=== PATIENT | female | born 1970 | race Caucasian/White ===

== ENCOUNTER 2022-10-17 11:15 | Outpatient (OUT) | payer OTHER, SELFPAY ==
[2022-10-17 12:17] LABS: Alanine Aminotransferase 39 U/L (14-59); Albumin Level 3.8 g/dL (3.4-5.0); Alkaline Phosphatase 92 U/L (46-116); Anion Gap 11.6; Aspartate Amino Transferase 23 U/L (15-37); BUN Creatinine Ratio 13.3; Bilirubin Total 0.5 mg/dL (0.2-1.0); Calcium 9.1 mg/dL (8.5-10.1); Carbon Dioxide 29.1 mmol/L (21.0-32.0); Chloride 102 mmol/L (98-107); Creatine Kinase 161 U/L (26-192); Estimated GFR (African America >60 (>=60); Estimated GFR (Non-African Ame >60 (>=60); Glucose 85 mg/dL (74-106); Potassium 3.7 mmol/L (3.5-5.1); Sodium 139 mmol/L (136-145); Total Protein 7.5 g/dL (6.4-8.2)
[2022-10-17 12:18] LABS: Globulin 3.7 g/dL
== END 2022-10-17 11:16 ==
LOC: LAB 11:21
PROVIDERS: PCP Nurse Practitioner; Visit Provider Nurse Practitioner
DX: M62.82 Rhabdomyolysis (principal)
CPT/HCPCS: 36415; 80053; 82550

== ENCOUNTER 2023-01-20 12:05 | Observation (INO) | payer OTHER, SELFPAY ==
[2023-01-20] VITALS (24 sets, daily range): BP systolic 106–155; BP diastolic 77–104; PULSE 85–121; RESP 12–27; TEMP 36.3–36.9; O2SAT 86–100; BMI 32.0; BMI 32.2
--- NOTE | 2023-01-20 12:12 | XR_ITS ---
The [address] [address] Patient Name: CARIDAD REYES MRN: [id number] date: 1970 Sex: F Assigned Patient Location: ED.MAIN Current Patient Location: ER Accession/Order Number: [id number] Exam Date: 01/20/2023 13:20 Report Date: 01/20/2023 13:36 At the request of: GABO MOORE Procedure: XR chest 1V EXAM: XR chest 1V at 1317 hours HISTORY: sob . The patient has had multiple bee stings today. The patient has hives. COMPARISON: 09/17/2021 TECHNIQUE: AP upright portable chest x-ray FINDINGS: The heart is not enlarged and the vasculature is not distended. Slightly increasing interstitial markings are seen at the lung bases, suggesting early infiltrates. No acute infiltrate, effusion or pneumothorax is otherwise identified. The osseous structures are grossly intact. XR/XR chest 1V IMPRESSION: There is slightly increasing interstitial markings at the lung bases. This may indicate very early infiltrates or may be related to technique. The lungs are otherwise clear, without an effusion or pneumothorax. The heart is not enlarged and the vasculature is not distended. A short-term follow-up study after appropriate therapy is recommended. Electronically authenticated by: UMBERTO PALMER Date: 01/20/2023 13:36
--- NOTE | 2023-01-20 12:12 | ECG_ITS ---
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
--- NOTE | 2023-01-20 12:17 | ED.ALLEREA1 ---
HPI - Allergic Reaction General Chief complaint: Allergic Reaction Stated complaint: ALLERGIC REACTION Time Seen by Provider: 01/20/23 12:07 Source: patient and family Mode of arrival: Wheelchair History of Present Illness HPI narrative: patient is a 52-year-old female presents to the Emergency Room with concerns of multiple bee stings and possible ALLERGIC reaction. Patient states she was working in the yard when she stepped on a nest in the ground, tried to stick a branch into the hole,, she reports multiple stings to her feet and ankles, also started on her back. Patient notes she has not been feeling well since. Some shortness of breath that is progressing. She denies any tongue swelling. notes a lump in her throat. Patient appears acutely anxious about the possibility of ALLERGIC reaction. She reports been stung in the past without any anaphylactic reaction. She denies any chest pain. She is without abdominal pain. MD complaint: Reports allergic reaction Symptoms: Reports rash Treatment prior to arrival: Reports none Previous Allergic Reaction History: Reports none Related Data Home Medications Medication Instructions Recorded Confirmed cyclobenzaprine 10 mg tablet 10 mg PO Q12H PRN muscle spasm 01/20/23 01/20/23 gabapentin 300 mg capsule 300 mg PO Q8H 01/20/23 01/20/23 lisinopril 5 mg tablet 5 mg PO DAILY 01/20/23 01/20/23 paroxetine HCl 30 mg tablet 30 mg PO DAILY 01/20/23 01/20/23 trazodone 50 mg tablet 50 mg PO BEDTIME 01/20/23 01/20/23 Allergies Allergy/AdvReac Type Severity Reaction Status Date / Time cephalexin Allergy Intermediate Verified 01/20/23 12:27 Review of Systems ROS Constitutional Denies: fever or chills Eyes Denies: change in vision Ears, nose, mouth, and throat Reports: hoarseness Cardiovascular Denies: chest pain or palpitations Respiratory Reports: shortness of breath and wheezing; Denies: cough Gastrointestinal Denies: abdominal pain, nausea or vomiting Genitourinary Denies: painful urination Musculoskeletal Reports: extremity pain and extremity swelling; Denies: back pain or neck pain Integumentary/Breast Reports: itching Allergic/Immunologic Reports: hives and wheezing Exam Narrative Exam Narrative: Nurses notes and vital signs reviewed and patient is hypoxic on room air. General: The patient appears uncomfortable noting multiple bee stings. Skin: Warm, dry, no pallor noted, erythematous skin noted. multiple bee stings, examined without evidence of retained stingers. Head: Normocephalic, atraumatic, Neck: Supple, trachea mid-line, no tenderness, no lymphadenopathy Eye: Pupils are equal, round and reactive to light, EOMI Ears, Nose, Mouth, and Throat: TM are clear, normal light reflex, oral mucosa is moist, no posterior oropharynx erythema or hypertrophy, uvula is mid-line Cardiovascular: Regular Rate and Rhythm Respiratory: Patient is in no distress, no accessory muscle use, lungs are clear to auscultation, no wheezing, rales or rhonchi. Chest Wall: no tenderness Back: non-tender, no CVA tenderness Musculoskeletal: normal ROM, no tenderness, no swelling of joints or extremities, localized full bee stings noted around the ankle and lower leg GI: Normal bowel sounds, no tenderness to palpation, no masses appreciated. No rebound, guarding, or rigidity noted. Neurological: A&O x4 Psychiatric: Cooperative MDM - Allergic Reaction MDM Narrative Medical decision making narrative: ice pack applied on arrival, patient with multiple bee stings, blood pressure is stable but pulse oximetry is in the low 90s to upper 80s. Patient patient on supplemental oxygen. Patient will be given a breathing treatment, IV Solu-Medrol 125 mg IV, Benadryl 50 mg IV, epinephrine 0.3 mg IM. patient noted great relief from 1st round of epi, she was given a 2nd dose after symptoms startedd to return. She has been observed for over an hour and a half and notes the lump in her throat is getting smaller and overall she is feeling better but is notably itchy. She is given 25 mg of Vistaril. We discussed her anaphylactic symptoms to multiple bee stings recommended. Of observation to make sure her symptoms do not rebound or worsen. Patient on oxygen with stable pulse oximetry. Recommend admission for observation in case was discussed with Dr. Vasquez who is agreeable for further observation. Differential Diagnosis Differential diagnosis: Likely anaphylaxis and allergic reaction Imaging Data Chest x-ray: Radiologist's impression: Procedure: XR chest 1V EXAM: XR chest 1V at 1317 hours HISTORY: sob . The patient has had multiple bee stings today. The patient has hives. COMPARISON: 09/17/2021 TECHNIQUE: AP upright portable chest x-ray FINDINGS: The heart is not enlarged and the vasculature is not distended. Slightly increasing interstitial markings are seen at the lung bases, suggesting early infiltrates. No acute infiltrate, effusion or pneumothorax is otherwise identified. The osseous structures are grossly intact. XR/XR chest 1V IMPRESSION: There is slightly increasing interstitial markings at the lung bases. This may indicate very early infiltrates or may be related to technique. The lungs are otherwise clear, without an effusion or pneumothorax. The heart is not enlarged and the vasculature is not distended. A short-term follow-up study after appropriate therapy is recommended. Electronically authenticated by: UMBERTO PALMER Date: 01/20/2023 13:36 ECG Data Attestation: I personally reviewed and interpreted this ECG as follows: Interpretation: EKG interpretation: Emergency Department physician interpretation, sinus tachycardia, 100 bpm, no ectopy, no ST segment elevation, normal axis. Discharge Plan Discharge Chief Complaint: Allergic Reaction Clinical Impression: Anaphylaxis Patient Disposition: Admitted as Observation Time of Disposition Decision: 13:45 Condition: Good Prescriptions / Home Meds: No Action cyclobenzaprine 10 mg tablet 10 mg PO Q12H PRN (Reason: muscle spasm) gabapentin 300 mg capsule 300 mg PO Q8H lisinopril 5 mg tablet 5 mg PO DAILY paroxetine HCl 30 mg tablet 30 mg PO DAILY trazodone 50 mg tablet 50 mg PO BEDTIME Referrals: Carrie Todd [Primary Care Provider] - 1 week
[2023-01-20] MEDS: FAMOTIDINE/PF 20 MG/2 ML VIAL IV ×2 (12:23→20:05)
[2023-01-20] MEDS: 0.9 % SODIUM CHLORIDE 1,000 ML 250 ML IV (12:23)
[2023-01-20] MEDS: DIPHENHYDRAMINE HCL 50 MG/ML (1ML) VIAL 25 MG IV (12:23)
[2023-01-20] MEDS: METHYLPREDNISOLONE SOD SUCC PF 125 MG/2 ML VIAL IVP (12:23)
[2023-01-20] MEDS: EPINEPHRINE HCL PF 1 MG/ML AMPULE 0.3 MG IM ×2 (12:24→12:47)
[2023-01-20 12:32] LABS: Basophils Percent Auto 0.3 % (0.2-2.0); Eosinophils Percent Auto 0.4 % (0.9-7.0); Hematocrit 45.6 % (36.0-48.0); Hemoglobin 15.6 g/dL (12.0-16.0); Immature Granulocytes Abs Auto 0.05 10^3/uL (0.00-0.03); Immature Granulocytes Pct Auto 0.5 % (0.0-0.5); Lymphocytes Absolute Auto 5.5 10^3/uL (1.2-3.8); Lymphocytes Percent Auto 55.3 % (20.5-60.0); Mean Corpuscular HGB Conc 34.2 g/dL (29.9-35.2); Mean Corpuscular Hemoglobin 31.9 pg (26.7-34.0); Mean Corpuscular Volume 93.3 fL (81.0-99.0); Mean Platelet Volume 11.4 fL (9.5-13.5); Monocytes Absolute Auto 0.4 10^3/uL (0.3-0.8); Monocytes Percent Auto 3.7 % (1.7-12.0); Neutrophils Absolute Auto 3.9 10^3/uL (1.4-6.5); Neutrophils Percent Auto 39.8 % (43.0-75.0); Platelet Count 264 10^3/uL (150-450); Red Blood Count 4.89 10^6/uL (4.20-5.40); Red Cell Distribution Width 12.6 % (11.0-15.0); White Blood Count 9.9 10^3/uL (4.0-11.0)
[2023-01-20 12:43] LABS: Anion Gap 19.6; BUN Creatinine Ratio 10.3; Calcium 9.1 mg/dL (8.5-10.1); Carbon Dioxide 21.8 mmol/L (21.0-32.0); Chloride 101 mmol/L (98-107); Estimated GFR (African America >60 (>=60); Estimated GFR (Non-African Ame >60 (>=60); Glucose 152 mg/dL (74-106); Potassium 3.4 mmol/L (3.5-5.1); Sodium 139 mmol/L (136-145)
[2023-01-20] MEDS: IPRATROPIUM/ALBUTEROL SULFATE 3 ML AMPUL.NEB IH (13:00)
[2023-01-20] MEDS: 0.9 % SODIUM CHLORIDE 1,000 ML 999 ML IV (13:12)
[2023-01-20] MEDS: HYDROXYZINE PAMOATE 25 MG CAPSULE PO (13:51)
[2023-01-20] MEDS: METHYLPREDNISOLONE SOD SUCC PF 125 MG/2 ML VIAL 60 MG IVP (17:58)
[2023-01-20] MEDS: DIPHENHYDRAMINE HCL 25 MG CAPSULE 50 MG PO (17:59)
[2023-01-21] MEDS: DIPHENHYDRAMINE HCL 25 MG CAPSULE 50 MG PO (00:11)
[2023-01-21] MEDS: METHYLPREDNISOLONE SOD SUCC PF 125 MG/2 ML VIAL 60 MG IVP ×3 (00:12→11:01)
[2023-01-21] MEDS: ACETAMINOPHEN 500 MG TABLET 1000 MG PO (00:13)
[2023-01-21 04:24] LABS: Basophils Percent Auto 0.1 % (0.2-2.0); Hemoglobin 13.8 g/dL (12.0-16.0); Immature Granulocytes Abs Auto 0.08 10^3/uL (0.00-0.03); Immature Granulocytes Pct Auto 0.5 % (0.0-0.5); Lymphocytes Percent Auto 6.8 % (20.5-60.0); Mean Corpuscular HGB Conc 32.9 g/dL (29.9-35.2); Mean Corpuscular Hemoglobin 31.9 pg (26.7-34.0); Mean Corpuscular Volume 97.2 fL (81.0-99.0); Mean Platelet Volume 11.4 fL (9.5-13.5); Monocytes Absolute Auto 0.2 10^3/uL (0.3-0.8); Neutrophils Absolute Auto 13.8 10^3/uL (1.4-6.5); Neutrophils Percent Auto 91.6 % (43.0-75.0); Platelet Count 166 10^3/uL (150-450); Red Blood Count 4.32 10^6/uL (4.20-5.40); Red Cell Distribution Width 12.6 % (11.0-15.0); White Blood Count 15.1 10^3/uL (4.0-11.0)
[2023-01-21 04:37] LABS: Alanine Aminotransferase 35 U/L (14-59); Albumin Level 3.1 g/dL (3.4-5.0); Alkaline Phosphatase 87 U/L (46-116); Anion Gap 13.1; Aspartate Amino Transferase 27 U/L (15-37); BUN Creatinine Ratio 19.1; Bilirubin Total 0.3 mg/dL (0.2-1.0); Calcium 8.6 mg/dL (8.5-10.1); Carbon Dioxide 23.5 mmol/L (21.0-32.0); Chloride 106 mmol/L (98-107); Estimated GFR (African America >60 (>=60); Estimated GFR (Non-African Ame >60 (>=60); Globulin 3.2 g/dL; Glucose 206 mg/dL (74-106); Potassium 3.6 mmol/L (3.5-5.1); Sodium 139 mmol/L (136-145); Total Protein 6.3 g/dL (6.4-8.2)
[2023-01-21 04:38] VITALS: O2SAT 92
[2023-01-21 05:28] VITALS: BP 132/67; PULSE 82; RESP 16; TEMP 36.7; O2SAT 94
[2023-01-21] MEDS: FAMOTIDINE/PF 20 MG/2 ML VIAL IV (08:17)
--- NOTE | 2023-01-21 10:17 | PM.HP ---
H&P: HPI History of Present Illness Chief complaint: Allergic reaction Narrative: 52 y/o female to ER after allergic reaction from stings. Patient working in yard and found a hornet's nest in the ground. Noticed a hole in nest and put a stick in hole to block it. Multiple hornets swarmed and patient had multiple stings. Stings over bilateral lower legs, ankles, feet, abdomen, and back. After got away started to feel very lightheaded. Developed swelling to face and eyes. Started to feel swelling around tongue and throat and felt like had a lump in throat. Mild SOB and to ER. Given epi x 2 along with solu-medrol, benadryl, and pepcid. Symptoms improved but still felt like lump in throat and admitted. Started solu-medrol and pepcid. Gave benadryl PRN. Much improved this am and no further symptoms. Eating and drinking well. Review of Systems ROS Constitutional Denies: fever, chills or night sweats Ears, nose, mouth, and throat Reports: throat swelling; Denies: throat pain or difficulty swallowing Cardiovascular Denies: chest pain, edema or lightheadedness Respiratory Reports: shortness of breath; Denies: cough, wheezing or stridor Gastrointestinal Denies: abdominal pain, nausea, vomiting or diarrhea Genitourinary Denies: painful urination [facility] Medical History (Updated 01/21/23 @ 10:22 by Son Vasquez MD) Family History (Updated 01/20/23 @ 14:31 by Amanda Kenyon) Mother Family history of diabetes mellitus Family history of hypertension Meds Home Medications and Allergies Home Medications Medication Instructions Recorded Confirmed Type cyclobenzaprine 10 mg tablet 10 mg PO Q12H PRN muscle spasm 01/20/23 01/20/23 History gabapentin 300 mg capsule 300 mg PO Q8H 01/20/23 01/20/23 History lisinopril 5 mg tablet 5 mg PO DAILY 01/20/23 01/20/23 History paroxetine HCl 30 mg tablet 30 mg PO DAILY 01/20/23 01/20/23 History trazodone 50 mg tablet 50 mg PO BEDTIME 01/20/23 01/20/23 History Allergies Allergy/AdvReac Type Severity Reaction Status Date / Time hornet venom Allergy Severe Anaphylaxis Verified 01/20/23 14:44 cephalexin Allergy Intermediate Verified 01/20/23 14:32 Exam Constitutional Vital Signs, click to edit/add: Last Vital Signs Temp 98.1 F 01/21/23 05:28 Pulse 82 01/21/23 05:28 Resp 16 01/21/23 05:28 BP 132/67 01/21/23 05:28 Pulse Ox 94 L 01/21/23 05:28 O2 Del Method Room Air 01/21/23 05:28 O2 Flow Rate 2 01/20/23 13:56 Documenting provider has reviewed patient's vital signs: yes Common normals: oriented x3 and alert HENMT Common normals: normocephalic Eye Common normals: PERRL and EOMs intact bilaterally Respiratory Common normals: normal respiratory effort and clear to auscultation bilaterally Cardio Common normals: regular rate, regular rhythm, no gallops, no murmurs and no rub GI Common normals: Normal to inspection, nondistended, normoactive bowel sounds present and non-tender Extremity Common normals: no pedal edema Results Labs Labs: Short CBC 01/20/23 01/21/23 Range/Units 12:20 04:02 WBC 9.9 15.1 H (4.0-11.0) 10^3/uL Hgb 15.6 13.8 (12.0-16.0) g/dL Hct 45.6 42.0 (36.0-48.0) % Plt Count 264 166 (150-450) 10^3/uL BMP 01/20/23 01/21/23 12:20 04:02 Sodium 139 139 Potassium 3.4 L 3.6 Chloride 101 106 Carbon Dioxide 21.8 23.5 BUN 8.0 13.0 Creatinine 0.78 0.68 Glucose 152 H 206 H Calcium 9.1 8.6 Liver Function 01/21/23 Range/Units 04:02 Total Bilirubin 0.3 (0.2-1.0) mg/dL AST 27 (15-37) U/L ALT 35 (14-59) U/L Alkaline Phosphatase 87 (46-116) U/L Albumin 3.1 L (3.4-5.0) g/dL Assessment and Plan Assessment and Plan (1) Hornet sting: (2) HTN (hypertension): (3) Alcohol abuse, in remission: (4) Neuropathy: Plan Developed reaction after multiple stings but improved with treatment. Discharge home. Will continue steroids and use benadryl PRN. F/u with PCP in 2-4 weeks.
--- NOTE | 2023-01-21 10:22 | CM.NOTE ---
Rounds made with Dr. Vasquez. Plan for discharge is today. Dr. Vasquez will discharge home on Medrol dose pack and can use Benadryl as needed. Verbalizes understanding.
--- NOTE | 2023-01-22 14:23 | CM.DCFOLLOWU ---
Attempted to do follow up phone call. No answer at this time. Will follow.
--- NOTE | 2023-01-23 15:15 | CM.DCFOLLOWU ---
2nd attempt for call back- no answer 01/23/23
--- NOTE | 2023-01-24 15:12 | CM.DCFOLLOWU ---
3rd attempt no answer 01/24/23
== END 2023-01-21 11:34 | disposition home or self-care (01) ==
LOC: ER 13:45 → MS 14:23
PROVIDERS: Personal Emergency Response Attendant; Admitting Provider Family Medicine; Emergency Provider Emergency Medicine Emergency Medical Services; PCP Nurse Practitioner; Visit Provider Family Medicine
DX: T63.441A Toxic effect of venom of bees, accidental (unintentional), initial encounter (principal); I10 Essential (primary) hypertension; G62.9 Polyneuropathy, unspecified; F10.11 Alcohol abuse, in remission; Z79.899 Other long term (current) drug therapy
CPT/HCPCS: 36415; 71045; 80048; 80053; 85025; 93005; 94640; 94761; 96372; 96374; 96375; 96376; 99285; 99406; G0378; J2930

== ENCOUNTER 2023-07-23 11:25 | Outpatient (OUT) | payer OTHER, SELFPAY ==
--- NOTE | 2023-07-23 11:28 | MM_ITS ---
Patient Name: CARIDAD REYES MR#: [id number] : 1970 Exam Date: 07/23/2023 Ordering Doctor: ROSARIO Todd CNP RADIOLOGY REPORT PROCEDURE: MM TOMOSYNTHESIS SCREENING BI COMPARISON: MG MAMM SCREEN 3D KOBY CAD, 04/24/2022. INDICATIONS: Screening Calculator Name NCI Breast Cancer Risk Assessment Tool 5 Year Breast Cancer Risk 1.20% Lifetime Breast Cancer Risk 8.50% Personal Breast Cancer No Personal Ovarian Cancer No Treatments None Family Cancers Grandmother-paternal with breast cancer at age ~70. LOCATION: [facility] BREAST COMPOSITION: Scattered areas fibroglandular density. FINDINGS: DIAGNOSTIC CATEGORY 2--BENIGN FINDING. NO CHANGE FROM COMPARISON. Scattered benign-appearing calcifications are present. Scattered benign-appearing lymph nodes are present. RIGHT BREAST: No significant suspicious finding. LEFT BREAST: No significant suspicious finding. RECOMMENDATIONS: ROUTINE MAMMOGRAM AND CLINICAL EVALUATION IN 12 MONTHS. PLEASE NOTE: A NORMAL MAMMOGRAM DOES NOT EXCLUDE THE POSSIBILITY OF BREAST CANCER. A CLINICALLY SUSPICIOUS PALPABLE LUMP SHOULD BE BIOPSIED. Dictated by: Adalberto Pennington MD on 07/23/2023 at 13:08 Approved by: Adalberto Pennington MD on 07/23/2023 at 13:12
== END 2023-07-23 11:26 | disposition home or self-care (01) ==
LOC: MAMMO 11:25
PROVIDERS: PCP Nurse Practitioner; Visit Provider Nurse Practitioner
DX: Z12.31 Encounter for screening mammogram for malignant neoplasm of breast (principal); Z80.3 Family history of malignant neoplasm of breast
CPT/HCPCS: 77063; 77067

== ENCOUNTER 2023-08-27 20:43 | Outpatient (REF) | payer OTHER, SELFPAY ==
--- OUTSIDE RECORDS SUMMARY | 2023-08-27 20:50 | XMS_ITS | CCD ---
Author Organization [facility] Care Team Providers Care Certified Medical Assistant Name Role Phone Angelo Tee Primary Care Unavailable CARIDAD JERONIMO Admitting Unavailable CARIDAD JERONIMO Attending Unavailable KHADIJAH RODRIGUEZ Consulting Unavailable SpychalskiAlba Consulting Unavailable BV, Physician - Emergency Consulting Francis Lucero Consulting Unavailable MENDOZA WILEY Referring Unavailable SAURABHMENDOZA Referring Unavailable Lashonda Horton Unavailable AICHHOLZ, CARRIE J Primary Care Physician [phone] Ede BHAKTA Attending Unavailable AICHNICKIE, CARRIE Dennis Referring Unavailable Angelo BERNARD Attending Unavailable Ede BHAKTA Attending Unavailable Ede BHAKTA Attending Unavailable AICHHOLZ, CARRIE Dennis Referring Unavailable NILL ., DR MERA Consulting Unavailable AICHHOLZ, TREASURER CARRIE Primary Care Unavailable NILL ., DR MERA Admitting Unavailable NILL ., DR MERA Attending Unavailable ROCHELLE WOODRUFF Consulting Unavailable EDUARDO IIXAVI Consulting Unavailable AICHHOLZ, TREASURER CARRIE Attending Unavailable AICHHOLZ, TREASURER CARRIE Admitting Unavailable AICHHOLZ, TREASURER CARRIE Consulting Unavailable AICHHOLZ, TREASURER CARRIE Primary Care Unavailable AICHHOLZ, TREASURER CARRIE Attending Unavailable AICHHOLZ, TREASURER CARRIE Consulting Unavailable AICHHOLZ, TREASURER CARRIE Primary Care Unavailable AICHHOLZ, TREASURER CARRIE Admitting Unavailable DR JUANIS RIZO Consulting Unavailable JODIE FIELDS Admitting Unavailable AICHHOLZ, TREASURER CARRIE Primary Care Unavailable JODIE FIELDS Attending Unavailable JODIE FIELDS Consulting Unavailable NILL ., DR MERA Consulting Unavailable NILL ., DR MERA Admitting Unavailable AICHHOLZ, TREASURER CARRIE Primary Care Unavailable NILEva ., DR MERA Attending Unavailable RHONDA, DR JUANIS Pineda Consulting Unavailable [facility], T[facility]ER [facility] Primary Care Unavailable SHAIKH Reshma MONSALVE Admitting Unavailable SHAIKH Reshma MONSALVE Attending Unavailable MANUELA Tijerina, DR GUSTAFSON Consulting Unavailable SHAIKH Reshma MONSALVE Consulting Unavailable SISTER, PEDRO Consulting Unavailable Renee Ballesteros Unavailable CARRIE TODD Attending Unavailable CARRIE TODD Attending Unavailable Allergies Allergy Classification Reported Allergen(s) Allergy Type Date of Onset Reaction(s) Facility (2 sources) Cephalexin; Translations: [Keflex] Drug Allergy 3 [facility] Repository (5 sources) Cephalexin; Translations: [cephalexin] Drug Allergy 3 rash, Eruption of skin (disorder) [facility] [place] Medications Current Medications Medication Drug Class(es) Dates Sig (Normalized) Sig (Original) amoxicillin 875 mg / clavulanate 125 mg oral tablet (1 source) Penicillin-class Antibacterial Start: 01-29-2023 take 1 tablet by mouth every twelve hours Amoxicillin-Pot Clavulanate 875-125 MG 1 tablet Orally every 12 hrs for 10 days Jan, Active cyclobenzaprine hydrochloride 10 mg oral tablet (3 sources) Muscle Relaxant Start: 05-03-2022 take 1 tablet by mouth twice daily as needed for muscle spasms cyclobenzaprine 10 mg Tab 10 mg = 1 tab(s), Oral, BID, PRN for spasm, # 30 tab(s), Refills(s) 0 Start Date: 05/03/22 Status: Ordered fluticasone propionate 0.05 mg/actuat metered dose nasal spray (1 source) Corticosteroid Start: 01-29-2023 take 2 spray(s) nasal route once daily Fluticasone Propionate 50 MCG/ACT 2 sprays Nasally Once a day for 14 day(s) Jan, Active gabapentin 300 mg oral capsule (3 sources) Anti-epileptic Agent Start: 05-03-2022 take 1 capsule by mouth three times daily gabapentin 300 mg Cap 300 mg = 1 cap(s), Oral, TID, Refills(s) 0 Start Date: 05/03/22 Status: Ordered lisinopril 5 mg oral tablet (3 sources) Angiotensin Converting Enzyme Inhibitor Start: 05-03-2022 take 1 tablet by mouth once daily lisinopril 5 mg Tab 5 mg = 1 tab(s), Oral, Daily, Refills(s) 0 Start Date: 05/03/22 Status: Ordered loratadine 10 mg oral tablet (3 sources) Start: 05-03-2022 take 1 tablet by mouth once daily loratadine 10 mg Tab 10 mg = 1 tab(s), Oral, Daily, Refills(s) 0 Start Date: 05/03/22 Status: Ordered naltrexone hydrochloride 50 mg oral tablet (3 sources) Opioid Antagonist Start: 05-03-2022 take 1 tablet by mouth once daily naltrexone 50 mg oral tablet 50 mg = 1 tab(s), Oral, Daily, Refills(s) 0 Start Date: 05/03/22 Status: Ordered PARoxetine hydrochloride 30 mg oral tablet (3 sources) Serotonin Reuptake Inhibitor Start: 05-03-2022 take 1 tablet by mouth once daily Paxil 30 mg Tab 30 mg = 1 tab(s), Oral, Daily, Refills(s) 0 Start Date: 05/03/22 Status: Ordered predniSONE 20 mg oral tablet (2 sources) Start: 01-29-2023 take 1 tablet by mouth every twelve hours predniSONE 20 MG 1 tablet Orally bid for 5 day(s) Jan, Active predniSONE 50 MG Oral for 5 Days Not-Taking traZODone hydrochloride 50 mg oral tablet (3 sources) Serotonin Reuptake Inhibitor Start: 05-03-2022 take 1 tablet by mouth once daily at bedtime traZODONE 50 mg Tab 50 mg = 1 tab(s), Oral, Once a day (at bedtime), Refills(s) 0 Start Date: 05/03/22 Status: Ordered Completed/Discontinued Medications Medication Drug Class(es) Dates Sig (Normalized) Sig (Original) clotrimazole 10 mg oral lozenge (2 sources) Azole Antifungal Start: 04-30-2021 Clotrimazole 10 MG 1 ana luisa Mouth/Throat Five times a day for 14 day(s) Apr, Not-Taking ondansetron 4 mg oral tablet (2 sources) Serotonin-3 Receptor Antagonist Start: 04-30-2021 take 1 tablet by mouth every twenty-four hours Ondansetron HCl 4 MG 1 tablet Orally Once a day for 7 days 13 Apr, 2021 Not-Taking Pseudoephedrine (2 sources) alpha-Adrenergic Agonist Sudafed Not-Taking Sudafed Active Problems Active Problems Problem Classification Problem Date Documented Date Episodic/Chronic Alcohol-related disorders (2 sources) Alcohol abuse 05-03-2022 Chronic Anxiety disorders (2 sources) Anxiety 05-03-2022 Chronic Asthma (1 source) Unspecified asthma, uncomplicated; Translations: [UNSPECIFIED ASTHMA UNCOMPLICATED] Onset: 3 Chronic Blindness and vision defects (2 sources) Visual impairment 05-03-2022 Chronic Disorders of lipid metabolism (1 source) Pure hypercholesterolemia, unspecified; Translations: [PURE HYPERCHOLESTEROLEMIA UNSPEC] Onset: 3 Chronic Essential hypertension (3 sources) Hypertensive disorder; Translations: [Essential (primary) hypertension] Onset: 3 05-03-2022 Chronic Mood disorders (1 source) Major depressive disorder, single episode, unspecified; Translations: [EVELINE DEPRESS D/O SINGLE EPIS UNS] Onset: 2 Chronic Mood disorders (1 source) Mood disorders; Translations: [DEPRESSION UNSPECIFIED] Onset: 3 Other aftercare (1 source) Other usp (current) drug therapy; Translations: [OTH CHARGER OPERATOR CURRENT DRUG THERAPY] Onset: 3 Episodic Other connective tissue disease (4 sources) Rhabdomyolysis; Translations: [RHABDOMYOLYSIS] Onset: 3 Episodic Other connective tissue disease (1 source) Other muscle spasm; Translations: [OTHER MUSCLE SPASM] Onset: 3 Episodic Other nervous system disorders (2 sources) Neuropathy 05-03-2022 Chronic Other nervous system disorders (1 source) Polyneuropathy, unspecified; Translations: [POLYNEUROPATHY UNSPECIFIED] Onset: 3 Chronic Other nervous system disorders (1 source) Other chronic pain; Translations: [OTHER CHRONIC PAIN] Onset: 3 Chronic Other nutritional; endocrine; and metabolic disorders (2 sources) Overweight in adulthood with body mass index of 25 or more but less than 30 05-15-2022 Episodic Other upper respiratory disease (2 sources) Seasonal allergy 05-03-2022 Chronic Other upper respiratory infections (2 sources) Acute sinusitis, unspecified; Translations: [Acute pharyngitis, unspecified] Episodic Residual codes; unclassified (2 sources) Insomnia 05-03-2022 Episodic Residual codes; unclassified (2 sources) Tobacco user 05-03-2022 Episodic Substance-related disorders (1 source) Nicotine dependence, cigarettes, uncomplicated; Translations: [NICOTINE DEPEND CIGARETTES UNCOMP] Onset: 3 Chronic Unclassified (2 sources) Patient encounter status 05-15-2022 Unclassified (1 source) LOW BACK PAIN, UNSPECIFIED; Translations: [LOW BACK PAIN, UNSPECIFIED] Onset: 3 Unclassified (1 source) CONTACT W/AND (SUSP) EXPOS COVID-19; Translations: [CONTACT W/AND (SUSP) EXPOS COVID-19] Onset: 3 Past or Other Problems Problem Classification Problem Date Documented Da te Episodic/Chronic Allergic reactions (1 source) Unspecified contact dermatitis, unspecified cause; Translations: [UNS CONTACT DERMATITIS UNS CAUSE] Onset: 02-12-2022 Episodic Genitourinary symptoms and ill-defined conditions (4 sources) Asymptomatic microscopic hematuria; Translations: [ASYMPTOMATIC MICROSCOPIC HEMATURIA] Onset: 05-06-2022 Episodic Immunizations and screening for infectious disease (1 source) Contact with and (suspected) exposure to other viral communicable diseases Onset: 04-30-2021 Resolved: 04-30-2021 Episodic Mycoses (1 source) Candidal stomatitis Onset: 04-30-2021 Resolved: 04-30-2021 Episodic Other screening for suspected conditions (not mental disorders or infectious disease) (6 sources) Screening for malignant neoplasm of colon done; Translations: [Encounter for screening for malignant neoplasm of colon] Onset: 04-27-2022 Episodic Other skin disorders (3 sources) Rash and other nonspecific skin eruption; Translations: [RASH OTH NONSPECIFIC SKIN ERUPTION] Onset: 02-10-2022 Episodic Residual codes; unclassified (1 source) Family history of malignant neoplasm of breast; Translations: [FAMILY HX MALIG NEOPLASM OF BREAST] Onset: 04-27-2022 Episodic Unclassified (1 source) Contact with and (suspected) exposure to covid-19 Z20.822 Results Test Name Value Interpretation Reference Range Facility COVID Quick Testingon 2022 Result Negative [employer] Other Quick Strepon 01-29-2023 S. pyogenes Org specific cx Ql (Throat) Negative [employer] [facility] [employer] Other Quick Strep [employer] [facility] [employer] Other CPKon 10-10-2022 CK [Catalytic activity/Vol] 860 U/L Critically high 26-192 [facility] Comment on above: Performed By: #### Navid Flowers, CMP ####[facility] [address] [place], [place] [address]Dr. Caterina So PROF 14(COMP METB)on 023 Albumin [Mass/Vol] 2.9 g/dL Critically low 3.4-5.0 Th [facility] Comment on above: Performed By: #### Navid Flowers, CMP ####[facility] [address] [place], [place] [address]Dr. Caterina So Albumin/Globulin [Mass ratio] 0.9 {ratio} Normal [facility] Comment on above: Performed By: #### Navid K, CMP ####[facility] [address] [place], [place] [address]Dr. Caterina So ALP [Catalytic activity/Vol] 82 U/L Normal 46-116 [facility] Comment on above: Performed By: #### Navid K, CMP ####[facility] [address] [place], [place] [address]Dr. Caterina So ALT [Catalytic activity/Vol] 42 U/L Normal 14-59 [facility] Comment on above: Performed By: #### Navid K, CMP ####[facility] [address] [place], [place] [address]Dr. Caterina So Anion gap [Moles/Vol] 10.7 mmol/L Normal [facility] Comment on above: Performed By: #### C K, CMP ####[facility] [address] [place], [place] [address]Dr. Caterina So AST [Catalytic activity/Vol] 47 U/L Critically high 15-37 [facility] Comment on above: Performed By: #### Nvaid K, CMP ####[facility] [address] [place], [place] [address]Dr. Caterina So Bilirubin [Mass/Vol] 0.4 mg/dL Normal 0.2-1.[address] [facility] Comment on above: Performed By: #### C K, CMP ####[facility] [address] [place], [place] [address]Dr. Caterina So Calcium [Mass/Vol] 8.5 mg/dL Normal 8.5-10.1 [facility] Comment on above: Performed By: #### C K, CMP ####[facility] W[address] [place], [place] [address]Dr. Caterina So Chloride [Moles/Vol] 109 mmol/L Critically high 98-[address] [facility] Comment on above: Performed By: #### C K, CMP ####[facility] [address] [place], [place] [address]Dr. Caterina So CO2 [Moles/Vol] 28.6 mmol/L Normal 21.0-32.0 [facility] Comment on above: Performed By: #### C K, CMP ####[facility] [address] [place], [place] [address]Dr. Caterina So Creatinine [Mass/Vol] 0.51 mg/dL Critically low 0.55-1.02 [facility] Comment on above: Performed By: #### C K, CMP ####[facility] [address] [place], [place] [address]Dr. Caterina So EGFR-AF BELGIAN >60 Normal >=60 [facility] Comment on above: Performed By: #### C K, CMP ####[facility] [address] [place], [place] [address]Dr. Caterina So EGFR-NON AF BELGIAN >60 Normal >=[address] [facility] Comment on above: Performed By: #### C K, CMP ####[facility] [address] [place], [place] [address]Dr. Caterina So Globulin (S) [Mass/Vol] 3.1 g/dL Normal [facility] Comment on above: Performed By: #### C K, CMP ####[facility] [address] [place] [id number]. Caterina So Glucose [Mass/Vol] 90 mg/dL Normal 74-106 [facility] Comment on above: Performed By: #### C K, CMP ####[facility] [address] [place] [address]Dr. Caterina So Potassium [Moles/Vol] 4.3 mmol/L Normal 3.5-5.1 [facility] Comment on above: Performed By: #### C K, CMP ####[facility] [address] [place] [address]Dr. Caterina So Protein [Mass/Vol] 6.0 g/dL Critically low 6.4-8.2 Th [facility] Comment on above: Performed By: #### Navid K, CMP ####[facility] [address] [place] [address]Dr. Caterina So Sodium [Moles/Vol] 144 mmol/L Normal 136-145 [facility] Comment on above: Performed By: #### C K, CMP ####[facility] [address] [place] [address]Dr. Caterina So Urea nitrogen [Mass/Vol] 8.0 mg/dL Normal 7.0-18.0 [facility] Comment on above: Performed By: #### C K, CMP ####[facility] [address] [place] [address]Dr. Caterina So Urea nitrogen/Creatinin e [Mass ratio] 15.7 mg/mg Normal [facility] Comment on above: Performed By: #### C K, CMP ####[facility] [address] [place] [id number]. Caterina So CARDIAC ANDRÉS ADMITon 023 CK [Catalytic activity/Vol] 3715 U/L Critically high 26-192 [facility] Comment on above: Performed By: #### C MARIO ALBERTO, CMP #### [facility] [address] [address] [address] Caterina So CK.MB [Mass/Vol] 9.82 ng/mL Critically high <=3.60 [facility] Comment on above: Performed By: #### C MADM, CMP #### [facility] [address] [address] [address] Caterina So HSTROP 12.3 pg/mL Normal 4.0-51.3 [facility] Comment on above: Result Comment: CUT- OFF POINTS HAVE BEEN ESTABLISHED BASED ON THE FOURTH UNIVERSAL DEFINITIONS OF MYOCARDIAL INFARCTION. THE UPPER REFERENCE LIMIT (URL) OF TROPONIN, DEFINED THE 99TH PERCENTILE OF cTnI DISTRIBUTION IN A REFERENCE POPULATION, HAS BEEN CONFIRMED THE DECISION THRESHOLD FOR AR DIAGNOSIS. Performed By: #### C MADM, CMP #### [facility] [address] [address] [address] Caterina So KRISTINA 158 ng/mL Critically high 9-82 [facility] Comment on above: Performed By: #### C MADM, CMP #### [facility] [address] [address] [address] Caterina So CBC AUTO DIFFon 10-09-2022 BASO # 0.1 103/ul Normal 0.0-0.1 [facility] Comment on above: Performed By: #### C BC #### [facility] [address] [address] [address] Caterina So Basophils/100 WBC (Bld) 0.8 % Normal 0.2-2.0 [facility] Comment on above: Performed By: #### C BC #### [facility] [address] [address] [address] Caterina So EO # 0.2 103/ul Normal 0.0-0.[address] [facility] Comment on above: Performed By: #### C BC #### [facility] [address] [address] [address] Caterina So Eosinophils/100 WBC (Bld) 1.8 % Normal 0.9-7.0 [facility] Comment on above: Performed By: #### C BC #### [facility] [address] [place] [address] Dr. Caterina So Erythrocyte distribution width (RBC) [Ratio] 13.0 % Normal 11.0-15.0 [facility] Comment on above: Performed By: #### C BC #### [facility] [address] [address] [address] Caterina So Hematocrit (Bld) [Volume fraction] 41.7 % Normal 36.0-48.0 [facility] Comment on above: Performed By: #### C BC #### [facility] [address] [address] [address] Caterina So Hemoglobin (Bld) [Mass/Vol] 13.5 g/dL Normal 12.0-16.0 [facility] Comment on above: Performed By: #### C BC #### [facility] [address] [place] [address] Dr. Caterina So IG # 0.04 10e3/ul Critically high 0.00-0.03 [facility] Comment on above: Performed By: #### C BC #### [facility] [address] [place] [address] Dr. Caterina So IG % 0.4 % Normal 0.0-0.5 [facility] Comment on above: Performed By: #### C BC #### [facility] [address] [place] [address] Dr. Caterina So LYMPH # 3.3 103/ul Normal 1.2-3.8 [facility] Comment on above: Performed By: #### C BC #### [facility] [address] [place] [address] Dr. Caterina So Lymphocytes/100 WBC (Bld) 36.8 % Normal 20.5-60.0 [facility] Comment on above: Performed By: #### C BC #### [facility] [address] [place] [address] Dr. Caterina oS MANUAL DIFF REQ NO Normal [facility] Comment on above: Performed By: #### C BC #### [facility] [address] [place] [address] Dr. Caterina So MCH (RBC) [Entitic mass] 31.3 pg Normal 26.7-34.0 [facility] Comment on above: Performed By: #### C BC #### [facility] [address] [address] [address] Caterina So MCHC (RBC) [Mass/Vol] 32.4 g/dL Normal 29.9-35.[address] [facility] Comment on above: Performed By: #### C BC #### [facility] [address] [place] [address] Dr. Caterina So MCV (RBC) [Entitic vol] 96.5 fL Normal 81.0-99.0 [facility] Comment on above: Performed By: #### C BC #### [facility] [address] [place] [address] Dr. Caterina So MONO # 0.6 103/ul Normal 0.3-0.8 [facility] Comment on above: Performed By: #### C BC #### [facility] [address] [place] [address] Dr. Caterina So Monocytes/100 WBC (Bld) 6.9 % Normal 1.7-12.0 [facility] Comment on above: Performed By: #### C BC #### [facility] [address] [place] [address] Dr. Caterina So NEUT # 4.8 103/ul Normal 1.4-6.5 [facility] Comment on above: Performed By: #### C BC #### [facility] [address] [place] [address] Dr. Caterina So Neutrophils/100 WBC (Bld) 53.3 % Normal 43.0-75.[address] [facility] Comment on above: Performed By: #### C BC #### [facility] [address] [place] [address] Dr. Caterina So Platelet mean volume (Bld) [Entitic vol] 11.0 fL Normal 9.5-13.[address] [facility] Comment on above: Performed By: #### C BC #### [facility] [address] [place] [address] Dr. Caterina So PLT 204 103/ul Normal 150-[address] [facility] Comment on above: Performed By: #### C BC #### [facility] [address] [address] [address] Caterina So RBC 4.32 106/ul Normal 4.20-5.40 [facility] Comment on above: Performed By: #### C BC #### [facility] [address] [address] [address] Caterina So WBC 8.9 103/ul Normal 4.0-11.0 [facility] Comment on above: Performed By: #### C BC #### [facility] [address] [address] [address] Caterina So CPKon 10-09-2022 CK [Catalytic activity/Vol] 3818 U/L Critically high 26-192 [facility] Comment on above: Performed By: #### C K ####[facility] [address] [place] [address]Dr. Caterina So PROF 14(COMP METB)on 023 Albumin [Mass/Vol] 4.2 g/dL Normal 3.4-5.0 [facility] Comment on above: Performed By: #### C MARIO ALBERTO, CMP #### [facility] [address] [address] [address] Caterina So Albumin/Globulin [Mass ratio] 1.1 {ratio} Normal [facility] Comment on above: Performed By: #### C MARIO ALBERTO, CMP #### [facility] [address] [address] [address] Caterina So ALP [Catalytic activity/Vol] 104 U/L Normal 46-[address] [facility] Comment on above: Performed By: #### C TIFFANIEM, CMP #### [facility] [address] [address] [address] Caterina So ALT [Catalytic activity/Vol] 64 U/L Critically high 14-59 [facility] Comment on above: Performed By: #### C TIFFANIEM, CMP #### [facility] [address] [address] [address] Caterina So Anion gap [Moles/Vol] 10.9 mmol/L Normal [facility] Comment on above: Performed By: #### C TIFFANIEM, CMP #### [facility] [address] [address] [address] Caterina So AST [Catalytic activity/Vol] 103 U/L Critically high 15-37 [facility] Comment on above: Performed By: #### C MADM, CMP #### [facility] [address] [address] [address] Caterina So Bilirubin [Mass/Vol] 0.6 mg/dL Normal 0.2-1.0 [facility] Comment on above: Performed By: #### C MADM, CMP #### [facility] [address] [address] [address] Caterina So Calcium [Mass/Vol] 9.0 mg/dL Normal 8.5-10.1 [facility] Comment on above: Performed By: #### C MADM, CMP #### [facility] [address] [address] [address] Caterina So Chloride [Moles/Vol] 103 mmol/L Normal 98-107 [facility] Comment on above: Performed By: #### C MADM, CMP #### [facility] [address] [address] [address] Caterina So CO2 [Moles/Vol] 30.3 mmol/L Normal 21.0-32.0 [facility] Comment on above: Performed By: #### C MADM, CMP #### [facility] [address] [address] [address] Caterina So Creatinine [Mass/Vol] 0.66 mg/dL Normal 0.55-1.02 [facility] Comment on above: Performed By: #### C MADM, CMP #### [facility] [address] [address] [address] Caterina So EGFR-AF BELGIAN >60 Normal >=60 [facility] Comment on above: Performed By: #### C MADM, CMP #### [facility] [address] [address] [address] Caterina So EGFR-NON AF BELGIAN >60 Normal >=60 [facility] Comment on above: Performed By: #### C MADM, CMP #### [facility] [address] [address] [address] Caterina So Globulin (S) [Mass/Vol] 3.7 g/dL Normal [facility] Comment on above: Performed By: #### C MADM, CMP #### [facility] [address] [address] [address] Caterina So Glucose [Mass/Vol] 98 mg/dL Normal 74-106 [facility] Comment on above: Performed By: #### C MADM, CMP #### [facility] [address] [address] [address] Caterina So Potassium [Moles/Vol] 3.2 mmol/L Critically low 3.5-5.1 [facility] Comment on above: Performed By: #### C TIFFANIEM, CMP #### [facility] [address] [place] [address] Dr. Caterina So Protein [Mass/Vol] 7.9 g/dL Normal 6.4-8.2 [facility] Comment on above: Performed By: #### C TIFFANIEM, CMP #### [facility] [address] [place] [address] Dr. Caterina So Sodium [Moles/Vol] 141 mmol/L Normal 136-145 [facility] Comment on above: Performed By: #### C TIFFANIEM, CMP #### [facility] [address] [address] [address] Caterina So Urea nitrogen [Mass/Vol] 5.0 mg/dL Critically low 7.0-18.0 [facility] Comment on above: Performed By: #### C TIFFANIEM, CMP #### [facility] [address] [address] [address] Caterina So Urea nitrogen/Creatinin e [Mass ratio] 7.6 mg/mg Normal [facility] Comment on above: Performed By: #### C MADM, CMP #### [facility] [address] [place] [address] Dr. Caterina So XR LSPINE 2_3 VIEWSon 2022 XR LSPINE 2_3 VIEWS EXAMINATION: XR LSPINE 2_3 VIEWS HISTORY: pain ; acute bilateral thigh pain COMPARISON: No relevant comparison available. FINDINGS: BONES: No significant spondylosis, scoliosis, fracture, or visible bony lesion. DISC SPACES: Slight narrowing L5-S1. PARASPINOUS: Atherosclerotic disease of aorta. OTHER: Negative. IMPRESSION: 1. No acute bone abnormality. 2. Suspect mild degenerative disc disease L5-S1. Electronically authenticated by: JUANIS RIZO Date: 2022-10-09 08:18 Normal [facility] Usp Documentson 08-15-2022 Usp Documents [id number]#1.00CD:127 Normal [facility] Usp Documentson 08-12-2022 Usp Documents Usp Nurse Visit 14 day Health Appraisal Date of Appraisal: _08/08/2022 Booked Date: or Release [id number]: RELEASE 10/05/2022 Did inmate come from another facility: NO PCP: [facility] SUMMERS Specialist: NONE Pharmacy: [facility] Have you ever had suicide attempts: NO If yes, when was your last attempt and how: _ Are you currently under the care of a practitioner for any reason: NO If yes, please explain: _ Date Receiving Screen Evaluation Form reviewed: 08/06/2022 Date Suicide Prevention Health Form reviewed: 08/06/2022 Has the sick call procedure has been explained: YES Does Inmate verbalize understanding: YES Do you or have you ever had any of the following: Recent Head Injury: NO Persistent Headaches: NO Vertigo/Dizziness/ Fainting: NO Stroke/TIA: NO Seizure Disorder: NO Eye/Vision Problems: WEARS GLASSES Ear/Nose/Throat Problems: NO Dental Problems: UPPER PARTIAL DENTURES Problems Breathing/ Asthma: NO Genitourinary Problems: NO Diabetes: NO Gastrointestinal Issues: NO High/Low Blood Pressure: HIGH Heart Problems: NO Recent Broken Bones or deformities: NO Arthritis/ Joint Mobility Issues or Deformities: NO Back/Neck Problems: ACHES AND PAINS FROM AGING Skin Problems, Rashes, Open Wounds: NO STDs (recent, past, or present): NO Hepatitis Positive: NO HIV Positive: NO Bleeding/Other Blood Disorder: NO Body Infestation (Lice, Crabs, Scabies, Etc): NO LMP: NOT SINCE SHE WAS IN HER 40'S Complications: _NONE Month/Year of Last Gynecological Exam: UNSURE Month/Year of Last Mammogram: 2021 Previous Gynecological Surgeries/Procedures : NO Month/Year: _ Complications: _ Current Control Use: NO If yes, type/length of use: _ Are you currently : NO If Yes, UPT Results: _ If , are you planning on : _ If Yes, for how long: _ Para: 1 : 0 Previous Complications (if applicable): MISCARRIAGE Personal or Family Hx of Gynecological Problems: FAMILY Relationship: GRANDMOTHER Diagnosis: BREAST CA Year: Do you have a history of: Violence towards others: NO Being victimized: NO Being sexually assaulted: NO Sexually assaulting others: NO Is this person obviously a higher risk for victimization or assault: NO How does the patient identify him/herself in terms of gender: FEMALE SKIN: WARM, DRY, INTACT Skin Color: NORMAL FOR ETHNICITY Turgor: WNL Bruises: NO Wound/Lesions: NO Rash: NO Jaundice: NO Edema: NO Clarify and describe: Is Physical Therapy needed: NO CARDIOVASCULAR: _ Arrhythmia: NO Chest Pain: NO Clarify yes response: _ RESPIRATORY: EVEN, UNLABORED Dyspnea: NO Cough: NO Clarify yes response: _ [Mental Status Exam] TB Skin Test Have you ever had tuberculosis: NO Have you ever had a positive TB skin test: NO PPD given on: 08/08/2022 Location given: [place] Date vial opened: Lot number: [id number] Expiration date: 09/2023 PPD Comments: _ Inmate states they have had the following Immunizations: STATES SHE WAS VACCINATED A CHILD AND HAD THE COVID AND FLU VACCINE Hep A: _ Hep B: _ DTAP: _ HIB: _ IPV: _ MMR: _ Varivax: _ HPV: _ Influenza: _ PneumoPCV: _ PPSV23: _ Inmate tested positive for the following drugs: INMATE HAD A NEGATIVE DRUG SCREEN Amphetamine (AMP): _ Cocaine (NADIRA): _ Secobarbital (BAR): _ Buprenorphine (BUP): _ Methamphetamine (MET/mAMP): _ Ecstasy (MDMA): _ Opiates (OPI): _ Marijuana (THC): _ Benzodiazepine (BZO): _ Methadone (MTD): _ Oxycodone (OXY): _ Fentanyl (FTY): _ Alcohol (ETG): _ Tramadol (TRA): _ Synthetic Cannabinoids (K2): _ Have you ever had seizures or other symptoms of withdrawal after stopping the use of alcohol/drugs? _NO Do you wish to attend AA Meetings? YES Usp Assessment 08/08/22 16:06:00 Usp Assessment Entered On: 08/08/2022 16:09 EDT Performed On: 08/08/2022 16:06 EDT by Katelin Cline RN Covid-19, MERS, Ebola Screen *Contact With Person With Highly Contagious Disease Like Ebola/MERS/COVID-19 AND Have One or More of the Symptoms Below : No *Travel to a Country With Wide-Spread Ebola/MERS/COVID-19 in the Past 21 Days AND Have One or More of the Symptoms Below : No Patient Reported Covid-19 Testing : Yes Patient Reported Covid-19 Testing Result : Negative Patient Reported Covid-19 Testing Date Question : Yes Patient Reported Covid-19 Testing Where : [facility] Patient Reported Covid-19 Testing When : 08/06/2022 EDT *Verify Droplet, Contact Precautions for Ebola (Reference for CDC) : N/A *Verify Airborne, Droplet Precautions for MERS/COVID-19 : N/A Katelin Cline RN - 08/08/2022 16:06 EDT Summary Chief Complaint : Health Appraisal Preferred Lab : [facility] Preferred Rad : [facility] Height in Inches : 62 in Height/Length Measured : 157.4 cm(Converted to: (more content not included)... Normal [facility] Usp Documents Usp Nurse Visit 14 day Health Appraisal PPD Results PPD Result (mm of Induration): _0.0mm Read on: _08/10/2022 Problem List/Past Medical History Ongoing Alcohol abuse Anxiety BMI 29.0-29.9,adult HTN (hypertension) Insomnia Neuropathy Screening for malignant neoplasm of colon Seasonal allergies Tobacco user Visual impairment Historical No qualifying data Procedure/Surgical History Colonoscopy, Dilation and curettage, EGD - Esophagogastroduoden oscopy, Esophageal erosions. Medications cyclobenzaprine 10 mg Tab, 10 mg= 1 tab(s), Oral, BID, PRN gabapentin 300 mg Cap, 300 mg= 1 cap(s), Oral, TID lisinopril 5 mg Tab, 5 mg= 1 tab(s), Oral, Daily loratadine 10 mg Tab, 10 mg= 1 tab(s), Oral, Daily naltrexone 50 mg oral tablet, 50 mg= 1 tab(s), Oral, Daily Paxil 30 mg Tab, 30 mg= 1 tab(s), Oral, Daily traZODONE 50 mg Tab, 50 mg= 1 tab(s), Oral, Once a day (at bedtime) Allergies cephalexin (Rash) Social History Alcohol - Denies Alcohol Use, 05/15/2022 Substance Abuse - Denies Substance Abuse, 05/15/2022 Tobacco 10 or more cigarettes (1/2 pack or more)/day in last 30 days Tobacco Use:. Smokeless tobacco user within last 30 days Smokeless Tobacco Use:. Cigarettes, Vaping, 1 per day. Started age 18.0 Years. Yes, 05/15/2022 Family History Hypertension: Mother. Immunizations Vaccine Date Status Comments influenza virus vaccine, inactivated - Not Given Patient Refuses influenza virus vaccine, inactivated 12/13/2021 Recorded SARS-CoV-2 (COVID-19) mRNA BNT-162b2 vax 09/27/2020 Recorded SARS-CoV-2 (COVID-19) mRNA BNT-162b2 vax 09/08/2020 Recorded Normal [facility] Outside Colonoscopyon 2022 Outside Colonoscopy [id number] #1.00CD:127 Normal [facility] Reminderson 06-13-2022 Reminders - From: Elin Hays LPN To: N - Clinical; Sent: 06/13/2022 16:06:10 EST Show up: 05/12/2032 07:00:00 EST Subject: colonoscopy recall Due Date/Time: 06/12/2032 07:00:00 EST Reminder/Recall Patient is due for screening colonoscopy 06/12/2032. Normal [facility] Lab Reportson 06-10-2022 Lab Reports [id number] #1.00CD:127 Normal [facility] Covid-19 PCR (CVDTBH)on 05-20 SARS-CoV-2 (COVID-19) RNA GONZÁLEZ+probe Ql (Unsp spec) Not detected Normal NOT DETECTED [facility] Comment on above: Result Comment: This test is not yet approved or cleared by the [place] FDA. When there are no FDA-approved or cleared tests available, and other criteria are met, FDA can make tests available under an emergency access mechanism called an Emergency Use Authorization (EUA). The EUA for this test is supported by the [place] of Health and Human Service's (HHS's) declaration that circumstances exist to justify the emergency use of in vitro diagnostics for the detection and/or diagnosis of the virus that causes COVID-19. This EUA will remain in effect (meaning this test can be used) for the duration of the COVID-19 declaration justifying emergency of IVDs, unless it is terminated or revoked by FDA (after which the test may no longer be used). When diagnostic testing is negative, the possibility of a false negative should be considered in the context of a patient's recent exposures and the presence of clinical signs and symptoms consistent with SARS-CoV-2. Performed By: #### C [facility] #### [facility] [address] [place] [address] Dr. Caterina So Pre-Certification Formon Pre-Certification Form [id number] #1.00CD:127 Normal [facility] Consent for Procedure/Surger yon 05-17-2022 Consent for Procedure/Surgery [id number] #1.00CD:127 Normal [facility] Formson 05-16-2022 Forms [id number] #1.00CD:127 Normal [facility] Provider Letter FTMCon 05-15 [place] [facility] [place] CARIDAD REYES [address] [facility] [place] [address] CARIDAD REYES 1970 To Whom It May Concern, Please excuse above patient from work 06/12/2022 due to surgical procedure. Sincerely, Dr. Ede Bhakta MD General Surgery Normal [facility] [place] [facility] [place] CARIDAD REYES [address] [place] [address] CARIDAD REYES 1970 To Whom It May Concern, Please excuse above patient from work 06/05/2022 due to scheduled surgical procedure. Sincerely, Dr. Ede Bhakta MD General Surgery Normal [facility] CULTURE URINEon 05-06-2022 CULTURE URINE Culture Observations: MODERATE GROWTH OF MIXED GENITAL COOPER. NO POTENTIAL PATHOGENS SEEN. Normal [facility] Comment on above: Performed By: #### U RCX #### [facility] [address] [address] [address] Caterina So UA RANDOM W/MICROSCOPICon BACTERIA NONE SEEN Normal NONE SEEN [facility] Comment on above: Performed By: #### U AMIC ####[facility] [address] [address]Dr[address] Caterina So Bilirubin Ql (U) Negative Normal NEGATIVE The [facility] Comment on above: Performed By: #### U AMIC ####[facility] [address] [address]Dr. Caterina So CAST NONE SEEN Normal NONE SEEN [facility] Comment on above: Performed By: #### U AMIC ####[facility] [address] [address]Dr. Caterina So Clarity (U) CLEAR Normal CLEAR [facility] Comment on above: Performed By: #### U AMIC ####[facility] [address] [address]Dr. Caterina So Color (U) YELLOW Normal YELLOW [facility] Comment on above: Performed By: #### U AMIC ####[facility] [address] [address]Dr. Caterina So Crystals LM Nom (Urine sed) NONE SEEN Normal NONE SEEN The [facility] Comment on above: Performed By: #### U AMIC ####[facility] [address] [address]Dr. Caterina So Epithelial cells LM Ql (Urine sed) FEW Abnormal NONE SEEN /RARE The [facility] Comment on above: Performed By: #### U AMIC ####[facility] [address] [address]Dr. Caterina So Glucose Ql (U) Negative Normal NEGATIVE The [facility] Comment on above: Performed By: #### U AMIC ####[facility] [address] [address]Dr. Caterina So Hemoglobin Ql (U) SMALL Abnormal NEGATIVE The [facility] Comment on above: Performed By: #### U AMIC ####[facility] [address] [place], [place] [address]Dr. Caterina So Ketones Ql (U) Negative Normal NEGATIVE The [facility] Comment on above: Performed By: #### U AMIC ####[facility] [address] [place], [place] [address]Dr. Caterina So LEUKOCYTES MODERATE Abnormal NEGATIVE The [facility] Comment on above: Performed By: #### U AMIC ####[facility] [address] [place], [place] [address]Dr. Daniellelan Judah MUCOUS NONE SEEN Normal NONE SEEN The [facility] Comment on above: Performed By: #### U AMIC ####[facility] [address] [place], [place] [address]Dr. Caterina So Nitrite Ql (U) Negative Normal NEGATIVE The [facility] Comment on above: Performed By: #### U AMIC ####[facility] [address] [address]Dr. Caterina So pH (U) 6.0 [pH] Normal 5-[address] [facility] Comment on above: Performed By: #### U AMIC ####[facility] [address] [address]Dr. Caterina So RBC 0-2 Normal 0-[address] [facility] Comment on above: Performed By: #### U AMIC ####[facility] [address] [address]Dr. Caterina So SPEC GRAVITY 1.020 Normal 1.005-<=1.025 The [facility] Comment on above: Performed By: #### U AMIC ####[facility] [address] [address]Dr. Caterina So UA PROTEIN Negative Normal NEGATIVE/ TRACE [facility] Comment on above: Performed By: #### U AMIC ####[facility] [address] [address]Dr. Caterina So Urobilinogen Qn (U) 2.0 {Temitope'U}/dL Abnormal 0.2 - 1.[address] [facility] Comment on above: Performed By: #### U AMIC ####[facility] [address] [place], [place] [address]Dr. Caterina So WBC 10-20 Abnormal NONE SEEN The [facility] Comment on above: Performed By: #### U AMIC ####[facility] [address] [place], [place] [address]Dr. Caterina So CBC AUTO DIFFon 04-24-2022 BASO # 0.1 103/ul Normal 0.0-0.[address] [facility] Comment on above: Performed By: #### C BC ####[facility] [address] [place], [place] [address]Dr. Caterina Judah Basophils/100 WBC (Bld) 0.9 % Normal 0.2-2.[address] [facility] Comment on above: Performed By: #### C BC ####[facility] [address] [place], [place] [address]Dr. Caterina So EO # 0.2 103/ul Normal 0.0-0.[address] [facility] Comment on above: Performed By: #### C BC ####[facility] [address] [place], [place] [address]Dr. Caterina So Eosinophils/100 WBC (Bld) 2.8 % Normal 0.9-7.[address] [facility] Comment on above: Performed By: #### C BC ####[facility] [address] [address]Dr. Caterina So Erythrocyte distribution width (RBC) [Ratio] 12.9 % Normal 11.0-15.0 [facility] Comment on above: Performed By: #### C BC ####[facility] [address] [address]Dr. Caterina So Hematocrit (Bld) [Volume fraction] 44.5 % Normal 36.0-48.0 [facility] Comment on above: Performed By: #### C BC ####[facility] [address] [place], [place] [address]Dr. Caterina So Hemoglobin (Bld) [Mass/Vol] 14.6 g/dL Normal 12.0-16.0 [facility] Comment on above: Performed By: #### C BC ####[facility] [address] [place], [place] [address]Dr. Caterina So IG # 0.01 10e3/ul Normal 0.00-0.03 [facility] Comment on above: Performed By: #### C BC ####[facility] [address] [place], [place] [address]Dr. Caterina So IG % 0.1 % Normal 0.0-0.5 [facility] Comment on above: Performed By: #### C BC ####[facility] [address] [place], [place] [address]Dr. Caterina So LYMPH # 3.4 103/ul Normal 1.2-3.[address] [facility] Comment on above: Performed By: #### C BC ####[facility] [address] [place], [place] [address]Dr. Caterina So Lymphocytes/100 WBC (Bld) 44.5 % Normal 20.5-60.[address] [facility] Comment on above: Performed By: #### C BC ####[facility] [address] [place], [place] [address]Dr. Caterina So MANUAL DIFF REQ NO Normal The [facility] Comment on above: Performed By: #### C BC ####[facility] [address] [address]Dr. Caterina So MCH (RBC) [Entitic mass] 31.9 pg Normal 26.7-34.[address] [facility] Comment on above: Performed By: #### C BC ####[facility] [address] [address]Dr. Caterina So MCHC (RBC) [Mass/Vol] 32.8 g/dL Normal 29.9-35.[address] [facility] Comment on above: Performed By: #### C BC ####[facility] [address] [place], [place] [address]Dr. Caterina So MCV (RBC) [Entitic vol] 97.2 fL Normal 81.0-99.[address] [facility] Comment on above: Performed By: #### C BC ####[facility] [address] [place], [place] [address]Dr. Caterina So MONO # 0.6 103/ul Normal 0.3-0.[address] [facility] Comment on above: Performed By: #### C BC ####[facility] [address] [place], [place] [address]Dr. Caterina So Monocytes/100 WBC (Bld) 7.6 % Normal 1.7-12.[address] [facility] Comment on above: Performed By: #### C BC ####[facility] [address] [place], [place] [address]Dr. Caterina So NEUT # 3.3 103/ul Normal 1.4-6.[address] [facility] Comment on above: Performed By: #### C BC ####[facility] [address] [place], [place] [address]Dr. Caterina So Neutrophils/100 WBC (Bld) 44.1 % Normal 43.0-75.[address] [facility] Comment on above: Performed By: #### C BC ####[facility] [address] [place], [place] [address]Dr. Caterina So Platelet mean volume (Bld) [Entitic vol] 11.1 fL Normal 9.5-13.[address] [facility] Comment on above: Performed By: #### C BC ####[facility] [address] [place], [place] [address]Ka. Caterina So PLT 188 103/ul Normal 150-[address] [facility] Comment on above: Performed By: #### C BC ####[facility] [address] [place], [place] [address]Et. Caterina So RBC 4.58 106/ul Normal 4.20-5.[address] [facility] Comment on above: Performed By: #### C BC ####[facility] [address] [place], [place] [address]Wq. Caterina So WBC 7.6 103/ul Normal 4.0-11.[address] [facility] Comment on above: Performed By: #### C BC ####[facility] [address] [address]Dr. Caterina So LIPID PROFILEon 04-24-2022 CHOL-HDL RATIO NORM SEE BELOW Normal [facility] Comment on above: Result Comment: 3.3 - 4.4 LOW RISK 4.4 - 7.1 AVERAGE RISK 7.1 - 11.0 MODERATE RISK >11.0 HIGH RISK Performed By: #### T SH, LIPID, CMP #### [facility] [address] [address] [address] Caterina So Cholesterol [Mass/Vol] 160 mg/dL Normal <=[address] [facility] Comment on above: Performed By: #### T SH, LIPID, CMP #### [facility] [address] [address] [address] Caterina So Cholesterol in HDL [Mass/Vol] 44 mg/dL Normal 40-[address] [facility] Comment on above: Performed By: #### T SH, LIPID, CMP #### [facility] [address] [address] [address] Caterina So Cholesterol in LDL [Mass/Vol] 105.0 mg/dL Normal [facility] Comment on above: Performed By: #### T SH, LIPID, CMP #### [facility] [address] [address] [address] Caterina So Cholesterol.total/ Cholesterol in HDL [Mass ratio] 3.6 {ratio} Normal [facility] Comment on above: Performed By: #### T SH, LIPID, CMP #### [facility] [address] [address] [address] Caterina So HDL NORMAL > or = 60 mg/dl - LOW CARDIOVASCULAR RISK <40 mg/dl - HIGH CARDIOVASCULAR RISK Normal [facility] Comment on above: Performed By: #### T SH, LIPID, CMP #### [facility] [address] [address] [address] Caterina So LDL CALC NORMAL SEE BELOW Normal [facility] Comment on above: Result Comment: <100 mg/dl OPTIMAL 100 - 129 mg/dl NEAR OR ABOVE OPTIMAL 130 - 159 mg/dl BORDERLINE HIGH 160 - 189 mg/dl HIGH >190 mg/dl VERY HIGH Performed By: #### T SH, LIPID, CMP #### [facility] [address] [address] [address] Caterina So Triglyceride [Mass/Vol] 55 mg/dL Normal <=150 [facility] Comment on above: Performed By: #### T SH, LIPID, CMP #### [facility] [address] [address] [address] Caterina So VLDL CALC 11.0 mg/dL Normal [facility] Comment on above: Performed By: #### T SH, LIPID, CMP #### [facility] [address] [address] [address] 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 INDICATIONS: Screening mammography Calculator Name NCI Breast Cancer Risk Assessment Tool 5 Year Breast Cancer Risk 1.10% Lifetime Breast Cancer Risk 8.60% Personal Breast Cancer No Personal Ovarian Cancer No Treatments None Family Cancers Grandmother-paternal with breast cancer at age 70. LOCATION: [facility] BREAST COMPOSITION: Scattered areas fibroglandular density. FINDINGS: DIAGNOSTIC CATEGORY 1--NEGATIVE. RIGHT BREAST: No significant suspicious finding. No significant change has occurred. LEFT BREAST: No significant suspicious finding. No significant change has occurred. RECOMMENDATIONS: ROUTINE MAMMOGRAM AND CLINICAL EVALUATION IN 12 MONTHS. PLEASE NOTE: A NORMAL MAMMOGRAM DOES NOT EXCLUDE THE POSSIBILITY OF BREAST CANCER. A CLINICALLY SUSPICIOUS PALPABLE LUMP SHOULD BE BIOPSIED. Dictated by: Juanis Rizo M.D. on 04/24/2022 at 12:35 Approved by: Juanis Rizo M.D. on 04/24/2022 at 12:37 Normal [facility] PROF 14(COMP METB)on 022 Albumin [Mass/Vol] 4.0 g/dL Normal 3.4-5.0 [facility] Comment on above: Performed By: #### T SH, LIPID, CMP #### [facility] [address] [address] [address] Caterina So Albumin/Globulin [Mass ratio] 1.2 {ratio} Normal [facility] Comment on above: Performed By: #### T SH, LIPID, CMP #### [facility] [address] [address] [address] Caterina So ALP [Catalytic activity/Vol] 85 U/L Normal 46-116 [facility] Comment on above: Performed By: #### T SH, LIPID, CMP #### [facility] [address] [address] [address] Caterina So ALT [Catalytic activity/Vol] 33 U/L Normal 14-59 [facility] Comment on above: Performed By: #### T SH, LIPID, CMP #### [facility] [address] [address] [address] Caterina So Anion gap [Moles/Vol] 12.4 mmol/L Normal [facility] Comment on above: Performed By: #### T SH, LIPID, CMP #### [facility] [address] [address] [address] Caterina So AST [Catalytic activity/Vol] 32 U/L Normal 15-37 [facility] Comment on above: Performed By: #### T SH, LIPID, CMP #### [facility] [address] [address] [address] Caterina So Bilirubin [Mass/Vol] 0.6 mg/dL Normal 0.2-1.0 [facility] Comment on above: Performed By: #### T SH, LIPID, CMP #### [facility] [address] [place] [address] Dr. Caterina So Calcium [Mass/Vol] 8.9 mg/dL Normal 8.5-10.1 [facility] Comment on above: Performed By: #### T SH, LIPID, CMP #### [facility] [address] [place] [address] Dr. Caterina So Chloride [Moles/Vol] 104 mmol/L Normal 98-107 [facility] Comment on above: Performed By: #### T SH, LIPID, CMP #### [facility] [address] [place] [address] Dr. Caterina So CO2 [Moles/Vol] 30.5 mmol/L Normal 21.0-32.0 [facility] Comment on above: Performed By: #### T SH, LIPID, CMP #### [facility] [address] [place] [address] Dr. Caterina So Creatinine [Mass/Vol] 0.58 mg/dL Normal 0.55-1.02 [facility] Comment on above: Performed By: #### T SH, LIPID, CMP #### [facility] [address] [place] [address] Dr. Caterina So EGFR-AF BELGIAN >60 Normal >=60 [facility] Comment on above: Performed By: #### T SH, LIPID, CMP #### [facility] [address] [place] [address] Dr. Caterina So EGFR-NON AF BELGIAN >60 Normal >=60 [facility] Comment on above: Performed By: #### T SH, LIPID, CMP #### [facility] [address] [place] [address] Dr. Caterina So Globulin (S) [Mass/Vol] 3.4 g/dL Normal [facility] Comment on above: Performed By: #### T GUICHO, LIPID, CMP #### [facility] [address] [place] [address] Dr. Caterina So Glucose [Mass/Vol] 93 mg/dL Normal 74-106 [facility] Comment on above: Performed By: #### T GUICHO, LIPID, CMP #### [facility] [address] [place] [address] Dr. Caterina So Potassium [Moles/Vol] 3.9 mmol/L Normal 3.5-5.1 [facility] Comment on above: Performed By: #### T GUICHO, LIPID, CMP #### [facility] [address] [place] [address] Dr. Caterina So Protein [Mass/Vol] 7.4 g/dL Normal 6.4-8.2 [facility] Comment on above: Performed By: #### T GUICHO, LIPID, CMP #### [facility] [address] [place] [address] Dr. Caterina So Sodium [Moles/Vol] 143 mmol/L Normal 136-145 [facility] Comment on above: Performed By: #### T GUICHO, LIPID, CMP #### [facility] [address] [place] [address] Dr. Caterina So Urea nitrogen [Mass/Vol] 10.0 mg/dL Normal 7.0-18.0 [facility] Comment on above: Performed By: #### T GUICHO, LIPID, CMP #### [facility] [address] [place] [address] Dr. Caterina So Urea nitrogen/Creatinin e [Mass ratio] 17.2 mg/mg Normal [facility] Comment on above: Performed By: #### T GUICHO, LIPID, CMP #### [facility] [address] [place] [address] Dr. Caterina So TSHon 04-24-2022 TSH 2.767 uIU/mL Normal 0.358-3.740 [facility] Comment on above: Performed By: #### T GUICHO, LIPID, CMP #### [facility] [address] [address] [address] Caterina So UA RANDOM W/MICROSCOPICon BACTERIA TRACE Abnormal NONE SEEN [facility] Comment on above: Performed By: #### U AMIC #### [facility] [address] [place] [address] Dr. Caterina So Bilirubin Ql (U) Negative Normal NEGATIVE [facility] Comment on above: Performed By: #### U AMIC #### [facility] [address] [address] [address] Caterina So CAST NONE SEEN Normal NONE SEEN [facility] Comment on above: Performed By: #### U AMIC #### [facility] [address] [place] [address] Dr. Caterina So Clarity (U) CLEAR Normal CLEAR [facility] Comment on above: Performed By: #### U AMIC #### [facility] [address] [place] [address] Dr. Caterina So Color (U) LT. YELLOW Normal YELLOW [facility] Comment on above: Performed By: #### U AMIC #### [facility] [address] [place] [address] Dr. Caterina So Crystals LM Nom (Urine sed) NONE SEEN Normal NONE SEEN [facility] Comment on above: Performed By: #### U AMIC #### [facility] [address] [place] [address] Dr. Caterina So Epithelial cells LM Ql (Urine sed) FEW Abnormal NONE SEEN /RARE [facility] Comment on above: Performed By: #### U AMIC #### [facility] [address] [place] [address] Dr. Caterina So Glucose Ql (U) Negative Normal NEGATIVE [facility] Comment on above: Performed By: #### U AMIC #### [facility] [address] [place] [address] Dr. Caterina So Hemoglobin Ql (U) SMALL Abnormal NEGATIVE [facility] Comment on above: Performed By: #### U AMIC #### [facility] [address] [place] [address] Dr. Caterina So Ketones Ql (U) Negative Normal NEGATIVE [facility] Comment on above: Performed By: #### U AMIC #### [facility] [address] [place] [address] Dr. Caterina So LEUKOCYTES LARGE Abnormal NEGATIVE [facility] Comment on above: Performed By: #### U AMIC #### [facility] [address] [place] [address] Dr. Caterina So MUCOUS NONE SEEN Normal NONE SEEN [facility] Comment on above: Performed By: #### U AMIC #### [facility] [address] [address] [address] Caterina So Nitrite Ql (U) Negative Normal NEGATIVE [facility] Comment on above: Performed By: #### U AMIC #### [facility] [address] [place] [address] Dr. Caterina So pH (U) 7.0 [pH] Normal 5-[address] [facility] Comment on above: Performed By: #### U AMIC #### [facility] [address] [place] [address] Dr. Caterina So RBC 2-5 Abnormal 0-2 [facility] Comment on above: Performed By: #### U AMIC #### [facility] [address] [place] [address] Dr. Caterina So SPEC GRAVITY 1.010 Normal 1.005-<=1.025 [facility] Comment on above: Performed By: #### U AMIC #### [facility] [address] [address] [address] Caterina So UA PROTEIN Negative Normal NEGATIVE/ TRACE [facility] Comment on above: Performed By: #### U AMIC #### [facility] [address] [address] [address] Caterina So Urobilinogen Qn (U) 1.0 {Temitope'U}/dL Normal 0.2 - 1.0 [facility] Comment on above: Performed By: #### U AMIC #### [facility] [address] [place] [address] Dr. Caterina So WBC 10-20 Abnormal NONE SEEN [facility] Comment on above: Performed By: #### U AMI #### [facility] [address] [address] [address] Caterina So Physician Referralon 022 Physician Referral [phone] Normal [facility] A1C with Estimated Average G luon 10-09-2021 Glucose [Mass/Vol] 108 mg/dL Normal [facility] Comment on above: Result Comment: PERF ORMED BY: [place] [address] PATHOLOGIST PERFORMANCE ANALYST YUNG KONG M.D. Performed By: #### C BC, CMP, A1C WTH eA #### [address] HbA1c (Bld) [Mass fraction] 5.4 % Normal 4.3-5.6 [facility] Comment on above: Result Comment: Incr eased risk for diabetes: 5.7 - 6.4 diabetes: >6.4 glycemic control for adults with diabetes: <7.0 Performed By: #### C BC, CMP, A1C WTH eA #### [facility] [address] [place] [address] Complete Blood Count Auto Di ffon 10-09-2021 Basophils (Bld) [#/Vol] 0.1 10*3/uL Normal 0.0-0.2 [facility] Comment on above: Result Comment: PERF ORMED BY: [place] [address] PATHOLOGIST PERFORMANCE ANALYST YUNG KONG M.D. Performed By: #### C BC, CMP, A1C WTH eA #### [facility] [address] [place] [address] [place] Basophils/100 WBC (Bld) 0.9 % Normal . [facility] Comment on above: Performed By: #### C BC, CMP, A1C WTH eA #### [facility] [address] [place] [address] [place] Eosinophils (Bld) [#/Vol] 0.1 10*3/uL Normal 0.0-0.45 [facility] Comment on above: Performed By: #### C BC, CMP, A1C WTH eA #### [facility] [address] [place] [address] [place] Eosinophils/100 WBC (Bld) 1.5 % Normal . [facility] Comment on above: Performed By: #### C BC, CMP, A1C WTH eA #### [facility] [address] Erythrocyte distribution width (RBC) [Ratio] 14.7 % Normal 11.9-15.3 [facility] Comment on above: Performed By: #### C BC, CMP, A1C WTH eA #### [address] Hematocrit (Bld) [Volume fraction] 45.5 % Normal 34.0-46.4 [facility] Comment on above: Performed By: #### C BC, CMP, A1C WTH eA #### [address] Hemoglobin (Bld) [Mass/Vol] 14.9 g/dL Normal 11.8-15.4 [facility] Comment on above: Performed By: #### C BC, CMP, A1C WTH eA #### [place] [address] [place] Lymphocytes (Bld) [#/Vol] 1.9 10*3/uL Normal 1.00-4.8 [facility] Comment on above: Performed By: #### C BC, CMP, A1C WTH eA #### [place] [address] [place] Lymphocytes/100 WBC (Bld) 29.9 % Normal . [facility] Comment on above: Performed By: #### C BC, CMP, A1C WTH eA #### [place] [address] [place] MCH (RBC) [Entitic mass] 35.2 pg High 24.7-34.3 [facility] Comment on above: Performed By: #### C BC, CMP, A1C WTH eA #### [facility] [address] [place] [address] [place] MCV (RBC) [Entitic vol] 107.6 fL High 80-100 [facility] Comment on above: Performed By: #### C BC, CMP, A1C WTH eA #### [facility] [address] Mean Corpuscular HGB Conc 32.7 g/dL Normal 32.0-35.0 [facility] Comment on above: Performed By: #### C BC, CMP, A1C WTH eA #### [facility] [address] [place] [address] [place] Monocytes (Bld) [#/Vol] 0.4 10*3/uL Normal 0.0-0.8 [facility] Comment on above: Performed By: #### C BC, CMP, A1C WTH eA #### [facility] [address] [place] [address] [place] Monocytes/100 WBC (Bld) 6.0 % Normal . [facility] Comment on above: Performed By: #### C BC, CMP, A1C WTH eA #### [facility] [address] [place] [address] [place] Neutrophils (Bld) [#/Vol] 3.8 10*3/uL Normal 1.8-7.7 [facility] Comment on above: Performed By: #### C BC, CMP, A1C WTH eA #### [place] [address] [place] Neutrophils/100 WBC (Bld) 61.7 % Normal . [facility] Comment on above: Performed By: #### C BC, CMP, A1C WTH eA #### [facility] [address] [place] [address] [place] Nucleated RBC/100 WBC (Bld) [Ratio] 0.2 % Normal 0-0.5 [facility] Comment on above: Performed By: #### C BC, CMP, A1C WTH eA #### [facility] [address] [place] [address] [place] Platelet mean volume (Bld) [Entitic vol] 10.2 fL Normal 6.3-10.7 [facility] Comment on above: Performed By: #### C BC, CMP, A1C WTH eA #### [facility] [address] Platelets (Bld) [#/Vol] 193 10*3/uL Normal 150-450 [facility] Comment on above: Performed By: #### C BC, CMP, A1C WTH eA #### [facility] [address] RBC (Bld) [#/Vol] 4.23 10*6/uL Normal 3.60-5.00 [facility] Comment on above: Performed By: #### C BC, CMP, A1C WTH eA #### [address] WBC (Bld) [#/Vol] 6.2 10*3/uL Normal 4.5-11.0 [facility] Comment on above: Performed By: #### C BC, CMP, A1C WTH eA #### [address] Comprehensive Metabolic Pane tad 10-09-2021 Albumin [Mass/Vol] 3.9 g/dL Normal 3.2-5.5 [facility] Comment on above: Performed By: #### C BC, CMP, A1C WTH eA #### [address] Albumin/Globulin [Mass ratio] 1.3 {ratio} Normal [facility] Comment on above: Performed By: #### C BC, CMP, A1C WTH eA #### [facility] [address] [place] [address] ALP [Catalytic activity/Vol] 66 U/L Normal 32-92 [facility] Comment on above: Result Comment: PERF ORMED BY: [place] [address] PATHOLOGIST PERFORMANCE ANALYST YUNG KONG M.D. Performed By: #### C BC, CMP, A1C WTH eA #### [facility] [address] [id number] [place] ALT [Catalytic activity/Vol] 26 U/L Normal 10-60 [facility] Comment on above: Performed By: #### C BC, CMP, A1C WTH eA #### [facility] [address] [id number] [place] AST [Catalytic activity/Vol] 29 U/L Normal 10-42 [facility] Comment on above: Performed By: #### C BC, CMP, A1C WTH eA #### [facility] [address] [place] [address] [place] Bilirubin [Mass/Vol] 0.4 mg/dL Normal 0.3-1.2 [facility] Comment on above: Performed By: #### C BC, CMP, A1C WTH eA #### [facility] [address] [place] [address] [place] Calcium [Mass/Vol] 8.9 mg/dL Normal 8.2-10.2 [facility] Comment on above: Performed By: #### C BC, CMP, A1C WTH eA #### [facility] [address] [place] [address] [place] Chloride [Moles/Vol] 104 mmol/L Normal 95-114 [facility] Comment on above: Performed By: #### C BC, CMP, A1C WTH eA #### [facility] [address] [phone] [place] CO2 [Moles/Vol] 23.5 mmol/L Normal 22.0-30.0 [facility] Comment on above: Performed By: #### C BC, CMP, A1C WTH eA #### [facility] [address] [phone] [place] Creatinine [Mass/Vol] 0.63 mg/dL Normal 0.44-1.03 [facility] Comment on above: Performed By: #### C BC, CMP, A1C WTH eA #### [facility] [address] [phone] [place] Estimated GFR ( Melissa > 60 Normal [facility] Comment on above: Result Comment: GFR estimated reference range: According to KDOQI guidelines, <60 ml/min/1.73m2 is sufficient to diagnose a patient with chronic kidney disease. Performed By: #### C BC, CMP, A1C WTH eA #### [address] Estimated GFR (Non- Am > 60 Normal [facility] Comment on above: Performed By: #### C BC, CMP, A1C WTH eA #### [facility] [address] Globulin (S) [Mass/Vol] 2.9 g/dL Normal [facility] Comment on above: Performed By: #### C BC, CMP, A1C WTH eA #### [address] Glucose [Mass/Vol] 74 mg/dL Normal 70-100 [facility] Comment on above: Result Comment: [place] Glucose Reference Range is dependent on time and content of last meal. Glucose of more than 200 mg/dL in a nonstressed, ambulatory subject supports the diagnosis of Diabetes Mellitus. ADA recommended reference range Performed By: #### C BC, CMP, A1C WTH eA #### [address] Potassium [Moles/Vol] 3.6 mmol/L Normal 3.5-5.1 [facility] Comment on above: Performed By: #### C BC, CMP, A1C WTH eA #### [place] [address] [place] Protein [Mass/Vol] 6.8 g/dL Normal 6.1-7.9 [facility] Comment on above: Performed By: #### C BC, CMP, A1C WTH eA #### [place] [address] [place] Sodium [Moles/Vol] 140 mmol/L Normal 136-146 [facility] Comment on above: Performed By: #### C BC, CMP, A1C WTH eA #### [address] Urea nitrogen [Mass/Vol] 10 mg/dL Normal 9-23 [facility] Comment on above: Performed By: #### C BC, CMP, A1C WTH eA #### [facility] [address] COVID Quick Testingon 2020 Result Negative [facility] [employer] Other Quick Fluon 04-30-2021 FLUAV Ab CF (S) [Titer] Negative [employer] [facility] [employer] Other FLUBV Ab CF (S) [Titer] Negative [employer] [facility] [employer] Other ALC ETHANOLon 01-07-2020 ALC ETHANOL 277.0 mg/dL High <10.0 [facility] Comment on above: Result Comment: [employer] NF[employer] Toxicology results. For MEDICAL purposes only. Performed By: #### L 500.84626, L500.79887, L500.66800 #### Test performed at: [address] [id number] CBCon 01-07-2020 Erythrocyte distribution width (RBC) [Ratio] 13.0 % Normal 11.5-14.5 [facility] Comment on above: Performed By: #### L 200.05425 #### Test performed at: [address] [address] Hematocrit (Bld) [Volume fraction] 48.6 % High 36.0-48.0 [facility] Comment on above: Performed By: #### L 200.37544 #### Test performed at: [address] [address] Hemoglobin (Bld) [Mass/Vol] 16.8 g/dL High 12.0-15.0 [facility] Comment on above: Performed By: #### L 200.62413 #### Test performed at: [address] [address] MCH (RBC) [Entitic mass] 35.8 pg High 25.4-34.6 [facility] Comment on above: Performed By: #### L 200.29844 #### Test performed at: [address] [address] MCHC (RBC) [Mass/Vol] 34.6 g/dL Normal 31.5-36.5 [facility] Comment on above: Performed By: #### L 200.67887 #### Test performed at: [address] [address] MCV (RBC) [Entitic vol] 103.6 fL High 79.0-98.0 [facility] Comment on above: Performed By: #### L 200.15206 #### Test performed at: [address] [id number] NRBC # 0.000 K/uL Normal 0-0.012 [facility] Comment on above: Performed By: #### L 200.22475 #### Test performed at: [address] [address] NRBC % 0.0 /100 WBC Normal 0-0.2 [facility] Comment on above: Performed By: #### L 200.38881 #### Test performed at: [address] [address] Platelet mean volume (Bld) [Entitic vol] 9.9 fL Normal 8.7-12.4 [facility] Comment on above: Performed By: #### L 200.16048 #### Test performed at: [address] [address] Platelets (Bld) [#/Vol] 179 10*3/uL Normal 140-440 [facility] Comment on above: Performed By: #### L 200.55234 #### Test performed at: [address] [address] RBC (Bld) [#/Vol] 4.69 10*6/uL Normal 3.5-5.5 [facility] Comment on above: Performed By: #### L 200.52195 #### Test performed at: [address] [address] WBC (Bld) [#/Vol] 4.9 10*3/uL Normal 3.9-11.0 [facility] Comment on above: Performed By: #### L 200.90315 #### Test performed at: [address] [address] COMP META PANELon 01-07-2020 Albumin [Mass/Vol] 3.8 g/dL Normal 3.4-5.0 [facility] Comment on above: Performed By: #### L 500.82816, L500.98672, L500.40000 #### Test performed at: [address] [address] ALK PHOS TOTAL 101 U/L Normal 45-117 [facility] Comment on above: Performed By: #### L 500.30353, L500.71289, L500.28887 #### Test performed at: [address] [address] ALT [Catalytic activity/Vol] 105 U/L High 13-61 [facility] Comment on above: Performed By: #### L 500.86254, L500.75919, L500.14918 #### Test performed at: [address] [address] AST [Catalytic activity/Vol] 166 U/L High 15-37 [facility] Comment on above: Result Comment: Resu lts may be inaccurate due to moderate hemolysis. Performed By: #### L 500.55918, L500.79375, L500.92684 #### Test performed at: [address] [address] BILI TOTAL 1.1 mg/dL High 0.2-1.0 [facility] Comment on above: Performed By: #### L 500.86065, L500.61442, L500.65397 #### Test performed at: [address] [address] Calcium [Mass/Vol] 8.4 mg/dL Low 8.5-10.1 [facility] Comment on above: Performed By: #### L 500.19929, L500.78421, L500.18809 #### Test performed at: [address] [address] Chloride [Moles/Vol] 107 mmol/L Normal 98-107 [facility] Comment on above: Performed By: #### L 500.79667, L500.06380, L500.21058 #### Test performed at: [address] [address] CO2 [Moles/Vol] 24 mmol/L Normal 21-32 [facility] Comment on above: Performed By: #### L 500.75746, L500.01249, L500.05004 #### Test performed at: [address] [address] Creatinine [Mass/Vol] 0.510 mg/dL Low 0.550-1.020 [facility] Comment on above: Performed By: #### L 500.32527, L500.45191, L500.27979 #### Test performed at: [address] [address] Glucose [Mass/Vol] 88 mg/dL Normal 70-99 [facility] Comment on above: Result Comment: Fast ing GLUCOSE reference range has been updated per (ADA) [place] [employer]'s recommendation. 08/11/2018 Performed By: #### L 500.06090, L500.03455, L500.30243 #### Test performed at: [place] [address] Potassium [Moles/Vol] 4.8 mmol/L Normal 3.5-5.1 [facility] Comment on above: Result Comment: Resu lts may be inaccurate due to moderate hemolysis. Performed By: #### L 500.49191, L500.52194, L500.79911 #### Test performed at: [address] [address] Protein [Mass/Vol] 7.5 g/dL Normal 6.4-8.2 [facility] Comment on above: Performed By: #### L 500.07732, L500.11029, L500.19037 #### Test performed at: [address] [address] Sodium [Moles/Vol] 140 mmol/L Normal 136-145 [facility] Comment on above: Performed By: #### L 500.85070, L500.09326, L500.94380 #### Test performed at: [address] [address] Urea nitrogen [Mass/Vol] 3 mg/dL Low 7-18 [facility] Comment on above: Performed By: #### L 500.50033, L500.59024, L500.30329 #### Test performed at: [address] [address] CORONAVIRUSon 01-07-2020 CORONAVIRUS Negative results do not preclude SARS-CoV-2 infection and should not be used as the sole basis for patient management decisions. Negative results must be combined with clinical observations, patient history, and epidemiological information. False-negative results may occur if the viruses are present at a level that is below the analytical sensitivity of the assay or if the virus has genomic mutations, insertions, deletions, or rearrangements or if performed very early in the course of illness. Results may be affected by the quality of the sample collected. Simplexa COVID-19 Direct is only for use under the Food and Drug Administration's Emergency Use Authorization. The Simplexa COVID-19 Direct Letter of Authorization, along with the authorized Fact Sheet for Healthcare Providers, the authorized Fact Sheet for Patients, and authorized labeling are available on the FDA website: https://www.fda.gov/ MedicalDevices/Safet y/ EmergencySituations/ zuj036963.htm COVID-19 Negative for COVID-19 (SARS-CoV-2 RNA) Normal [facility] Comment on above: Order Comment: Dominik s: MAIN COVID Testing: DIAGNOSTIC Performed By: #### M 400.47833 #### Test performed at: [place] [address] ED Provider Reporton 020 ED Provider Report [facility] Pt Name: CARIDAD REYES MR#: [id number] [address] [place] [address] ACCT: [id number] : 66 EMERGENCY PROVIDER REPORT ADM Date: 01/07/20 ER Physician: Klever Rodriguez MD HPI - Alcohol Intox/Abuse Time Seen by 1304 Source of Information PATIENT Triage Complaint WITHDRAWL ETOH Chief Complaint Requests Detox, Intoxicated Symptom Onset Today Brought to ED by Family Alcohol Intake Daily History of Present Illness This is a 49-year-old female who states she has been drinking alcohol since age 14 who states her last drink was at 4:00 this morning she prefers to drink beer she does smoke cigarettes she denies any use of street drugs today she complains of shakes headache diarrhea chills and body aches. She has never been through treatment program before. Review of Systems Review of Systems Allergies Coded Allergies: SULFA (SULFONAMIDE ANTIBIOTICS) (Intermediate, RASH 01/07/20) Nursing Notes Reviewed Yes Medications Reviewed I have reviewed the patient's Home Medication List Constitutional Chills, Weakness, Denies Fever EENT Denies: Sore Throat. CVS/Pulmonary Denies Chest pain, Denies Shortness of breath, Denies Cough GI/ Nausea, Diarrhea. Denies: Abdominal Pain, Vomiting, Black Stools, Bloody Stools. MS/SKIN/LYMPH Denies Neck Pain, Denies Back Pain Neuro/Psych Headache ROS ROS: All other systems reviewed and are negative. Physical Exam Vital Signs Vital Signs Reviewed Yes Vital Signs Vital Signs Verdana 4d Date Time Temp Pulse Resp B/P B/P Pulse O2 O2 Flow FiO2 Mean Ox Delivery Rate 01/06 1242 36.7 111 20 169/92 97 Appearance General Appearance Alert, No Distress. Comment Tremulous and odor of alcohol Neuro Neuro Oriented x 3, Speech Clear, Moves all extremities Neck NECK Nml Inspection HEENT HEENT Head Atraumatic, Eyes Nml Inspection, Hearing grossly normal, No Signs of Dehydration, Mucosa Moist Respiratory Respiratory Lungs sounds clear, Respirations nonlabored, Symmetrical expansion CVS Cardiovascular Rhythm regular, Normal heart sounds Cardiovascular-Expan ded Exam Tachycardia Abdomen/Pelvis Abdomen/GI Abdomen soft, Non-Tender Extremity Extremity Normal Appearance, Full ROM Add Extremity Comment Patient is very tremulous Skin Skin Color Nml, Warm, Dry Medical Decision Making Diagnostics Labs Laboratory Tests [address] 01/06 01/06 1435 1302 Chemistry Sodium (136 - 145 mmol/L) 140 Potassium (3.5 - 5.1 mmol/L) 4.8 Chloride (98 - 107 mmol/L) 107 Carbon Dioxide (21 - 32 mmol/L) 24 BUN (7 - 18 mg/dL) 3 L Creatinine (0.550 - 1.020 mg/dL) 0.510 L Est GFR ( Amer) (> 60) > 60 Est GFR (Non-Af Amer) (> 60) > 60 Glucose (70 - 99 mg/dL) 88 Total Calcium (8.5 - 10.1 mg/dL) 8.4 L Total Bilirubin (0.2 - 1.0 mg/dL) 1.1 H AST (15 - 37 U/L) 166 H ALT (13 - 61 U/L) 105 H Alkaline Phosphatase (45 - 117 U/L) 101 Serum Total Protein (6.4 - 8.2 gm/dL) 7.5 Albumin (3.4 - 5.0 gm/dL) 3.8 ematology WBC (3.9 - 11.0 K/uL) 4.9 RBC (3.5 - 5.5 M/uL) 4.69 Hgb (12.0 - 15.0 g/dL) 16.8 H Hct (36.0 - 48.0 %) 48.6 H MCV (79.0 - 98.0 fL) 103.6 H MCH (25.4 - 34.6 pg) 35.8 H MCHC (31.5 - 36.5 g/dL) 34.6 RDW (11.5 - 14.5 %) 13.0 Plt Count (140 - 440 K/uL) 179 MPV (8.7 - 12.4 fL) 9.9 Nucleated RBC % (0 - 0.2 /100 WBC) 0.0 Nucleated RBCs # (0 - 0.012 K/uL) 0.000 oxicology Urine Opiates Screen (Negative) NEGATIVE Ur Buprenorphine Scrn (Negative) NEGATIVE Ur Oxycodone Screen (Negative) NEGATIVE Urine Methadone Screen (Negative) NEGATIVE Urine Fentanyl Screen (Negative) NEGATIVE Ur Barbiturates Screen (Negative) NEGATIVE Ur Phencyclidine Scrn (Negative) NEGATIVE Ur Amphetamines Screen (Negative) NEGATIVE Ur MDMA Scrn (Ecstasy) (Negative) NEGATIVE U Benzodiazepines Scrn (Negative) NEGATIVE Urine Cocaine Screen (Negative) NEGATIVE U Cannabinoids Screen (Negative) NEGATIVE Urine pH (5.0 - 8.0) 6.0 Serum Alcohol (<10.0 mg/dL) 277.0 H Toxicology Comment *PLEASE NOTE: rines Urine Color (YELLOW) STRAW Urine Appearance (CLEAR) CLEAR Urine pH (5.0 - 8.0) 6.0 Ur Specific [place] (1.005 - 1.030) 1.001 L Urine Protein (NEGATIVE) NEGATIVE Ur Glucose (Stick) (NEGATIVE) NEGATIVE Ur Ketones (Stick) (NEGATIVE) NEGATIVE Urine Blood (NEGATIVE) 0.03 mg/dL H Urine Nitrite (NEGATIVE) NEGATIVE Urine Bilirubin (NEGATIVE) NEGATIVE Urine Urobilinogen (NORMAL) NORMAL Ur Leukocyte Esterase (NEGATIVE) NEGATIVE Urine RBC (0 - 3 /HPF) 0-2 Urine WBC (0 - 5 /HPF) 0-2 Urine Ascorbic Acid (mg/dL) NEGATIVE Microbiology Date/Time Procedure - Status ource Growth 01/06 1302 Coronavirus COVID-19 PCR - RECD ASOPHARG Course Course: Patient's alcohol level still quite high she will be admitted to [facility] for detoxification for the first time in her life Medications Ordered: Current Medications Verdana 4d Sig/Melecio Start time Last edication Dose Route Stop Time Status Admin Nicotine 7 MG ER ONE 01/06 1545 DC TOP 01/06 1546 Sodium Chloride 1,000 ML .Q1H1M 01/06 1315 DC 01/06 IV 01/06 1415 1517 Discussed with Rickie Richard MD Critical Care time for this pt No Disposition Decision: Admit Condition Stable Departure Clinical Impression Clinical Impression Primary Impression: Alcohol addiction Qualifiers: Substance use status: uncomplicated Qualified Code: F10.20 - Alcohol dependence, uncomplicated Secondary Impressions: Alcohol intoxication Qualifiers: Complication of substance-induced condition: uncomplicated Qualified Code: F10.920 - Alcohol use, unspecified with intoxication, uncomplicated Tobacco abuse Electronically Signed eSign Date and Time Adalberto York Mariam MD Normal [facility] GFR ESTIMATEon 01-07-2020 IF AMER > 60 Normal > 60 [facility] Comment on above: Result Comment: eGFR (Estimated GFR) Units of measure:mL/min/1.73 meters sq. *CALCULATION REVISED 03/07/2015;IDMS-traceable MDRD equation eGFR is derived from the reexpressed MDRD Study equation using the following parameters: serum creatinine, age, gender and race. An eGFR<60 mL/min/1.73m2 for >3 months is consistent with chronic kidney disease. Refer to KDOQI guidelines for clinical interpretation. Performed By: #### L 500.94585, L500.17538, L500.29454 #### Test performed at: [place] [address] IF non-AFR AMER > 60 Normal > 60 [facility] Comment on above: Performed By: #### L 500.84761, L500.48266, L500.22572 #### Test performed at: [place] [address] LIMIT UR TOXon 01-07-2020 PH TOX 6.0 Normal 5.0-8.0 [facility] Comment on above: Performed By: #### L 600.87986, L600.53622 #### Test performed at: [place] [address] UR AMPH Negative Normal Negative [facility] Comment on above: Result Comment: CUTO SM=4529 Performed By: #### L 600.18295, L600.88207 #### Test performed at: [address] [address] UR JOY Negative Normal Negative [facility] Comment on above: Result Comment: CUTO QV=307 Performed By: #### L 600.78711, L600.69812 #### Test performed at: [place] [address] UR JENIFFER Negative Normal Negative [facility] Comment on above: Result Comment: CUTO VM=442 Performed By: #### L 600.10892, L600.48652 #### Test performed at: [place] [address] UR BUPREN/NORBU Negative Normal Negative [facility] Comment on above: Result Comment: CUTO FF=10 Performed By: #### L 600.81198, L600.11127 #### Test performed at: [place] [id number] UR SHARITA/THC Negative Normal Negative [facility] Comment on above: Result Comment: CUTO FF=50 Performed By: #### L 600.00379, L600.99480 #### Test performed at: [place] [id number] UR NADIRA Negative Normal Negative [facility] Comment on above: Result Comment: CUTO TO=517 Performed By: #### L 600.85342, L600.97942 #### Test performed at: [place] [id number] UR ECSTASY Negative Normal Negative [facility] Comment on above: Result Comment: CUTO OQ=143 Performed By: #### L 600.12310, L600.58736 #### Test performed at: [address] [address] UR FENTANYL Negative Normal Negative [facility] Comment on above: Result Comment: CUTO WQ=5488 Performed By: #### L 600.02516, L600.23851 #### Test performed at: [place] [address] UR METH Negative Normal Negative [facility] Comment on above: Result Comment: CUTO HM=067 Performed By: #### L 600.34698, L600.95535 #### Test performed at: [place] [address] UR OPIAT Negative Normal Negative [facility] Comment on above: Result Comment: CUTO JU=551 Performed By: #### L 600.42653, L600.37775 #### Test performed at: [place] [address] UR OXYCOCONE Negative Normal Negative [facility] Comment on above: Result Comment: CUTO PD=612 Performed By: #### L 600.91256, L600.66434 #### Test performed at: [place] [address] UR PCP Negative Normal Negative [facility] Comment on above: Result Comment: CUTO FF=25 Performed By: #### L 600.65294, L600.83338 #### Test performed at: [place] [address] TOX COMMENT *PLEASE NOTE: Normal [facility] Comment on above: Result Comment: UNCO NFIRMED Toxicology results. For MEDICAL purposes only. Performed By: #### L 600.88359, L600.48619 #### Test performed at: [place] [address] UA COMPLETEon 01-07-2020 Appearance (U) CLEAR Normal CLEAR [facility] Comment on above: Performed By: #### L 600.46786, L600.14006 #### Test performed at: [place] [address] Bilirubin [Mass/Vol] Negative Normal NEGATIVE [facility] Comment on above: Performed By: #### L 600.57421, L600.66124 #### Test performed at: [address] [address] BLOOD 0.03 mg/dL Critically abnormal NEGATIVE [facility] Comment on above: Performed By: #### L 600.62763, L600.63831 #### Test performed at: [place] [address] Color (U) STRAW Normal YELLOW [facility] Comment on above: Performed By: #### L 600.94827, L600.58196 #### Test performed at: [address] [address] Glucose [Mass/Vol] Negative Normal NEGATIVE [facility] Comment on above: Performed By: #### L 600.79739, L600.87601 #### Test performed at: [address] [address] KETONE Negative Normal NEGATIVE [facility] Comment on above: Performed By: #### L 600.51348, L600.44089 #### Test performed at: [address] [address] LEUK ESTERASE Negative Normal NEGATIVE [facility] Comment on above: Performed By: #### L 600.08586, L600.50212 #### Test performed at: [address] [address] Nitrite Ql (U) Negative Normal NEGATIVE [facility] Comment on above: Performed By: #### L 600.84916, L600.31558 #### Test performed at: [address] [address] Protein [Mass/Vol] Negative Normal NEGATIVE [facility] Comment on above: Performed By: #### L 600.36677, L600.38946 #### Test performed at: [place] [address] RBC (Bld) [#/Vol] 0-2 Normal 0-3 [facility] Comment on above: Performed By: #### L 600.82018, L600.38186 #### Test performed at: [address] [address] SPEC GRAV 1.001 Low 1.005-1.030 [facility] Comment on above: Performed By: #### L 600.61000, L600.91180 #### Test performed at: [address] [address] UA ASC ACID Negative Normal [facility] Comment on above: Performed By: #### L 600.76364, L600.20223 #### Test performed at: [place] [address] UA PH 6.0 Normal 5.0-8.0 [facility] Comment on above: Performed By: #### L 600.75216, L600.01333 #### Test performed at: [place] [id number] UROBIL NORMAL Normal NORMAL [facility] Comment on above: Performed By: #### L 600.66914, L600.03711 #### Test performed at: [place] [address] WBC (Bld) [#/Vol] 0-2 Normal 0-5 [facility] Comment on above: Performed By: #### L 600.94674, L600.99810 #### Test performed at: [place] [address] Chlamydia/GC DNA, Uron 09-23 Protein mass conc Negative Normal NEG [facility] Comment on above: Result Comment: CHLA MYDIA TRACHOMATIS DNA not detected by nucleic acid amplification. This test is intended for medical purposes only and is not valid for the evaluation of suspected sexual abuse or for other forensic purposes. In certain contexts, culture may be required to meet applicable laws and regulations for diagnosis of C. trachomatis and N. gonorrhoeae infections. Per 2014 CDC recommendations, this test does not include confirmation of positive results by an alternative nucleic acid target. Performed By: #### U CGP #### [address] [address] Carbide Operator: Brenton Minor MD Result Comment: NEIS SERIA GONORRHOEAE DNA not detected by nucleic acid amplification. This test is intended for medical purposes only and is not valid for the evaluation of suspected sexual abuse or for other forensic purposes. In certain contexts, culture may be required to meet applicable laws and regulations for diagnosis of C. trachomatis and N. gonorrhoeae infections. Per 2014 CDC recommendations, this test does not include confirmation of positive results by an alternative nucleic acid target. HIV Ag/Abon 09-22-2018 HIV Ag/Ab NONREACTIVE Normal [facility] Comment on above: Result Comment: No l aboratory evidence of HIV infection. If acute HIV infection is suspected, consider testing for HIV-1 RNA. Performed By: #### H IVCMB, PHEP, TREP #### [facility] [address] [place] [address] Carbide Operator: Brenton Minor MD Hepatitis Acute [facility] 09-22 Hep A Ab,IgM NONREACTIVE Normal [facility] Comment on above: Performed By: #### H IVCMB, PHEP, TREP #### [facility] [employer] [address] [place] [address] Carbide Operator: Brenton Minor MD Hep B Core Ab,IgM NONREACTIVE Normal [facility] Comment on above: Performed By: #### H IVCMB, PHEP, TREP #### [facility] [address] [place] [address] Carbide Operator: Brenton Minor MD Hep B Surf Ag NONREACTIVE Normal [facility] Comment on above: Performed By: #### H IVCMB, PHEP, TREP #### [facility] [address] [place] [address] Carbide Operator: Brenton Minor MD Hep C Ab NONREACTIVE Normal NR [facility] Comment on above: Result Comment: The hepatitis C procedure used in our laboratory is a Chemiluminescent test specific for three recombinant HCV antigens. A negative anti-HCV result indicates that the antibodies to hepatitis C virus are not present at this time. Individuals with reactive anti-HCV should be considered infected and infectious until proven otherwise. Confirmation of all equivocal or reactive results is recommended by ordering HCV RNA by PCR. Performed By: #### H IVCMB, PHEP, TREP #### [facility] [place], [place] [id number] Carbide Operator: Brenton Minor MD T.pallidum Ab Screenon 09-22 T.pallidum Ab Screen NONREACTIVE Normal NR [facility] Comment on above: Result Comment: T. pallidum antibodies are not detected. There is no serological evidence of infection with T. pallidum (early primary syphilis cannot be excluded). Retest in 2-4 weeks if syphilis is clinically suspect. Performed By: #### H IVCMB, PHEP, TREP #### [facility] [place], [place] [id number] Carbide Operator: Brenton Minor MD .eGFRon 07-25-2018 eGFR Non-AA >60 Normal >=60 [facility] Comment on above: Result Comment: Resu lt = 0-14.9 mL/min/1.73 m2 Kidney failure or Dialysis Result = 15-29 mL/min/1.73 m2 Severe decrease in GFR Result = 30-59 mL/min/1.73 m2 Moderate decrease in GFR Result >= 60 mL/min/1.73 m2 Normal or increased GFR Chronic kidney disease is defined as either kidney damage or GFR < 60 mL/min/1.73 m2 for >= 3 months. Kidney damage is defined as pathologic abnormalities or markers of damage including abnormalities in blood or urine tests or imaging studies. This GFR is NOT used for medication dosing. Performed By: #### C D:[id number] #### [address] [address] eGFR AA >60 Normal >=60 [facility] Comment on above: Result Comment: Resu lt = 0-14.9 mL/min/1.73 m2 Kidney failure or Dialysis Result = 15-29 mL/min/1.73 m2 Severe decrease in GFR Result = 30-59 mL/min/1.73 m2 Moderate decrease in GFR Result >= 60 mL/min/1.73 m2 Normal or increased GFR Performed By: #### C D:[id number] #### [place] [id number] CBC w/ Diffon 07-25-2018 Erythrocyte distribution width Ratio (RBC) 13.4 % Normal 11.6-14.8 [facility] Comment on above: Performed By: #### C BC ####[place] [id number] Hematocrit Volume Fraction (Bld) 40.6 % Normal 36.0-46.0 [facility] Comment on above: Performed By: #### C BC ####[place] [id number] Hemoglobin mass conc (Bld) 13.9 g/dL Normal 12.0-16.0 [facility] Comment on above: Performed By: #### C BC ####[place] [id number] MCH Entitic mass (RBC) 33.5 pg Normal 27.0-35.0 [facility] Comment on above: Performed By: #### C BC ####[place] [id number] MCHC mass conc (RBC) 34.1 % Normal 31.0-37.0 [facility] Comment on above: Performed By: #### C BC ####[place] [id number] MCV Entitic volume (RBC) 98.1 fL Normal 80.0-100.0 [facility] Comment on above: Performed By: #### C BC ####[place] [id number] Platelet mean volume Entitic volume (Bld) 8.4 fL Normal 6.7-10.6 [facility] Comment on above: Performed By: #### C BC ####[address] [address] Platelets #/vol (Bld) 114 x10*3/mcL Low 150-350 [facility] Comment on above: Performed By: #### C BC ####[address] [address] RBC #/vol (Bld) 4.14 x10*6/mcL Normal 3.80-5.20 [facility] Comment on above: Performed By: #### C BC ####[address] [address] WBC #/vol (Bld) 4.8 x10*3/mcL Normal 4.5-11.0 [facility] Comment on above: Performed By: #### C BC ####[address] [address] CMPon 07-25-2018 Albumin mass conc 3.7 g/dL Normal 3.2-4.9 [facility] Comment on above: Result Comment: [facility] Laboratory updated the methodology used for albumin testing on 12/24/17. Albumin measurement was performed using a bromcresol purple dye-binding assay. Performed By: #### C [id number] #### [address] [address] Albumin/Globulin mass ratio 1.4 {ratio} Normal 1.1-2.2 [facility] Comment on above: Performed By: #### C D:[id number] #### [address] [address] Alk Phos 68 IU/L Normal 32-91 [facility] Comment on above: Performed By: #### C D:[id number] #### [address] [address] ALT enzyme act/vol 69 U/L High 14-54 [facility] Comment on above: Performed By: #### C D:[id number] #### [facility] [address] [facility] [place] [address] Anion gap molar conc 15 mmol/L Normal 7-17 [facility] Comment on above: Performed By: #### C D:[id number] #### [facility] [address] [facility] [place] [address] AST enzyme act/vol 119 U/L High 15-41 [facility] Comment on above: Performed By: #### C D:[id number] #### [address] [address] Bili Total 1.5 mg/dL High 0.3-1.2 [facility] Comment on above: Performed By: #### C D:[id number] #### [address] [place] [address] Calcium mass conc 7.8 mg/dL Low 8.5-10.3 [facility] Comment on above: Performed By: #### C D:[id number] #### [address] [place] [address] Chloride molar conc 104 mmol/L Normal 98-110 [facility] Comment on above: Performed By: #### C D:[id number] #### [address] [place] [address] CO2 molar conc 21 mmol/L Low 22-32 [facility] Comment on above: Performed By: #### C D:[id number] #### [address] [place] [address] Creatinine mass conc 0.51 mg/dL Normal 0.44-1.03 [facility] Comment on above: Performed By: #### C D:[id number] #### [address] [place] [address] Glucose mass conc 88 mg/dL Normal 74-118 [facility] Comment on above: Performed By: #### C D:[id number] #### [address] [place] [address] Potassium molar conc 3.8 mmol/L Normal 3.4-4.8 [facility] Comment on above: Performed By: #### C D:[id number] #### [address] [address] Protein mass conc 6.4 g/dL Low 6.5-8.1 [facility] Comment on above: Performed By: #### C D:[id number] #### [address] [address] Sodium molar conc 136 mmol/L Normal 133-142 [facility] Comment on above: Performed By: #### C D:[id number] #### [address] [address] Urea nitrogen mass conc 7 mg/dL Low 8-26 [facility] Comment on above: Performed By: #### C D:[id number] #### [address] [address] Urea nitrogen/Creatinin e mass ratio 13.7 mg/mg Normal 10.0-20.0 [facility] Comment on above: Performed By: #### C D:[id number] #### [address] [address] Diff Autoon 07-25-2018 Baso Absolute 0.0 x10*3/mcL Normal 0.0-0.2 St[address] [facility] Comment on above: Performed By: #### . Automated Diff ####[address] [address] Basophils/100 WBC (Bld) 0.7 % Normal 0.0-1.5 [facility] Comment on above: Performed By: #### . Automated Diff ####[address] [address] Eos Absolute 0.0 x10*3/mcL Normal 0.0-0.4 [facility] Comment on above: Performed By: #### . Automated Diff ####[address] [address] Eosinophils/100 WBC (Bld) 0.3 % Normal 0.0-5.4 [facility] Comment on above: Performed By: #### . Automated Diff ####[place] [id number] Lymphocytes #/vol (Bld) 1.6 x10*3/mcL Normal 1.0-4.8 [facility] Comment on above: Performed By: #### . Automated Diff ####[place] [id number] Lymphocytes/100 WBC (Bld) 33.7 % Normal 27.2-40.8 [facility] Comment on above: Performed By: #### . Automated Diff ####[place] [id number] Sequoyah Absolute 0.4 x10*3/mcL Normal 0.1-1.1 [facility] Comment on above: Performed By: #### . Automated Diff ####[place] [id number] Monocytes/100 WBC (Bld) 7.5 % Normal 3.7-11.9 [facility] Comment on above: Performed By: #### . Automated Diff ####[address] [address] Neutro Absolute 2.8 x10*3/mcL Normal 1.8-7.7 [facility] Comment on above: Performed By: #### . Automated Diff ####[place] [id number] Neutro Auto 57.8 % Normal 47.2-70.8 [facility] Comment on above: Performed By: #### . Automated Diff ####[place] [id number] ED Note-Physicianon 07-26-19 ED Note-Physician Chief Complaint pt to er for going through alcohol withdraw pt has been vomiting and had her last drink prior to arrival ED Attending Attestation Patient was signed out pending laboratory studies and prescreener evaluation due to suicidal ideation. Patient's alcohol level was elevated to 0.31. Due to severe alcohol intoxication, patient benefit from ICU admission for further treatment and evaluation and psychiatric evaluation. Dx: Acute alcohol intoxication Depression with suicidal ideation Attending Note Vitals & Measurements T: 36.9 ?C (Axillary) T: 36.6 ?C (Oral) HR: 113 (Monitored) RR: 21 BP: 140/85 SpO2: 99% HT: 157 cm WT: 66.2 kg DOSE WT: 63.5 kg BMI: 26.86 Lab Results Automated Hematology LATEST RESULTS WBC 07/24/18 19:10 5.3 RBC 07/24/18 19:10 4.71 Hgb 07/24/18 19:10 15.8 Hct 07/24/18 19:10 46.1 High MCV 07/24/18 19:10 98.0 MCH 07/24/18 19:10 33.5 MCHC 07/24/18 19:10 34.2 RDW 07/24/18 19:10 13.2 Platelet 07/24/18 19:10 133 Low Mean Platelet Volume 07/24/18 19:10 8.2 Neutro Auto 07/24/18 19:10 42.4 Low Lymph Auto 07/24/18 19:10 50.8 High Sequoyah Auto 07/24/18 19:10 5.9 Eos Auto 07/24/18 19:10 0.1 Basophil Auto 07/24/18 19:10 0.8 Neutro Absolute 07/24/18 19:10 2.3 Lymph Absolute 07/24/18 19:10 2.7 Sequoyah Absolute 07/24/18 19:10 0.3 Eos Absolute 07/24/18 19:10 0.0 Baso Absolute 07/24/18 19:10 0.0 Routine Chemistry LATEST RESULTS Sodium Lvl 07/24/18 19:10 136 Potassium Lvl 07/24/18 19:10 3.8 Chloride 07/24/18 19:10 103 CO2 07/24/18 19:10 20 Low Anion Gap 07/24/18 19:10 17 Glucose Lvl 07/24/18 19:10 110 BUN 07/24/18 19:10 7 Low Creatinine Lvl 07/24/18 19:10 0.61 eGFR AA 07/24/18 19:10 >60 eGFR Non-AA 07/24/18 19:10 >60 BUN Crea Ratio 07/24/18 19:10 11.5 Bili Total 07/24/18 19:10 1.0 Alk Phos 07/24/18 19:10 64 AST 07/24/18 19:10 119 High ALT 07/24/18 19:10 75 High Total Protein 07/24/18 19:10 7.4 Albumin Lvl 07/24/18 19:10 4.1 AG Ratio 07/24/18 19:10 1.2 Calcium Lvl 07/24/18 19:10 7.9 Low Phosphorus 07/24/18 19:10 3.3 Magnesium Lvl 07/24/18 19:10 1.9 Random Urine Chemistry LATEST RESULTS Ur Creatinine Tox Scrn 07/24/18 17:14 19.7 Serum Toxicology LATEST RESULTS Acetaminoph Lvl 07/24/18 19:10 <10.0 Low Ethanol Lvl 07/24/18 19:10 0.315 Critical Salicylate Levl 07/24/18 19:10 <4.0 Low Urine Toxicology LATEST RESULTS Ur Amph Scrn 07/24/18 17:14 Negative Ur Joy Scrn 07/24/18 17:14 Negative Ur Benzodia Scrn 07/24/18 17:14 Negative Ur Cannab Scrn 07/24/18 17:14 Negative Ur Cocaine Scrn 07/24/18 17:14 Negative Ur Methadone Scn 07/24/18 17:14 Negative Ur Oxy Screen 07/24/18 17:14 Negative Ur Opiate Scrn 07/24/18 17:14 Negative Ur PCP Scrn 07/24/18 17:14 Negative UA Macroscopic LATEST RESULTS UA Spec Grav 07/24/18 17:14 1.003 UA pH 07/24/18 17:14 6.0 Diagnostic Results XRay No qualifying data available. Computerized Tomagraphy No qualifying data available. Ultrasound No qualifying data available. Magnetic Resonance Imaging No qualifying data available. Electronically signed by Jonah Hewitt MD 07/25/18 03:59 EST Normal [facility] Ethanolon 07-25-2018 Ethanol mass conc 0.017 g/dL High <=0.[address] [facility] [facility] Comment on above: Performed By: #### C [id number] #### [facility] [address] [place] [address] Inpatient Clinical Summaryon 07-25-2018 Inpatient Clinical Summary [facility] [address] [place] [address] [address] Clinical Summary Person Information Name: Caridad Reyes Age: 47 Years : 1970 Sex: Female PCP: Marital Status: Single Phone: PCP: Race: White Ethnicity: Not or Language: Luxembourgish Visit Id: Visit Reason: Alcohol withdrawal Speciality: Acuity: Enc Type: Observation Med Service: Emergency Medicine Arrival: 07/24/2018 16:18:00 Discharge: Dispo Type: Place in Observation Address: [address] [place], [place] [id number] Diagnosis: 1:Alcohol intoxication; 2:Suicidal ideation; 3:Alcoholism /alcohol abuse; 4:H/O: HTN (hypertension); Depression Discharged To: Home Treatments: Devices/Equipment: Professional Skilled Services: Special Services and Community Resources: Mode of Discharge Transportation: Discharge Orders Activity Restrictions No Restrictions Diet Instruction Regular home diet Discharge Special Instructions It is recommended that you abstain from alcohol take medications as directed and follow up with pcp or establish care with pcp in the next 1-2 weeks or ruthann. Discharge Special Instructions Follow up at [facility] after discharge in the next 2 weeks. Follow up 07/25/18 12:53:00 EST, 1 to 2 weeks, primary care provider; if you do not have a pcp call [phone] to establish care. Follow up 07/25/18 12:12:00 EST, 1 to 2 weeks Allergies Keflex (Rash) Functional Status: Sensory Deficits: History of Falls: Mobility Assistance Prior to Admission: ADLs: Minimal assistance Gait: Ambulation Assist: Assistive Device: Special Orthopedic Devices: Current Level of Assistance for Self-Care/Mobility: Cognitive Status: Orientation: Orientation Assessment Oriented x 4 Level of Consciousness: Alert Characteristics of Speech: Clear Aspiration Risk: None Affect/Behavior: Calm Laboratory or Other Results This Visit (last charted value for your 07/24/2018 visit) Hematology 07/25/2018 5:13 AM WBC: 4.8 x10 RBC: 4.14 x10 Neutro Auto: 57.8 % -- Normal range between ( 47.2 and 70.8 ) Lymph Auto: 33.7 % -- Normal range between ( 27.2 and 40.8 ) Sequoyah Auto: 7.5 % -- Normal range between ( 3.7 and 11.9 ) Eos Auto: 0.3 % -- Normal range between ( 0.0 and 5.4 ) Basophil Auto: 0.7 % -- Normal range between ( 0.0 and 1.5 ) Baso Absolute: 0.0 x10 MCV: 98.1 fL -- Normal range between ( 80.0 and 100.0 ) MCHC: 34.1 % -- Normal range between ( 31.0 and 37.0 ) Lymph Absolute: 1.6 x10 Hct: 40.6 % -- Normal range between ( 36.0 and 46.0 ) Sequoyah Absolute: 0.4 x10 MCH: 33.5 pg -- Normal range between ( 27.0 and 35.0 ) Neutro Absolute: 2.8 x10 Hgb: 13.9 g/dL -- Normal range between ( 12.0 and 16.0 ) Mean Platelet Volume: 8.4 fL -- Normal range between ( 6.7 and 10.6 ) Platelet: 114 x10 Eos Absolute: 0.0 x10 RDW: 13.4 % -- Normal range between ( 11.6 and 14.8 ) Coagulation 07/25/2018 5:13 AM PT: 10.6 seconds -- Normal range between ( 9.2 and 11.7 ) INR: 1.0 ratio Urinalysis 07/24/2018 5:14 PM UA Spec Grav: 1.003 -- Normal range between ( 1.003 and 1.035 ) UA pH: 6.0 Chemistry 07/25/2018 5:13 AM Creatinine Lvl: 0.51 mg/dL -- Normal range between ( 0.44 and 1.03 ) BUN: 7 mg/dL -- Normal range between ( 8 and 26 ) Glucose Lvl: 88 mg/dL -- Normal range between ( 74 and 118 ) Potassium Lvl: 3.8 mmol/L -- Normal range between ( 3.4 and 4.8 ) AST: 119 IU/L -- Normal range between ( 15 and 41 ) ALT: 69 IU/L -- Normal range between ( 14 and 54 ) Sodium Lvl: 136 mmol/L -- Normal range between ( 133 and 142 ) Calcium Lvl: 7.8 mg/dL -- Normal range between ( 8.5 and 10.3 ) Albumin Lvl: 3.7 g/dL -- Normal range between ( 3.2 and 4.9 ) Total Protein: 6.4 g/dL -- Normal range between ( 6.5 and 8.1 ) Bili Total: 1.5 mg/dL -- Normal range between ( 0.3 and 1.2 ) Alk Phos: 68 IU/L -- Normal range between ( 32 and 91 ) Chloride: 104 mmol/L -- Normal range between ( 98 and 110 ) CO2: 21 mmol/L -- Normal range between ( 22 and 32 ) Anion Gap: 15 -- Normal range between ( 7 and 17 ) eGFR Non-AA: >60 mL/min/1.73m? eGFR AA: >60 mL/min/1.73m? BUN Crea Ratio: 13.7 -- Normal range between ( 10.0 and 20.0 ) AG Ratio: 1.4 -- Normal range between ( 1.1 and 2.2 ) 07/24/2018 7:10 PM Lipase Lvl: 60 IU/L -- Normal range between ( 22 and 51 ) Phosphorus: 3.3 mg/dL -- Normal range between ( 2.5 and 4.6 ) Magnesium Lvl: 1.9 mg/dL -- Normal range between ( 1.7 and 2.4 ) 07/24/2018 5:14 PM Ur Creatinine Tox Scrn: 19.7 mg/dL Toxicology 07/25/2018 5:13 AM Ethanol Lvl: 0.017 g/dL 07/24/2018 7:10 PM Acetaminoph Lvl: <10.0 mcg/mL -- Normal range between ( 10.0 and 30.0 ) Salicylate Levl: <4.0 mg/dL -- Normal range between ( 0.0 and 30.0 ) 07/24/2018 5:14 PM Ur PCP Scrn: Negative ng/mL Ur Opiate Scrn: Negative ng/mL Ur Methadone Scn: Negative ng/mL Ur Cannab Scrn: Negative ng/mL Ur Amph Scrn: Negative ng/mL Ur Benzodia Scrn: Negative ng/mL Ur Joy Scrn: Negative ng/mL Ur Cocaine Scrn: Negative ng/mL Ur Oxy Screen: Negative ng/mL Molecular 07/24/2018 8:42 PM Methicillin Resistant Staph aurus(MRSA): Negative Measurements: Height: Weight: Blood Pressure: 135 mmHg / BMI: Respiratory: Respirations: Unlabored, Quiet Respiratory Symptoms: Denies shortness of breath with usual activity Cardiovascular: Heart Sounds: Heart Rhythm: Regular Gastrointestinal: GI Symptoms: Bowel Sounds: Hyperactive Vital Signs: Temp Axillary: 36.9 degC Temp Temporal Artery: Temp Oral: 36.9 degC Temp Rectal: Apical Heart Rate: Peripheral Pulse Rate: 114 bpm Heart Rate: 105 bpm Respiratory Rate: 8 br/min Diet Diet: Feeding Tolerance: Appetite: Good Sigifredo Assessment: 22 Procedures No Procedures Documented Immunizations No Immunizations Documented This Visit HERE ARE THE MEDICATION CHANGES THAT OCCURRED DURING YOUR HOSPITAL STAY New Medications [facility] [address] [place], [place] [id number], [phone] folic acid (folic acid 1 mg oral tablet) 1 Milligram Oral (given by mouth) every day. Refills: 0. Last Dose: multivitamin (Multiple Vitamins oral capsule) 1 Capsules Oral (given by mouth) every day. Refills: 0. Last Dose: sertraline (Zoloft 50 mg oral tablet) 50 Milligram Oral (given by mouth) every day. Refills: 0. Last Dose: thiamine (thiamine 100 mg oral tablet) 100 Milligram Oral (given by mouth) every day for 30 Days. Refills: 0. Last Dose: These Medications Were Removed and Should No Longer Be Taken atenolol (Tenormin 25 mg oral tablet) 1 Tabs Oral (given by mouth) every day. Stop Taking Reason: PROVIDED FOR YOU IS A LIST OF YOUR PATIENT?S CURRENT MEDICATIONS [facility] [address] [place], [place] [id number], [phone] folic acid (folic acid 1 mg oral tablet) 1 Milligram Oral (given by mouth) every day. Refills: 0. multivitamin (Multiple Vitamins oral capsule) 1 Capsules Oral (given by mouth) every day. Refills: 0. sertraline (Zoloft 50 mg oral tablet) 50 Milligram Oral (given by mouth) every day. Refills: 0. thiamine (thiamine 100 mg oral tablet) 100 Milligram Oral (given by mouth) every day for 30 Days. Refills: 0. Care Team Members: Attending Physician: Caridad Jeronimo DO Consulting Physician: Khadijah Rodriguez CNP Referring Physician: Follow up: With: Address: When: Call Primary Care Provider for follow up appointment. If unable to call or find a primary care provider, call [phone] Within 1 to 2 weeks Comments: Call on Friday to make appointments! With: Address: When: Moe Delo [facility] [place] [phone] Business (1) Within 1 to 2 weeks Normal [facility] Lipaseon 07-25-2018 Lipase Lvl 60 IU/L High 22-51 [facility] Comment on above: Performed By: #### L IP ####[facility] [place] [address] MRSA, PCRon 07-25-2018 INR Coag RelTime (Bld) Negative Normal [facility] Comment on above: Result Comment: The [employer] Xpert MRSA Assay is a qualitative in vitro diagnostic test designed for rapid detection of Methicillin-Resistant Staphylococcus aureus (MRSA) from nasal swabs in patients at risk for nasal colonization.The test utilizes automated real-time polymerase chain reaction (PCR) to detect MRSA DNA,because the detection of MRSA is dependent on the number of organisms present. A positive test result does not necessarily indicate the presence of viable organism. It is however,presumptive for the presence of MRSA.Test results might be affected by concurrent antibiotic therapy. Therefore, therapeutic success or failure cannot be assessed using this test because DNA might persist following antimicrobial therapy. Mutations or polymorphisms in primer or probe binding regions may affect detection of new or unknown MRSA variants resulting in a false negative result. Results from the Xpert MRSA Assay should be interpreted in conjunction with other laboratory and clinical data available to the clinician. Performed By: #### M RSAPC ####[address] [address] PTon 07-25-2018 INR Coag RelTime (PPP) 1.0 {INR} Normal <=3.5 [facility] Comment on above: Result Comment: INR has no normal range. INR Therapeutic range is: 2.0-3.0 (AF, CVA, TIAs, DVT prophylaxis, acute DVT) 2.5-3.5 ([facility] heart valves, recurrent thrombosis/emboli) Performed By: #### P TINR ####[address] [address] Prothrombin time (PT) Coag time (PPP) 10.6 s Normal 9.2-11.7 [facility] Comment on above: Performed By: #### P TINR ####[place] [id number] .eGFRon 07-24-2018 eGFR AA >60 Normal >=60 [facility] Comment on above: Order Comment: Order added by Discern rule Result Comment: Resu lt = 0-14.9 mL/min/1.73 m2 Kidney failure or Dialysis Result = 15-29 mL/min/1.73 m2 Severe decrease in GFR Result = 30-59 mL/min/1.73 m2 Moderate decrease in GFR Result >= 60 mL/min/1.73 m2 Normal or increased GFR Performed By: #### E GFR #### [place] [address] eGFR Non-AA >60 Normal >=60 [facility] Comment on above: Order Comment: Order added by Discern rule Result Comment: Resu lt = 0-14.9 mL/min/1.73 m2 Kidney failure or Dialysis Result = 15-29 mL/min/1.73 m2 Severe decrease in GFR Result = 30-59 mL/min/1.73 m2 Moderate decrease in GFR Result >= 60 mL/min/1.73 m2 Normal or increased GFR Chronic kidney disease is defined as either kidney damage or GFR < 60 mL/min/1.73 m2 for >= 3 months. Kidney damage is defined as pathologic abnormalities or markers of damage including abnormalities in blood or urine tests or imaging studies. This GFR is NOT used for medication dosing. Performed By: #### E GFR #### [place] [id number] Acetaminophen Lvlon 07-25-19 19 Acetaminoph Lvl <10.0 Low 10.0-30.0 [facility] Comment on above: Order Comment: add o n to initial labs if possible Result Comment: Valu es >150 mcg/mL 4 hours post-ingestion, or >75 mcg/mL 8 hours post-ingestion, or >40 mcg/mL 12 hours post ingestion are considered toxic. Performed By: #### A CET ####[place] [id number] CBC w/ Diffon 07-24-2018 Erythrocyte distribution width Ratio (RBC) 13.2 % Normal 11.6-14.8 [facility] Comment on above: Performed By: #### C BC #### [place] [id number] Hematocrit Volume Fraction (Bld) 46.1 % High 36.0-46.0 [facility] Comment on above: Performed By: #### C BC #### [place] [id number] Hemoglobin mass conc (Bld) 15.8 g/dL Normal 12.0-16.0 [facility] Comment on above: Performed By: #### C BC #### [address] [address] MCH Entitic mass (RBC) 33.5 pg Normal 27.0-35.0 [facility] Comment on above: Performed By: #### C BC #### [place] [id number] MCHC mass conc (RBC) 34.2 % Normal 31.0-37.0 [facility] Comment on above: Performed By: #### C BC #### [place] [id number] MCV Entitic volume (RBC) 98.0 fL Normal 80.0-100.0 [facility] Comment on above: Performed By: #### C BC #### [address] [address] Platelet mean volume Entitic volume (Bld) 8.2 fL Normal 6.7-10.6 [facility] Comment on above: Performed By: #### C BC #### [address] [address] Platelets #/vol (Bld) 133 x10*3/mcL Low 150-350 [facility] Comment on above: Performed By: #### C BC #### [address] [address] RBC #/vol (Bld) 4.71 x10*6/mcL Normal 3.80-5.20 [facility] Comment on above: Performed By: #### C BC #### [address] [address] WBC #/vol (Bld) 5.3 x10*3/mcL Normal 4.5-11.0 [facility] Comment on above: Performed By: #### C BC #### [address] [address] CMPon 07-24-2018 Albumin mass conc 4.1 g/dL Normal 3.2-4.9 [facility] Comment on above: Result Comment: [facility] Laboratory updated the methodology used for albumin testing on 12/24/17. Albumin measurement was performed using a bromcresol purple dye-binding assay. Performed By: #### C OMP #### [address] [address] Albumin/Globulin mass ratio 1.2 {ratio} Normal 1.1-2.2 [facility] Comment on above: Performed By: #### C OMP #### [place] [id number] Creatinine mass conc 0.61 mg/dL Normal 0.44-1.03 [facility] Comment on above: Performed By: #### C OMP #### [address] [address] Urea nitrogen mass conc 7 mg/dL Low 8-26 [facility] Comment on above: Performed By: #### C OMP #### [address] [address] Urea nitrogen/Creatinin e mass ratio 11.5 mg/mg Normal 10.0-20.0 [facility] Comment on above: Performed By: #### C OMP #### [address] [address] Alk Phos 64 IU/L Normal 32-91 [facility] Comment on above: Performed By: #### C OMP #### [address] [address] ALT enzyme act/vol 75 U/L High 14-54 [facility] Comment on above: Performed By: #### C OMP #### [address] [address] Anion gap molar conc 17 mmol/L Normal 7-17 [facility] Comment on above: Performed By: #### C OMP #### [address] [address] AST enzyme act/vol 119 U/L High 15-41 [facility] Comment on above: Performed By: #### C OMP #### [address] [address] Bili Total 1.0 mg/dL Normal 0.3-1.2 [facility] Comment on above: Performed By: #### C OMP #### [address] [address] Calcium mass conc 7.9 mg/dL Low 8.5-10.3 [facility] Comment on above: Performed By: #### C OMP #### [address] [address] Chloride molar conc 103 mmol/L Normal 98-110 [facility] Comment on above: Performed By: #### C OMP #### [address] [address] CO2 molar conc 20 mmol/L Low 22-32 [facility] Comment on above: Performed By: #### C OMP #### [address] [address] Glucose mass conc 110 mg/dL Normal 74-118 [facility] Comment on above: Performed By: #### C OMP #### [address] [address] Potassium molar conc 3.8 mmol/L Normal 3.4-4.8 [facility] Comment on above: Performed By: #### C OMP #### [address] [address] Protein mass conc 7.4 g/dL Normal 6.5-8.1 [facility] Comment on above: Performed By: #### C OMP #### [address] [address] Sodium molar conc 136 mmol/L Normal 133-142 [facility] Comment on above: Performed By: #### C OMP #### [address] [address] Diff Autoon 07-24-2018 Baso Absolute 0.0 x10*3/mcL Normal 0.0-0.2 [facility] Comment on above: Performed By: #### . Automated Diff #### [address] [address] Basophils/100 WBC (Bld) 0.8 % Normal 0.0-1.5 [facility] Comment on above: Performed By: #### . Automated Diff #### [address] [address] Eos Absolute 0.0 x10*3/mcL Normal 0.0-0.4 [facility] Comment on above: Performed By: #### . Automated Diff #### [address] [address] Eosinophils/100 WBC (Bld) 0.1 % Normal 0.0-5.4 [facility] Comment on above: Performed By: #### . Automated Diff #### [address] [address] Lymphocytes #/vol (Bld) 2.7 x10*3/mcL Normal 1.0-4.8 [facility] Comment on above: Performed By: #### . Automated Diff #### [address] [address] Lymphocytes/100 WBC (Bld) 50.8 % High 27.2-40.8 [facility] Comment on above: Performed By: #### . Automated Diff #### [address] [address] Sequoyah Absolute 0.3 x10*3/mcL Normal 0.1-1.1 [facility] Comment on above: Performed By: #### . Automated Diff #### [address] [address] Monocytes/100 WBC (Bld) 5.9 % Normal 3.7-11.9 [facility] Comment on above: Performed By: #### . Automated Diff #### [address] [address] Neutro Absolute 2.3 x10*3/mcL Normal 1.8-7.7 [facility] Comment on above: Performed By: #### . Automated Diff #### [place] [address] Neutro Auto 42.4 % Low 47.2-70.8 [facility] Comment on above: Performed By: #### . Automated Diff #### [address] [address] ED Clinical Summaryon 2018 ED Clinical Summary [address] [id number] ED Clinical Summary Person Information Name: Caridad Reyes/[facility] Age: 47 Years : 1970 Sex: Female PCP: Marital Status: Single Phone: Race: White Ethnicity: Not or Language: Luxembourgish Visit Reason: Suicidal thoughts; Alcohol withdrawal syndrome; Alcohol withdrawal Acuity: 2 Enc Type: Observation Med Service: Emergency Medicine Arrival: 07/24/2018 16:18:00 Discharge: LOS: 000 03:56 Checkin: 07/24/2018 16:18:00 Checkout: 07/24/2018 20:14:01 Dispo Type: Place in Observation Address: [address] [place] [address] Provider Notes: History of Present Illness Patient is a 47 year old female who presents to the ED for evaluation of alcohol withdrawal. Patient states that over the past 3 days she has drank a couple beers each day. Patient states that she does not normally drink. Patient's last drink was just prior to arrival in the ED. Patient states that she was drinking because she felt?depressed because her father around this time 2 years ago. Patient also reports suicidal thoughts. Patient complains of nausea and vomiting. Patient has a history of alcoholism. She states that prior to the past couple days she last drank several years ago. No other complaints at this time. Review of Systems GENERAL: [Negative for weakness, malaise] EYES: [Negative for injury, pain, redness, discharge] ENT: [Negative for injury, pain , sore throat and discharge] NECK: [Negative for injury, pain, swelling, and stiffness] CARDIOVASCULAR: [Negative for chest pain, palpitations] RESPIRATORY: [Negative for shortness of breath, cough, wheezing, and pleuritic chest pain] ABDOMEN/GI: [Positive for nausea and vomiting] BACK: [Negative for injury or bruising] : [Negative for injury, bleeding, discharge, frequency, hematuria, urgency] MUSCULOSKELETAL: [Negative for arthralgias, injury and deformity] SKIN: [Negative for injury, rash, discoloration] NEURO: [Negative for focal weakness, numbness, tingling, and seizure] PSYCH: [Positive for depression, suicidal thoughts without plan] Physical Exam CONSTITUTIONAL: [smells of alcohol, no apparent distress, well appearing] SKIN: [warm, dry, no jaundice, hives or petechiae] EYES: [pupils are equally round, extraocular movements intact without nystagmus, clear conjunctiva, non-icteric sclera] HENT: [normocephalic, atraumatic, moist mucus membranes, oropharynx clear without exudates] NECK: [Nontender and supple with no nuchal rigidity, no lymphadenopathy, full range of motion] PULMONARY: [clear to auscultation without wheezes, rhonchi, or rales, normal excursion, no accessory muscle use and no stridor] CARDIOVASCULAR: [regular rate, rhythm, normal S1 and S2. No appreciated murmurs. Strong radial pulses with intact distal perfusion] GASTROINTESTINAL: [soft, non-tender, non-distended, no palpable masses, no rebound or guarding] LYMPHATICS: [no edema in lower extremities, no lymphadenopathy] MUSCULOSKELETAL: [Extremities are nontender to palpation and have no gross deformity, no edema, redness, or swelling] NEUROLOGIC: [alert, normal mentation and speech. Moves all extremities x 4 without motor or sensory deficit] PSYCHIATRIC: [depressed, crying, suicidal thoughts without plan, regret for what she's done] Diagnosis: 1:Alcohol intoxication; 2:Suicidal ideation Problems No Problems Documented Smoking Status: Smoking Status 10 or more cigarettes (1/2 pack or more)/day in last 30 days Functional Status: Sensory Deficits: History of Falls: Mobility Assistance Prior to Admission: ADLs: Current Level of Assistance for Self-Care/Mobility: Cognitive Status: Allergies Keflex (Rash) Laboratory or Other Results This Visit (last charted value for your 07/24/2018 visit) Hematology 07/24/2018 7:10 PM WBC: 5.3 x10 RBC: 4.71 x10 Neutro Auto: 42.4 % -- Normal range between ( 47.2 and 70.8 ) Lymph Auto: 50.8 % -- Normal range between ( 27.2 and 40.8 ) Sequoyah Auto: 5.9 % -- Normal range between ( 3.7 and 11.9 ) Eos Auto: 0.1 % -- Normal range between ( 0.0 and 5.4 ) Basophil Auto: 0.8 % -- Normal range between ( 0.0 and 1.5 ) Baso Absolute: 0.0 x10 MCV: 98.0 fL -- Normal range between ( 80.0 and 100.0 ) MCHC: 34.2 % -- Normal range between ( 31.0 and 37.0 ) Lymph Absolute: 2.7 x10 Hct: 46.1 % -- Normal range between ( 36.0 and 46.0 ) Sequoyah Absolute: 0.3 x10 MCH: 33.5 pg -- Normal range between ( 27.0 and 35.0 ) Neutro Absolute: 2.3 x10 Hgb: 15.8 g/dL -- Normal range between ( 12.0 and 16.0 ) Mean Platelet Volume: 8.2 fL -- Normal range between ( 6.7 and 10.6 ) Platelet: 133 x10 Eos Absolute: 0.0 x10 RDW: 13.2 % -- Normal range between ( 11.6 and 14.8 ) Urinalysis 07/24/2018 5:14 PM UA Spec Grav: 1.003 -- Normal range between ( 1.003 and 1.035 ) UA pH: 6.0 Chemistry 07/24/2018 7:10 PM Creatinine Lvl: 0.61 mg/dL -- Normal range between ( 0.44 and 1.03 ) BUN: 7 mg/dL -- Normal range between ( 8 and 26 ) Glucose Lvl: 110 mg/dL -- Normal range between ( 74 and 118 ) Potassium Lvl: 3.8 mmol/L -- Normal range between ( 3.4 and 4.8 ) AST: 119 IU/L -- Normal range between ( 15 and 41 ) ALT: 75 IU/L -- Normal range between ( 14 and 54 ) Sodium Lvl: 136 mmol/L -- Normal range between ( 133 and 142 ) Calcium Lvl: 7.9 mg/dL -- Normal range between ( 8.5 and 10.3 ) Albumin Lvl: 4.1 g/dL -- Normal range between ( 3.2 and 4.9 ) Total Protein: 7.4 g/dL -- Normal range between ( 6.5 and 8.1 ) Magnesium Lvl: 1.9 mg/dL -- Normal range between ( 1.7 and 2.4 ) Bili Total: 1.0 mg/dL -- Normal range between ( 0.3 and 1.2 ) Alk Phos: 64 IU/L -- Normal range between ( 32 and 91 ) Chloride: 103 mmol/L -- Normal range between ( 98 and 110 ) CO2: 20 mmol/L -- Normal range between ( 22 and 32 ) Anion Gap: 17 -- Normal range between ( 7 and 17 ) eGFR Non-AA: >60 mL/min/1.73m? eGFR AA: >60 mL/min/1.73m? BUN Crea Ratio: 11.5 -- Normal range between ( 10.0 and 20.0 ) AG Ratio: 1.2 -- Normal range between ( 1.1 and 2.2 ) 07/24/2018 5:14 PM Ur Creatinine Tox Scrn: 19.7 mg/dL Toxicology 07/24/2018 7:10 PM Ethanol Lvl: 0.315 g/dL 07/24/2018 5:14 PM Ur PCP Scrn: Negative ng/mL Ur Opiate Scrn: Negative ng/mL Ur Methadone Scn: Negative ng/mL Ur Cannab Scrn: Negative ng/mL Ur Amph Scrn: Negative ng/mL Ur Benzodia Scrn: Negative ng/mL Ur Joy Scrn: Negative ng/mL Ur Cocaine Scrn: Negative ng/mL Ur Oxy Screen: Negative ng/mL Measurements: Height: Weight: 63.5 kg Blood Pressure: /77 mmHg BMI: Procedures No Procedures Documented Immunizations No Immunizations Documented This Visit Final Med List: No Longer Take the Following Medications atenolol (Tenormin 25 mg oral tablet) 1 Tabs Oral (given by mouth) every day. Stop Taking Reason: No Known Home Medications Care Team Members: Attending Physician: Caridad Jeronimo DO Consulting Physician: Referring Physician: Provider Role Assigned Unassigned Benjamin ECHAVARRIA, Gerald Spencer ED Provider 07/24/2018 16:21:18 Jonah Barba ED Nurse 07/24/2018 16:57:54 Marcelina ECHAVARRIA, Jonah Sol ED Provider 07/24/2018 19:05:27 Follow up: Discharge Orders: Place in Observation 07/24/18 19:43:00 EST, Intensive Care Unit, 07/24/18 19:43:00 AMY, Caridad Jeronimo DO, Caridad Jeronimo DO Request for Admit 07/24/18 19:44:00 EST, 07/24/18 19:44:00 EST, Intensive Care Unit Patient Education Information: [facility] Poison Help line: . [facility] Hotline: [place] Tobacco Quit Line: [place], [place]) [address]: [phone] [facility], [place], [place]) [address]: [phone] [facility] [address] [facility] [place], [place]: [phone] [facility] ED Note-Nursingon 07-24-2018 Thyrotropin Qn Patient reports that she is ready to see her father, the family member at bedside reports that her father has passed-away. Patient states that she does not have a plan to hurt herself at this time. Patient reports drinking three 24 oz beers today. she reports that she does not drink every day and that she is ill and has not eaten in 3 days. Electronically signed by Andrés Dunn 07/24/18 16:39 EST [facility] ED Note-Physicianon 07-25-19 19 ED Note-Physician Chief Complaint pt to er for going through alcohol withdraw pt has been vomiting and had her last drink prior to arrival History of Present Illness Patient is a 47 year old female who presents to the ED for evaluation of alcohol withdrawal. Patient states that over the past 3 days she has drank a couple beers each day. Patient states that she does not normally drink. Patient's last drink was just prior to arrival in the ED. Patient states that she was drinking because she felt depressed because her father around this time 2 years ago. Patient also reports suicidal thoughts. Patient complains of nausea and vomiting. Patient has a history of alcoholism. She states that prior to the past couple days she last drank several years ago. No other complaints at this time. Review of Systems GENERAL: [Negative for weakness, malaise] EYES: [Negative for injury, pain, redness, discharge] ENT: [Negative for injury, pain , sore throat and discharge] NECK: [Negative for injury, pain, swelling, and stiffness] CARDIOVASCULAR: [Negative for chest pain, palpitations] RESPIRATORY: [Negative for shortness of breath, cough, wheezing, and pleuritic chest pain] ABDOMEN/GI: [Positive for nausea and vomiting] BACK: [Negative for injury or bruising] : [Negative for injury, bleeding, discharge, frequency, hematuria, urgency] MUSCULOSKELETAL: [Negative for arthralgias, injury and deformity] SKIN: [Negative for injury, rash, discoloration] NEURO: [Negative for focal weakness, numbness, tingling, and seizure] PSYCH: [Positive for depression, suicidal thoughts without plan] Physical Exam CONSTITUTIONAL: [smells of alcohol, no apparent distress, well appearing] SKIN: [warm, dry, no jaundice, hives or petechiae] EYES: [pupils are equally round, extraocular movements intact without nystagmus, clear conjunctiva, non-icteric sclera] HENT: [normocephalic, atraumatic, moist mucus membranes, oropharynx clear without exudates] NECK: [Nontender and supple with no nuchal rigidity, no lymphadenopathy, full range of motion] PULMONARY: [clear to auscultation without wheezes, rhonchi, or rales, normal excursion, no accessory muscle use and no stridor] CARDIOVASCULAR: [regular rate, rhythm, normal S1 and S2. No appreciated murmurs. Strong radial pulses with intact distal perfusion] GASTROINTESTINAL: [soft, non-tender, non-distended, no palpable masses, no rebound or guarding] LYMPHATICS: [no edema in lower extremities, no lymphadenopathy] MUSCULOSKELETAL: [Extremities are nontender to palpation and have no gross deformity, no edema, redness, or swelling] NEUROLOGIC: [alert, normal mentation and speech. Moves all extremities x 4 without motor or sensory deficit] PSYCHIATRIC: [depressed, crying, suicidal thoughts without plan, regret for what she's done] Vitals & Measurements T: 36.9 ?C (Oral) RR: 16 BP: 153/97 SpO2: 93% DOSE WT: 63.5 kg Additional Vitals Peripheral Pulse Rate: 121 bpm High Procedure No qualifying data available. ASA Documentation Medical Decision Making Carolina Kyle scribing for and in the presence of Dr. Alexnader. Scribe Attestation: The information in this document, created by the medical professionals for me, accurately reflects the services I personally performed and the decisions made by me. Laboratory evaluation is pending at this time. Care transitioned over to Dr. Hewitt? At change of shift. Uncertain as whether she would be more appropriate for medical admission, psychiatric admission., Or medical withdrawal management and admission. At this time she will be evaluated medically, and then prescreener and then disposition determination can be made Assessment/Plan Acute alcohol intoxication with history of alcoholism. Depression Problem List/Past Medical History Ongoing Alcoholism /alcohol abuse Alcoholism and drug addiction in family Elevated ETOH level H/O: HTN (hypertension) Historical No qualifying data Procedure/Surgical History None Medications Home Tenormin 25 mg oral tablet, 25 mg, 1 tabs, Oral, Daily, Not taking Inpatient No active inpatient medications Prescriptions No active Prescriptions Allergies Keflex (Rash) Social History Alcohol Beer Current, Beer Home/Environment Lives with Significant other. Substance Abuse Denies All Tobacco 10 or more cigarettes (1/2 pack or more)/day in last 30 days Use:. Cigarettes, 1 per day. Packs Current every day smoker, Cigarettes, 1 per day. Packs Family History Alcoholism: Father and Sibling. Lab Results Random Urine Chemistry LATEST RESULTS Ur Creatinine Tox Scrn 07/24/18 17:14 19.7 Urine Toxicology LATEST RESULTS Ur Amph Scrn 07/24/18 17:14 Negative Ur Joy Scrn 07/24/18 17:14 Negative Ur Benzodia Scrn 07/24/18 17:14 Negative Ur Cannab Scrn 07/24/18 17:14 Negative Ur Cocaine Scrn 07/24/18 17:14 Negative Ur Methadone Scn 07/24/18 17:14 Negative Ur Oxy Screen 07/24/18 17:14 Negative Ur Opiate Scrn 07/24/18 17:14 Negative Ur PCP Scrn 07/24/18 17:14 Negative UA Macroscopic LATEST RESULTS UA Spec Grav 07/24/18 17:14 1.003 UA pH 07/24/18 17:14 6.0 Diagnostic Results XRay No qualifying data available. Computerized Tomagraphy No qualifying data available. Ultrasound No qualifying data available. Magnetic Resonance Imaging No qualifying data available. Carolina Kyle Electronically signed by Benjamin ECHAVARRIA, Gerald Levyncer 07/24/2018 18:45 EST Normal [facility] Ethanolon 07-24-2018 Ethanol mass conc 0.315 g/dL Critically abnormal <=0.005 [facility] Comment on above: Result Comment: Test completion time: 1934 Called date and time: 07/24/2018 19:35:04 EST Result called to and read back by: Randal Gomez RN, ED (First, Last, Title, Location) Performed By: #### A #### [facility] [address] [place] [address] History and Physicalon 07-24 History and Physical Chief Complaint nausea, vomiting. binge drinking x 3 days. depressed History of Present Illness PCP: none code status: FULL The patient is a 47-year-old female with a history of chronic alcohol abuse though had been sober for more than 10 years, depression, history of hypertension who was brought to the emergency room by her niece due to nausea and vomiting since yesterday. Patient states that for the last 3-4 days she has been binge drinking due to depression regarding the loss of her father who 3 years ago. She had been sober for more than 10 years and has only been drinking for the last 3-4 days. Caridad has been drinking 3-4 at least 24 ounce beers each day. Last drink was this before coming to the emergency room. She denies any significant abdominal pain but admits to nausea and vomiting and is now dry heaving. She admits to loose stool ?1. Denies black or bloody stools. Denies bloody emesis. She does have a history of high blood pressure but is not currently on medication she also has a history of depression and was previously on Paxil and states that this worked well for her but she stopped taking due to no longer following with a primary care provider. She states that she's felt very depressed lately and in the emergency room admitted to suicidal thoughts. She currently denies suicidal ideation to me. She denies any history of prior suicide attempt. She does not currently and has not in the past followed with a psychiatrist, therapist, counselor. Does not currently have a primary care physician. Denies history of PE or DVT. Denies recent travel. Denies shortness of breath. Denies chest pain. Or guarding her alcohol use she denies any known history of cirrhosis, esophageal varices. She denies any history of significant alcohol withdrawal and denies history of seizure. She denies current hallucinations or tremor. Denies cough, fever, sore throat, headache, dysuria almond neck stiffness. Denies history of cardiac disease, diabetes, stroke, chronic kidney disease. She does admit to smoking 1 pack per day of cigarettes but denies any illegal drug use. ER: ECG Sinus tachycardia noted 1L bolus, 1mg IV Ativan, IV zofran given in ER urine drug screen negative ETOH 0.315 no abdominal imaging done Review of Systems 10 point ROS obtained and negative except as stated in HPI Physical Exam Vitals & Measurements T: 36.9 ?C (Oral) RR: 18 BP: 115/87 SpO2: 100% WT: 66.2 kg DOSE WT: 63.5 kg on RA General: Alert and oriented x3, well nourished, no acute distress. smells of alcohol Eye: PERRL, EOMI, normal conjunctiva, no scleral icterus, no conjunctival pallor HENT: Normocephalic, normal hearing, moist oral mucosa, no scleral icterus, no sinus tenderness. Neck: Supple, non-tender, no carotid bruits, no JVD, no lymphadenopathy. Lungs: Clear to auscultation and percussion, non-labored respiration. Heart: Normal rate, regular rhythm, no murmur, gallop or edema. Abdomen: Soft, non-tender, non-distended, normal bowel sounds, no masses. no rebound or guarding. no epigastric TTP. Musculoskeletal: Normal range of motion and strength, no tenderness or swelling. no edema Skin: Skin is warm, dry and pink, no rashes or lesions. no jaundice Neurologic: Awake, alert, and oriented X3, CN II-XII grossly intact. no tremor. normal finger to nose. no asterixis. Psychiatric: Cooperative, appropriate mood and affect. denies current suicidal ideation. Additional Vitals Peripheral Pulse Rate: 113 bpm High Assessment/Plan 1. Alcohol intoxication - banana bag given in ER - IVF 0.9 125mL/hr - CIWA protocol with prn Ativan only for now - continue PO thiamine, folate, MVI in a.m. - repeat ETOH level in a.m. ETOH 0.315 on admit - UDS negative - seizure precautions 2. Suicidal ideation - with hx depression - consult to psychiatric prescreener - suicide precautions and ICU monitoring - may need psychiatrirst consult in a.m. if still actively with suicidal thoughts in when alcohol level back to normal. currently denies suicidal ideation to me. - would benefit from outpatient [facility] for depression. Previously on Paxil and worked well. 3. Alcoholism /alcohol abuse - alcohol cessation advised. had been sober for >10 years but been binge drinking last 3 days due to depression - denies known sequela such as esophageal varices or cirrhosis 4. H/O: HTN (hypertension) - not currently on meds outpatient - will monitor for now - tachycardia present- Check ECG. likely from dehdyration and alcohol intoxication. UDS negative. IVF ordered. 5. nausea/vomiting - possibly from alcohol induced gastritis - check lipase - mylanta, compazine IM prn, Zofran IV Prn, start Prilosed BIDAC, - currently no significant pain to suggest need for abdominal imaging VTE: SCDs until INR back in a.m. Dispo: to be seen by psychiatric prescreener in a.m. IF pt still actively suicidal in a.m. may require consult to pyschiatrist. ICU monitoring with seizure precautions for now. Been binge drinking x 3 days and prior to that had stopped alcohol for a while so is low risk for acute alcohol withdrawal. long term care pharmacist and case management consult to help establish PCP Problem List/Past Medical History Ongoing Alcoholism /alcohol abuse Alcoholism and drug addiction in family Elevated ETOH level H/O: HTN (hypertension) Historical No qualifying data Procedure/Surgical History None Medications Home No active home medications Inpatient acetaminophen, 650 mg, Oral, q6hr, PRN Compazine, 10 mg, 2 mL, IM, q6hr, PRN folic acid, 1 mg, Oral, Daily LORazepam, 1 mg, 0.5 mL, IV Push, q1hr, PRN LORazepam, 0.5 mg, 0.25 mL, IV Push, q1hr, PRN LORazepam, 2 mg, Oral, q1hr, PRN LORazepam, 2 mg, 1 mL, IV Push, q1hr, PRN LORazepam, 0.5 mg, Oral, q1hr, PRN LORazepam, 1 mg, Oral, q1hr, PRN Motrin, 800 mg, Oral, [id number] Times, PRN Multiple Vitamins oral tablet, 1 tabs, Oral, Daily Mylanta Maximum Strength oral suspension, 30 mL, Oral, q6hr, PRN Nicotrol Inhaler 10 mg inhalation device, 10 mg, 1 inh, Inhale, q1hr, PRN Normal Saline Flush 0.9% injectable solution, 10 mL, IV Push, BID Normal Saline Flush 0.9% injectable solution, 10 mL, IV Push, As Indicated, PRN ondansetron, 4 mg, 2 mL, IV Push, q4hr, PRN PriLOSEC, 20 mg, Oral, BIDAC Sodium Chloride 0.9% intravenous solution 1,000 mL, 1000 mL, IV thiamine, 100 mg, Oral, Daily Prescriptions No active Prescriptions Allergies Keflex (Rash) Social History Alcohol Current, Beer, 1-2 times per year Beer Home/Environment Lives with Significant other. Substance Abuse Denies All Tobacco 10 or more cigarettes (1/2 pack or more)/day in last 30 days Use:. Cigarettes, 1 per day. Packs Current every day smoker, Cigarettes, 1 per day. Packs Family History Alcoholism: Father and Sibling. Immunizations received flu vaccine already through work Lab Results Microbiology No qualifying data available. Automated Hematology LATEST RESULTS WBC 07/24/18 19:10 5.3 RBC 07/24/18 19:10 4.71 Hgb 07/24/18 19:10 15.8 Hct 07/24/18 19:10 46.1 High MCV 07/24/18 19:10 98.0 MCH 07/24/18 19:10 33.5 MCHC 07/24/18 19:10 34.2 RDW 07/24/18 19:10 13.2 Platelet 07/24/18 19:10 133 Low Mean Platelet Volume 07/24/18 19:10 8.2 Neutro Auto 07/24/18 19:10 42.4 Low Lymph Auto 07/24/18 19:10 50.8 High Sequoyah Auto 07/24/18 19:10 5.9 Eos Auto 07/24/18 19:10 0.1 Basophil Auto 07/24/18 19:10 0.8 Neutro Absolute 07/24/18 19:10 2.3 Lymph Absolute 07/24/18 19:10 2.7 Sequoyah Absolute 07/24/18 19:10 0.3 Eos Absolute 07/24/18 19:10 0.0 Baso Absolute 07/24/18 19:10 0.0 Routine Chemistry LATEST RESULTS Sodium Lvl 07/24/18 19:10 136 Potassium Lvl 07/24/18 19:10 3.8 Chloride 07/24/18 19:10 103 CO2 07/24/18 19:10 20 Low Anion Gap 07/24/18 19:10 17 Glucose Lvl 07/24/18 19:10 110 BUN 07/24/18 19:10 7 Low Creatinine Lvl 07/24/18 19:10 0.61 eGFR AA 07/24/18 19:10 >60 eGFR Non-AA 07/24/18 19:10 >60 BUN Crea Ratio 07/24/18 19:10 11.5 Bili Total 07/24/18 19:10 1.0 Alk Phos 07/24/18 19:10 64 AST 07/24/18 19:10 119 High ALT 07/24/18 19:10 75 High Total Protein 07/24/18 19:10 7.4 Albumin Lvl 07/24/18 19:10 4.1 AG Ratio 07/24/18 19:10 1.2 Calcium Lvl 07/24/18 19:10 7.9 Low Magnesium Lvl 07/24/18 19:10 1.9 Random Urine Chemistry LATEST RESULTS Ur Creatinine Tox Scrn 07/24/18 17:14 19.7 Serum Toxicology LATEST RESULTS Ethanol Lvl 07/24/18 19:10 0.315 Critical Urine Toxicology LATEST RESULTS Ur Amph Scrn 07/24/18 17:14 Negative Ur Joy Scrn 07/24/18 17:14 Negative Ur Benzodia Scrn 07/24/18 17:14 Negative Ur Cannab Scrn 07/24/18 17:14 Negative Ur Cocaine Scrn 07/24/18 17:14 Negative Ur Methadone Scn 07/24/18 17:14 Negative Ur Oxy Screen 07/24/18 17:14 Negative Ur Opiate Scrn 07/24/18 17:14 Negative Ur PCP Scrn 07/24/18 17:14 Negative UA Macroscopic LATEST RESULTS UA Spec Grav 07/24/18 17:14 1.003 UA pH 07/24/18 17:14 6.0 Diagnostic Results Diagnostic Radiology No qualifying data available. Computed Tomography No qualifying data available. Ultrasound No qualifying data available. Magnetic Resonance Imaging No qualifying data available. Nuclear Medicine No qualifying data available. Electronically signed by BaldoCaridad lamas DOne 07/25/18 06:47 EST Normal [facility] Magnesiumon 07-24-2018 Magnesium mass conc 1.9 mg/dL Normal 1.7-2.4 [facility] Comment on above: Performed By: #### M G #### [place] [id number] Phosphoruson 07-24-2018 Phosphate mass conc 3.3 mg/dL Normal 2.5-4.6 [facility] Comment on above: Performed By: #### P HOS ####[address] [address] Salicylateon 07-24-2018 Salicylate Levl <4.0 Low 0.0-30.0 [facility] Comment on above: Order Comment: add o n to initial labs if possible Performed By: #### S AL ####[address] [address] UDS Compon 07-24-2018 Creatinine mass conc 19.7 mg/dL Normal [facility] Comment on above: Performed By: #### C [id number] #### [address] [address] Ur Amph Scrn Negative Normal NEG = <1000 [facility] Comment on above: Performed By: #### C [id number] #### [address] [address] Ur Joy Scrn Negative Normal NEG = <200 [facility] Comment on above: Performed By: #### C [id number] #### [address] [address] Ur Benzodia Scrn Negative Normal NEG = <200 [facility] Comment on above: Performed By: #### C [id number] #### [facility] [address] [facility] [place] [address] Ur Cannab Scrn Negative Normal NEG = <50 [facility] Comment on above: Performed By: #### C [id number] #### [facility] [address] [facility] [place] [address] Ur Cocaine Scrn Negative Normal NEG = <300 [facility] Comment on above: Performed By: #### C [id number] #### [facility] [address] [place] [address] Ur Methadone Scn Negative Normal NEG = <300 [facility] Comment on above: Performed By: #### C [id number] #### [address] [place] [address] Ur Opiate Scrn Negative Normal NEG = <300 [facility] Comment on above: Performed By: #### C [id number] #### [facility] [address] [place] [address] [place] [address] Ur Oxy Screen Negative Normal NEG = <100 [facility] Comment on above: Performed By: #### C [id number] #### [facility] [address] [place] [address] [place] [address] Ur Oxy Scrn Qnt 5 ng/mL Normal <=99 [facility] Comment on above: Performed By: #### C [id number] #### [address] [place] [address] Ur PCP Scrn Negative Normal NEG = <25 [facility] Comment on above: Performed By: #### C [id number] #### [address] [place] [address] UA pH 6.0 Normal 4.5 - 7.8 [facility] Comment on above: Performed By: #### C [id number] #### [address] [place] [address] UA Spec Grav 1.003 Normal 1.003-1.035 [facility] Comment on above: Performed By: #### C [id number] #### [facility] [address] [place] [address] Vital Signs Date Time Vital Sign Value Performing Clinician Facility 01-29-2023 14:05-0400 Body height 157.48 cm Renee Caraballomond Other [facility] Other 01-29-2023 14:05-0400 Body mass index (BMI) [Ratio] 31.64 kg/m2 Renee Caraballomond Other [facility] Other 01-29-2023 14:05-0400 Body temperature 98.5 [degF] Renee Caraballomond Other [facility] Other 01-29-2023 14:05-0400 Body weight 78.47 kg Renee Ballesteros Other [facility] Other 01-29-2023 14:05-0400 Respiratory rate 18 /min Renee Ballesteros Other [facility] Other 01-29-2023 14:05-0400 SaO2% (BldA) [Mass fraction] 97 % Renee Caraballomond Other [facility] Other 08-08-2022 16:06-0400 Blood Pressure Location Angelo BERNARD [facility] 08-08-2022 16:06-0400 Body temperature 97.88 [degF] Angelo BERNARD [facility] 08-08-2022 16:06-0400 Diastolic blood pressure 84 mm[Hg] Angelo BERNARD [facility] 08-08-2022 16:06-0400 Heart rate 80 /min Angelo BERNARD [facility] 08-08-2022 16:06-0400 Respiratory rate 14 /min Angelo BERNARD [facility] 08-08-2022 16:06-0400 SaO2% (BldA) [Mass fraction] 97 % [facility] 08-08-2022 16:06-0400 Systolic blood pressure 131 mm[Hg] Angelo BERNARD [facility] 05-15-2022 14:26-0500 Blood Pressure Location Ede VEGAL [facility] [place] 05-15-2022 14:26-0500 Diastolic blood pressure 92 mm[Hg] Ede NILL [facility] [place] 05-15-2022 14:26-0500 Heart rate 70 /min Ede NILL [facility] [place] 05-15-2022 14:26-0500 Respiratory rate 16 /min Ede NILL [facility] [place] 05-15-2022 14:26-0500 Systolic blood pressure 120 mm[Hg] Ede NILL [facility] [place] 04-30-2021 11:15-0500 Body height 157.48 cm Lashonda Horton Other [facility] Other 04-30-2021 11:15-0500 Body mass index (BMI) [Ratio] 25.6 kg/m2 Lashonda [employer] Other [facility] Other 04-30-2021 11:15-0500 Body temperature 98.3 [degF] Lashonda Brendanty Other [facility] Other 04-30-2021 11:15-0500 Body weight 63.5 kg Lashonda Horton Other [facility] Other 04-30-2021 11:15-0500 SaO2% (BldA) [Mass fraction] 98 % Lashonda Horton Other [facility] Other Encounters Encounter Date Encounter Type Care Provider Facility Start: 07-09-2023 End: 07-09-2023 ambulatory CARRIE JONO Not Available Start: 04-14-2023 End: 04-14-2023 ambulatory CARRIE AICHHOLZ Not Available Start: 01-29-2023 End: 01-29-2023 ambulatory Renee Ballesteros Other [facility] Other Start: 01-29-2023 Office outpatient vi sit 15 minutes Renee Ballesteros [facility] Start: 10-09-2022 End: 10-10-[address] JUANIS RIZO Facility: Start: 08-08-2022 End: 08-09-2022 ambulatory Angelo BERNARD Facility:[facility] Start: 08-08-2022 End: 08-08-2022 Off-Site Angelo BERNARD [facility] Start: 08-06-2022 ambulatory Ede BHAKTA Facility:[facility] Start: 06-12-2022 Encounter for preprocedural laboratory examination DR EDE Tijerina [facility] Start: 06-12-2022 End: 06-13-2022 ambulatory Ede BHAKTA Facility:CD:[id number] Start: 06-08-2022 End: 06-09-[address] EDE Tijerina Facility: Start: 06-08-2022 End: 06-09-2022 Encounter for preprocedural laboratory examination DR EDE Tijerina Facility: Start: 05-15-2022 End: 05-16-2022 ambulatory Ede BHAKTA Facility:[facility] Start: 05-15-2022 End: 05-15-2022 Patient encounter procedure Ede Pineda JEANETTE [facility] [place] Start: 05-06-2022 End: 05-07-2022 ambulatory TREASURER CARRIE TODD Facility:[facility] Start: 04-27-2022 Encounter for genera l adult medical examination without abnormal findings TREASURER CARRIE [facility] Start: 04-24-2022 End: 04-25-2022 ambulatory TREASURER CARRIE TODD Facility:[facility] Start: 04-24-2022 End: 04-25-2022 Encounter for general adult medical examination without abnormal findings [facility] Start: 04-03-2022 ambulatory Ede R JEANETTE Facility :[facility] Start: 02-10-2022 End: 02-10-2022 ambulatory JODIE FIELDS Facility: Start: 04-30-2021 End: 04-30-2021 ambulatory Lashonda Ginty Other [facility] Other Start: 04-30-2021 Office outpatient vi sit 15 minutes Lashonda Ginty [facility] Start: 09-21-2018 Encounter for genera l adult medical examination without abnormal findings [facility] Start: 09-21-2018 End: 09-22-2018 Patient encounter procedure [facility] Start: 09-21-2018 Encounter for genera l adult medical examination without abnormal findings [facility] Start: 09-21-2018 End: 09-21-2018 Patient encounter procedure [facility] Start: 07-24-2018 End: 07-25-2018 Patient encounter procedure Angelo Tee Facility:[facility] Encounter for genera l adult medical examination without abnormal findings [facility] Procedures Date Procedure Procedure Detail Performing Clinician Start: 09-21-2018 Acute hepatitis panel [facility] Start: 09-21-2018 Antibody hiv-1&hiv-2 single result [facility] Start: 09-21-2018 Antibody treponema pallidum [facility] Start: 09-21-2018 C.TRACHOMATIS N.GONORRHOEAE DNA, URINE [facility] Colonoscopy Ede NILL Dilation and curettage Gerson denny NILL Esophageal erosions (disorder) Ede NILL Esophagogastroduodenoscopy M david VEGAL Immunizations Immunization Date Immunization Notes Care Provider Fa cili 12-13-2021 influenza virus vaccine, unspecified formulation Angelo BERNARD [facility] 09-27-2020 SARS-CoV-2 (COVID-19 ) mRNA BNT-162b2 vax Ede NILL [facility] [place] 09-08-2020 SARS-CoV-2 (COVID-19 ) mRNA BNT-162b2 vax Ede NILL [facility] [place] NEGATED: Highlighted row has not occurred!05-15-2022 influenza virus vaccine, unspecified formulation Ede VEGAL [facility] [place] Payers Date Payer Category Payer Self-pay 1970 Unknown [id number] [id number] 1970 Unknown [id number] 2.16.8 [id number] 1968 Unknown [id number] 2.16.8 [id number] 1968 Unknown [id number] 2.16.8 [id number] 1968 Unknown [id number] 2.16.84 [id number] 1968 Unknown [id number] 2.16.84 [id number] 1968 Unknown [id number] 2.16.84 [id number] 1968 Unknown [id number] 2.16.84 [id number] 1968 Unknown [id number] 2.16.84 [id number] 1968 Unknown [id number] 2.16.84 [id number] 1968 Unknown [id number] 2.16.84 [id number] 1968 Unknown [id number] 1959 Unknown [id number] Private Health Insurance [id number] Social History Date Type Detail Facility Sex Assigned At [facility] Start: 05-15-2022 Tobacco smoking status Heavy t obacco smoker (finding) [facility] [place] Tobacco smoking status Smokeless tobacco user within last 30 days [facility] [place] Functional Status Date Assessment Result Facility 08-08-2022 Functional Status N/A [facility] 05-15-2022 Functional Status N/A [facility] [place] Evaluation note 01-29-2023 Note Date & Type Note Facility 01-29-2023 Evaluation note Encounter Date Diagnosis Assessment Notes Jan, Contact with and (suspected) exposure to covid-19 (ICD-10 - Z20.822) Jan, Acute sinusitis, recurrence not specified, unspecified location (ICD-10 - J01.90) Sinusitis home care material was printed Drink plenty fluids, get plenty of rest. Take the prednisone as prescribed until gone. Use the fluticasone nasal spray as prescribed until your symptoms improved. Take Tylenol or Motrin for aches pains or fevers. Take Mucinex as needed for nasal congestion. Fill and take the amoxicillin with clavulanate if no improvement in your symptoms and 2 to 3 days. Follow-up with your family physician if no improvement in 5 to 7 days Jan, Sore throat (ICD-10 - J02.9) [facility] Other Clinical Note 06-12-2022 Note Date & Type Note Facility 06-12-2022 Note OPERATIVE NOTE OPERATION DATE: 06/12/2022 PREOPERATIVE DIAGNOSIS: Colorectal screening. POSTOPERATIVE DIAGNOSIS: Normal colonoscopy to cecum. PROCEDURE: Colonoscopy to cecum. SURGEON: Ede Bhakta M.D. ANESTHESIA: Monitored anesthesia care. ESTIMATED BLOOD LOSS: Zero. INDICATIONS AND CONSENT: Patient is a 51-year-old female presents for colorectal screening. Indications, risks, benefits, alternatives of proceeding with colonoscopy were explained extensively to the patient, including the risks of bleeding, colon perforation or anesthetic complications. All of her questions were answered. Informed consent was obtained. PROCEDURE: Patient brought to the operating room, placed in the left lateral decubitus position. Monitored anesthesia care was provided. Rectal exam was performed which showed no masses or blood. The scope was inserted into the anal canal. Under direct visualization was advanced. With the aid of abdominal compression, it was able to be advanced to the cecum where cecal markings were clearly identified. There was noted to be a good prep with some liquid stool throughout the colon that was partially irrigated clear. Upon withdrawal of the scope, mucosal surfaces were carefully examined. There were no mass lesions or polyps. No inflammatory changes or ulcerations. No significant diverticulosis. The scope was retroflexed in the anal canal. There was no significant hemorrhoidal disease. Scope was then withdrawn. Patient tolerated procedure well, was sent to recovery room in good condition. Follow up screening colonoscopy should be in 10 years. CC: Carrie Todd CNP [facility] Clinical Note 05-15-2022 Note Date & Type Note Facility 05-15-2022 Note Chief Complaint consultation for screening colonoscopy HPI Staff 51 year old female presents on consultation from Carrie Todd for screening colonoscopy. Denies abdominal or rectal pain. No rectal bleeding or change in bowel habits. Denies nausea or vomiting. No unexplained weight loss. Patient believes she had a colonoscopy completed greater than 10 years ago. No known family history of colon cancer. History of Present Illness 51 yo female with h/o htn, h/o alcohol abuse in past; referred for colorectal screening; denies change in bms or blood in stools; no abdominal complaints; denies asa or NSAID use, no SBE prophylaxis; no previous abdominal operations; possible remote colonoscopy over 10 years ago, patient not cetain ; no fmhx of GI malignancy or IBD; smokes daily. Review of Systems PHQ Score Initial Depression Screen Score: 0 ROS - Provider Constitutional: no fever, no sweats, no weight loss. Eyes: yes glasses, no blurred vision, no visual loss. ENMT: no dentures, no hoarseness, no swallowing difficulties, no hearing loss, no ear infection(s), no nose bleeds. Cardiovascular: normal blood pressure, no chest pain, regular heartbeat, no heart murmur. Respiratory: no shortness of breath, no cough, no asthma, no wheezing. Gastrointestinal: no nausea, no vomiting, no diarrhea, no constipation, no blood in stool, no change in bowel habits, no abdominal pain, no hepatitis. Genitourinary: no kidney stones, no urine infection, no dysuria. Musculoskeletal: no pain, no weakness. Skin: no changing moles, no rash, no skin lumps. Neurologic: no seizures, no epilepsy, no headache. Psychiatric: no emotional or psychiatric problem. Heme/Lymph: no bleeding problems, no anemia, no blood clots, no transfusions. Allergy/Immunologic: no swollen lymph nodes/glands, no IV drug abuse. Other: Additional ROS info: Except as noted in the above Review of Systems and in the History of Present Illness, all other systems have been reviewed and are negative or noncontributory. Physical Exam Vitals & Measurements HR: 70(Peripheral) RR: 16 BP: 120/92 HT: 62 in HT: 157.48 cm WT: 74 kg WT: 162.8 lb BMI: 29.84 HEENT: normal conjunctiva, sclera clear, no scleral icterus, EOM intact, PERRLA, oral mucosa moist without lesions. Neck: trachea midline, no mass, symmetric, no thyromegaly or nodules, no adenopathy Respiratory: lungs CTA, respirations non labored. Cardiovascular: regular rate and rhythm, no murmur, no pedal edema or varicosities. Gastrointestinal: soft, non distended, no tenderness, no masses, no palpable hernias, diastasis recti no, no hepatosplenomegaly; normal bs Lymphatic: no cervical adenopathy, Musculoskeletal: normal gait, digits and nails without infection, nodes, cyanosis, clubbing. Skin: no rashes, no lesions, no ulcers, no subcutaneous nodules, induration. Psychiatric/Neuro: oriented to time, place, person, judgement normal, affect appropriate for age, insight intact, no focal deficits. Tests: review of old records completed, Discussed surgical options, risks, and possible complications with patient. Assessment/Plan 1. Screening for malignant neoplasm of colon (Z12.11: Encounter for screening for malignant neoplasm of colon) plan colonoscopy under anesthesia, informed consent obtained. Follow-up No qualifying data available Problem List/Past Medical History Ongoing Alcohol abuse Anxiety BMI 29.0-29.9,adult HTN (hypertension) Insomnia Neuropathy Screening for malignant neoplasm of colon Seasonal allergies Tobacco user Visual impairment Historical No qualifying data Procedure/Surgical History Colonoscopy, Dilation and curettage, EGD - Esophagogastroduodenoscopy, Esophageal erosions. Medications cyclobenzaprine 10 mg Tab, 10 mg= 1 tab(s), Oral, BID, PRN gabapentin 300 mg Cap, 300 mg= 1 cap(s), Oral, TID lisinopril 5 mg Tab, 5 mg= 1 tab(s), Oral, Daily loratadine 10 mg Tab, 10 mg= 1 tab(s), Oral, Daily naltrexone 50 mg oral tablet, 50 mg= 1 tab(s), Oral, Daily Paxil 30 mg Tab, 30 mg= 1 tab(s), Oral, Daily traZODONE 50 mg Tab, 50 mg= 1 tab(s), Oral, Once a day (at bedtime) Allergies cephalexin (Rash) Social History Alcohol - Denies Alcohol Use, 05/15/2022 Substance Abuse - Denies Substance Abuse, 05/15/2022 Tobacco 10 or more cigarettes (1/2 pack or more)/day in last 30 days Tobacco Use:. Smokeless tobacco user within last 30 days Smokeless Tobacco Use:. Cigarettes, Vaping, 1 per day. Started age 18.0 Years. Yes, 05/15/2022 Family History Hypertension: Mother. Immunizations Vaccine Date Status Comments influenza virus vaccine, inactivated - Not Given Patient Refuses SARS-CoV-2 (COVID-19) mRNA BNT-162b2 vax 09/27/2020 Recorded SARS-CoV-2 (COVID-19) mRNA BNT-162b2 vax 09/08/2020 Recorded [facility] Comment on above: Result Comment: Elec tronically Signed By: JEANETTE ECHAVARRIA, Ede Leblanc\Date and Time Signed: 05/15/22 15:00 EST Evaluation note 04-30-2021 Note Date & Type Note Facility 04-30-2021 Evaluation note Encounter Date Diagnosis Assessment Notes Apr, Contact with and (suspected) exposure to other viral communicable diseases (ICD-10 - Z20.828) Apr, Thrush (ICD-10 - B37.0) Advised patient that COVID antigen test and Influenza A/B was negative today. Order provided for PCR test per patient request. Supportive care as directed, increase fluids and rest, Tylenol/Motrin as directed, OTC cough/cold remedies as directed on packaging, cool mist humidifier, throat lozenges as needed. WIll send in rx of Ondansetron to use as needed. Will send in Clotrimazole Troch for treatment of thrush over Nystatin due to allergy of yellow dye. Discussed infection control practices such as good hand washing and mask wearing. Patient to follow up with PCP if sx persist or worsen despite treatment. Immediate eval for SOB, difficulty, chest pain, fevers that do not break with antipyretic or any other concerning symptoms as reviewed on patient education handout. Patient verbalizes understanding and is agreeable to treatment plan. Patient left in stable condition Apr, Other Additional time spent conducting pre-visit phone call, screening for symptoms, instructions on social distancing, application and removal of PPE, and cleaning of examination room, equipment and supplies was preformed. Patient education given for testing methodology and results. Patient care instructions given in writting by [facility] Care At Home document [facility] Other Evaluation + Plan note Note Date & Type Note Facility Evaluation + Plan note No data available for this section [facility] [place] History general Narrative - Reported Note Date & Type Note Facility History general Narrative - Reported Type Medical History Unspecified essential hypertensi on [facility] Other History general Narrative - Reported Note Date & Type Note Facility History general Narrative - Reported Type Medical History HTN (hypertension) Medical History Anxiety Medical History Insomnia Medical History Drug addiction Medical History Seasonal allergic rhinitis [facility] Other Hospital Discharge instructions Note Date & Type Note Facility Hospital Discharge instructions No data available for this section [facility] [place] Progress note Note Date & Type Note Facility Progress note No data available for this section [facility] [place] Summary Purpose Family History No Family History Records FoundNo Family History Records FoundNo Family History Records FoundNo Family History Records FoundNo Family History Records FoundNo Family History Records FoundNo Family History Records Found Advance Directives No Advanced Directives Records FoundNo Advanced Directives Records FoundNo Advanced Directives Records FoundNo Advanced Directives Records FoundNo Advanced Directives Records FoundNo Advanced Directives Records FoundNo Advanced Directives Records Found Hospital Course Note Admission Information Date o f Arrival: 07/24/2018 Date of Discharge: 07/25/2018 Discharge Dx: alcohol intoxication, suicidal ideation, alcohol abuse, hypertension, depression Consulting Providers: Khadijah HOFFMAN History of Present Illness PCP: none code status: FULL The patient is a 47-year-old female with a history of chronic alcohol abuse though had been sober for more than 10 years, depression, history of hypertension who was brought to the emergency room by her niece due to nausea and vomiting since yesterday. Patient states that for the last 3-4 days she has been binge drinking due to depression regarding the loss of her father who 3 years ago. She had been sober for more than 10 years and has only been drinking for the last 3-4 days. Caridad has been drinking 3-4 at least 24 ounce beers each day. Last drink was this before coming to the emergency room. She denies any significant abdominal pain but admits to nausea and vomiting and is now dry heaving. She admits to (more content not included)... Additional Source Comments INFORMATION SOURCE (unrecogn ized section and content) DATE CREATED AUTHOR 07/27/2018 [facility] DATE CREATED AUTHOR AUTHOR'S ORGANIZ ATION 10/06/2018 Herminia Mazariegosard jaci DATE CREATED AUTHOR AUTHOR'S ORGANIZ ATION 01/08/2020 [facility] DATE CREATED AUTHOR AUTHOR'S ORGANIZ ATION 10/24/2021 [facility] DATE CREATED AUTHOR AUTHOR'S ORGANIZ ATION 08/20/2022 [facility] DATE CREATED AUTHOR AUTHOR'S ORGANIZ ATION 10/25/2022 [facility] DATE CREATED AUTHOR AUTHOR'S ORGANIZ ATION 07/16/2023 [facility] dical Specialists EPIC REASON FOR VISIT (unrecogniz ed section and content) #6 BLACK BUICK, DIARRHEA, H/ ACOUGH,SORE THROAT, SIDES HURT FROM COUGHING Patient Care team informatio n (unrecognized section and content) Personnel Name: CARRIE TODD CNP Sonny Address: Address: [address] [place] [address] Personnel Name: JONO ROSARIO CARRIE Sonny Address: Address: [address] [place] [address] FOR RECORDS PERTAINING TO PATIENTS WHO ARE OR HAVE BEEN ENROLLED IN A CHEMICAL DEPENDENCY/SUBSTANCEABUSE PROGRAM, SOME INFORMATION MAY BE OMITTED. This clinical summary was aggregated from multiple sources. Caution should be exercised in using it in the provision of clinical care. This summary normalizes information from multiple sources, and as a consequence, information in this document may materially change the coding, format and clinical context of patient data. In addition, data may be omitted in some cases. CLINICAL DECISIONS SHOULD BE BASED ON THE PRIMARY CLINICAL RECORDS. [facility] [employer] [facility]. provides no warranty or guarantee of the accuracy or completeness of information in this document.
[2023-09-02 14:09] LABS: Age Gdln ACOG Testing Note (.); HPV Aptima Negative (Negative); IGP, Aptima HPV, rfx 16/18,45 Note (.)
== END 2023-08-27 20:44 | disposition home or self-care (01) ==
LOC: LAB 20:43
PROVIDERS: PCP Nurse Practitioner; Visit Provider Nurse Practitioner
DX: Z01.419 Encounter for gynecological examination (general) (routine) without abnormal findings (principal)
CPT/HCPCS: G0145

== ENCOUNTER 2024-07-27 08:27 | Outpatient (OUT) | payer OTHER, SELFPAY ==
--- OUTSIDE RECORDS SUMMARY | 2024-07-27 08:44 | XMS_ITS | CCD ---
Author Organization [facility] Inform ion [facility] Care Team Providers Care Heavy Equipment Service Technician Name Role Phone Angelo Tee Primary Care Unavailable CARIDAD JERONIMO Admitting Unavailable CARIDAD JERONIMO Attending Unavailable KHADIJAH RODRIGUEZ Consulting Unavailable SpychalsAlba jane Consulting Unavailable BV, Physician - Emergency Consulting Francis Lucero Consulting Unavailable SAURABH, MENDOZA Velasquez Referring Unavailable SAURABH, MENDOZA Velasquez Referring Unavailable Lashonda Horton Unavailable PEREZ, CARRIE J Primary Care Physician Ede BHAKTA Attending Unavailable AICHHOLZ, CARRIE J Referring Unavailable Angelo BERNARD Attending Unavailable Ede BHAKTA Attending Unavailable Ede BHAKTA Attending Unavailable AICHHOLZ, CARRIE J Referring Unavailable NILL ., DR MERA Consulting Unavailable AICHHOLZ, STAFF REPORTER CARRIE Primary Care Unavailable NILL ., DR MERA Admitting Unavailable NILL ., DR MERA Attending Unavailable ROCHELLE WOODRUFF Consulting Unavailable EDUARDO IIXAVI Consulting Unavailable AICHHOLZ, STAFF REPORTER CARRIE Attending Unavailable AICHHOLZ, STAFF REPORTER CARRIE Admitting Unavailable AICHHOLZ, STAFF REPORTER CARRIE Consulting Unavailable AICHHOLZ, STAFF REPORTER CARRIE Primary Care Unavailable AICHHOLZ, STAFF REPORTER CARRIE Attending Unavailable AICHHOLZ, STAFF REPORTER CARRIE Consulting Unavailable AICHHOLZ, STAFF REPORTER CARRIE Primary Care Unavailable AICHHOLZ, STAFF REPORTER CARRIE Admitting Unavailable RHONDA, DR JUANIS Pineda Consulting Unavailable DONNIE, JODIE Admitting Unavailable AICHHOLZ, STAFF REPORTER CARRIE Primary Care Unavailable JODIE FIELDS Attending Unavailable JODIE FIELDS Consulting Unavailable NILL ., DR MERA Consulting Unavailable NILL ., DR MERA Admitting Unavailable AICHHOLZ, STAFF REPORTER CARRIE Primary Care Unavailable NILL ., DR MERA Attending Unavailable RHONDA, DR JUANIS Pineda Consulting Unavailable PEREZ, ROSARIO CARRIE Primary Care Unavailable SHAIKH Reshma MONSALVE Admitting Unavailable SHAIKH Reshma MONSALVE Attending Unavailable MANUELA ., DR GUSTAFSON Consulting Unavailable SHAIKH Reshma MONSALVE Consulting Unavailable SISTER, PEDRO Consulting Unavailable Renee Ballesteros Unavailable Perez FORGING OPERATOR, Carrie Unavailable Son Vaqsuez MD Primary Care Provider Perez FORGING OPERATOR, Carrie Unavailable CARRIE TODD Attending Unavailable CARRIE TODD Attending Unavailable CARRIE TODD Attending Unavailable CARRIE TODD Attending Unavailable Allergies Allergy Classification Reported Allergen(s) Allergy Type Date of Onset Reaction(s) Facility (2 sources) Cephalexin; Translations: [Keflex] Drug Allergy 01-21-20 13 [facility] Repository (12 sources) Cephalexin; Translations: [cephalexin] Drug Allergy 01-20-20 13 rash, Eruption of skin (disorder) [facility] [place] (7 sources) Cephalosporins (Antibiotic) Propensity to adverse reactions 03-14-20 23 [facility] Medications Current Medications Medication Drug Class(es) Dates Sig (Normalized) Sig (Original) amoxicillin 875 mg / clavulanate 125 mg oral tablet (1 source) Penicillin-class Antibacterial Start: 01-29-2023 take 1 tablet by mouth every twelve hours Amoxicillin-Pot Clavulanate 875-125 MG 1 tablet Orally every 12 hrs for 10 days Jan, Active cyclobenzaprine hydrochloride 10 mg oral tablet (9 sources) Muscle Relaxant Start: 12-24-2023 End: 07-02-2024 take 1 tablet by mouth twice daily as needed for muscle spasms cyclobenzaprine (Flexeril) 10 MG tablet Indications: Other muscle spasm Take 1 tablet (10 mg) by mouth 2 (two) times a day as needed for muscle spasms 60 tablet 2 06/02/2024 07/02/2024 Active Start: 05-03-2022 take 1 tablet by marleny twice daily as needed for muscle spasms cyclobenzaprine 10 mg Tab 10 mg = 1 tab(s), Oral, BID, PRN for spasm, # 30 tab(s), Refills(s) 0 Start Date: 05/03/22 Status: Ordered [id number] 0.3 ml EPINEPHrine 1 mg/ml auto-injector (7 sources) alpha-Adrenergic Agonist, beta-Adrenergic Agonist, Catecholamine EPINEPHrine (Epipen) 0.3 MG/0.3ML injection syringe Inject as directed. Inject into upper leg. Call 911 after use. Active fluticasone propionate 0.05 mg/actuat metered dose nasal spray (9 sources) Corticosteroid Start: 06-02-19 End: 09-01-19 take 2 spray(s) nasal route once daily fluticasone (Flonase) 50 MCG/ACT nasal spray Indications: Seasonal allergies Administer 2 sprays into each nostril Daily Shake gently. Before first use, prime pump. After use, clean tip and replace cap. 48 g 1 06/02/2024 08/31/2024 Active Start: 07-09-2023 End: 06-02-2024 take 2 spray(s) nasal route in the morning fluticasone (Flonase) 50 MCG/ACT nasal spray Indications: Seasonal allergies Administer 2 sprays into each nostril in the morning. Shake gently. Before first use, prime pump. After use, clean tip and replace cap.. 16 g 2 07/09/2023 06/02/2024 Discontinued (Reorder) Start: 01-29-2023 take 2 spray(s) nasa l route once daily Fluticasone Propionate 50 MCG/ACT 2 sprays Nasally Once a day for 14 day(s) Jan, Active gabapentin 300 mg oral capsule (12 sources) Anti-epileptic Agent Start: 04-25-2024 End: 08-31-2024 take 1 capsule by mouth in the morning, then take 1 capsule by mouth in the evening, then take 1 capsule by mouth at bedtime gabapentin (Neurontin) 300 MG capsule Indications: Neuropathy Take 1 capsule (300 mg) by mouth in the morning and 1 capsule (300 mg) in the evening and 1 capsule (300 mg) before bedtime. 270 capsule 1 06/02/2024 08/31/2024 Active Start: 01-23-2024 End: 02-22-2024 take 1 capsule by mouth in the morning, then take 1 capsule by mouth in the evening, then take 1 capsule by mouth at bedtime gabapentin (Neurontin) 300 MG capsule Indications: Neuropathy Take 1 capsule (300 mg) by mouth in the morning and 1 capsule (300 mg) in the evening and 1 capsule (300 mg) before bedtime. 90 capsule 2 01/23/2024 02/22/2024 Active Start: 05-03-2022 take 1 capsule by mo [facility] three times daily gabapentin 300 mg Cap 300 mg = 1 cap(s), Oral, TID, Refills(s) 0 Start Date: 05/03/22 Status: Ordered ibuprofen 400 mg oral tablet (7 sources) Nonsteroidal Anti-inflammatory Drug ibuprofen 400 MG tablet Take 400 mg by mouth if needed for moderate pain or headaches Active lisinopril 5 mg oral tablet (13 sources) Angiotensin Converting Enzyme Inhibitor Start: 01-23-20 End: 10-18-19 take 1 tablet by mouth once daily lisinopril 5 MG tablet Indications: Essential (primary) hypertension (CMS/HCC) Take 1 tablet (5 mg) by mouth Daily 90 tablet 1 07/19/2024 10/17/2024 Active Start: 05-03-2022 take 1 tablet by [facility] once daily lisinopril 5 mg Tab 5 mg = 1 tab(s), Oral, Daily, Refills(s) 0 Start Date: 05/03/22 Status: Ordered loratadine 10 mg oral tablet (12 sources) Start: 05-03-2022 End: 08-31-2024 take 1 tablet by mouth once daily loratadine (Claritin) 10 MG tablet Indications: Seasonal allergies Take 1 tablet (10 mg) by mouth Daily 90 tablet 1 06/02/2024 08/31/2024 Active naltrexone hydrochloride 50 mg oral tablet (3 sources) Opioid Antagonist Start: 05-03-2022 take 1 tablet by mouth once daily naltrexone 50 mg oral tablet 50 mg = 1 tab(s), Oral, Daily, Refills(s) 0 Start Date: 05/03/22 Status: Ordered PARoxetine hydrochloride 40 mg oral tablet (14 sources) Serotonin Reuptake Inhibitor Start: 12-02-2023 End: 10-17-2024 take 1 tablet by mouth in the morning PARoxetine (Paxil) 40 MG tablet Indications: Anxiety Take 1 tablet (40 mg) by mouth in the morning. 90 tablet 1 07/19/2024 10/17/2024 Active Start: 05-03-2022 take 1 tablet by marleny th once daily Paxil 30 mg Tab 30 mg = 1 tab(s), Oral, Daily, Refills(s) 0 Start Date: 05/03/22 Status: Ordered predniSONE 20 mg oral tablet (2 sources) Start: 01-29-2023 take 1 tablet by mouth every twelve hours predniSONE 20 MG 1 tablet Orally bid for 5 day(s) Jan, Active predniSONE 50 MG Oral for 5 Days Not-Taking traZODone hydrochloride 50 mg oral tablet (6 sources) Serotonin Reuptake Inhibitor Start: 04-25-2024 End: 07-24-2024 traZODone (Desyrel) 50 MG tablet Indications: Insomnia, unspecified type Take 1 tablet (50 mg) by mouth as needed at bedtime for sleep Take by mouth at bedtime. 90 tablet 04/25/2024 06/02/2024 Discontinued (Therapy completed) Start: 05-03-2022 take 1 tablet by marleny th once daily at bedtime traZODONE 50 mg [...] Orally Once a day for 7 days Apr, Not-Taking Pseudoephedrine (2 sources) alpha-Adrenergic Agonist Sudafed Not-Taking Sudafed Active Problems Active Problems Problem Classification Problem Date Documented Date Episodic/Chronic Alcohol-related disorders (18 sources) Alcohol abuse; Translations: [H/O: alcoholism] Onset: 4 Resolved: 4 05-03-2022 Chronic Anxiety disorders (13 sources) Anxiety; Translations: [Anxiety disorder, unspecified] Onset: 3 05-03-2022 Chronic Asthma (1 source) Unspecified asthma, uncomplicated; Translations: [UNSPECIFIED ASTHMA UNCOMPLICATED] Onset: 3 Chronic Blindness and vision defects (2 sources) Visual impairment 05-03-2022 Chronic Disorders of lipid metabolism (1 source) Pure hypercholesterolemia, unspecified; Translations: [PURE HYPERCHOLESTEROLEMIA UNSPEC] Onset: 3 Chronic Essential hypertension (16 sources) Hypertensive disorder; Translations: [Essential (primary) hypertension] Onset: 3 05-03-2022 Chronic Mood disorders (1 source) Major depressive disorder, single episode, unspecified; Translations: [EVELINE DEPRESS D/O SINGLE EPIS UNS] Onset: 2 Chronic Mood disorders (1 source) Mood disorders; Translations: [DEPRESSION UNSPECIFIED] Onset: 3 Other aftercare (1 source) Other long term care phlebotomist (current) drug therapy; Translations: [OTH MACHINE BRUSHER CURRENT DRUG THERAPY] Onset: 3 Episodic Other connective tissue disease (4 sources) Rhabdomyolysis; Translations: [RHABDOMYOLYSIS] Onset: 3 Episodic Other connective tissue disease (1 source) Other muscle spasm; Translations: [OTHER MUSCLE SPASM] Onset: 3 Episodic Other nervous system disorders (13 sources) Neuropathy; Translations: [Polyneuropathy, unspecified] Onset: 3 05-03-2022 Chronic Other nervous system disorders (1 source) Polyneuropathy, unspecified; Translations: [POLYNEUROPATHY UNSPECIFIED] Onset: 3 Chronic Other nervous system disorders (1 source) Other chronic pain; Translations: [OTHER CHRONIC PAIN] Onset: 3 Chronic Other nutritional; endocrine; and metabolic disorders (5 sources) Obesity caused by energy imbalance; Translations: [Class 1 obesity due to excess calories without serious comorbidity with body mass index (BMI) of 32.0 to 32.9 in adult] Onset: 5 06-02-2024 Chronic Other screening for suspected conditions (not mental disorders or infectious disease) (12 sources) Screening for malignant neoplasm of colon done; Translations: [Encounter for screening for malignant neoplasm of colon] Onset: 2 Episodic Other upper respiratory disease (11 sources) Seasonal allergy; Translations: [Other seasonal allergic rhinitis] Onset: 3 05-03-2022 Chronic Other upper respiratory infections (2 sources) Acute sinusitis, unspecified; Translations: [Acute pharyngitis, unspecified] Episodic Unclassified (2 sources) Patient encounter status 05-15-2022 [...] CONTACT DERMATITIS UNS CAUSE] Onset: 02-12-2022 Episodic Diabetes mellitus without complication (11 sources) Increased glucose level; Translations: [Other abnormal glucose] Onset: 08-27-2023 08-27-2023 Episodic Genitourinary symptoms and ill-defined conditions (13 sources) Asymptomatic microscopic hematuria; Translations: [Asymptomatic microscopic hematuria] Onset: 05-06-2022 Episodic Immunizations and screening for infectious disease (1 source) Contact with and (suspected) exposure to other viral communicable diseases Onset: 04-30-2021 Resolved: 04-30-2021 Episodic Mycoses (1 source) Candidal stomatitis Onset: 04-30-2021 Resolved: 04-30-2021 Episodic Other connective tissue disease (11 sources) Spasm; Translations: [Other muscle spasm] Onset: 07-09-2023 07-09-2023 Episodic Other connective tissue disease (7 sources) Rhabdomyolysis; Translations: [Rhabdomyolysis] Onset: 07-09-2023 Resolved: 07-09-2023 07-09-2023 Episodic Other nutritional; endocrine; and metabolic disorders (9 sources) Obese class I; Translations: [Obesity (BMI 30.0-34.9)] Onset: 07-09-2023 Resolved: 06-02-2024 07-09-2023 Chronic Other nutritional; endocrine; and metabolic disorders (9 sources) Overweight in adulthood with body mass index of 25 or more but less than 30; Translations: [Body mass index (BMI) 29.0-29.9, adult] Onset: 04-14-2023 Resolved: 06-02-2024 05-15-2022 Episodic Other skin disorders (3 sources) Rash and other nonspecific skin eruption; Translations: [RASH OTH NONSPECIFIC SKIN ERUPTION] Onset: 02-10-2022 Episodic Residual codes; unclassified (12 sources) Insomnia; Translations: [Insomnia, unspecified] Onset: 04-14-2023 05-03-2022 Episodic Residual codes; unclassified (11 sources) Tobacco user; Translations: [Tobacco use] Onset: 04-14-2023 05-03-2022 Episodic Residual codes; unclassified (1 source) Family history of malignant neoplasm of breast; Translations: [FAMILY HX MALIG NEOPLASM OF BREAST] Onset: 04-27-2022 Episodic Substance-related disorders (10 sources) Nicotine dependence, cigarettes, uncomplicated; Translations: [Nicotine dependence] Onset: 10-16-2022 Resolved: 06-02-2024 04-14-2023 Chronic Unclassified (1 source) Contact with and (suspected) exposure to covid-19 Z20.822 Results Test Name Value Interpretation Reference Range Facility HbA1c (Bld) [Mass fraction]o n 06-02-2024 Interpretation and review of laboratory results Abnormal [facility] - Hematology and Cell countson 06-02-2024 HbA1c (Bld) [Mass fraction] 5.80 % [facility] COVID Quick Testingon 2022 Result Negative [facility] Other Quick Strepon 01-29-2023 S. pyogenes Org specific cx Ql (Throat) Negative [facility] Other Quick Strep [facility] Other CPKon 10-10-2022 CK [Catalytic activity/Vol] 860 U/L Critically high 26-192 [facility] Comment on above: Performed By: #### C K, CMP ####[facility] [address] [place] [address]DrLilliana So PROF 14(COMP METB)on 023 Albumin [Mass/Vol] 2.9 g/dL Critically low 3.4-5.0 [facility] Comment on above: Performed By: #### C K, CMP ####[facility] [address] [place] [address]Dr. Caterina So Albumin/Globulin [Mass ratio] 0.9 {ratio} Normal [facility] Comment on above: Performed By: #### C K, CMP ####[facility] [address] [place] [address]Dr. Caterina So ALP [Catalytic activity/Vol] 82 U/L Normal 46-116 [facility] Comment on above: Performed By: #### Navid K, CMP ####[facility] [address] [place], [place] [address]Dr. Caterina So ALT [Catalytic activity/Vol] 42 U/L Normal 14-59 [facility] Comment on above: Performed By: #### Navid Flowers, CMP ####[facility] [address] [place], [place] [address]Dr. Caterina So Anion gap [Moles/Vol] 10.7 mmol/L Normal [facility] Comment on above: Performed By: #### Navid K, CMP ####[facility] [address] [place], [place] [address]Dr. Caterina So AST [Catalytic activity/Vol] 47 U/L Critically high 15-37 [facility] Comment on above: Performed By: #### C K, CMP ####[facility] [address] [place] [address]Dr. Caterina So Bilirubin [Mass/Vol] 0.4 mg/dL Normal 0.2-1.0 [facility] Comment on above: Performed By: #### C K, CMP ####[facility] [address] [place], [place] [address]Dr. Caterina So Calcium [Mass/Vol] 8.5 mg/dL Normal 8.5-10.1 [facility] Comment on above: Performed By: #### C K, CMP ####[facility] [address] [place], [place] [address]Dr. Caterina So Chloride [Moles/Vol] 109 mmol/L Critically high 98-107 [facility] Comment on above: Performed By: #### C K, CMP ####[facility] [address] [place] [address]Dr. Caterina So CO2 [Moles/Vol] 28.6 mmol/L Normal 21.0-32.0 [facility] Comment on above: Performed By: #### C K, CMP ####[facility] [address] [place], [place] [address]Dr. Caterina Judah Creatinine [Mass/Vol] 0.51 mg/dL Critically low 0.55-1.02 [facility] Comment on above: Performed By: #### C K, CMP ####[facility] [address] [place], [place] [address]Dr. Caterina Judah EGFR-AF BANGLADESHI >60 Normal >=60 [facility] Comment on above: Performed By: #### C K, CMP ####[facility] [address] [place], [place] [address]Dr. Caterina So EGFR-NON AF BANGLADESHI >60 Normal >=60 [facility] Comment on above: Performed By: #### C K, CMP ####[facility] [address] [place], [place] [address]Dr. Caterina Judah Globulin (S) [Mass/Vol] 3.1 g/dL Normal [facility] Comment on above: Performed By: #### C K, CMP ####[facility] [address] [place], [place] [address]Dr. Caterina Judah Glucose [Mass/Vol] 90 mg/dL Normal 74-106 [facility] Comment on above: Performed By: #### C K, CMP ####[facility] [address] [place], [place] [address]Dr. Caterina Judah Potassium [Moles/Vol] 4.3 mmol/L Normal 3.5-5.1 [facility] Comment on above: Performed By: #### C K, CMP ####[facility] [address] [place], [place] [address]Dr. Caterina So Protein [Mass/Vol] 6.0 g/dL Critically low 6.4-8.2 Th [facility] Comment on above: Performed By: #### Navid Flowers, CMP ####[facility] [address] [place] [address]DrLilliana So Sodium [Moles/Vol] 144 mmol/L Normal 136-145 [facility] Comment on above: Performed By: #### Navid Flowers, CMP ####[facility] [address] [place] [address]DrLilliana So Urea nitrogen [Mass/Vol] 8.0 mg/dL Normal 7.0-18.0 [facility] Comment on above: Performed By: #### Navid Flowers, CMP ####[facility] [address] [place] [address]DrLilliana So Urea nitrogen/Creatinin e [Mass ratio] 15.7 mg/mg Normal [facility] Comment on above: Performed By: #### Navid Flowers, CMP ####[facility] [address] [place] [address]DrLilliana So CARDIAC ANDRÉS ADMITon 10-09-2 023 CK [Catalytic activity/Vol] 3715 U/L Critically high 26-192 [facility] Comment on above: Performed By: #### Navid LLANES, CMP #### [facility] [address] [address] [address] Caterina So CK.MB [Mass/Vol] 9.82 ng/mL Critically high <=3.60 [facility] Comment on above: Performed By: #### Navid LLANES, CMP #### [facility] [address] [address] [address] Caterina So HSTROP 12.3 pg/mL Normal 4.0-51.3 [facility] Comment on above: Result Comment: CUT- OFF POINTS HAVE BEEN ESTABLISHED BASED ON THE FOURTH UNIVERSAL DEFINITIONS OF MYOCARDIAL INFARCTION. THE UPPER REFERENCE LIMIT (URL) OF TROPONIN, DEFINED THE 99TH PERCENTILE OF cTnI DISTRIBUTION IN A REFERENCE POPULATION, HAS BEEN CONFIRMED THE DECISION THRESHOLD FOR [place] DIAGNOSIS. Performed By: #### Navid LLANES, CMP #### [facility] [address] [address] [address] Caterina So KRISTINA 158 ng/mL Critically high 9-82 [facility] Comment on above: Performed By: #### C MADM, CMP #### [facility] [address] [place] [address] Dr. Caterina So CBC AUTO DIFFon 10-09-2022 BASO # 0.1 103/ul Normal 0.0-0.1 [facility] Comment on above: Performed By: #### C BC #### [facility] [address] [place] [address] Dr. Caterina So Basophils/100 WBC (Bld) 0.8 % Normal 0.2-2.0 [facility] Comment on above: Performed By: #### C BC #### [facility] [address] [place] [address] Dr. Caterina So EO # 0.2 103/ul Normal 0.0-0.7 [facility] Comment on above: Performed By: #### C BC #### [facility] [address] [place] [address] Dr. Caterina So Eosinophils/100 WBC (Bld) 1.8 % Normal 0.9-7.0 [facility] Comment on above: Performed By: #### C BC #### [facility] [address] [place] [address] Dr. Caterina So Erythrocyte distribution width (RBC) [Ratio] 13.0 % Normal 11.0-15.0 [facility] Comment on above: Performed By: #### C BC #### [facility] [address] [place] [address] Dr. Caterina So Hematocrit (Bld) [Volume fraction] 41.7 % Normal 36.0-48.0 [facility] Comment on above: Performed By: #### C BC #### [facility] [address] [place] [address] Dr. Caterina So Hemoglobin (Bld) [Mass/Vol] 13.5 g/dL Normal 12.0-16.0 [facility] Comment on above: Performed By: #### C BC #### [facility] [address] [address] [address] Caterina So IG # 0.04 10e3/ul Critically high 0.00-0.03 [facility] Comment on above: Performed By: #### C BC #### [facility] [address] [address] [address] Caterina So IG % 0.4 % Normal 0.0-0.5 [facility] Comment on above: Performed By: #### C BC #### [facility] [address] [place] [address] Dr. Caterina So LYMPH # 3.3 103/ul Normal 1.2-3.8 [facility] Comment on above: Performed By: #### C BC #### [facility] [address] [place] [address] Dr. Caterina So Lymphocytes/100 WBC (Bld) 36.8 % Normal 20.5-60.0 [facility] Comment on above: Performed By: #### C BC #### [facility] [address] [place] [address] Dr. Caterina So MANUAL DIFF REQ NO Normal [facility] Comment on above: Performed By: #### C BC #### [facility] [address] [place] [address] Dr. Caterina So MCH (RBC) [Entitic mass] 31.3 pg Normal 26.7-34.0 [facility] Comment on above: Performed By: #### C BC #### [facility] [address] [place] [address] Dr. Caterina So MCHC (RBC) [Mass/Vol] 32.4 g/dL Normal 29.9-35.2 [facility] Comment on above: Performed By: #### C BC #### [facility] [address] [place] [address] Dr. Caterina So MCV (RBC) [Entitic vol] 96.5 fL Normal 81.0-99.0 [facility] Comment on above: Performed By: #### C BC #### [facility] [address] [place] [address] Dr. Caterina So MONO # 0.6 103/ul Normal 0.3-0.8 [facility] Comment on above: Performed By: #### C BC #### [facility] [address] [place] [address] Dr. Caterina So Monocytes/100 WBC (Bld) 6.9 % Normal 1.7-12.0 [facility] Comment on above: Performed By: #### C BC #### [facility] [address] [place] [address] Dr. Caterina So NEUT # 4.8 103/ul Normal 1.4-6.5 [facility] Comment on above: Performed By: #### C BC #### [facility] [address] [place] [address] Dr. Caterina So Neutrophils/100 WBC (Bld) 53.3 % Normal 43.0-75.0 [facility] Comment on above: Performed By: #### C BC #### [facility] [address] [place] [address] Dr. Caterina So Platelet mean volume (Bld) [Entitic vol] 11.0 fL Normal 9.5-13.5 [facility] Comment on above: Performed By: #### C BC #### [facility] [address] [place] [address] Dr. Caterina So PLT 204 103/ul Normal 150-450 [facility] Comment on above: Performed By: #### C BC #### [facility] [address] [place] [address] Dr. Caterina So RBC 4.32 106/ul Normal 4.20-5.40 [facility] Comment on above: Performed By: #### C BC #### [facility] [address] [place] [address] Dr. Caterina So WBC 8.9 103/ul Normal 4.0-11.0 [facility] Comment on above: Performed By: #### C BC #### [facility] [address] [place] [address] Dr. Caterina So CPKon 10-09-2022 CK [Catalytic activity/Vol] 3818 U/L Critically high 26-192 [facility] Comment on above: Performed By: #### C K ####[facility] [address] [place] [address]Dr. Caterina So PROF 14(COMP METB)on 023 Albumin [Mass/Vol] 4.2 g/dL Normal 3.4-5.0 [facility] Comment on above: Performed By: #### C MARIO ALBERTO, CMP #### [facility] [address] [address] [address] Caterina So Albumin/Globulin [Mass ratio] 1.1 {ratio} Normal [facility] Comment on above: Performed By: #### C MARIO ALBERTO, CMP #### [facility] [address] [address] [address] Caterina So ALP [Catalytic activity/Vol] 104 U/L Normal 46-116 [facility] Comment on above: Performed By: #### C MARIO ALBERTO, CMP #### [facility] [address] [address] [address] Caterina So ALT [Catalytic activity/Vol] 64 U/L Critically high 14-59 [facility] Comment on above: Performed By: #### C MARIO ALBERTO, CMP #### [facility] [address] [address] [address] Caterina So Anion gap [Moles/Vol] 10.9 mmol/L Normal [facility] Comment on above: Performed By: #### C MARIO ALBERTO, CMP #### [facility] [address] [address] [address] Caterina So AST [Catalytic activity/Vol] 103 U/L Critically high 15-37 [facility] Comment on above: Performed By: #### C MARIO ALBERTO, CMP #### [facility] [address] [address] [address] Caterina So Bilirubin [Mass/Vol] 0.6 mg/dL Normal 0.2-1.0 [facility] Comment on above: Performed By: #### C MARIO ALBERTO, CMP #### [facility] [address] [address] [address] Caterina So Calcium [Mass/Vol] 9.0 mg/dL Normal 8.5-10.1 [facility] Comment on above: Performed By: #### C MARIO ALBERTO, CMP #### [facility] [address] [address] [address] Caterina oS Chloride [Moles/Vol] 103 mmol/L Normal 98-107 [facility] Comment on above: Performed By: #### C MARIO ALBETRO, CMP #### [facility] [address] [place] [address] Dr. Caterina So CO2 [Moles/Vol] 30.3 mmol/L Normal 21.0-32.0 [facility] Comment on above: Performed By: #### C MARIO ALBERTO, CMP #### [facility] [address] [place] [address] Dr. Caterina So Creatinine [Mass/Vol] 0.66 mg/dL Normal 0.55-1.02 [facility] Comment on above: Performed By: #### C MARIO ALBERTO, CMP #### [facility] [address] [address] [address] Caterina So EGFR-AF BANGLADESHI >60 Normal >=60 [facility] Comment on above: Performed By: #### C MARIO ALBERTO, CMP #### [facility] [address] [address] [address] Caterina So EGFR-NON AF BANGLADESHI >60 Normal >=60 [facility] Comment on above: Performed By: #### C MARIO ALBERTO, CMP #### [facility] [address] [place] [address] Dr. Caterina So Globulin (S) [Mass/Vol] 3.7 g/dL Normal [facility] Comment on above: Performed By: #### C MARIO ALBERTO, CMP #### [facility] [address] [address] [address] Caterina So Glucose [Mass/Vol] 98 mg/dL Normal 74-106 [facility] Comment on above: Performed By: #### C MARIO ALBERTO, CMP #### [facility] [address] [address] [address] Caterina So Potassium [Moles/Vol] 3.2 mmol/L Critically low 3.5-5.1 [facility] Comment on above: Performed By: #### C MARIO ALBERTO, CMP #### [facility] [address] [place] [address] Dr. Caterina So Protein [Mass/Vol] 7.9 g/dL Normal 6.4-8.2 [facility] Comment on above: Performed By: #### C MARIO ALBERTO, CMP #### [facility] [address] [place] [address] Dr. Caterina So Sodium [Moles/Vol] 141 mmol/L Normal 136-145 [facility] Comment on above: Performed By: #### C MARIO ALBERTO, CMP #### [facility] [address] [place] [address] Dr. Caterina So Urea nitrogen [Mass/Vol] 5.0 mg/dL Critically low 7.0-18.0 [facility] Comment on above: Performed By: #### C MARIO ALBERTO, CMP #### [facility] [address] [place] [address] Dr. Caterina So Urea nitrogen/Creatinin e [Mass ratio] 7.6 mg/mg Normal [facility] Comment on above: Performed By: #### C MARIO ALBERTO, CMP #### [facility] [address] [place] [address] Dr. Caterina So XR LSPINE 2_3 VIEWSon [...] by: JUANIS RIZO Date: 2022-10-09 08:18 Normal [facility] Documentson 08-15-2022 [facility] Documents [id number] 8#1.00CD:127 Normal [facility] Chcf Documentson 08-12-2022 [facility] Documents [facility] Nurse Visit 14 day Health Appraisal Date of Appraisal: _08/08/2022 Booked Date: or Release [id number]: RELEASE 10/05/2022 Did inmate come from another [...] L forearm Date vial opened: Lot number: [id number] Expiration date: 09/2023 PPD Comments: _ Inmate [...] you wish to attend AA Meetings? YES [facility] Assessment 08/08/22 16:06:00 [facility] Assessment Entered On: 08/08/2022 16:09 EDT Performed [...] Yes Patient Reported Covid-19 Testing Where : [facility] Patient Reported Covid-19 Testing When : 08/06/2022 EDT *Verify Droplet, Contact Precautions for Ebola (Reference for CDC) : N/A *Verify Airborne, Droplet Precautions for MERS/COVID-19 : N/A Xavi GIBBONS, Katelin Hutchinson 08/08/2022 16:06 EDT Summary Chief Complaint : Health Appraisal Preferred Lab : [facility] Preferred Rad : [facility] Height in Inches : 62 in Height/Length Measured : 157.4 cm(Converted to: (more content not included)... Normal [facility] Chcf Documents [facility] Nurse Visit 14 day Health Appraisal PPD [...] (COVID-19) mRNA BNT-162b2 vax 09/08/2020 Recorded Normal [facility] Outside Colonoscopyon 2022 Outside Colonoscopy [id number] #1.00CD:127 Normal [facility] Reminderson 06-13-2022 Reminders - From: Elin Hays LPN To: N - Clinical; Sent: 06/13/2022 16:06:10 EST Show up: 05/12/2032 07:00:00 EST Subject: colonoscopy recall Due Date/Time: 06/12/2032 07:00:00 EST Reminder/Recall Patient is due for screening colonoscopy 06/12/2032. Normal [facility] Lab Reportson 06-10-2022 Lab Reports [id number] #1.00CD:127 Normal [facility] Covid-19 PCR (CVDTB)on 05-20 SARS-CoV-2 (COVID-19) RNA GONZÁLEZ+probe Ql (Unsp spec) Not detected Normal NOT DETECTED [facility] Comment on above: Result Comment: This test is not yet approved or cleared by the [place] FDA. When there are no FDA-approved or cleared tests available, and other criteria are met, FDA can make tests available under an emergency access mechanism called an Emergency Use Authorization (EUA). The EUA for this test is supported by the [place] of Health and Human Service's (HHS's) declaration [...] consistent with SARS-CoV-2. Performed By: #### C [facility], [facility] #### [facility] [address] [place] [address] Dr. Caterina So Pre-Certification Formon Pre-Certification Form [id number] #1.00CD:127 [facility] Consent for Procedure/Surger yon 05-17-2022 Consent for Procedure/Surgery [id number] #1.00CD:127 [facility] Formson 05-16-2022 Forms [id number] #1.00CD:127 [facility] Provider Letter FTMCon 05-15 Provider Letter [facility] May 15, 2022 CARIDAD REYES [address] [place] [address] [place] A 1970 To Whom It May Concern, Please excuse above patient from work 06/12/2022 due to surgical procedure. Sincerely, Dr. Ede Bhakta MD General Surgery [facility] Provider Letter FT May 15, 2022 CARIDAD REYES [address] [place] [address] [place] A 1970 To Whom It May Concern, Please excuse above patient from work 06/05/2022 due to scheduled surgical procedure. Sincerely, Dr. Ede Bhakta MD General Surgery [facility] CULTURE URINEon 05-06-2022 CULTURE URINE Culture Observations: MODERATE GROWTH OF MIXED GENITAL COOPER. NO POTENTIAL PATHOGENS SEEN. Normal [facility] Comment on above: Performed By: #### U RCX #### [facility] [address] [address] [address] Caterina So UA RANDOM W/MICROSCOPICon BACTERIA NONE SEEN Normal NONE SEEN [facility] Comment on above: Performed By: #### U AMIC ####[facility] [address] [place] [address]Dr. Caterina So Bilirubin Ql (U) Negative Normal NEGATIVE [facility] Comment on above: Performed By: #### U AMIC ####[facility] [address] [place] [address]DrLilliana So CAST NONE SEEN Normal NONE SEEN [facility] Comment on above: Performed By: #### U AMIC ####[facility] [address] [place] [address]Dr. Caterina So Clarity (U) CLEAR Normal CLEAR [facility] Comment on above: Performed By: #### U AMIC ####[facility] [address] [place] [address]Dr. Caterina So Color (U) YELLOW Normal YELLOW [facility] Comment on above: Performed By: #### U AMIC ####[facility] [address] [place] [id number]. Caterina So Crystals LM Nom (Urine sed) NONE SEEN Normal NONE SEEN [facility] Comment on above: Performed By: #### U AMIC ####[facility] [address] [place] [address]Dr. Caterina So Epithelial cells LM Ql (Urine sed) FEW Abnormal NONE SEEN /RARE [facility] Comment on above: Performed By: #### U AMIC ####[facility] [address] [place] [address]Dr. Caterina So Glucose Ql (U) Negative Normal NEGATIVE [facility] Comment on above: Performed By: #### U AMIC ####[facility] [address] [place] [address]Dr. Caterina So Hemoglobin Ql (U) SMALL Abnormal NEGATIVE [facility] Comment on above: Performed By: #### U AMIC ####[facility] I[address] [place], [place] [address]Dr. Caterina So Ketones Ql (U) Negative Normal NEGATIVE [facility] Comment on above: Performed By: #### U AMIC ####[facility] M[address]zky[address] [place], [place] [address]Dr. Caterina So LEUKOCYTES MODERATE Abnormal NEGATIVE [facility] Comment on above: Performed By: #### U AMIC ####[facility] N[address] [place], [place] [address]Dr. Caterina So MUCOUS NONE SEEN Normal NONE SEEN [facility] Comment on above: Performed By: #### U AMIC ####[facility] Xzckrx[address]ks[address] [place], [place] [address]Dr. Caterina So Nitrite Ql (U) Negative Normal NEGATIVE [facility] Comment on above: Performed By: #### U AMIC ####[facility] [address] [place], [place] [address]Dr. Caterina So pH (U) 6.0 [pH] Normal 5-9 [facility] Comment on above: Performed By: #### U AMIC ####[facility] X[address]ib[address] [place], [place] [address]Dr. Caterina So RBC 0-2 Normal 0-2 [facility] Comment on above: Performed By: #### U AMIC ####[facility] T[address]ipfnxa[address] [place], [place] [address]Dr. Caterina So SPEC GRAVITY 1.020 Normal 1.005-<=1.025 The [facility] Comment on above: Performed By: #### U AMIC ####[facility] Agidcituox[address] [place], [place] [address]Dr. Caterina oS UA PROTEIN Negative Normal NEGATIVE/ TRACE [facility] Comment on above: Performed By: #### U AMIC ####[facility] [address]xf[address]fjuof[address] [place], [place] [address]Dr. Caterina So Urobilinogen Qn (U) 2.0 {Temitope'U}/dL Abnormal 0.2 - 1.0 [facility] Comment on above: Performed By: #### U AMIC ####[facility] [address] [place] [address]Dr. Danielleella Judah WBC 10-20 Abnormal NONE SEEN [facility] Comment on above: Performed By: #### U AMIC ####[facility] [address] [place] [address]Dr. Caterina So CBC AUTO DIFFon 04-24-2022 BASO # 0.1 103/ul Normal 0.0-0.1 [facility] Comment on above: Performed By: #### C BC ####[facility] [address] [place], [place] [address]Dr. Caterina So Basophils/100 WBC (Bld) 0.9 % Normal 0.2-2.0 [facility] Comment on above: Performed By: #### C BC ####[facility] [address]mp[address] [place], [place] [address]Dr. Caterina So EO # 0.2 103/ul Normal 0.0-0.7 [facility] Comment on above: Performed By: #### C BC ####[facility] Gfildcygge[address] [place], [place] [address]Dr. Caterina So Eosinophils/100 WBC (Bld) 2.8 % Normal 0.9-7.0 [facility] Comment on above: Performed By: #### C BC ####[facility] [address]qsuwetyh[address] [place], [place] [address]Dr. Caterina So Erythrocyte distribution width (RBC) [Ratio] 12.9 % Normal 11.0-15.0 [facility] Comment on above: Performed By: #### C BC ####[facility] Izb[address]vmb[address] [place], [place] [address]Dr. Caterina So Hematocrit (Bld) [Volume fraction] 44.5 % Normal 36.0-48.0 [facility] Comment on above: Performed By: #### C BC ####[facility] [address]xeemc[address] [place], [place] [address]Dr. Caterina So Hemoglobin (Bld) [Mass/Vol] 14.6 g/dL Normal 12.0-16.0 [facility] Comment on above: Performed By: #### C BC ####[facility] [address] [place] [address]Dr. Caterina So IG # 0.01 10e3/ul Normal 0.00-0.03 [facility] Comment on above: Performed By: #### C BC ####[facility] W[address]ot[address]fu[address] [place], [place] [address]Dr. Caterina So IG % 0.1 % Normal 0.0-0.5 [facility] Comment on above: Performed By: #### C BC ####[facility] [address]jz[address] [place], [place] [address]Dr. Caterina So LYMPH # 3.4 103/ul Normal 1.2-3.8 [facility] Comment on above: Performed By: #### C BC ####[facility] [address]fu[address] [place], [place] [address]Dr. Caterina So Lymphocytes/100 WBC (Bld) 44.5 % Normal 20.5-60.0 [facility] Comment on above: Performed By: #### C BC ####[facility] [address] [place], [place] [address]Dr. Caterina So MANUAL DIFF REQ NO Normal The [facility] Comment on above: Performed By: #### C BC ####[facility] Tesnyhrlux[address] [place], [place] [address]Dr. Caterina So MCH (RBC) [Entitic mass] 31.9 pg Normal 26.7-34.0 [facility] Comment on above: Performed By: #### C BC ####[facility] [address]fs[address] [place], [place] [address]Dr. Caterina So MCHC (RBC) [Mass/Vol] 32.8 g/dL Normal 29.9-35.2 [facility] Comment on above: Performed By: #### C BC ####[facility] Un[address] [place], [place] [address]Dr. Caterina So MCV (RBC) [Entitic vol] 97.2 fL Normal 81.0-99.0 [facility] Comment on above: Performed By: #### C BC ####[facility] [address] [place], [place] [address]Dr. Caterina oS MONO # 0.6 103/ul Normal 0.3-0.8 [facility] Comment on above: Performed By: #### C BC ####[facility] [address]kw[address]be[address] [place], [place] [address]Dr. Caterina Judah Monocytes/100 WBC (Bld) 7.6 % Normal 1.7-12.0 [facility] Comment on above: Performed By: #### C BC ####[facility] [address]cpjrt[address] [place], [place] [address]Dr. Caterina So NEUT # 3.3 103/ul Normal 1.4-6.5 [facility] Comment on above: Performed By: #### C BC ####[facility] [address] [place], [place] [address]Dr. Caterina Judah Neutrophils/100 WBC (Bld) 44.1 % Normal 43.0-75.0 [facility] Comment on above: Performed By: #### C BC ####[facility] [address] [place], [place] [address]Dr. Caterina Judah Platelet mean volume (Bld) [Entitic vol] 11.1 fL Normal 9.5-13.5 [facility] Comment on above: Performed By: #### C BC ####[facility] [address] [place], [place] [address]Dr. Caterina Judah PLT 188 103/ul Normal 150-450 [facility] Comment on above: Performed By: #### C BC ####[facility] Esq[address]kwz[address] [place], [place] [address]Dr. Danielleella Judah RBC 4.58 106/ul Normal 4.20-5.40 [facility] Comment on above: Performed By: #### C BC ####[facility] [address] [place], [place] [address]Dr. Danielleella So WBC 7.6 103/ul Normal 4.0-11.0 [facility] Comment on above: Performed By: #### C BC ####[facility] [address] [place], [place] [address]Dr. Caterina So LIPID PROFILEon 04-24-2022 CHOL-HDL RATIO NORM SEE BELOW Normal [facility] Comment on above: Result Comment: 3.3 - 4.4 LOW RISK 4.4 - 7.1 AVERAGE RISK 7.1 - 11.0 MODERATE RISK >11.0 HIGH RISK Performed By: #### T SH, LIPID, CMP #### [facility] [address] [place], [place] [address] Dr. Caterina So Cholesterol [Mass/Vol] 160 mg/dL Normal <=200 [facility] Comment on above: Performed By: #### T SH, LIPID, CMP #### [facility] [address] [place], [place] [address] Dr. Caterina So Cholesterol in HDL [Mass/Vol] 44 mg/dL Normal 40-60 [facility] Comment on above: Performed By: #### T SH, LIPID, CMP #### [facility] [address] [place], [place] [address] Dr. Caterina So Cholesterol in LDL [Mass/Vol] 105.0 mg/dL Normal [facility] Comment on above: Performed By: #### T SH, LIPID, CMP #### [facility] [address] [place], [place] [address] Dr. Caterina So Cholesterol.total/ Cholesterol in HDL [Mass ratio] 3.6 {ratio} Normal [facility] Comment on above: Performed By: #### T SH, LIPID, CMP #### [facility] [address] [place], [place] [address] Dr. Caterina So HDL NORMAL > or = 60 mg/dl - LOW CARDIOVASCULAR RISK <40 mg/dl - HIGH CARDIOVASCULAR RISK Normal [facility] Comment on above: Performed By: #### T SH, LIPID, CMP #### [facility] [address] [place], [place] [address] Dr. Caterina So LDL CALC NORMAL SEE BELOW Normal [facility] Comment on above: Result Comment: <100 mg/dl OPTIMAL 100 - 129 mg/dl NEAR OR ABOVE OPTIMAL 130 - 159 mg/dl BORDERLINE HIGH 160 - 189 mg/dl HIGH >190 mg/dl VERY HIGH Performed By: #### T GUICHO, LIPID, CMP #### [facility] [address] [address] [address] Caterina So Triglyceride [Mass/Vol] 55 mg/dL Normal <=150 [facility] Comment on above: Performed By: #### T GUICHO, LIPID, CMP #### [facility] [address] [address] [address] Caterina So VLDL CALC 11.0 mg/dL Normal [facility] Comment on above: Performed By: #### T GUICHO, LIPID, CMP #### [facility] [address] [address] [address] Caterina So MG MAMM SCREEN 3D KOBY CADon 04-24-2022 MG MAMM SCREEN 3D KOBY CAD Patient: CARIDAD REYES Exam Date: 04/24/2022 : 1970 Gender:F Ordering : ROSARIO CARRIE JIMMIESav [facility] Admission #: [id number] Family : Order #: [id number] CLICK HERE TO VIEW EXAM RADIOLOGY REPORT PROCEDURE: MAMMOGRAM SCREENING 3D BILATERAL CAD COMPARISON: MAMMO SCREEN DIG KOBY, 07/25/2011. INDICATIONS: Screening mammography Calculator Name NCI Breast Cancer Risk Assessment Tool 5 Year Breast Cancer Risk 1.10% Lifetime Breast Cancer Risk 8.60% Personal Breast Cancer No Personal Ovarian Cancer No Treatments None Family Cancers Grandmother-paternal with breast cancer at age 70. LOCATION: [facility] BREAST COMPOSITION: Scattered areas fibroglandular density. [...] Rizo M.D. on 04/24/2022 at 12:37 Normal [facility] PROF 14(COMP METB)on 022 Albumin [Mass/Vol] 4.0 g/dL Normal 3.4-5.0 [facility] Comment on above: Performed By: #### T SH, LIPID, CMP #### [facility] [address] [address] [address] Caterina So Albumin/Globulin [Mass ratio] 1.2 {ratio} Normal [facility] Comment on above: Performed By: #### T SH, LIPID, CMP #### [facility] [address] [place] [address] [address] Caterina So ALP [Catalytic activity/Vol] 85 U/L Normal 46-116 [facility] Comment on above: Performed By: #### T GUICHO, LIPID, CMP #### [facility] [address] [place] [address] [address] Caterina So ALT [Catalytic activity/Vol] 33 U/L Normal 14-59 [facility] Comment on above: Performed By: #### T GUICHO, LIPID, CMP #### [facility] [address] [place] [address] [address] Caterina So Anion gap [Moles/Vol] 12.4 mmol/L Normal [facility] Comment on above: Performed By: #### T GUICHO, LIPID, CMP #### [facility] [address] [place] [address] [address] Caterina So AST [Catalytic activity/Vol] 32 U/L Normal 15-37 [facility] Comment on above: Performed By: #### T GIUCHO, LIPID, CMP #### [facility] [address] [place] [address] [address] Caterina So Bilirubin [Mass/Vol] 0.6 mg/dL Normal 0.2-1.0 [facility] Comment on above: Performed By: #### T SH, LIPID, CMP #### [facility] [address] [place] [address] [address] Caterina So Calcium [Mass/Vol] 8.9 mg/dL Normal 8.5-10.1 [facility] Comment on above: Performed By: #### T SH, LIPID, CMP #### [facility] [address] [place] [address] [address] Caterina So Chloride [Moles/Vol] 104 mmol/L Normal 98-107 [facility] Comment on above: Performed By: #### T SH, LIPID, CMP #### [facility] [address] [place] [address] [address] Caterina So CO2 [Moles/Vol] 30.5 mmol/L Normal 21.0-32.0 [facility] Comment on above: Performed By: #### T SH, LIPID, CMP #### [facility] [address] [place] [address] Dr. Caterina So Creatinine [Mass/Vol] 0.58 mg/dL Normal 0.55-1.02 [facility] Comment on above: Performed By: #### T SH, LIPID, CMP #### [facility] [address] [place] [address] Dr. Caterina So EGFR-AF BANGLADESHI >60 Normal >=60 [facility] Comment on above: Performed By: #### T SH, LIPID, CMP #### [facility] [address] [place] [address] Dr. Caterina So EGFR-NON AF BANGLADESHI >60 Normal >=60 [facility] Comment on above: Performed By: #### T SH, LIPID, CMP #### [facility] [address] [place] [address] Dr. Caterina So Globulin (S) [Mass/Vol] 3.4 g/dL Normal [facility] Comment on above: Performed By: #### T SH, LIPID, CMP #### [facility] [address] [place] [address] Dr. Caterina So Glucose [Mass/Vol] 93 mg/dL Normal 74-106 [facility] Comment on above: Performed By: #### T SH, LIPID, CMP #### [facility] [address] [place] [address] Dr. Caterina So Potassium [Moles/Vol] 3.9 mmol/L Normal 3.5-5.1 [facility] Comment on above: Performed By: #### T SH, LIPID, CMP #### [facility] [address] [place] [address] Dr. Caterina So Protein [Mass/Vol] 7.4 g/dL Normal 6.4-8.2 [facility] Comment on above: Performed By: #### T SH, LIPID, CMP #### [facility] [address] [place] [address] Dr. Caterina So Sodium [Moles/Vol] 143 mmol/L Normal 136-145 [facility] Comment on above: Performed By: #### T SH, LIPID, CMP #### [facility] [address] [place] [address] Dr. Caterina So Urea nitrogen [Mass/Vol] 10.0 mg/dL Normal 7.0-18.0 [facility] Comment on above: Performed By: #### T GUICHO, LIPID, CMP #### [facility] [address] [place] [address] Dr. Caterina So Urea nitrogen/Creatinin e [Mass ratio] 17.2 mg/mg Normal [facility] Comment on above: Performed By: #### T GUICHO, LIPID, CMP #### [facility] [address] [place] [address] Dr. Caterina So TSHon 04-24-2022 TSH 2.767 uIU/mL Normal 0.358-3.740 [facility] Comment on above: Performed By: #### T GUICHO, LIPID, CMP #### [facility] [address] [place] [address] Dr. Caterina So UA RANDOM W/MICROSCOPICon BACTERIA TRACE Abnormal NONE SEEN [facility] Comment on above: Performed By: #### U AMIC #### [facility] [address] [place] [address] Dr. Caterina So Bilirubin Ql (U) Negative Normal NEGATIVE [facility] Comment on above: Performed By: #### U AMIC #### [facility] [address] [place] [address] Dr. Caterina So CAST NONE SEEN Normal NONE SEEN [facility] Comment on above: Performed By: #### U AMIC #### [facility] [address] [address] [address] Caterina So Clarity (U) CLEAR Normal CLEAR [facility] Comment on above: Performed By: #### U AMIC #### [facility] [address] [address] [address] Caterina So Color (U) LT. YELLOW Normal YELLOW [facility] Comment on above: Performed By: #### U AMIC #### [facility] [address] [address] [address] Caterina So Crystals LM Nom (Urine sed) NONE SEEN Normal NONE SEEN [facility] Comment on above: Performed By: #### U AMIC #### [facility] [address] [place] [address] Dr. Caterina So Epithelial cells LM Ql (Urine sed) FEW Abnormal NONE SEEN /RARE [facility] Comment on above: Performed By: #### U AMIC #### [facility] [address] [address] [address] Caterina So Glucose Ql (U) Negative Normal NEGATIVE [facility] Comment on above: Performed By: #### U AMIC #### [facility] [address] [place] [address] Dr. Caterina So Hemoglobin Ql (U) SMALL Abnormal NEGATIVE [facility] Comment on above: Performed By: #### U AMIC #### [facility] [address] [address] [address] Caterina So Ketones Ql (U) Negative Normal NEGATIVE [facility] Comment on above: Performed By: #### U AMIC #### [facility] [address] [place] [address] Dr. Caterina So LEUKOCYTES LARGE Abnormal NEGATIVE [facility] Comment on above: Performed By: #### U AMIC #### [facility] [address] [place] [address] Dr. Caterina So MUCOUS NONE SEEN Normal NONE SEEN [facility] Comment on above: Performed By: #### U AMIC #### [facility] [address] [place] [address] Dr. Caterina So Nitrite Ql (U) Negative Normal NEGATIVE [facility] Comment on above: Performed By: #### U AMIC #### [facility] [address] [address] [address] Caterina So pH (U) 7.0 [pH] Normal 5-9 [facility] Comment on above: Performed By: #### U AMIC #### [facility] [address] [address] [address] Caterina So RBC 2-5 Abnormal 0-2 [facility] Comment on above: Performed By: #### U AMIC #### [facility] [address] [address] [address] Caterina So SPEC GRAVITY 1.010 Normal 1.005-<=1.025 [facility] Comment on above: Performed By: #### U AMIC #### [facility] [address] [address] [address] Caterina So UA PROTEIN Negative Normal NEGATIVE/ TRACE [facility] Comment on above: Performed By: #### U AMIC #### [facility] [address] [address] [address] Caterina So Urobilinogen Qn (U) 1.0 {Temitope'U}/dL Normal 0.2 - 1.0 [facility] Comment on above: Performed By: #### U AMIC #### [facility] [address] [address] [address] Caterina So WBC 10-20 Abnormal NONE SEEN [facility] Comment on above: Performed By: #### U AMIC #### [facility] [address] [address] [address] Caterina So Physician Referralon 022 Physician Referral [id number] Normal [facility] A1C with Estimated Average [facility] 10-09-2021 Glucose [Mass/Vol] 108 mg/dL Normal [facility] Comment on above: Result Comment: PERF ORMED BY: [facility] [address] [place] [address] PATHOLOGIST CHRONIC CONDITION NURSE YUNG KONG M.D. Performed By: #### C BC, CMP, A1C WTH eA #### [address] HbA1c (Bld) [Mass fraction] 5.4 % Normal 4.3-5.6 [facility] Comment on above: Result Comment: Incr eased risk for diabetes: 5.7 - 6.4 diabetes: >6.4 glycemic control for adults with diabetes: <7.0 Performed By: #### C BC, CMP, A1C WTH eA #### [address] Complete Blood Count Auto Di ffon 10-09-2021 Basophils (Bld) [#/Vol] 0.1 10*3/uL Normal 0.0-0.2 [facility] Comment on above: Result Comment: PERF ORMED BY: [place] [address] PATHOLOGIST CHRONIC CONDITION NURSE YUNG KONG M.D. Performed By: #### C BC, CMP, A1C WTH eA #### [place] [address] [place] Basophils/100 WBC (Bld) 0.9 % Normal . [facility] Comment on above: Performed By: #### C BC, CMP, A1C WTH eA #### [place] [address] [place] Eosinophils (Bld) [#/Vol] 0.1 10*3/uL Normal 0.0-0.45 [facility] Comment on above: Performed By: #### C BC, CMP, A1C WTH eA #### [place] [address] [place] Eosinophils/100 WBC (Bld) 1.5 % Normal . [facility] Comment on above: Performed By: #### C BC, CMP, A1C WTH eA #### [address] Erythrocyte distribution width (RBC) [Ratio] 14.7 % Normal 11.9-15.3 [facility] Comment on above: Performed By: #### C BC, CMP, A1C WTH eA #### [address] Hematocrit (Bld) [Volume fraction] 45.5 % Normal 34.0-46.4 [facility] Comment on above: Performed By: #### C BC, CMP, A1C WTH eA #### [address] Hemoglobin (Bld) [Mass/Vol] 14.9 g/dL Normal 11.8-15.4 [facility] Comment on above: Performed By: #### C BC, CMP, A1C WTH eA #### [address] Lymphocytes (Bld) [#/Vol] 1.9 10*3/uL Normal 1.00-4.8 [facility] Comment on above: Performed By: #### C BC, CMP, A1C WTH eA #### [address] Lymphocytes/100 WBC (Bld) 29.9 % Normal . [facility] Comment on above: Performed By: #### C BC, CMP, A1C WTH eA #### [address] MCH (RBC) [Entitic mass] 35.2 pg High 24.7-34.3 [facility] Comment on above: Performed By: #### C BC, CMP, A1C WTH eA #### [place] [address] [place] MCV (RBC) [Entitic vol] 107.6 fL High 80-100 [facility] Comment on above: Performed By: #### C BC, CMP, A1C WTH eA #### [address] Mean Corpuscular HGB Conc 32.7 g/dL Normal 32.0-35.0 [facility] Comment on above: Performed By: #### C BC, CMP, A1C WTH eA #### [facility] [address] [place] [address] [place] Monocytes (Bld) [#/Vol] 0.4 10*3/uL Normal 0.0-0.8 [facility] Comment on above: Performed By: #### C BC, CMP, A1C WTH eA #### [facility] [address] [place] [address] [place] Monocytes/100 WBC (Bld) 6.0 % Normal . [facility] Comment on above: Performed By: #### C BC, CMP, A1C WTH eA #### [facility] [address] [place] [address] [place] Neutrophils (Bld) [#/Vol] 3.8 10*3/uL Normal 1.8-7.7 [facility] Comment on above: Performed By: #### C BC, CMP, A1C WTH eA #### [facility] [address] [place] [address] [place] Neutrophils/100 WBC (Bld) 61.7 % Normal . [facility] Comment on above: Performed By: #### C BC, CMP, A1C WTH eA #### [facility] [address] [place] [address] [place] Nucleated RBC/100 WBC (Bld) [Ratio] 0.2 % Normal 0-0.5 [facility] Comment on above: Performed By: #### C BC, CMP, A1C WTH eA #### [facility] [address] [place] [address] [place] Platelet mean volume (Bld) [Entitic vol] 10.2 fL Normal 6.3-10.7 [facility] Comment on above: Performed By: #### C BC, CMP, A1C WTH eA #### [facility] [address] [place] [address] [place] Platelets (Bld) [#/Vol] 193 10*3/uL Normal 150-450 [facility] Comment on above: Performed By: #### C BC, CMP, A1C WTH eA #### [facility] [address] [place] [address] [place] RBC (Bld) [#/Vol] 4.23 10*6/uL Normal 3.60-5.00 [facility] Comment on above: Performed By: #### C BC, CMP, A1C WTH eA #### [facility] [address] [place] [address] WBC (Bld) [#/Vol] 6.2 10*3/uL Normal 4.5-11.0 [facility] Comment on above: Performed By: #### C BC, CMP, A1C WTH eA #### [facility] [address] [place] [address] Comprehensive Metabolic Pane tad 10-09-2021 Albumin [Mass/Vol] 3.9 g/dL Normal 3.2-5.5 [facility] Comment on above: Performed By: #### C BC, CMP, A1C WTH eA #### [facility] [address] [place] [address] Albumin/Globulin [Mass ratio] 1.3 {ratio} Normal [facility] Comment on above: Performed By: #### C BC, CMP, A1C WTH eA #### [address] ALP [Catalytic activity/Vol] 66 U/L Normal 32-92 [facility] Comment on above: Result Comment: PERF ORMED BY: [place] [address] PATHOLOGIST CHRONIC CONDITION NURSE YUNG KONG M.D. Performed By: #### C BC, CMP, A1C WTH eA #### [facility] [address] [place], [place] [id number] [facility] ALT [Catalytic activity/Vol] 26 U/L Normal 10-60 [facility] Comment on above: Performed By: #### C BC, CMP, A1C WTH eA #### [facility] [address] [place], [place] [id number] [place] AST [Catalytic activity/Vol] 29 U/L Normal 10-42 [facility] Comment on above: Performed By: #### C BC, CMP, A1C WTH eA #### [facility] [address] [place] [address] [place] Bilirubin [Mass/Vol] 0.4 mg/dL Normal 0.3-1.2 [facility] Comment on above: Performed By: #### C BC, CMP, A1C WTH eA #### [facility] [address] Calcium [Mass/Vol] 8.9 mg/dL Normal 8.2-10.2 [facility] Comment on above: Performed By: #### C BC, CMP, A1C WTH eA #### [address] Chloride [Moles/Vol] 104 mmol/L Normal 95-114 [facility] Comment on above: Performed By: #### C BC, CMP, A1C WTH eA #### [address] CO2 [Moles/Vol] 23.5 mmol/L Normal 22.0-30.0 [facility] Comment on above: Performed By: #### C BC, CMP, A1C WTH eA #### [address] Creatinine [Mass/Vol] 0.63 mg/dL Normal 0.44-1.03 [facility] Comment on above: Performed By: #### C BC, CMP, A1C WTH eA #### [address] Estimated GFR ( Melissa > 60 Normal [facility] Comment on above: Result Comment: GFR estimated reference range: According to KDOQI guidelines, <60 ml/min/1.73m2 is sufficient to diagnose a patient with chronic kidney disease. Performed By: #### C BC, CMP, A1C WTH eA #### [facility] [address] [place] [address] [place] Estimated GFR (Non- Am > 60 Normal [facility] Comment on above: Performed By: #### C BC, CMP, A1C WTH eA #### [facility] [address] [place] [address] [place] Globulin (S) [Mass/Vol] 2.9 g/dL Normal [facility] Comment on above: Performed By: #### C BC, CMP, A1C WTH eA #### [facility] [address] [place] [address] [place] Glucose [Mass/Vol] 74 mg/dL Normal 70-100 [facility] Comment on above: Result Comment: [place] Glucose Reference Range is dependent on time and content of last meal. Glucose of more than 200 mg/dL in a nonstressed, ambulatory subject supports the diagnosis of Diabetes Mellitus. ADA recommended reference range Performed By: #### C BC, CMP, A1C WTH eA #### [facility] [address] [place] [address] [place] Potassium [Moles/Vol] 3.6 mmol/L Normal 3.5-5.1 [facility] Comment on above: Performed By: #### C BC, CMP, A1C WTH eA #### [facility] [address] [place] [address] [place] Protein [Mass/Vol] 6.8 g/dL Normal 6.1-7.9 [facility] Comment on above: Performed By: #### C BC, CMP, A1C WTH eA #### [facility] [address] [place] [address] [place] Sodium [Moles/Vol] 140 mmol/L Normal 136-146 [facility] Comment on above: Performed By: #### C BC, CMP, A1C WTH eA #### [facility] [address] [id number] [place] Urea nitrogen [Mass/Vol] 10 mg/dL Normal 9-23 [facility] Comment on above: Performed By: #### C BC, CMP, A1C WTH eA #### [facility] [address] [id number] [place] COVID Quick Testingon 2020 Result Negative [employer] Other Quick Fluon 04-30-2021 FLUAV Ab CF (S) [Titer] Negative [employer] Other FLUBV Ab CF (S) [Titer] Negative [employer] Other ALC ETHANOLon 01-07-2020 ALC ETHANOL 277.0 mg/dL High <10.0 [facility] Comment on above: Result Comment: [employer] NFIRMED Toxicology results. For MEDICAL purposes only. Performed By: #### L 500.99202, L500.54121, L500.01286 #### Test performed at: [address] [address] CBCon 01-07-2020 Erythrocyte distribution width (RBC) [Ratio] 13.0 % Normal 11.5-14.5 [facility] Comment on above: Performed By: #### L 200.67642 #### Test performed at: [address] [address] Hematocrit (Bld) [Volume fraction] 48.6 % High 36.0-48.0 [facility] Comment on above: Performed By: #### L 200.58703 #### Test performed at: [address] [address] Hemoglobin (Bld) [Mass/Vol] 16.8 g/dL High 12.0-15.0 [facility] Comment on above: Performed By: #### L 200.63829 #### Test performed at: [address] [address] MCH (RBC) [Entitic mass] 35.8 pg High 25.4-34.6 [facility] Comment on above: Performed By: #### L 200.22076 #### Test performed at: [address] [address] MCHC (RBC) [Mass/Vol] 34.6 g/dL Normal 31.5-36.5 [facility] Comment on above: Performed By: #### L 200.41739 #### Test performed at: [address] [address] MCV (RBC) [Entitic vol] 103.6 fL High 79.0-98.0 [facility] Comment on above: Performed By: #### L 200.72794 #### Test performed at: [address] [address] NRBC # 0.000 K/uL Normal 0-0.012 [facility] Comment on above: Performed By: #### L 200.54204 #### Test performed at: [address] [address] NRBC % 0.0 /100 WBC Normal 0-0.2 [facility] Comment on above: Performed By: #### L 200.42888 #### Test performed at: [address] [place] [id number] Platelet mean volume (Bld) [Entitic vol] 9.9 fL Normal 8.7-12.4 [facility] Comment on above: Performed By: #### L 200.56205 #### Test performed at: [address] [address] Platelets (Bld) [#/Vol] 179 10*3/uL Normal 140-440 [facility] Comment on above: Performed By: #### L 200.43738 #### Test performed at: [address] [address] RBC (Bld) [#/Vol] 4.69 10*6/uL Normal 3.5-5.5 [facility] Comment on above: Performed By: #### L 200.08585 #### Test performed at: [address] [address] WBC (Bld) [#/Vol] 4.9 10*3/uL Normal 3.9-11.0 [facility] Comment on above: Performed By: #### L 200.49219 #### Test performed at: [address] [address] COMP META PANELon 01-07-2020 Albumin [Mass/Vol] 3.8 g/dL Normal 3.4-5.0 [facility] Comment on above: Performed By: #### L 500.73730, L500.85421, L500.56259 #### Test performed at: [address] [address] ALK PHOS TOTAL 101 U/L Normal 45-117 [facility] Comment on above: Performed By: #### L 500.29178, L500.19663, L500.79786 #### Test performed at: [address] [address] ALT [Catalytic activity/Vol] 105 U/L High 13-61 [facility] Comment on above: Performed By: #### L 500.67579, L500.88991, L500.66939 #### Test performed at: [address] [address] AST [Catalytic activity/Vol] 166 U/L High 15-37 [facility] Comment on above: Result Comment: Resu lts may be inaccurate due to moderate hemolysis. Performed By: #### L 500.19618, L500.09697, L500.34809 #### Test performed at: [address] [address] BILI TOTAL 1.1 mg/dL High 0.2-1.0 [facility] Comment on above: Performed By: #### L 500.02039, L500.11739, L500.50606 #### Test performed at: [address] [address] Calcium [Mass/Vol] 8.4 mg/dL Low 8.5-10.1 [facility] Comment on above: Performed By: #### L 500.35233, L500.81554, L500.21150 #### Test performed at: [address] [address] Chloride [Moles/Vol] 107 mmol/L Normal 98-107 [facility] Comment on above: Performed By: #### L 500.18804, L500.66346, L500.78678 #### Test performed at: [address] [address] CO2 [Moles/Vol] 24 mmol/L Normal 21-32 [facility] Comment on above: Performed By: #### L 500.74640, L500.58817, L500.35763 #### Test performed at: [address] [address] Creatinine [Mass/Vol] 0.510 mg/dL Low 0.550-1.020 [facility] Comment on above: Performed By: #### L 500.36194, L500.38374, L500.43462 #### Test performed at: [address] [address] Glucose [Mass/Vol] 88 mg/dL Normal 70-99 [facility] Comment on above: Result Comment: Fast ing GLUCOSE reference range has been updated per (ADA) [place] [employer]'s recommendation. 08/11/2018 Performed By: #### L 500.20199, L500.11652, L500.45064 #### Test performed at: [address] [address] Potassium [Moles/Vol] 4.8 mmol/L Normal 3.5-5.1 [facility] Comment on above: Result Comment: Resu lts may be inaccurate due to moderate hemolysis. Performed By: #### L 500.55220, L500.69025, L500.11716 #### Test performed at: [address] [address] Protein [Mass/Vol] 7.5 g/dL Normal 6.4-8.2 [facility] Comment on above: Performed By: #### L 500.66400, L500.06956, L500.44427 #### Test performed at: [address] [address] Sodium [Moles/Vol] 140 mmol/L Normal 136-145 [facility] Comment on above: Performed By: #### L 500.31950, L500.99549, L500.91690 #### Test performed at: [address] [address] Urea nitrogen [Mass/Vol] 3 mg/dL Low 7-18 [facility] Comment on above: Performed By: #### L 500.69635, L500.72566, L500.32941 #### Test performed at: [address] [address] CORONAVIRUSon 01-07-2020 CORONAVIRUS Negative results do not [...] the FDA website: https://www.fda.gov/ MedicalDevices/Safet y/ EmergencySituations/ xjc429916.htm COVID-19 Negative for COVID-19 (SARS-CoV-2 RNA) Normal [facility] Comment on above: Order Comment: Campu s: MAIN COVID Testing: DIAGNOSTIC Performed By: #### M 400.77330 #### Test performed at: [address] [address] ED Provider Reporton 020 ED Provider Report [facility] Pt Name: CARIDAD REYES MR#: [id number] [address] [address] ACCT: [id number] : 66 EMERGENCY PROVIDER REPORT ADM Date: [...] Medical Decision Making Diagnostics Labs Laboratory Tests Gil 4d 01/06 01/06 1435 1302 Chemistry Sodium (136 [...] pH (5.0 - 8.0) 6.0 Ur Specific Terrell (1.005 - 1.030) 1.001 L Urine Protein [...] quite high she will be admitted to [facility] for detoxification for the first [...] and Time Adalberto York Mariam MD Normal [facility] GFR ESTIMATEon 01-07-2020 IF AMER > 60 Normal > 60 [facility] Comment on above: Result Comment: eGFR (Estimated GFR) Units of measure:mL/min/1.73 meters sq. *CALCULATION REVISED 03/07/2015;IDMS-traceable MDRD equation eGFR is derived from the reexpressed MDRD Study equation using the following parameters: serum creatinine, age, gender and race. An eGFR<60 mL/min/1.73m2 for >3 months is consistent with chronic kidney disease. Refer to KDOQI guidelines for clinical interpretation. Performed By: #### L 500.99038, L500.26287, L500.26781 #### Test performed at: [place] [address] IF non-AFR AMER > 60 Normal > 60 [facility] Comment on above: Performed By: #### L 500.45259, L500.45716, L500.79228 #### Test performed at: [place] [address] LIMIT UR TOXon 01-07-2020 PH TOX 6.0 Normal 5.0-8.0 [facility] Comment on above: Performed By: #### L 600.70558, L600.48144 #### Test performed at: [place] [address] UR AMPH Negative Normal Negative [facility] Comment on above: Result Comment: CUTO [id number] Performed By: #### L 600.64426, L600.97047 #### Test performed at: [place] [address] UR JOY Negative Normal Negative [facility] Comment on above: Result Comment: CUTO UQ=727 Performed By: #### L 600.42062, L600.90249 #### Test performed at: [place] [address] UR JENIFFER Negative Normal Negative [facility] Comment on above: Result Comment: CUTO SY=226 Performed By: #### L 600.62506, L600.60760 #### Test performed at: [place] [id number] UR BUPREN/NORBU Negative Normal Negative [facility] Comment on above: Result Comment: CUTO FF=10 Performed By: #### L 600.17540, L600.30011 #### Test performed at: [place] [address] UR SHARITA/THC Negative Normal Negative [facility] Comment on above: Result Comment: CUTO FF=50 Performed By: #### L 600.52447, L600.48476 #### Test performed at: [place] [address] UR NADIRA Negative Normal Negative [facility] Comment on above: Result Comment: CUTO ZP=520 Performed By: #### L 600.27959, L600.74254 #### Test performed at: [place] [address] UR ECSTASY Negative Normal Negative [facility] Comment on above: Result Comment: CUTO XH=399 Performed By: #### L 600.09206, L600.05977 #### Test performed at: [place] [address] UR FENTANYL Negative Normal Negative [facility] Comment on above: Result Comment: CUTO LW=0156 Performed By: #### L 600.11973, L600.53472 #### Test performed at: [place] [id number] UR METH Negative Normal Negative [facility] Comment on above: Result Comment: CUTO FJ=633 Performed By: #### L 600.10132, L600.24252 #### Test performed at: [place] [address] UR OPIAT Negative Normal Negative [facility] Comment on above: Result Comment: CUTO LV=332 Performed By: #### L 600.72898, L600.09019 #### Test performed at: [address] [address] UR OXYCOCONE Negative Normal Negative [facility] Comment on above: Result Comment: CUTO VP=979 Performed By: #### L 600.10721, L600.89694 #### Test performed at: [place] [address] UR PCP Negative Normal Negative [facility] Comment on above: Result Comment: CUTO FF=25 Performed By: #### L 600.65319, L600.68572 #### Test performed at: [place] [address] TOX COMMENT *PLEASE NOTE: Normal [facility] Comment on above: Result Comment: UNCO NFIRMED Toxicology results. For MEDICAL purposes only. Performed By: #### L 600.00088, L600.29627 #### Test performed at: [place] [address] UA COMPLETEon 01-07-2020 Appearance (U) CLEAR Normal CLEAR [facility] Comment on above: Performed By: #### L 600.71524, L600.13209 #### Test performed at: [address] [address] Bilirubin [Mass/Vol] Negative Normal NEGATIVE [facility] Comment on above: Performed By: #### L 600.89330, L600.34084 #### Test performed at: [address] [address] BLOOD 0.03 mg/dL Critically abnormal NEGATIVE [facility] Comment on above: Performed By: #### L 600.85021, L600.04669 #### Test performed at: [address] [address] Color (U) STRAW Normal YELLOW [facility] Comment on above: Performed By: #### L 600.19583, L600.81992 #### Test performed at: [place] [id number] Glucose [Mass/Vol] Negative Normal NEGATIVE [facility] Comment on above: Performed By: #### L 600.72115, L600.62425 #### Test performed at: [place] [address] KETONE Negative Normal NEGATIVE [facility] Comment on above: Performed By: #### L 600.09792, L600.25306 #### Test performed at: [place] [address] LEUK ESTERASE Negative Normal NEGATIVE [facility] Comment on above: Performed By: #### L 600.96975, L600.23885 #### Test performed at: [place] [address] Nitrite Ql (U) Negative Normal NEGATIVE [facility] Comment on above: Performed By: #### L 600.41936, L600.89023 #### Test performed at: [place] [address] Protein [Mass/Vol] Negative Normal NEGATIVE [facility] Comment on above: Performed By: #### L 600.83131, L600.55281 #### Test performed at: [place] [address] RBC (Bld) [#/Vol] 0-2 Normal 0-3 [facility] Comment on above: Performed By: #### L 600.20908, L600.04199 #### Test performed at: [place] [address] SPEC GRAV 1.001 Low 1.005-1.030 [facility] Comment on above: Performed By: #### L 600.99995, L600.95036 #### Test performed at: [address] [place], [place] [address] UA ASC ACID Negative Normal [facility] Comment on above: Performed By: #### L 600.07106, L600.64270 #### Test performed at: [address] [address] UA PH 6.0 Normal 5.0-8.0 [facility] Comment on above: Performed By: #### L 600.66195, L600.23261 #### Test performed at: [address] [address] UROBIL NORMAL Normal NORMAL [facility] Comment on above: Performed By: #### L 600.98721, L600.99115 #### Test performed at: [address] [address] WBC (Bld) [#/Vol] 0-2 Normal 0-5 [facility] Comment on above: Performed By: #### L 600.71020, L600.27907 #### Test performed at: [address] [address] Chlamydia/GC DNA, Uron 09-23 Protein mass conc Negative Normal NEG [facility] Comment on above: Result Comment: CHLA MYDIA [...] nucleic acid target. Performed By: #### U [facility] #### [address] [id number] Animal Killer: Brenton Minor MD Result Comment: NEIS SERIA [...] HIV Ag/Abon 09-22-2018 HIV Ag/Ab NONREACTIVE Normal [facility] Comment on above: Result Comment: No l aboratory evidence of HIV infection. If acute HIV infection is suspected, consider testing for HIV-1 RNA. Performed By: #### H IVCMB, PHEP, TREP #### [facility] [address] [place] [address] Animal Killer: Brenton Minor MD Hepatitis Acute [facility] 09-22 Hep A Ab,IgM NONREACTIVE Normal [facility] Comment on above: Performed By: #### H IVCMB, PHEP, TREP #### [facility] [address] [place] [address] Animal Killer: Brenton Minor MD Hep B Core Ab,IgM NONREACTIVE Normal [facility] Comment on above: Performed By: #### H IVCMB, PHEP, TREP #### [facility] [address] [place] [address] Animal Killer: Brenton Minor MD Hep B Surf Ag NONREACTIVE Normal [facility] Comment on above: Performed By: #### H IVCMB, PHEP, TREP #### [facility] [address] [place] [address] Animal Killer: Brenton Minor MD Hep C Ab NONREACTIVE Normal [facility] Comment on above: Result Comment: The [...] #### H IVCMB, PHEP, TREP #### [facility] [address] [place] [address] Animal Killer: Brenton Minor MD T.pallidum Ab Screenon 09-22 T.pallidum Ab Screen NONREACTIVE Normal NR [facility] Comment on above: Result Comment: T. pallidum antibodies are not detected. There is no serological evidence of infection with T. pallidum (early primary syphilis cannot be excluded). Retest in 2-4 weeks if syphilis is clinically suspect. Performed By: #### H IVCMB, PHEP, TREP #### [facility] [address] [id number] Animal Killer: Brenton Minor MD .eGFRon 07-25-2018 eGFR Non-AA >60 Normal >=60 [facility] Comment on above: Result Comment: Resu lt [...] for medication dosing. Performed By: #### C D:[id number] #### [address] [address] eGFR AA >60 Normal >=60 [facility] Comment on above: Result Comment: Resu lt = 0-14.9 mL/min/1.73 m2 Kidney failure or Dialysis Result = 15-29 mL/min/1.73 m2 Severe decrease in GFR Result = 30-59 mL/min/1.73 m2 Moderate decrease in GFR Result >= 60 mL/min/1.73 m2 Normal or increased GFR Performed By: #### C D:[id number] #### [place] [address] [place] [address] CBC w/ Diffon 07-25-2018 Erythrocyte distribution width Ratio (RBC) 13.4 % Normal 11.6-14.8 [facility] Comment on above: Performed By: #### C BC ####[address] [address] Hematocrit Volume Fraction (Bld) 40.6 % Normal 36.0-46.0 [facility] Comment on above: Performed By: #### C BC ####[address] [address] Hemoglobin mass conc (Bld) 13.9 g/dL Normal 12.0-16.0 [facility] Comment on above: Performed By: #### C BC ####[address] [address] MCH Entitic mass (RBC) 33.5 pg Normal 27.0-35.0 [facility] Comment on above: Performed By: #### C BC ####[address] [address] MCHC mass conc (RBC) 34.1 % Normal 31.0-37.0 [facility] Comment on above: Performed By: #### C BC ####[address] [address] MCV Entitic volume (RBC) 98.1 fL Normal 80.0-100.0 [facility] Comment on above: Performed By: #### C BC ####[address] [address] Platelet mean volume Entitic volume (Bld) 8.4 fL Normal 6.7-10.6 [facility] Comment on above: Performed By: #### C BC ####[address] [address] Platelets #/vol (Bld) 114 x10*3/mcL Low 150-350 [facility] Comment on above: Performed By: #### C BC ####[address] [address] RBC #/vol (Bld) 4.14 x10*6/mcL Normal 3.80-5.20 [facility] Comment on above: Performed By: #### C BC ####[address] [address] WBC #/vol (Bld) 4.8 x10*3/mcL Normal 4.5-11.0 [facility] Comment on above: Performed By: #### C BC ####[address] [address] CMPon 07-25-2018 Albumin mass conc 3.7 g/dL Normal 3.2-4.9 [facility] Comment on above: Result Comment: [facility] Laboratory updated the methodology used for albumin testing on 12/24/17. Albumin measurement was performed using a bromcresol purple dye-binding assay. Performed By: #### C [id number] #### [address] [address] Albumin/Globulin mass ratio 1.4 {ratio} Normal 1.1-2.2 [facility] Comment on above: Performed By: #### C D:[id number] #### [address] [address] Alk Phos 68 IU/L Normal 32-91 [facility] Comment on above: Performed By: #### C D:[id number] #### [address] [address] ALT enzyme act/vol 69 U/L High 14-54 [facility] Comment on above: Performed By: #### C D:[id number] #### [address] [address] Anion gap molar conc 15 mmol/L Normal 7-17 [facility] Comment on above: Performed By: #### C D:[id number] #### [address] [address] AST enzyme act/vol 119 U/L High 15-41 [facility] Comment on above: Performed By: #### C D:[id number] #### [address] [address] Bili Total 1.5 mg/dL High 0.3-1.2 [facility] Comment on above: Performed By: #### C D:[id number] #### [address] [address] Calcium mass conc 7.8 mg/dL Low 8.5-10.3 [facility] Comment on above: Performed By: #### C D:[id number] #### [address] [address] Chloride molar conc 104 mmol/L Normal 98-110 [facility] Comment on above: Performed By: #### C D:[id number] #### [address] [address] CO2 molar conc 21 mmol/L Low 22-32 [facility] Comment on above: Performed By: #### C D:[id number] #### [address] [address] Creatinine mass conc 0.51 mg/dL Normal 0.44-1.03 [facility] Comment on above: Performed By: #### C D:[id number] #### [address] [address] Glucose mass conc 88 mg/dL Normal 74-118 [facility] Comment on above: Performed By: #### C D:[id number] #### [address] [address] Potassium molar conc 3.8 mmol/L Normal 3.4-4.8 [facility] Comment on above: Performed By: #### C D:[id number] #### [address] [address] Protein mass conc 6.4 g/dL Low 6.5-8.1 [facility] Comment on above: Performed By: #### C D:[id number] #### [address] [address] Sodium molar conc 136 mmol/L Normal 133-142 [facility] Comment on above: Performed By: #### C D:[id number] #### [address] [address] Urea nitrogen mass conc 7 mg/dL Low 8-26 [facility] Comment on above: Performed By: #### C D:[id number] #### [address] [address] Urea nitrogen/Creatinin e mass ratio 13.7 mg/mg Normal 10.0-20.0 [facility] Comment on above: Performed By: #### C D:[id number] #### [address] [address] Diff Autoon 07-25-2018 Baso Absolute 0.0 x10*3/mcL Normal 0.0-0.2 [facility] Comment on above: Performed By: #### . Automated Diff ####[address] [address] Basophils/100 WBC (Bld) 0.7 % Normal 0.0-1.5 [facility] Comment on above: Performed By: #### . Automated Diff ####[address] [address] Eos Absolute 0.0 x10*3/mcL Normal 0.0-0.4 [facility] Comment on above: Performed By: #### . Automated Diff ####[address] [address] Eosinophils/100 WBC (Bld) 0.3 % Normal 0.0-5.4 [facility] Comment on above: Performed By: #### . Automated Diff ####[address] [address] Lymphocytes #/vol (Bld) 1.6 x10*3/mcL Normal 1.0-4.8 [facility] Comment on above: Performed By: #### . Automated Diff ####[address] [address] Lymphocytes/100 WBC (Bld) 33.7 % Normal 27.2-40.8 [facility] Comment on above: Performed By: #### . Automated Diff ####[address] [address] [place] Absolute 0.4 x10*3/mcL Normal 0.1-1.1 [facility] Comment on above: Performed By: #### . Automated Diff ####[address] [address] Monocytes/100 WBC (Bld) 7.5 % Normal 3.7-11.9 [facility] Comment on above: Performed By: #### . Automated Diff ####[address] [address] Neutro Absolute 2.8 x10*3/mcL Normal 1.8-7.7 [facility] Comment on above: Performed By: #### . Automated Diff ####[address] [address] Neutro Auto 57.8 % Normal 47.2-70.8 [facility] Comment on above: Performed By: #### . Automated Diff ####[address] [address] ED Note-Physicianon 07-26-19 ED Note-Physician Chief Complaint [...] Low Lymph Auto 07/24/18 19:10 50.8 High [place] Auto 07/24/18 19:10 5.9 Eos Auto 07/24/18 19:10 0.1 Basophil Auto 07/24/18 19:10 0.8 Neutro Absolute 07/24/18 19:10 2.3 Lymph Absolute 07/24/18 19:10 2.7 [place] Absolute 07/24/18 19:10 0.3 Eos Absolute 07/24/18 [...] Jonah Hewitt MD 07/25/18 03:59 EST Normal [facility] Ethanolon 07-25-2018 Ethanol mass conc 0.017 g/dL High <=0.005 [facility] Comment on above: Performed By: #### C D:[id number] #### [place] [address] Inpatient Clinical Summaryon 07-25-2018 [place] [address] [place] [address] Clinical Summary Person Information Name: Caridad Reyes Age: 47 Years : 1970 Sex: Female PCP: Marital Status: Single Phone: PCP: Race: White Ethnicity: Not or Language: Guinean Visit Id: Visit Reason: Alcohol withdrawal Speciality: Acuity: Enc Type: Observation Med Service: Emergency Medicine Arrival: 07/24/2018 16:18:00 Discharge: Dispo Type: Place in Observation Address: [place] [address] Diagnosis: 1:Alcohol intoxication; 2:Suicidal ideation; 3:Alcoholism /alcohol [...] ruthann. Discharge Special Instructions Follow up at [facility] after discharge in the next 2 weeks. Follow up 07/25/18 12:53:00 EST, 1 to 2 weeks, primary care provider; if you do not have a pcp call [phone] to establish care. Follow up 07/25/18 12:12:00 [...] range between ( 27.2 and 40.8 ) [place] Auto: 7.5 % -- Normal range between [...] range between ( 36.0 and 46.0 ) [place] Absolute: 0.4 x10 MCH: 33.5 pg -- [...] OCCURRED DURING YOUR HOSPITAL STAY New Medications [facility] [address] [place], [place] [id number], [phone] folic acid (folic acid 1 mg oral [...] A LIST OF YOUR PATIENT?S CURRENT MEDICATIONS [facility] [address], [address] [place] [phone], [phone] folic acid (folic acid 1 mg oral [...] or find a primary care provider, call [phone] Within 1 to 2 weeks Comments: Call on Friday to make appointments! With: Address: When: [employer] [address] [place] [address] [phone] Business (1) Within 1 to 2 weeks Normal [facility] Lipaseon 07-25-2018 Lipase Lvl 60 IU/L High 22-51 [facility] Comment on above: Performed By: #### L IP ####[address] [address] MRSA, PCRon 07-25-2018 INR Coag RelTime (Bld) Negative Normal [facility] Comment on above: Result Comment: The [employer] Xpert MRSA Assay is a qualitative in [...] the clinician. Performed By: #### M RSAPC ####[address] [address] PTon 07-25-2018 INR Coag RelTime (PPP) 1.0 {INR} Normal <=3.5 [facility] Comment on above: Result Comment: INR has no normal range. INR Therapeutic range is: 2.0-3.0 (AF, CVA, TIAs, DVT prophylaxis, acute DVT) 2.5-3.5 (Mech heart valves, recurrent thrombosis/emboli) Performed By: #### P TINR ####[address] [address] [place] [address] Prothrombin time (PT) Coag time (PPP) 10.6 s Normal 9.2-11.7 [facility] Comment on above: Performed By: #### P TINR ####[address] [address] .eGFRon 07-24-2018 eGFR AA >60 [address] >=60 [facility] Comment on above: Order Comment: Order added by Discern rule Result Comment: Resu lt = 0-14.9 mL/min/1.73 m2 Kidney failure or Dialysis Result = 15-29 mL/min/1.73 m2 Severe decrease in GFR Result = 30-59 mL/min/1.73 m2 Moderate decrease in GFR Result >= 60 mL/min/1.73 m2 Normal or increased GFR Performed By: #### E GFR #### [address] [address] eGFR Non-AA >60 Normal >=60 [facility] Comment on above: Order Comment: Order added [...] dosing. Performed By: #### E GFR #### [address] [address] Acetaminophen Lvlon 07-25-19 19 Acetaminoph Lvl <10.0 Low 10.0-30.0 [facility] Comment on above: Order Comment: add o n to initial labs if possible Result Comment: Valu es >150 mcg/mL 4 hours post-ingestion, or >75 mcg/mL 8 hours post-ingestion, or >40 mcg/mL 12 hours post ingestion are considered toxic. Performed By: #### A CET ####[address] [address] CBC w/ Diffon 07-24-2018 Erythrocyte distribution width Ratio (RBC) 13.2 % Normal 11.6-14.8 [facility] Comment on above: Performed By: #### C BC #### [place] [id number] Hematocrit Volume Fraction (Bld) 46.1 % High 36.0-46.0 [facility] Comment on above: Performed By: #### C BC #### [place] [id number] Hemoglobin mass conc (Bld) 15.8 g/dL Normal 12.0-16.0 [facility] Comment on above: Performed By: #### C BC #### [address] [address] MCH Entitic mass (RBC) 33.5 pg Normal 27.0-35.0 [facility] Comment on above: Performed By: #### C BC #### [address] [address] MCHC mass conc (RBC) 34.2 % Normal 31.0-37.0 [facility] Comment on above: Performed By: #### C BC #### [address] [address] MCV Entitic volume (RBC) 98.0 fL Normal 80.0-100.0 [facility] Comment on above: Performed By: #### C BC #### [address] [address] Platelet mean volume Entitic volume (Bld) 8.2 fL Normal 6.7-10.6 [facility] Comment on above: Performed By: #### C BC #### [address] [address] Platelets #/vol (Bld) 133 x10*3/mcL Low 150-350 [facility] Comment on above: Performed By: #### C BC #### [address] [address] RBC #/vol (Bld) 4.71 x10*6/mcL Normal 3.80-5.20 [facility] Comment on above: Performed By: #### C BC #### [address] [address] WBC #/vol (Bld) 5.3 x10*3/mcL Normal 4.5-11.0 [facility] Comment on above: Performed By: #### C BC #### [address] [address] CMPon 07-24-2018 Albumin mass conc 4.1 g/dL Normal 3.2-4.9 [facility] Comment on above: Result Comment: [facility] Laboratory updated the methodology used for albumin testing on 12/24/17. Albumin measurement was performed using a bromcresol purple dye-binding assay. Performed By: #### C OMP #### [place] [id number] Albumin/Globulin mass ratio 1.2 {ratio} Normal 1.1-2.2 [facility] Comment on above: Performed By: #### C OMP #### [address] [address] Creatinine mass conc 0.61 mg/dL Normal 0.44-1.03 [facility] Comment on above: Performed By: #### C OMP #### [address] [address] Urea nitrogen mass conc 7 mg/dL Low 8-26 [facility] Comment on above: Performed By: #### C OMP #### [address] [address] Urea nitrogen/Creatinin e mass ratio 11.5 mg/mg Normal 10.0-20.0 [facility] Comment on above: Performed By: #### C OMP #### [address] [address] Alk Phos 64 IU/L Normal 32-91 [facility] Comment on above: Performed By: #### C OMP #### [address] [place] [address] ALT enzyme act/vol 75 U/L High 14-54 [facility] Comment on above: Performed By: #### C OMP #### [address] [place] [address] Anion gap molar conc 17 mmol/L Normal 7-17 [facility] Comment on above: Performed By: #### C OMP #### [address] [address] AST enzyme act/vol 119 U/L High 15-41 [facility] Comment on above: Performed By: #### C OMP #### [address] [address] Bili Total 1.0 mg/dL Normal 0.3-1.2 [facility] Comment on above: Performed By: #### C OMP #### [address] [place] [address] Calcium mass conc 7.9 mg/dL Low 8.5-10.3 [facility] Comment on above: Performed By: #### C OMP #### [address] [place] [address] Chloride molar conc 103 mmol/L Normal 98-110 [facility] Comment on above: Performed By: #### C OMP #### [address] [address] CO2 molar conc 20 mmol/L Low 22-32 [facility] Comment on above: Performed By: #### C OMP #### [address] [place] [address] Glucose mass conc 110 mg/dL Normal 74-118 [facility] Comment on above: Performed By: #### C OMP #### [address] [address] Potassium molar conc 3.8 mmol/L Normal 3.4-4.8 [facility] Comment on above: Performed By: #### C OMP #### [address] [address] Protein mass conc 7.4 g/dL Normal 6.5-8.1 [facility] Comment on above: Performed By: #### C OMP #### [address] [address] Sodium molar conc 136 mmol/L Normal 133-142 [facility] Comment on above: Performed By: #### C OMP #### [address] [address] Diff Autoon 07-24-2018 Baso Absolute 0.0 x10*3/mcL Normal 0.0-0.2 [facility] Comment on above: Performed By: #### . Automated Diff #### [address] [address] Basophils/100 WBC (Bld) 0.8 % Normal 0.0-1.5 [facility] Comment on above: Performed By: #### . Automated Diff #### [address] [address] Eos Absolute 0.0 x10*3/mcL Normal 0.0-0.4 [facility] Comment on above: Performed By: #### . Automated Diff #### [address] [address] Eosinophils/100 WBC (Bld) 0.1 % Normal 0.0-5.4 [facility] Comment on above: Performed By: #### . Automated Diff #### [address] [address] Lymphocytes #/vol (Bld) 2.7 x10*3/mcL Normal 1.0-4.8 [facility] Comment on above: Performed By: #### . Automated Diff #### [address] [address] Lymphocytes/100 WBC (Bld) 50.8 % High 27.2-40.8 [facility] Comment on above: Performed By: #### . Automated Diff #### [address] [address] [place] Absolute 0.3 x10*3/mcL Normal 0.1-1.1 [facility] Comment on above: Performed By: #### . Automated Diff #### [address] [address] Monocytes/100 WBC (Bld) 5.9 % Normal 3.7-11.9 [facility] Comment on above: Performed By: #### . Automated Diff #### [address] [address] Neutro Absolute 2.3 x10*3/mcL Normal 1.8-7.7 [facility] Comment on above: Performed By: #### . Automated Diff #### [address] [address] Neutro Auto 42.4 % Low 47.2-70.8 [facility] Comment on above: Performed By: #### . Automated Diff #### [address] [address] ED Clinical Summaryon 2018 ED Clinical Summary [address] [id number] ED Clinical Summary Person Information Name: Caridad Reyes/[facility] Age: 47 Years : 1970 Sex: Female PCP: Marital Status: Single Phone: Race: White Ethnicity: Not or Language: Guinean Visit Reason: Suicidal thoughts; Alcohol withdrawal syndrome; Alcohol withdrawal Acuity: 2 Enc Type: Observation Med Service: Emergency Medicine Arrival: 07/24/2018 16:18:00 Discharge: LOS: 000 03:56 Checkin: 07/24/2018 16:18:00 Checkout: 07/24/2018 20:14:01 Dispo Type: Place in Observation Address: [address] [id number] Provider Notes: History of Present Illness Patient [...] range between ( 27.2 and 40.8 ) [place] Auto: 5.9 % -- Normal range between [...] range between ( 36.0 and 46.0 ) [place] Absolute: 0.3 x10 MCH: 33.5 pg -- [...] 19:43:00 EST, Intensive Care Unit, 07/24/18 19:43:00 EST, Caridad Jeronimo DO, Caridad Jeronimo DO Request for Admit 07/24/18 19:44:00 EST, 07/24/18 19:44:00 EST, Intensive Care Unit Patient Education Information: [facility] Poison Help line: . [facility] Hotline: [place] Tobacco Quit Line: [place], [place]) [address]: [phone] [place], [place]) [address]: [phone] [facility] [address], [place]: [phone] [facility] ED Note-Nursingon 07-24-2018 Thyrotropin Qn Patient [...] signed by Andrés Dunn 07/24/18 16:39 EST Normal [facility] ED Note-Physicianon 07-25-19 ED Note-Physician Chief Complaint pt to er [...] for and in the presence of Dr. Alexander. Scribe Attestation: The information in this document, created by the medical transcriber for me, accurately reflects the services I [...] data available. Carolina Kyle Electronically signed by Gerald Alexander MD 07/24/2018 18:45 EST Normal [facility] Ethanolon 07-24-2018 Ethanol mass conc 0.315 g/dL Critically abnormal <=0.005 [facility] Comment on above: Result Comment: Test completion time: 1934 Called date and time: 07/24/2018 19:35:04 EST Result called to and read back by: Randal Gomez RN, ED (First, Last, Title, Location) Performed By: #### A #### [address] [address] History and Physicalon 07-24 History and Physical [...] to me. - would benefit from outpatient [facility] for depression. Previously on Paxil [...] is low risk for acute alcohol withdrawal. manager of care and case management consult to help establish [...] Oral, q1hr, PRN Motrin, 800 mg, Oral, [id number] Times, PRN Multiple Vitamins oral tablet, 1 [...] Low Lymph Auto 07/24/18 19:10 50.8 High [place] Auto 07/24/18 19:10 5.9 Eos Auto 07/24/18 19:10 0.1 Basophil Auto 07/24/18 19:10 0.8 Neutro Absolute 07/24/18 19:10 2.3 Lymph Absolute 07/24/18 19:10 2.7 [place] Absolute 07/24/18 19:10 0.3 Eos Absolute 07/24/18 [...] No qualifying data available. Electronically signed by Phani Caridad Whitingne 07/25/18 06:47 EST Normal [facility] Magnesiumon 07-24-2018 Magnesium mass conc 1.9 mg/dL Normal 1.7-2.4 [facility] Comment on above: Performed By: #### M G #### [facility] [address] [place] [address] Phosphoruson 07-24-2018 Phosphate mass conc 3.3 mg/dL Normal 2.5-4.6 [facility] Comment on above: Performed By: #### P HOS ####[address] [address] Salicylateon 07-24-2018 Salicylate Levl <4.0 Low 0.0-30.0 [facility] Comment on above: Order Comment: add o n to initial labs if possible Performed By: #### S AL ####[address] [address] UDS Compon 07-24-2018 Creatinine mass conc 19.7 mg/dL Normal [facility] Comment on above: Performed By: #### C [id number] #### [address] [address] Ur Amph Scrn Negative Normal NEG = <1000 [facility] Comment on above: Performed By: #### C [id number] #### [address] [address] Ur Joy Scrn Negative Normal NEG = <200 [facility] Comment on above: Performed By: #### C [id number] #### [address] [address] Ur Benzodia Scrn Negative Normal NEG = <200 [facility] Comment on above: Performed By: #### C [id number] #### [address] [address] Ur Cannab Scrn Negative Normal NEG = <50 [facility] Comment on above: Performed By: #### C [id number] #### [address] [address] Ur Cocaine Scrn Negative Normal NEG = <300 [facility] Comment on above: Performed By: #### C [id number] #### [address] [place] [address] Ur Methadone Scn Negative Normal NEG = <300 [facility] Comment on above: Performed By: #### C [id number] #### [address] [address] Ur Opiate Scrn Negative Normal NEG = <300 [facility] Comment on above: Performed By: #### C [id number] #### [address] [address] Ur Oxy Screen Negative Normal NEG = <100 [facility] Comment on above: Performed By: #### C [id number] #### [address] [address] Ur Oxy Scrn Qnt 5 ng/mL Normal <=99 [facility] Comment on above: Performed By: #### C [id number] #### [address] [address] Ur PCP Scrn Negative Normal NEG = <25 [facility] Comment on above: Performed By: #### C [id number] #### [address] [address] UA pH 6.0 Normal 4.5 - 7.8 [facility] Comment on above: Performed By: #### C [id number] #### [address] [address] UA Spec Grav 1.003 Normal 1.003-1.035 [facility] Comment on above: Performed By: #### C [id number] #### [address] [address] Vital Signs Date Time Vital Sign Value Performing Clinician Facility 06-02-2024 09:45-0500 Body height 158.8 cm Carrie Todd 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: [facility] 06-02-2024 09:45-0500 Body mass index (BMI) [Ratio] 32.04 kg/m2 Carrie Billyholz 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: [facility] 06-02-2024 09:45-0500 Body temperature 98.1 [degF] Carriemilton Billyholz 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: [facility] 06-02-2024 09:45-0500 Body weight 80.74 kg Carriemilton Billyholz 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: [facility] 06-02-2024 09:45-0500 Diastolic blood pressure 84 mm[Hg] Carrie Mariajoseholz 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: [facility] 06-02-2024 09:45-0500 Heart rate 100 /min Carrie Mariajoseholz 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: [facility] 06-02-2024 09:45-0500 Respiratory rate 18 /min Carrie Mariajoseholz 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: [facility] 06-02-2024 09:45-0500 SaO2% (BldA) [Mass fraction] 98 % Carrie Nunezz 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: [facility] 06-02-2024 09:45-0500 Systolic blood pressure 134 mm[Hg] Carrie Mariajoseholz 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: [facility] 01-29-2023 14:05-0400 Body height 157.48 cm Renee Ballesteros Other [facility] Other 01-29-2023 14:05-0400 Body mass index (BMI) [Ratio] 31.64 kg/m2 Renee Ballesteros Other [facility] Other 01-29-2023 14:05-0400 Body temperature 98.5 [degF] Renee Ballesteros Other [facility] Other 01-29-2023 14:05-0400 Body weight 78.47 kg Renee Ballesteros Other [facility] Other 01-29-2023 14:05-0400 Respiratory rate 18 /min Renee Ballesteros Other [facility] Other 01-29-2023 14:05-0400 SaO2% (BldA) [Mass fraction] 97 % Renee Ballesteros Other [facility] Other 08-08-2022 16:06-0400 Blood Pressure Location Angelo BERNARD [facility] 08-08-2022 16:06-0400 Body temperature 97.88 [degF] Angelo BERNARD [facility] 08-08-2022 16:06-0400 Diastolic blood pressure 84 mm[Hg] Angelo BERNARD [facility] 08-08-2022 16:06-0400 Heart rate 80 /min Angelo BERNARD [facility] 08-08-2022 16:06-0400 Respiratory rate 14 /min Angelo BERNARD [facility] 08-08-2022 16:06-0400 SaO2% (BldA) [Mass fraction] 97 % Angelo BERNARD [facility] 08-08-2022 16:06-0400 Systolic blood pressure 131 mm[Hg] Angelo BERNARD [facility] 05-15-2022 14:26-0500 Blood Pressure Location Ede BHAKTA [facility] 05-15-2022 14:26-0500 Diastolic blood pressure 92 mm[Hg] Ede NILL [facility] 05-15-2022 14:26-0500 Heart rate 70 /min Ede VEGAL [facility] 05-15-2022 14:26-0500 Respiratory rate 16 /min Ede BHAKTA [facility] 05-15-2022 14:26-0500 Systolic blood pressure 120 mm[Hg] Ede BHAKTA [facility] 04-30-2021 11:15-0500 Body height 157.48 cm Lashonda Ginty Other [facility] Other 04-30-2021 11:15-0500 Body mass index (BMI) [Ratio] 25.6 kg/m2 Lashonda Ginty Other [facility] Other 04-30-2021 11:15-0500 Body temperature 98.3 [degF] Lashonda Ginty Other [facility] Other 04-30-2021 11:15-0500 Body weight 63.5 kg Lashonda Ginty Other [facility] Other 04-30-2021 11:15-0500 SaO2% (BldA) [Mass fraction] 98 % Lashonda Ginty Other [facility] Other Encounters Encounter Date Encounter Type Care Provider Facility Start: 07-18-2024 End: 07-19-2024 Refill Carrie Todd 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: [facility] Comment on above: Essential (primary) hypertension (CMS/HCC); Anxiety Start: 06-02-2024 End: 06-02-2024 Bamboo flowsheet Carrie Todd 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: [facility] Start: 06-02-2024 End: 06-02-2024 Bamboo flowsheet Carrie Todd 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: [facility] Start: 06-02-2024 End: 06-02-2024 ambulatory CARRIE AICHHOLZ Not Available Start: 06-02-2024 End: 06-02-2024 Office outpatient visit 25 minutes Carrie Aichholz 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: [facility] Comment on above: Anxiety (Primary Dx) ; Alcohol dependence, in remission (CMS/HCC); Insomnia, unspecified type; Neuropathy; Primary hypertension (CMS/HCC); Asymptomatic microscopic hematuria; Elevated glucose; Cigarette nicotine dependence without complication; Tobacco user; Muscle spasm; Encounter for screening mammogram for malignant neoplasm of breast; Obesity (BMI 30.0-34.9); Class 1 obesity due to excess calories without serious comorbidity with body mass index (BMI) of 32.0 to 32.9 in adult; Essential (primary) hypertension (CMS/HCC); Seasonal allergies; Other muscle spasm; Pre-diabetes Start: 04-23-2024 End: 04-25-2024 Refill Carrie Aichholz 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: [facility] Comment on above: Insomnia, unspecifie d type; Neuropathy Start: 01-31-2024 End: 02-01-2024 Refill Carrie Aichholz 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: [facility] Comment on above: Anxiety Start: 01-22-2024 End: 01-23-2024 Refill Carrie Aichholz 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: [facility] Comment on above: Essential (primary) hypertension (CMS/HCC); Neuropathy Start: 12-02-2023 End: 12-02-2023 ambulatory CARRIE AICHHOLZ Not Available Start: 08-27-2023 Patient encounter procedure Carrie Aichholz 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: [facility] Start: 08-27-2023 End: 08-27-2023 ambulatory CARRIE AICHHOLZ Not Available Start: 07-09-2023 End: 07-09-2023 ambulatory CARRIE AICHHOLZ Not Available Start: 01-29-2023 End: 01-29-2023 ambulatory Renee Ballesteros Other [facility] Other Start: 01-29-2023 Office outpatient vi sit 15 minutes Renee Ballesteros [facility] Start: 10-09-2022 End: 10-10-[address] JUANIS RIZO Facility:[facility] Start: 08-08-2022 End: 08-09-2022 ambulatory Angelo BERNARD Facility: [facility] Start: 08-08-2022 End: 08-08-2022 Off-Site Angelo BERNARD [facility] Start: 08-06-2022 ambulatory Ede BHAKTA Facility:[facility] Start: 06-12-2022 Encounter for preprocedural laboratory examination DR EDE BHAKTA . [facility] Start: 06-12-2022 End: 06-13-2022 ambulatory Ede BHAKTA Facility:[id number] Start: 06-08-2022 End: 06-09-[address] EDE BHAKTA . Facility:[facility] Start: 06-08-2022 End: 06-09-2022 Encounter for preprocedural laboratory examination DR EDE BHAKTA . Facility:[facility] Start: 05-15-2022 End: 05-16-2022 ambulatory Ede BHAKTA Facility:[facility] Start: 05-15-2022 End: 05-15-2022 Patient encounter procedure Ede BHAKTA [facility] Start: 05-06-2022 End: 05-07-2022 ambulatory ROSARIO TODD Facility:[facility] Start: 04-27-2022 Encounter for genera l adult medical examination without abnormal findings ROSARIO TRINIDADA PEREZ [facility] Start: 04-24-2022 End: 04-25-2022 ambulatory ROSARIO TODD Facility:[facility] Start: 04-24-2022 End: 04-25-2022 Encounter for general adult medical examination without abnormal findings ROSARIO TRINIDADA PEREZ Facility:[facility] Start: 04-03-2022 ambulatory Ede BHAKTA Facility :[facility] Start: 02-10-2022 End: 02-10-2022 ambulatory JODIE FIELDS Facility:[facility] Start: 04-30-2021 End: 04-30-2021 ambulatory Lashonda Brendavinicio Other [place] [facility] Other Start: 04-30-2021 Office outpatient vi sit 15 minutes Lashonda Horton [facility] Start: 09-21-2018 Encounter for genera l adult medical examination without abnormal findings [facility] Start: 09-21-2018 End: 09-22-2018 Patient encounter procedure [facility] Start: 09-21-2018 Encounter for genera l adult medical examination without abnormal findings [facility] Start: 09-21-2018 End: 09-21-2018 Patient encounter procedure [facility] Start: 07-24-2018 End: 07-25-2018 Patient encounter procedure Angelo Fields Randal Facility:[facility] Encounter for genera l adult medical examination without abnormal findings [facility] Procedures Date Procedure Procedure Detail Performing Clinician Start: 06-02-2024 Hemoglobin glycosylated a1c Carrie magana 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: Start: 08-27-2023 Microscopic observation [Identifier] in Cervix by Cyto stain Carrie Todd 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: Start: 07-23-2023 Mammography Carrie Todd 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: Start: 06-12-2022 Colonoscopy Carrie Todd 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: Start: 09-21-2018 Acute hepatitis panel [facility] Start: 09-21-2018 Antibody hiv-1&hiv-2 single result [facility] Start: 09-21-2018 Antibody treponema pallidum [facility] Start: 09-21-2018 C.TRACHOMATIS N.GONORRHOEAE DNA, URINE [facility] Colonoscopy Ede BHAKTA Dilation and curettage Gerson BHAKTA Esophageal erosions (disorder) Ede BHAKTA Esophagogastroduodenoscopy Jennifer BHAKTA Plan of Treatment Date Care Activity Detail Author Start: 06-12-2032 Screening for malign ant neoplasm of colon [facility] Start: 08-26-2026 Screening for malign ant neoplasm of cervix [facility] Start: 09-02-2024 End: 09-02-2024 Patient encounter procedure 09/02/2024 10:30 AM EDT Office Visit [facility] [address] [place] [address] Carrie Todd NP [address] [place] [address] [facility] Start: 07-22-2024 End: 07-31-2025 MG Breast - bilateral Screening Bilateral screening mammogram Imaging Routine Encounter for screening mammogram for malignant neoplasm of breast Expected: 07/22/2024 (Approximate), Expires: 07/31/2025 [facility] Work Phone: Comment on above: Expected: 07/22/2024 (Approximate), Expires: 07/31/2025 Start: 07-22-2024 Screening for malign ant neoplasm of breast Mammogram [facility] Start: 06-02-2024 End: 06-02-2025 25-hydroxyvitamin D3 [Mass/volume] in Serum or Plasma Vitamin D 25 hydroxy Lab Routine Neuropathy Expected: 06/02/2024 (Approximate), Expires: 06/02/2025 [facility] Comment on above: Expected: 06/02/2024 (Approximate), Expires: 06/02/2025 Start: 06-02-2024 End: 06-02-2025 CBC W Auto Differential panel - Blood CBC and differential Lab Routine Cigarette nicotine dependence without complication Expected: 06/02/2024 (Approximate), Expires: 06/02/2025 [facility] Comment on above: Expected: 06/02/2024 (Approximate), Expires: 06/02/2025 Start: 06-02-2024 End: 06-02-2025 Cobalamin (Vitamin B12) [Mass/volume] in Serum or Plasma Vitamin B12 Lab Routine Neuropathy Expected: 06/02/2024 (Approximate), Expires: 06/02/2025 [facility] Comment on above: Expected: 06/02/2024 (Approximate), Expires: 06/02/2025 Start: 06-02-2024 End: 06-02-2025 Comprehensive metabolic 2000 panel - Serum or Plasma Comprehensive metabolic panel Lab Routine Primary hypertension (CMS/HCC) Expected: 06/02/2024 (Approximate), Expires: 06/02/2025 [facility] Comment on above: Expected: 06/02/2024 (Approximate), Expires: 06/02/2025 Start: 06-02-2024 End: 06-02-2025 Lipid 1996 panel - Serum or Plasma Lipid panel Lab Routine Alcohol dependence, in remission (CMS/HCC) Elevated glucose Expected: 06/02/2024 (Approximate), Expires: 06/02/2025 [facility] Comment on above: Expected: 06/02/2024 (Approximate), Expires: 06/02/2025 Start: 06-02-2024 End: 06-02-2025 Microalbumin/Creatinine panel in random Urine Microalbumin / creatinine, urine ratio Lab Routine Primary hypertension (CMS/HCC) Expected: 06/02/2024 (Approximate), Expires: 06/02/2025 [facility] Comment on above: Expected: 06/02/2024 (Approximate), Expires: 06/02/2025 Start: 06-02-2024 End: 06-02-2025 Thyrotropin [Units/volume] in Serum or Plasma TSH Lab Routine Anxiety Expected: 06/02/2024 (Approximate), Expires: 06/02/2025 [facility] Comment on above: Expected: 06/02/2024 (Approximate), Expires: 06/02/2025 Start: 06-02-2024 End: 06-02-2025 Thyroxine (T4) free [Mass/volume] in Serum or Plasma T4, free Lab Routine Anxiety Expected: 06/02/2024 (Approximate), Expires: 06/02/2025 [facility] Comment on above: Expected: 06/02/2024 (Approximate), Expires: 06/02/2025 Start: 06-02-2024 End: 06-02-2025 Urinalysis complete panel - Urine Urinalysis with reflex microscopic (clean catch) Lab Routine Primary hypertension (CMS/HCC) Expected: 06/02/2024 (Approximate), Expires: 06/02/2025 [facility] Comment on above: Expected: 06/02/2024 (Approximate), Expires: 06/02/2025 Start: 06-02-2024 End: 06-02-2024 Patient encounter procedure 06/02/2024 9:40 AM EST Office Visit [facility] [address] [address] Carrie Todd NP [address] [place] [address] [place] [address] [facility] Start: 1998 Screening for malign ant neoplasm of cervix HPV/Cotest [facility] Start: 1968 Screening for malign ant neoplasm of colon [facility] Immunizations Immunization Date Immunization Notes Care Provider Fa [facility] 12-13-2021 influenza virus vaccine, unspecified formulation Angelo BERNARD [facility] 12-13-2021 influenza, high dose seasonal, preservative-free Carrie Todd 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: [facility] 09-27-2020 SARS-CoV-2 (COVID-19 ) mRNA BNT-162b2 vax Ede SILVIAL [facility] 09-08-2020 SARS-CoV-2 (COVID-19 ) mRNA BNT-162b2 vax Ede NILL [facility] 09-21-2018 tuberculin skin test ; purified protein derivative solution, intradermal Carrie Todd 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: [facility] 09-21-2018 unknown vaccine or immune globulin Carrie Todd 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: [facility] NEGATED: Highlighted row has not occurred!05-15-2022 influenza virus vaccine, unspecified formulation Ede BHAKTA [facility] Payers Date Payer Category Payer Private Health Insurance MERIT[employer] N [id number] 2022 Unknown RISHABH Nugent [place] [id number] 2022-Present [phone] [address] [place]ENIA BURDICK [id number] [id number] 2018 Self-pay 1968 Unknown [id number] 1968 Unknown [id number] .727 1968 Unknown [id number] [id number] .727 1968 Unknown [id number] .727 1968 Unknown [id number] [id number] .593 1968 Unknown [id number] [id number] .593 1968 Unknown [id number] [id number] .593 1968 Unknown [id number] [id number] .593 1968 Unknown [id number] 2.16.840.1.924416.3.579.2 .59 1968 Unknown [id number] 2.16.840.1.005160.3.579.2 .593 1968 Unknown [id number] 2.16.840.1.821001.3.579.2 .9 1968 Unknown [id number] 2.16.840.1.663178.3.579.2 .9 1968 Unknown [id number] 2.16.840.1.143321.3.579.2 .1258 1968 Unknown [id number] [id number] .1259 1959 Unknown [id number] Private Health Insurance [id number] Social History Date Type Detail Facility Start: 04-14-2023 End: 07-02-2023 Sex Assigned At [facility] Start: 05-15-2022 Tobacco smoking status Heavy t obacco smoker (finding) [facility] Tobacco smoking status Smokeless tobacco user within last 30 days [facility] Start: 12-02-2023 Tobacco smoking stat [facility] Smokes tobacco daily [facility] History of tobacco use Cigarette Smoker [facility] Start: 07-02-2023 End: 12-02-2023 Cigarettes smoked current (pack per day) - Reported 0.5 [facility] Start: 12-02-2023 Tobacco use and exposure Smoke less tobacco non-user [facility] Start: 12-02-2023 End: 06-02-2024 Alcoholic beverage intake Lifetime non-drinker (finding) [facility] Within the last year , have you been afraid of your partner or ex-partner? No [facility] Do you belong to any clubs or organizations such as lutheran groups, unions, fraternal or athletic groups, or school groups? Yes [facility] Are you now , , , , never or living with a partner? [facility] How often to you hav e a drink containing alcohol? Never [facility] How hard is it for y ou to pay for the very basics like food, housing, medical care, and heating Not very hard [facility] Do you feel stress - tense, restless, nervous, or anxious, or unable to sleep at night because your mind is troubled all the time - these days [OSQ] To some extent [facility] (I/We) worried wheth er (my/our) food would run out before (I/we) got money to buy more. Never true [facility] Start: 1970 Sex assigned at Not on file [facility] Functional Status Date Assessment Result Facility 08-08-2022 Functional Status N/A Karin down[facility] 05-15-2022 Functional Status N/A [facility] Clinical Notes 04-30-2021 to 06-02-2024 Carrie Todd NP - 06/02/2024 10:27 AM ESTCarrie Todd, CARRIE - 06/02/2024 10:17 AM ESTCarrie Todd, CARRIE - 06/02/2024 10:09 AM Krystal Todd, CARRIE - 06/02/2024 10:01 AM ESTPatient Instructions Note Date & Type Note Facility 06-02-2024 History of Presen t illness Narrative Associated Problem(s): Seasonal allergies Restart her flonase and allergy pill Associated Problem(s): Alcohol dependence, in remission ([facility]) It will be 3 years 09/24/24 Doing well Associated Problem(s): Pre-diabetes A1c in office 5.8% 06/02/24 Recommend pt start watching her carb intake, recommend exercise: 30 minutes most days of the week, cut back on portion sizes, and steady weight loss Associated Problem(s): Class 1 obesity due to excess calories without serious comorbidity in adult Discussed with patient their BMI (actual, verses recommended). We have also discussed lifestyle modifications: attempts to perform physical activity as chronic conditions allow, also to monitor dietary intake: increasing protein/fruits/veggies and lowering carb intake (unless contraindicated). Limit sodas, juices, and sugary drinks. Also discussed WW, oral medications that can be utilized for weight loss, as well as surgical options for weight loss. Has gained 12 pounds since 12/10 Pt did the raad-doc thru her work after , pt was given doxycycline. However she feels she might still have some sinus issues going. She is having a lot of pressure building up in her face again. Images from the original note were not included. Caridad Reyes is a 53 y.o. female presents with chief complaint of Hypertension HPI: Takes gabapentin for Neuropathy Sinus pressure, was treated for sinus infection around [place] Has had work exposure with dust and mold, occ sneezing, clear drainage Hypertension This is a chronic problem. The current episode started more than 1 year ago. The problem is unchanged. The problem is controlled. Associated symptoms include anxiety. Pertinent negatives include no chest pain, headaches, orthopnea, palpitations, peripheral edema or shortness of breath. There are no associated agents to hypertension. Risk factors for coronary artery disease include obesity. Past treatments include IRINA inhibitors. The current treatment provides significant improvement. There are no compliance problems. Anxiety Presents for follow-up visit. Symptoms include irritability (occ) and nervous/anxious behavior (occ). Patient reports no chest pain, decreased concentration, depressed mood, dizziness, excessive worry, insomnia, nausea, palpitations, shortness of breath or suicidal ideas. Symptoms occur occasionally. The severity of symptoms is mild. The quality of sleep is good. Compliance with medications is 76-100%. SUBJECTIVE: MEDICATIONS: Current Outpatient Medications Medication Instructions cyclobenzaprine (FLEXERIL) 10 mg, Oral, 2 times daily PRN EPINEPHrine (Epipen) 0.3 MG/0.3ML injection syringe Inject as directed. Inject into upper leg. Call 911 after use. fluticasone (Flonase) 50 MCG/ACT nasal spray 2 sprays, Each Nostril, Daily, Shake gently. Before first use, prime pump. After use, clean tip and replace cap. gabapentin (NEURONTIN) 300 mg, Oral, 3 times daily ibuprofen 400 mg, As needed lisinopril 5 mg, Oral, Daily loratadine (CLARITIN) 10 mg, Oral, Daily PARoxetine (PAXIL) 40 mg, Oral, Every morning ALLERGIES: Allergies Allergen Reactions Cephalexin Cephalosporins REVIEW OF SYMPTOMS: Review of Systems Constitutional: Positive for irritability (occ). Negative for appetite change, chills and fever. HENT: Positive for sinus pressure and sneezing. Negative for congestion, ear pain and sore throat. Eyes: Negative for pain, discharge, redness and visual disturbance. Respiratory: Negative for cough, shortness of breath and wheezing. Cardiovascular: Negative for chest pain, palpitations, orthopnea and leg swelling. Gastrointestinal: Negative for abdominal pain, blood in stool, constipation, diarrhea, nausea and vomiting. Genitourinary: Negative for difficulty urinating, dysuria and frequency. Musculoskeletal: Negative for arthralgias, back pain, joint swelling and myalgias. Skin: Negative for rash and wound. Neurological: Negative for dizziness, tremors, seizures, syncope and headaches. Psychiatric/Behavioral: Negative for behavioral problems, decreased concentration, self-injury and suicidal ideas. The patient is nervous/anxious (occ). The patient does not have insomnia. Hematological: Does not bruise/bleed easily. Endocrine: Negative for polydipsia, polyphagia and polyuria. Allergic/Immunologic: Negative for environmental allergies and food allergies. PAST MEDICAL HISTORY Past Medical History: Diagnosis Date Alcoholism ([facility]) 07/09/2023 Allergic ? Anxiety Asymptomatic microscopic hematuria 07/09/2023 Depression ([facility]) ? Hypertension ([facility]) ? Insomnia Muscle spasm 07/09/2023 Neuropathy Rhabdomyolysis 07/09/2023 Seasonal allergies Substance abuse ([facility]) ? Tobacco user Vision impairment History reviewed. No pertinent surgical history. family history includes Alcohol abuse in her brother and brother; Cancer in her maternal grandmother; Hypertension in her maternal grandmother and mother. OBJECTIVE: Visit Vitals BP 134/84 Pulse 100 Temp 98.1 F (Temporal) Resp 18 Ht 5' 2.5 Wt 178 lb SpO2 98% BMI 32.04 kg/m Smoking Status Every Day BSA 1.89 m Physical Exam Vitals and nursing note reviewed. Constitutional: General: She is not in acute distress. Appearance: Normal appearance. She is obese. She is ill-appearing. HENT: Head: Normocephalic and atraumatic. Right Ear: Tympanic membrane, ear canal and external ear normal. Left Ear: Tympanic membrane, ear canal and external ear normal. Nose: Rhinorrhea present. Comments: Pale, boggy Mouth/Throat: Mouth: Mucous membranes are moist. Pharynx: No oropharyngeal exudate or posterior oropharyngeal erythema. Eyes: Extraocular Movements: Extraocular movements intact. Conjunctiva/sclera: Conjunctivae normal. Neck: Vascular: No carotid bruit. Cardiovascular: Rate and Rhythm: Normal rate and regular rhythm. Pulses: Normal pulses. Heart sounds: Normal heart sounds. Pulmonary: Effort: Pulmonary effort is normal. Breath sounds: Normal breath sounds. No wheezing or rales. Abdominal: General: Bowel sounds are normal. There is no distension. Palpations: Abdomen is soft. There is no mass. Tenderness: There is no abdominal tenderness. Musculoskeletal: General: Normal range of motion. Cervical back: Normal range of motion and neck supple. Right lower leg: No edema. Left lower leg: No edema. Lymphadenopathy: Cervical: No cervical adenopathy. Skin: General: Skin is warm and dry. Capillary Refill: Capillary refill takes 2 to 3 seconds. Findings: No rash. Neurological: General: No focal deficit present. Mental Status: She is alert and oriented to person, place, and time. Psychiatric: Mood and Affect: Mood normal. Behavior: Behavior normal. Thought Content: Thought content normal. Judgment: Judgment normal. ASSESSMENT AND PLAN: Follow up in about 3 months (around 08/31/2024) for Recheck. Problem List Items Addressed This Visit Anxiety Currently taking paxil MARCELLA 7 score= 2 PHQ 9 score=0 Relevant Medications PARoxetine (Paxil) 40 MG tablet Other Relevant Orders TSH T4, free HTN (hypertension) ([facility]) Please check blood pressure daily and record DASH diet Limit caffeine Take medication as directed Contact office if chest pain, pressure, dizziness, shortness of breath, swelling legs Recommend slow position changes Current med: lisinopril Relevant Orders Comprehensive metabolic panel Urinalysis with reflex microscopic (clean catch) Microalbumin / creatinine, urine ratio Insomnia - Primary No longer requires trazodone for sleep purposes Neuropathy Currently takes gabapentin for this OARRS reviewed as well Relevant Medications gabapentin (Neurontin) 300 MG capsule Other Relevant Orders Vitamin B12 Vitamin D 25 hydroxy Seasonal allergies Restart her flonase and allergy pill Relevant Medications loratadine (Claritin) 10 MG tablet fluticasone (Flonase) 50 MCG/ACT nasal spray Tobacco user The patient has been advised of the risks of continued smoking: stroke, MN, all forms of cancer, lung disease, and . Options for quitting smoking include: cold turkey, hypnosis, acupuncture, nicotine replacement meds (gum, lozenges, and patches), Buproprion, and Varenicline. At this time pt is encouraged to evaluate their goals for wanting to quit smoking, and reach out to provider when ready to start this process RESOLVED: Nicotine dependence Relevant Orders CBC and differential Asymptomatic microscopic hematuria Present in the past, will recheck Muscle spasm Does use cyclobenzaprine prn muscle spasms RESOLVED: Obesity (BMI 30.0-34.9) Alcohol dependence, in remission (CMS/HCC) It will be 3 years 09/24/24 Doing well Relevant Orders Lipid panel Encounter for screening mammogram for malignant neoplasm of breast Relevant Orders Bilateral screening mammogram Class 1 obesity due to excess calories without serious comorbidity in adult Discussed with patient their BMI (actual, verses recommended). We have also discussed lifestyle modifications: attempts to perform physical activity as chronic conditions allow, also to monitor dietary intake: increasing protein/fruits/veggies and lowering carb intake (unless contraindicated). Limit sodas, juices, and sugary drinks. Also discussed WW, oral medications that can be utilized for weight loss, as well as surgical options for weight loss. Has gained 12 pounds since 12/10 Pre-diabetes A1c in office 5.8% 06/02/24 Recommend pt start watching her carb intake, recommend exercise: 30 minutes most days of the week, cut back on portion sizes, and steady weight loss Other Visit Diagnoses Elevated glucose Relevant Orders Lipid panel POCT glycosylated hemoglobin (Hb A1C) docked device (Completed) Essential (primary) hypertension (CMS/HCC) Relevant Medications lisinopril 5 MG tablet Other muscle spasm Relevant Medications cyclobenzaprine (Flexeril) 10 MG tablet [O- Associated Problem(s): Muscle spasm Does use cyclobenzaprine prn muscle spasms Associated Problem(s): Tobacco user The patient has been advised of the risks of continued smoking: stroke, MN, all forms of cancer, lung disease, and . Options for quitting smoking include: cold turkey, hypnosis, acupuncture, nicotine replacement meds (gum, lozenges, and patches), Buproprion, and Varenicline. At this time pt is encouraged to evaluate their goals for wanting to quit smoking, and reach out to provider when ready to start this process Associated Problem(s): Anxiety Currently taking paxil MARCELLA 7 score= 2 PHQ 9 score=0 Associated Problem(s): Asymptomatic microscopic hematuria Present in the past, will recheck Associated Problem(s): HTN (hypertension) ([facility]) Please check blood pressure daily and record DASH diet Limit caffeine Take medication as directed Contact office if chest pain, pressure, dizziness, shortness of breath, swelling legs Recommend slow position changes Current med: lisinopril Associated Problem(s): Neuropathy Currently takes gabapentin for this OARRS reviewed as well Associated Problem(s): Insomnia No longer requires trazodone for sleep purposes documented in this encounter [facility] 06-02-2024 Instructions Carrie Todd NP - 06/02/2024 9:40 AM EST Your labs are still due, order given Mammogram needed in July 2024, we will send order to [facility], phone number to schedule: [phone], ext [phone] Pre diabetes: no meds at this time, I would like you to work on diet changes: decrease carbohydrates (bread, pasta, potatoes), cut back on sugary drinks and foods, more exercise 30 minutes daily (most days of the week) stationary bike, walking, swimming Recommend weight loss as well documented in this encounter [facility] 01-29-2023 Evaluation note Encounter Date Diagnosis Assessment [...] days Jan, Sore throat (ICD-10 - J02.9) [facility] Other 01-25-2023 NoteOPERATIVE NOTE OPERATION DATE: 06/12/2022 PREOPERATIVE DIAGNOSIS: Colorectal [...] should be in 10 years. CC: Carrie Todd, [facility]12-28-2022 NoteChief Complaint consultation for screening colonoscopy HPI Staff 51 year old female presents on consultation from Carrie Todd for screening colonoscopy. Denies abdominal or rectal pain. No rectal bleeding or change in bowel habits. Denies nausea or vomiting. No unexplained weight loss. Patient believes she had a colonoscopy completed greater than 10 years ago.No known family history of colon cancer. History of Present Illness 51 yo female with h/o htn, h/o alcohol abuse in past; referred for colorectal screening; denies change in bms or blood in stools; no abdominal complaints; denies asa or NSAID use, no SBE prophylaxis;no previous abdominal operations; possible remote colonoscopy over 10 years ago, patient not cetain; no fmhx of GI malignancy or IBD; smokes daily. Review of Systems PHQ Score Initial Depression Screen Score: 0 ROS - Provider Constitutional: no fever, no sweats, no weight loss. Eyes: yes glasses, no blurred vision, no visual loss. ENMT: no dentures, no hoarseness, no swallowing difficulties, no hearing loss, no ear infection(s),no nose bleeds. Cardiovascular: normal blood pressure, no [...] Recorded SARS-CoV-2 (COVID-19) mRNA BNT-162b2 vax 09/08/2020 RecordedSelect [facility] SouthComment on above:Result Comment: Electronically Signed By: JEANETTE ECHAVARRIA, Ede Leblanc\Date and Time Signed: 05/15/22 15:00 [id number] Evaluation note * Encounter Date Diagnosis Assessment Notes Treatment Notes Treatment Clinical Notes Apr, Contact with and (suspected) exposure [...] Patient care instructions given in writting by [facility] Care At Home document [facility] Other Evaluation + Plan note No data available for this section General Surgery [place] Evaluation note* Diagnosis Primary hypertension (CMS/HCC)- Primary Unspecified essential hypertension Neuropathy Mononeuritis of unspecified site Anxiety Anxiety state, unspecified Encounter for screening mammogram for malignant neoplasm of breast Anxiety- Primary Anxiety state, unspecified Neuropathy Mononeuritis of unspecified site Primary hypertension (CMS/HCC) Unspecified essential hypertension Tobacco user Tobacco use disorder Obesity (BMI 30.0-34.9) Seasonal allergies Allergic rhinitis, cause unspecified Essential (primary) hypertension (CMS/HCC) Unspecified essential hypertension Insomnia, unspecified type Well woman exam with routine gynecological exam- Primary Routine gynecological examination Primary hypertension (CMS/HCC) Unspecified essential hypertension Asymptomatic microscopic hematuria Tobacco user Tobacco use disorder Anxiety Anxiety state, unspecified Elevated glucose Other abnormal glucose Obesity (BMI 30.0-34.9) Primary hypertension (CMS/HCC)- Primary Unspecified essential hypertension Other muscle spasm Insomnia, unspecified type Neuropathy Mononeuritis of unspecified site BMI 29.0-29.9,adult Tobacco user Tobacco use disorder Anxiety Anxiety state, unspecified Alcoholism (CMS/HCC) Other and unspecified alcohol dependence, unspecified drinking behavior History of alcoholism (CMS/HCC) Personal history of alcoholism Insomnia, unspecified type Neuropathy Mononeuritis of unspecified site [facility] Anxiety Anxiety state, unspecified [facility]* Diagnosis Essential (primary) hypertension (CMS/HCC) Unspecified essential hypertension Neuropathy Mononeuritis of unspecified site [facility] Diagnosis Primary hypertension (CMS/HCC)- Primary Unspecified essential hypertension Neuropathy Mononeuritis of unspecified site Anxiety Anxiety state, unspecified Encounter for screening mammogram for malignant neoplasm of breast Anxiety- Primary Anxiety state, unspecified Neuropathy Mononeuritis of unspecified site Primary hypertension (CMS/HCC) Unspecified essential hypertension Tobacco user Tobacco use disorder Obesity (BMI 30.0-34.9) Seasonal allergies Allergic rhinitis, cause unspecified Essential (primary) hypertension (CMS/HCC) Unspecified essential hypertension Insomnia, unspecified type Well woman exam with routine gynecological exam- Primary Routine gynecological examination Primary hypertension (CMS/HCC) Unspecified essential hypertension Asymptomatic microscopic hematuria Tobacco user Tobacco use disorder Anxiety Anxiety state, unspecified Elevated glucose Other abnormal glucose Obesity (BMI 30.0-34.9) Primary hypertension (CMS/HCC)- Primary Unspecified essential hypertension Other muscle spasm Insomnia, unspecified type Neuropathy Mononeuritis of unspecified site BMI 29.0-29.9,adult Tobacco user Tobacco use disorder Anxiety Anxiety state, unspecified Alcoholism (CMS/HCC) Other and unspecified alcohol dependence, unspecified drinking behavior History of alcoholism (CMS/HCC) Personal history of alcoholism Anxiety- Primary Anxiety state, unspecified Alcohol dependence, in remission (CMS/HCC) Insomnia, unspecified type Neuropathy Mononeuritis of unspecified site Primary hypertension (CMS/HCC) Unspecified essential hypertension Asymptomatic microscopic hematuria Elevated glucose Other abnormal glucose Cigarette nicotine dependence without complication Tobacco user Tobacco use disorder Muscle spasm Spasm of muscle Encounter for screening mammogram for malignant neoplasm of breast Obesity (BMI 30.0-34.9) Class 1 obesity due to excess calories without serious comorbidity with body mass index (BMI) of 32.0 to 32.9 in adult Essential (primary) hypertension (CMS/HCC) Unspecified essential hypertension Seasonal allergies Allergic rhinitis, cause unspecified Other muscle spasm Pre-diabetes Other abnormal glucose [facility] Diagnosis Primary hypertension (CMS/HCC)- Primary Unspecified essential hypertension Neuropathy Mononeuritis of unspecified site Anxiety Anxiety state, unspecified Encounter for screening mammogram for malignant neoplasm of breast Anxiety- Primary Anxiety state, unspecified Neuropathy Mononeuritis of unspecified site Primary hypertension (CMS/HCC) Unspecified essential hypertension Tobacco user Tobacco use disorder Obesity (BMI 30.0-34.9) Seasonal allergies Allergic rhinitis, cause unspecified Essential (primary) hypertension (CMS/HCC) Unspecified essential hypertension Insomnia, unspecified type Well woman exam with routine gynecological exam- Primary Routine gynecological examination Primary hypertension (CMS/HCC) Unspecified essential hypertension Asymptomatic microscopic hematuria Tobacco user Tobacco use disorder Anxiety Anxiety state, unspecified Elevated glucose Other abnormal glucose Obesity (BMI 30.0-34.9) Primary hypertension (CMS/HCC)- Primary Unspecified essential hypertension Other muscle spasm Insomnia, unspecified type Neuropathy Mononeuritis of unspecified site BMI 29.0-29.9,adult Tobacco user Tobacco use disorder Anxiety Anxiety state, unspecified Alcoholism (CMS/HCC) Other and unspecified alcohol dependence, unspecified drinking behavior History of alcoholism (CMS/HCC) Personal history of alcoholism Anxiety- Primary Anxiety state, unspecified Alcohol dependence, in remission (CMS/HCC) Insomnia, unspecified type Neuropathy Mononeuritis of unspecified site Primary hypertension (CMS/HCC) Unspecified essential hypertension Asymptomatic microscopic hematuria Elevated glucose Other abnormal glucose Cigarette nicotine dependence without complication Tobacco user Tobacco use disorder Muscle spasm Spasm of muscle Encounter for screening mammogram for malignant neoplasm of breast Obesity (BMI 30.0-34.9) Class 1 obesity due to excess calories without serious comorbidity with body mass index (BMI) of 32.0 to 32.9 in adult Essential (primary) hypertension (CMS/HCC) Unspecified essential hypertension Seasonal allergies Allergic rhinitis, cause unspecified Other muscle spasm Pre-diabetes Other abnormal glucose Essential (primary) hypertension (CMS/HCC) Unspecified essential hypertension Anxiety Anxiety state, unspecified [facility] - [facility]orted* Type Description Date Medical History Unspecified essential hypertensi on [facility] Other History general Narrative - Reported* Type Description Date Medical History HTN (hypertension) Medical History Anxiety Medical History Insomnia Medical History Drug addiction Medical History Seasonal allergic rhinitis [facility] Other Hospital Discharge instructions No data available for this section General Surgery [place] [facility] note No data available for this [...] alcohol abuse, hypertension, depression Consulting Providers: Khadijah Rodriguez APRN-ROSARIO History of Present Illness PCP: none code [...] section and content) DATE CREATED AUTHOR 07/27/2018 [facility] DATE CREATED AUTHOR AUTHOR'S ORGANIZ ATION [facility]/06/2018 [facility] DATE CREATED AUTHOR AUTHOR'S ORGANIZ ATION 01/08/2020 [facility] DATE CREATED AUTHOR AUTHOR'S ORGANIZ ATION 10/24/2021 [facility] DATE CREATED AUTHOR AUTHOR'S ORGANIZ ATION 08/20/2022 [facility] DATE CREATED AUTHOR AUTHOR'S ORGANIZ ATION 10/25/2022 [facility] DATE CREATED AUTHOR AUTHOR'S ORGANIZ ATION 06/05/2024 [facility] EPIC REASON FOR VISIT (unrecogniz ed section and content) Reason Comments Med Refill Reason Comments Hypertension Patient Care team informatio n (unrecognized section and content) 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 Start Date End Date Son Vasquez MD [address] [place] [phone] PCP - General Family Medicine 07/09/23 Carrie Todd NP [address] [place] [phone] Nurse Practitioner Family Medicine 05/19/22 Carrie Todd NP [address] [place] [phone] Nurse Practitioner Family Medicine 07/09/23 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 Start Date End Date Son Vasquez MD [address] [place] [phone] PCP - General Family Medicine 07/09/23 Carrie Todd NP [address] [place] [phone] Nurse Practitioner Family Medicine 05/19/22 Carrie Todd NP [address] [place] [phone] Nurse Practitioner Family Medicine 07/09/23 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 Start Date End Date Son Vasquez MD [address] [place] [phone] PCP - General Family Medicine 07/09/23 Carrie Todd NP [address] [place] [phone] Nurse Practitioner Family Medicine 05/19/22 Carrie Todd NP [address] [place] [phone] Nurse Practitioner Family Medicine 07/09/23 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 Start Date End Date Son Vasquez MD [address] [place] [phone] PCP - General Family Medicine 07/09/23 Carrie Todd NP [address] [place] [phone] Nurse Practitioner Family Medicine 05/19/22 Carrie Todd NP [address] [place] [address] [place] [phone] Nurse Practitioner Family Medicine 07/09/23 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 Start Date End Date Son Vasquez MD [address] [place] [phone] PCP - General Family Medicine 07/09/23 Carrie Todd NP [address] [place] [phone] Nurse Practitioner Family Medicine 05/19/22 Carrie Todd NP [address] [place] [address] [place] [phone] Nurse Practitioner [facility] 07/09/23 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 [facility] [employer] [facility]. provides no warranty or guarantee of the accuracy or completeness of information in this document.
--- NOTE | 2024-07-27 08:50 | MM_ITS ---
Patient Name: CARIDAD REYES MR#: [id number] : 1970 Exam Date: 07/27/2024 Ordering Doctor: ROSARIO Todd CNP RADIOLOGY REPORT PROCEDURE: MM TOMOSYNTHESIS SCREENING BI COMPARISON: MM TOMOSYNTHESIS SCREENING BI, 07/23/2023. MG MAMM SCREEN 3D KOBY CAD, 04/24/2022. INDICATIONS: Screening Calculator Name NCI Breast Cancer Risk Assessment Tool 5 Year Breast Cancer Risk 1.20% Lifetime Breast Cancer Risk 8.30% Personal Breast Cancer No Personal Ovarian Cancer No Treatments None Family Cancers Grandmother-paternal with breast cancer at age ~70. LOCATION: [facility] BREAST COMPOSITION: There are scattered areas of fibroglandular density. FINDINGS: DIAGNOSTIC CATEGORY 1--NEGATIVE. LEFT BREAST: No significant suspicious finding. RIGHT BREAST: No significant suspicious finding. RECOMMENDATIONS: ROUTINE MAMMOGRAM AND CLINICAL EVALUATION IN 12 MONTHS. PLEASE NOTE: A NORMAL MAMMOGRAM DOES NOT EXCLUDE THE POSSIBILITY OF BREAST CANCER. A CLINICALLY SUSPICIOUS PALPABLE LUMP SHOULD BE BIOPSIED. Dictated by: Ernesto Webster DO on 07/27/2024 at 16:23 Approved by: Ernesto Webster DO on 07/27/2024 at 16:26
[2024-07-27 08:58] LABS: Basophils Absolute Auto 0.1 10^3/uL (0.0-0.1); Basophils Percent Auto 0.8 % (0.2-2.0); Eosinophils Absolute Auto 0.2 10^3/uL (0.0-0.7); Eosinophils Percent Auto 2.8 % (0.9-7.0); Hematocrit 42.9 % (36.0-48.0); Hemoglobin 14.2 g/dL (12.0-16.0); Immature Granulocytes Abs Auto 0.02 10^3/uL (0.00-0.03); Immature Granulocytes Pct Auto 0.3 % (0.0-0.5); Lymphocytes Absolute Auto 3.3 10^3/uL (1.2-3.8); Lymphocytes Percent Auto 44.6 % (20.5-60.0); Mean Corpuscular HGB Conc 33.1 g/dL (29.9-35.2); Mean Corpuscular Hemoglobin 32.2 pg (26.7-34.0); Mean Corpuscular Volume 97.3 fL (81.0-99.0); Mean Platelet Volume 10.8 fL (9.5-13.5); Monocytes Absolute Auto 0.7 10^3/uL (0.3-0.8); Monocytes Percent Auto 9.2 % (1.7-12.0); Neutrophils Absolute Auto 3.1 10^3/uL (1.4-6.5); Neutrophils Percent Auto 42.3 % (43.0-75.0); Platelet Count 214 10^3/uL (150-450); Red Blood Count 4.41 10^6/uL (4.20-5.40); Red Cell Distribution Width 12.5 % (11.0-15.0); White Blood Count 7.4 10^3/uL (4.0-11.0)
[2024-07-27 09:27] LABS: Bilirubin Urine NEGATIVE (NEGATIVE); Blood Urine MODERATE (NEGATIVE); Clarity Urine CLEAR (CLEAR); Color Urine YELLOW (YELLOW); Glucose Urine UA NEGATIVE (NEGATIVE); Ketones Urine TRACE mg/dL (NEGATIVE); Leukocyte Esterase Urine TRACE (NEGATIVE); Nitrite Urine NEGATIVE (NEGATIVE); Protein Urine TRACE mg/dL (NEG/TRACE); Specific Gravity Urine 1.025 (1.005-1.025); pH Urine 5.5 (5.0-9.0)
[2024-07-27 09:29] LABS: Urine Microscopic Indicated YES
[2024-07-27 09:38] LABS: Creatinine Urine Random 205.65 mg/dL (20.00-300.00); Microalbum Creatinine Ratio Ur 6.8 mg/g (0.0-29.9); Microalbumin Urine Random 1.4 mg/dL (<=30.0)
[2024-07-27 09:41] LABS: Bacteria Urine TRACE #/HPF (NONE SEEN); Mucus Urine SMALL (NONE SEEN); Squamous Epithelial Cell Urine MANY #/LPF (NONE/RARE)
[2024-07-27 09:50] LABS: Alanine Aminotransferase 42 U/L (14-59); Albumin Globulin Ratio 1.1; Albumin Level 3.7 g/dL (3.4-5.0); Alkaline Phosphatase 109 U/L (46-116); Anion Gap 14.5; Aspartate Amino Transferase 24 U/L (15-37); Bilirubin Total 0.5 mg/dL (0.2-1.0); Calcium 9.1 mg/dL (8.5-10.1); Carbon Dioxide 25.2 mmol/L (21.0-32.0); Chloride 106 mmol/L (98-107); Chol HDL Ratio 3.2; Cholesterol 147 mg/dL (<=200); Estimated GFR (African America >60 (>=60 mL/min/1.73m^2); Estimated GFR (Non-African Ame >60 (>=60 mL/min/1.73m^2); Globulin 3.3 g/dL; Glucose 111 mg/dL (74-106); HDL Cholesterol 46 mg/dL (40-60); Potassium 3.7 mmol/L (3.5-5.1); Sodium 142 mmol/L (136-145); Thyroid Stimulating Hormone 1.749 uIU/mL (0.358-3.740); Triglycerides 60 mg/dL (<=150)
[2024-07-27 10:23] LABS: Free T4 0.92 ng/dL (0.76-1.46)
[2024-07-28 03:07] LABS: Vitamin B12 857 pg/mL (232-1245)
== END 2024-07-27 08:28 | disposition home or self-care (01) ==
LOC: MAMMO 08:29
PROVIDERS: PCP Nurse Practitioner; Visit Provider Nurse Practitioner
DX: Z12.31 Encounter for screening mammogram for malignant neoplasm of breast (principal); F17.210 Nicotine dependence, cigarettes, uncomplicated; I10 Essential (primary) hypertension; F41.9 Anxiety disorder, unspecified; F10.21 Alcohol dependence, in remission; R73.09 Other abnormal glucose; G62.9 Polyneuropathy, unspecified; Z80.3 Family history of malignant neoplasm of breast
CPT/HCPCS: 36415; 77063; 77067; 80053; 80061; 81001; 82043; 82306; 82570; 82607; 84439; 84443; 85025

== ENCOUNTER 2024-08-10 00:38 | Emergency (ER) | payer OTHER, SELFPAY ==
[2024-08-10 00:40] VITALS: BP 184/104; PULSE 86; TEMP 36.5; O2SAT 99; BMI 31.6
--- OUTSIDE RECORDS SUMMARY | 2024-08-10 00:46 | XMS_ITS | CCD ---
Author Organization [facility] InformFormerly [facility] Care Team Providers Care Patching Machine Operator Name Role Phone Angelo Tee Primary Care [...] NILL ., DR MERA Consulting Unavailable AICHHOLZ, LEVEL VIAL MARKER CARRIE Primary Care Unavailable NILL ., DR MERA Admitting Unavailable NILL ., DR MERA Attending Unavailable ROCHELLE WOODRUFF Consulting Unavailable EDUARDO IIXAVI Consulting Unavailable AICHHOLZ, LEVEL VIAL MARKER CARRIE Attending Unavailable AICHHOLZ, LEVEL VIAL MARKER CARRIE Admitting Unavailable AICHHOLZ, LEVEL VIAL MARKER CARRIE Consulting Unavailable AICHHOLZ, LEVEL VIAL MARKER CARRIE Primary Care Unavailable AICHHOLZ, LEVEL VIAL MARKER CARRIE Attending Unavailable AICHHOLZ, LEVEL VIAL MARKER CARRIE Consulting Unavailable AICHHOLZ, LEVEL VIAL MARKER CARRIE Primary Care Unavailable AICHHOLZ, LEVEL VIAL MARKER CARRIE Admitting Unavailable RHONDA, DR JUANIS Pineda Consulting Unavailable DONNIE, JODIE Admitting Unavailable AICHHOLZ, LEVEL VIAL MARKER CARRIE Primary Care Unavailable JODIE FIELDS Attending Unavailable JODIE FIELDS Consulting Unavailable NILL ., DR MERA Consulting Unavailable NILL ., DR MERA Admitting Unavailable AICHHOLZ, LEVEL VIAL MARKER CARRIE Primary Care Unavailable NILL ., DR MERA Attending Unavailable RHONDA, DR JUANIS Pineda Consulting Unavailable PEREZ, ROSARIO CARRIE Primary Care Unavailable SHAIKH Reshma MONSALVE Admitting Unavailable SHAIKH Reshma MONSALVE Attending Unavailable MANUELA Tijerina, DR GUSTAFSON Consulting Unavailable SHAIKH Reshma MONSALVE Consulting Unavailable SISTER, PEDRO Consulting Unavailable Renee Ballesteros Unavailable Perez STOCK CONTROL CLERK, Carrie Unavailable Son Vasquez MD Primary Care Provider [phone] Perez STOCK CONTROL CLERK, Carrie Unavailable CARRIE TODD Attending Unavailable CARRIE TODD Attending Unavailable CARRIE TODD Attending Unavailable CARRIE TODD Attending Unavailable Allergies Allergy Classification Reported Allergen(s) Allergy Type Date of Onset Reaction(s) Facility (2 sources) Cephalexin; Translations: [Keflex] Drug Allergy 01-21-20 13 [facility] Repository (14 sources) Cephalexin; Translations: [cephalexin] Drug Allergy 01-20-20 13 rash, Eruption of skin (disorder) General Surgery [facility] (9 sources) Cephalosporins (Antibiotic) Propensity to adverse reactions [...] Active cyclobenzaprine hydrochloride 10 mg oral tablet (11 sources) Muscle Relaxant Start: 07-28-2024 End: 08-27-2024 take 1 tablet by mouth twice daily as needed for muscle spasms cyclobenzaprine (Flexeril) 10 MG tablet Indications: Other muscle spasm Take 1 tablet (10 mg) by mouth 2 (two) times a day as needed for muscle spasms 60 tablet 2 07/28/2024 08/27/2024 Active Start: 12-24-2023 End: 07-02-2024 take 1 tablet by mouth twice daily as needed for muscle spasms cyclobenzaprine (Flexeril) 10 MG tablet Indications: Other muscle spasm Take 1 tablet (10 mg) by mouth 2 (two) times a day as needed for muscle spasms 60 tablet 2 06/02/2024 Active Start: 05-03-2022 take 1 tablet by marleny th twice daily as needed for muscle spasms cyclobenzaprine 10 mg Tab 10 mg = 1 tab(s), Oral, BID, PRN for spasm, # 30 tab(s), Refills(s) 0 Start Date: 05/03/22 Status: Ordered [id number] 0.3 ml EPINEPHrine 1 mg/ml auto-injector (9 sources) alpha-Adrenergic Agonist, beta-Adrenergic Agonist, Catecholamine EPINEPHrine (Epipen) 0.3 MG/0.3ML injection syringe Inject as directed. Inject into upper leg. Call 911 after use. Active fluticasone propionate 0.05 mg/actuat metered dose nasal spray (11 sources) Corticosteroid Start: 06-02-19 End: 09-01-19 take [...] Jan, Active gabapentin 300 mg oral capsule (14 sources) Anti-epileptic Agent Start: 04-25-2024 End: 08-31-2024 [...] Start: 05-03-2022 take 1 capsule by mo [facility] three times daily gabapentin 300 mg Cap 300 mg = 1 cap(s), Oral, TID, Refills(s) 0 Start Date: 05/03/22 Status: Ordered ibuprofen 400 mg oral tablet (9 sources) Nonsteroidal Anti-inflammatory Drug ibuprofen 400 MG tablet Take 400 mg by mouth if needed for moderate pain or headaches Active lisinopril 5 mg oral tablet (15 sources) Angiotensin Converting Enzyme Inhibitor Start: 01-23-20 End: 10-18-19 take 1 tablet by mouth once daily lisinopril 5 MG tablet Indications: Essential (primary) hypertension (CMS/HCC) Take 1 tablet (5 mg) by mouth Daily 90 tablet 1 07/19/2024 10/17/2024 Active Start: 05-03-2022 take 1 tablet by [facility] once daily lisinopril 5 mg Tab 5 mg = 1 tab(s), Oral, Daily, Refills(s) 0 Start Date: 05/03/22 Status: Ordered loratadine 10 mg oral tablet (14 sources) Start: 05-03-2022 End: 08-31-2024 take 1 [...] Ordered PARoxetine hydrochloride 40 mg oral tablet (16 sources) Serotonin Reuptake Inhibitor Start: 12-02-2023 End: [...] Problem Date Documented Date Episodic/Chronic Alcohol-related disorders (20 sources) Alcohol abuse; Translations: [H/O: alcoholism] Onset: 4 Resolved: 4 05-03-2022 Chronic Anxiety disorders (15 sources) Anxiety; Translations: [Anxiety disorder, unspecified] Onset: 3 05-03-2022 Chronic Asthma (1 source) Unspecified asthma, uncomplicated; Translations: [UNSPECIFIED ASTHMA UNCOMPLICATED] Onset: 3 Chronic Blindness and vision defects (2 sources) Visual impairment 05-03-2022 Chronic Disorders of lipid metabolism (1 source) Pure hypercholesterolemia, unspecified; Translations: [PURE HYPERCHOLESTEROLEMIA UNSPEC] Onset: 3 Chronic Essential hypertension (18 sources) Hypertensive disorder; Translations: [Essential (primary) hypertension] Onset: 3 05-03-2022 Chronic Genitourinary symptoms and ill-defined conditions (16 sources) Asymptomatic microscopic hematuria; Translations: [Asymptomatic microscopic hematuria] Onset: 2 Episodic Mood disorders (1 source) Major depressive disorder, single episode, unspecified; Translations: [EVELINE DEPRESS D/O SINGLE EPIS UNS] Onset: 2 Chronic Mood disorders (1 source) Mood disorders; Translations: [DEPRESSION UNSPECIFIED] Onset: 3 Other aftercare (1 source) Other penitentiary (current) drug therapy; Translations: [OTH TRACK SWEEPER CURRENT DRUG THERAPY] Onset: 3 Episodic Other connective tissue disease (4 sources) Rhabdomyolysis; Translations: [RHABDOMYOLYSIS] Onset: 3 Episodic Other connective tissue disease (1 source) Other muscle spasm; Translations: [OTHER MUSCLE SPASM] Onset: 3 Episodic Other nervous system disorders (15 sources) Neuropathy; Translations: [Polyneuropathy, unspecified] Onset: 3 05-03-2022 Chronic Other nervous system disorders (1 source) Polyneuropathy, unspecified; Translations: [POLYNEUROPATHY UNSPECIFIED] Onset: 3 Chronic Other nervous system disorders (1 source) Other chronic pain; Translations: [OTHER CHRONIC PAIN] Onset: 3 Chronic Other nutritional; endocrine; and metabolic disorders (7 sources) Obesity caused by energy imbalance; Translations: [Class 1 obesity due to excess calories without serious comorbidity with body mass index (BMI) of 32.0 to 32.9 in adult] Onset: 5 06-02-2024 Chronic Other screening for suspected conditions (not mental disorders or infectious disease) (14 sources) Screening for malignant neoplasm of colon done; Translations: [Encounter for screening for malignant neoplasm of colon] Onset: 2 Episodic Other upper respiratory disease (13 sources) Seasonal allergy; Translations: [Other seasonal allergic [...] Onset: 02-12-2022 Episodic Diabetes mellitus without complication (13 sources) Increased glucose level; Translations: [Other abnormal glucose] Onset: 08-27-2023 08-27-2023 Episodic Immunizations and screening for infectious disease (1 source) Contact with and (suspected) exposure to other viral communicable diseases Onset: 04-30-2021 Resolved: 04-30-2021 Episodic Mycoses (1 source) Candidal stomatitis Onset: 04-30-2021 Resolved: 04-30-2021 Episodic Other connective tissue disease (13 sources) Spasm; Translations: [Other muscle spasm] Onset: 07-09-2023 07-09-2023 Episodic Other connective tissue disease (9 sources) Rhabdomyolysis; Translations: [Rhabdomyolysis] Onset: 07-09-2023 Resolved: 07-09-2023 07-09-2023 Episodic Other nutritional; endocrine; and metabolic disorders (11 sources) Obese class I; Translations: [Obesity (BMI 30.0-34.9)] Onset: 07-09-2023 Resolved: 06-02-2024 07-09-2023 Chronic Other nutritional; endocrine; and metabolic disorders (11 sources) Overweight in adulthood with body mass index of 25 or more but less than 30; Translations: [Body mass index (BMI) 29.0-29.9, adult] Onset: 04-14-2023 Resolved: 06-02-2024 05-15-2022 Episodic Other skin disorders (3 sources) Rash and other nonspecific skin eruption; Translations: [RASH OTH NONSPECIFIC SKIN ERUPTION] Onset: 02-10-2022 Episodic Residual codes; unclassified (14 sources) Insomnia; Translations: [Insomnia, unspecified] Onset: 04-14-2023 05-03-2022 Episodic Residual codes; unclassified (13 sources) Tobacco user; Translations: [Tobacco use] Onset: 04-14-2023 05-03-2022 Episodic Residual codes; unclassified (1 source) Family history of malignant neoplasm of breast; Translations: [FAMILY HX MALIG NEOPLASM OF BREAST] Onset: 04-27-2022 Episodic Substance-related disorders (12 sources) Nicotine dependence, cigarettes, uncomplicated; Translations: [Nicotine dependence] Onset: 10-16-2022 Resolved: 06-02-2024 04-14-2023 Chronic Unclassified (1 source) Contact with and (suspected) exposure to covid-19 Z20.822 Results Test Name Value Interpretation Reference Range Facility MM TOMOSYNTHESIS SCREENING B Ion 07-27-2024 [place] [address] Mammography Report Signed Patient: CARIDAD REYES MR#: [id number] : 1970 Acct:[id number] Age/Sex: 53 / F ADM Date: 07/27/24 Loc: MAMMO Attending Dr: Carrie Todd NP Ordering Physician: Carrie Todd NP Results: Date of Service: 07/27/24 Follow Up: Procedure(s): MM tomosynthesis screening BI Accession Number(s): [id number] cc: Carrie Todd NP Patient Name: CARIDAD REYES MR#: [id number] : 1970 Exam Date: 07/27/2024 Ordering Doctor: ROSARIO Todd CNP RADIOLOGY REPORT PROCEDURE: MM TOMOSYNTHESIS SCREENING BI COMPARISON: MM TOMOSYNTHESIS SCREENING BI, 07/23/2023. MG MAMM SCREEN 3D KOBY CAD, 04/24/2022. INDICATIONS: Screening Calculator Name NCI Breast Cancer Risk Assessment Tool 5 Year Breast Cancer Risk 1.20% Lifetime Breast Cancer Risk 8.30% Personal Breast Cancer No Personal Ovarian Cancer No Treatments None Family Cancers Grandmother-paternal with breast cancer at age 70. LOCATION: [facility] BREAST COMPOSITION: There are scattered areas of fibroglandular density. FINDINGS: DIAGNOSTIC CATEGORY 1--NEGATIVE. LEFT BREAST: No significant suspicious finding. RIGHT BREAST: No significant suspicious finding. RECOMMENDATIONS: ROUTINE MAMMOGRAM AND CLINICAL EVALUATION IN 12 MONTHS. PLEASE NOTE: A NORMAL MAMMOGRAM DOES NOT EXCLUDE THE POSSIBILITY OF BREAST CANCER. A CLINICALLY SUSPICIOUS PALPABLE LUMP SHOULD BE BIOPSIED. Dictated by: Ernesto Webster DO on 07/27/2024 at 16:23 Approved by: Ernesto Webster DO on 07/27/2024 at 16:26 Dictated By: Ernesto Webster M.D. Signed By: 07/27/247 DD/ 25 TD/TT: Game Trapper: [facility] Radiology, Radiologist, MD - 07/27/2024 [place] [address] Mammography Report Signed Patient: CARIDAD REYES MR#: [id number] : 1970 Acct:[id number] Age/Sex: 53 / F ADM Date: 07/27/24 Loc: MAMMO Attending Dr: Carrie Todd NP Ordering Physician: Carrie Todd NP Results: Date of Service: 07/27/24 Follow Up: Procedure(s): MM tomosynthesis screening BI Accession Number(s): [id number] cc: Carrie Todd NP Patient Name: CARIDAD REYES MR#: [id number] : 1970 Exam Date: 07/27/2024 Ordering Doctor: ROSARIO Todd CNP RADIOLOGY REPORT PROCEDURE: MM TOMOSYNTHESIS SCREENING BI COMPARISON: MM TOMOSYNTHESIS SCREENING BI, 07/23/2023. MG MAMM SCREEN 3D KOBY CAD, 04/24/2022. INDICATIONS: Screening Calculator Name NCI Breast Cancer Risk Assessment Tool 5 Year Breast Cancer Risk 1.20% Lifetime Breast Cancer Risk 8.30% Personal Breast Cancer No Personal Ovarian Cancer No Treatments None Family Cancers Grandmother-paternal with breast cancer at age 70. LOCATION: [facility] BREAST COMPOSITION: There are scattered areas of fibroglandular density. FINDINGS: DIAGNOSTIC CATEGORY 1--NEGATIVE. LEFT BREAST: No significant suspicious finding. RIGHT BREAST: No significant suspicious finding. RECOMMENDATIONS: ROUTINE MAMMOGRAM AND CLINICAL EVALUATION IN 12 MONTHS. PLEASE NOTE: A NORMAL MAMMOGRAM DOES NOT EXCLUDE THE POSSIBILITY OF BREAST CANCER. A CLINICALLY SUSPICIOUS PALPABLE LUMP SHOULD BE BIOPSIED. Dictated by: Ernesto Webster DO on 07/27/2024 at 16:23 Approved by: Ernesto Webster DO on 07/27/2024 at 16:26 Dictated By: Ernesto Webster M.D. Signed By: 07/27/241626 DD/ 25 TD/TT: Game Trapper: [facility] Radiology Study observation (narrative) Treato MM TOMOSYNTHESIS SCREENING B IOrdered By: Radiologist Radiology on 07-27-2024 [facility]ipp[facility] Work Phone: HbA1c (Bld) [Mass fraction]o n 06-02-2024 Interpretation and review of laboratory results Abnormal [facility] - Hematology and Cell countson 06-02-2024 HbA1c (Bld) [Mass fraction] 5.80 % Treato COVID Quick Testingon 2022 Result Negative [facility] Other Quick Strepon 01-29-2023 S. pyogenes Org specific cx Ql (Throat) Negative [facility] Other Quick Strep [facility] Other CPKon 10-10-2022 CK [Catalytic activity/Vol] 860 U/L Critically high 26-192 [facility] Comment on above: Performed By: #### Navid K, CMP ####[facility] [address] [address]Dr. Caterina So PROF 14(COMP METB)on 023 Albumin [Mass/Vol] 2.9 g/dL Critically low 3.4-5.0 Th e [facility] Comment on above: Performed By: #### Navid K, CMP ####[facility] [address] [place], [place] [address]Dr. Caterina So Albumin/Globulin [Mass ratio] 0.9 {ratio} Normal [facility] Comment on above: Performed By: #### Navid K, CMP ####[facility] [address] [place], [place] [address]Dr. Caterina So ALP [Catalytic activity/Vol] 82 U/L Normal 46-116 [facility] Comment on above: Performed By: #### Navid Flowers, CMP ####[facility] [address] [place], [place] [address]Dr. Caterina So ALT [Catalytic activity/Vol] 42 U/L Normal 14-59 [facility] Comment on above: Performed By: #### Navid K, CMP ####[facility] [address] [place], [place] [address]Dr. Caterina So Anion gap [Moles/Vol] 10.7 mmol/L Normal [facility] Comment on above: Performed By: #### Navid Flowers, CMP ####[facility] [address] [place], [place] [address]Dr. Caterina So AST [Catalytic activity/Vol] 47 U/L Critically high 15-37 [facility] Comment on above: Performed By: #### Navid K, CMP ####[facility] [address] [place], [place] [address]Dr. Caterina So Bilirubin [Mass/Vol] 0.4 mg/dL Normal 0.2-1.0 [facility] Comment on above: Performed By: #### Navid K, CMP ####[facility] [address] [place], [place] [address]Dr. Caterina So Calcium [Mass/Vol] 8.5 mg/dL Normal 8.5-10.1 [facility] Comment on above: Performed By: #### C K, CMP ####[facility] [address] [address]Dr. Caterina So Chloride [Moles/Vol] 109 mmol/L Critically high 98-107 [facility] Comment on above: Performed By: #### C K, CMP ####[facility] [address] [address]Dr. Caterina So CO2 [Moles/Vol] 28.6 mmol/L Normal 21.0-32.0 [facility] Comment on above: Performed By: #### C K, CMP ####[facility] [address] [place], [place] [address]Dr. Caterina So Creatinine [Mass/Vol] 0.51 mg/dL Critically low 0.55-1.02 [facility] Comment on above: Performed By: #### C K, CMP ####[facility] [address] [place], [place] [address]Dr. Caterina So EGFR-AF SLOVENIAN >60 Normal >=60 [facility] Comment on above: Performed By: #### C K, CMP ####[facility] [address] [place], [place] [address]Dr. Caterina So EGFR-NON AF SLOVENIAN >60 Normal >=60 [facility] Comment on above: Performed By: #### C K, CMP ####[facility] [address] [place], [place] [address]Dr. Caterina So Globulin (S) [Mass/Vol] 3.1 g/dL Normal [facility] Comment on above: Performed By: #### C K, CMP ####[facility] [address] [place], [place] [address]Dr. Caterina So Glucose [Mass/Vol] 90 mg/dL Normal 74-106 [facility] Comment on above: Performed By: #### C K, CMP ####[facility] [address] [place], [place] [address]Dr. Caterina So Potassium [Moles/Vol] 4.3 mmol/L Normal 3.5-5.1 [facility] Comment on above: Performed By: #### C K, CMP ####[facility] [address] [address]Dr. Caterina So Protein [Mass/Vol] 6.0 g/dL Critically low 6.4-8.2 [facility] Comment on above: Performed By: #### Navid K, CMP ####[facility] [address] [address]Dr. Caterina So Sodium [Moles/Vol] 144 mmol/L Normal 136-145 [facility] Comment on above: Performed By: #### Navid Flowers, CMP ####[facility] [address] [address]DrLilliana So Urea nitrogen [Mass/Vol] 8.0 mg/dL Normal 7.0-18.0 [facility] Comment on above: Performed By: #### Navid Flowers, CMP ####[facility] [address] [address]Dr. Caterina So Urea nitrogen/Creatinin e [Mass ratio] 15.7 mg/mg Normal [facility] Comment on above: Performed By: #### Navid K, CMP ####[facility] [address] [address]DrLilliana So CARDIAC ANDRÉS ADMITon 10-09-2 023 CK [Catalytic activity/Vol] 3715 U/L Critically high 26-192 [facility] Comment on above: Performed By: #### C MARIO ALBERTO, CMP #### [facility] [address] [address] [address] Caterina So CK.MB [Mass/Vol] 9.82 ng/mL Critically high <=3.60 [facility] Comment on above: Performed By: #### C MARIO ALBERTO, CMP #### [facility] [address] [address] [address] Caterina So HSTROP 12.3 pg/mL Normal 4.0-51.3 [facility] Comment on above: Result Comment: CUT- OFF POINTS HAVE BEEN ESTABLISHED BASED ON THE FOURTH UNIVERSAL DEFINITIONS OF MYOCARDIAL INFARCTION. THE UPPER REFERENCE LIMIT (URL) OF TROPONIN, DEFINED THE 99TH PERCENTILE OF cTnI DISTRIBUTION IN A REFERENCE POPULATION, HAS BEEN CONFIRMED THE DECISION THRESHOLD FOR RI DIAGNOSIS. Performed By: #### C MARIO ALBERTO, CMP #### [facility] [address] [place] [address] Dr. Caterina So KRISTINA 158 ng/mL Critically high 9-82 [facility] Comment on above: Performed By: #### C TIFFANIEM, CMP #### [facility] [address] [place] [address] Dr. Caterina So CBC AUTO DIFFon 10-09-2022 BASO # 0.1 103/ul Normal 0.0-0.1 [facility] Comment on above: Performed By: #### C BC #### [facility] [address] [place] [address] Dr. Caterina So Basophils/100 WBC (Bld) 0.8 % Normal 0.2-2.0 [facility] Comment on above: Performed By: #### C BC #### [facility] [address] [place] [address] Dr. Caterina So EO # 0.2 103/ul Normal 0.0-0.7 [facility] Comment on above: Performed By: #### C BC #### [facility] [address] [place] [address] Dr. Caterina So Eosinophils/100 WBC (Bld) 1.8 % Normal 0.9-7.0 [facility] Comment on above: Performed By: #### C BC #### [facility] [address] [place] [address] Dr. Caterina So Erythrocyte distribution width (RBC) [Ratio] 13.0 % Normal 11.0-15.0 [facility] Comment on above: Performed By: #### C BC #### [facility] [address] [place] [address] Dr. Caterina So Hematocrit (Bld) [Volume fraction] 41.7 % Normal 36.0-48.0 [facility] Comment on above: Performed By: #### C BC #### [facility] [address] [place] [address] Dr. Caterina So Hemoglobin (Bld) [Mass/Vol] 13.5 g/dL Normal 12.0-16.0 [facility] Comment on above: Performed By: #### C BC #### [facility] [address] [place] [address] Dr. Caterina So IG # 0.04 10e3/ul Critically high 0.00-0.03 [facility] Comment on above: Performed By: #### C BC #### [facility] [address] [place] [address] Dr. Caterina So IG % 0.4 % Normal 0.0-0.5 [facility] Comment on above: Performed By: #### C BC #### [facility] [address] [place] [address] Dr. Caterina So LYMPH # 3.3 103/ul Normal 1.2-3.8 [facility] Comment on above: Performed By: #### C BC #### [facility] [address] [place] [address] Dr. Caterina So Lymphocytes/100 WBC (Bld) 36.8 % Normal 20.5-60.0 [facility] Comment on above: Performed By: #### C BC #### [facility] [address] [place] [address] Dr. Caterina So MANUAL DIFF REQ NO Normal [facility] Comment on above: Performed By: #### C BC #### [facility] [address] [place] [address] Dr. Caterina So MCH (RBC) [Entitic mass] 31.3 pg Normal 26.7-34.0 [facility] Comment on above: Performed By: #### C BC #### [facility] [address] [place] [address] Dr. Caterina So MCHC (RBC) [Mass/Vol] 32.4 g/dL Normal 29.9-35.2 [facility] Comment on above: Performed By: #### C BC #### [facility] [id number] Caterina So MCV (RBC) [Entitic vol] 96.5 fL Normal 81.0-99.0 [facility] Comment on above: Performed By: #### C BC #### [facility] [address] [place] [address] Dr. Caterina So MONO # 0.6 103/ul Normal 0.3-0.8 [facility] Comment on above: Performed By: #### C BC #### [facility] [address] [place] [address] Dr. Caterina So Monocytes/100 WBC (Bld) 6.9 % Normal 1.7-12.0 [facility] Comment on above: Performed By: #### C BC #### [facility] [address] [place] [address] Dr. Caterina So NEUT # 4.8 103/ul Normal 1.4-6.5 [facility] Comment on above: Performed By: #### C BC #### [facility] [address] [place] [address] Dr. Caterina So Neutrophils/100 WBC (Bld) 53.3 % Normal 43.0-75.0 [facility] Comment on above: Performed By: #### C BC #### [facility] [address] [place] [address] Dr. Caterina So Platelet mean volume (Bld) [Entitic vol] 11.0 fL Normal 9.5-13.5 [facility] Comment on above: Performed By: #### C BC #### [facility] [address] [place] [address] Dr. Caterina So PLT 204 103/ul Normal 150-450 [facility] Comment on above: Performed By: #### C BC #### [facility] [address] [place] [address] Dr. Caterina So RBC 4.32 106/ul Normal 4.20-5.40 [facility] Comment on above: Performed By: #### C BC #### [facility] [address] [place] [address] Dr. Caterina So WBC 8.9 103/ul Normal 4.0-11.0 [facility] Comment on above: Performed By: #### C BC #### [facility] [address] [address] [address] Caterina So CPKon 10-09-2022 CK [Catalytic activity/Vol] 3818 U/L Critically high 26-192 [facility] Comment on above: Performed By: #### C K ####[facility] [address] [address]Dr. Caterina So PROF 14(COMP METB)on 023 Albumin [Mass/Vol] 4.2 g/dL Normal 3.4-5.0 [facility] Comment on above: Performed By: #### C MARIO ALBERTO, CMP #### [facility] [address] [place] [address] Dr. Caterina So Albumin/Globulin [Mass ratio] 1.1 {ratio} Normal [facility] Comment on above: Performed By: #### C MARIO ALBERTO, CMP #### [facility] [address] [place] [address] Dr. Caterina So ALP [Catalytic activity/Vol] 104 U/L Normal 46-116 [facility] Comment on above: Performed By: #### C MARIO ALBERTO, CMP #### [facility] [address] [address] [address] Caterina So ALT [Catalytic activity/Vol] 64 U/L Critically high 14-59 [facility] Comment on above: Performed By: #### C TIFFANIEM, CMP #### [facility] [address] [address] [address] Caterina So Anion gap [Moles/Vol] 10.9 mmol/L Normal [facility] Comment on above: Performed By: #### C TIFFANIEM, CMP #### [facility] [address] [address] [address] Caterina So AST [Catalytic activity/Vol] 103 U/L Critically high 15-37 [facility] Comment on above: Performed By: #### C TIFFANIEM, CMP #### [facility] [address] [address] [address] Caterina So Bilirubin [Mass/Vol] 0.6 mg/dL Normal 0.2-1.0 [facility] Comment on above: Performed By: #### C TIFFANIEM, CMP #### [facility] [address] [place] [address] Dr. Caterina So Calcium [Mass/Vol] 9.0 mg/dL Normal 8.5-10.1 [facility] Comment on above: Performed By: #### C MADM, CMP #### [facility] [address] [address] [address] Caterina So Chloride [Moles/Vol] 103 mmol/L Normal 98-107 [facility] Comment on above: Performed By: #### C TIFFANIEM, CMP #### [facility] [address] [place] [address] Dr. Caterina So CO2 [Moles/Vol] 30.3 mmol/L Normal 21.0-32.0 [facility] Comment on above: Performed By: #### C TIFFANIEM, CMP #### [facility] [address] [place] [address] Dr. Caterina So Creatinine [Mass/Vol] 0.66 mg/dL Normal 0.55-1.02 [facility] Comment on above: Performed By: #### C TIFFANIEM, CMP #### [facility] [address] [place] [address] Dr. Caterina So EGFR-AF SLOVENIAN >60 Normal >=60 [facility] Comment on above: Performed By: #### C TIFFANIEM, CMP #### [facility] [address] [place] [address] Dr. Caterina So EGFR-NON AF SLOVENIAN >60 Normal >=60 [facility] Comment on above: Performed By: #### C MADM, CMP #### [facility] [address] [place] [address] Dr. Caterina So Globulin (S) [Mass/Vol] 3.7 g/dL Normal [facility] Comment on above: Performed By: #### C TIFFANIEM, CMP #### [facility] [address] [address] [address] Caterina So Glucose [Mass/Vol] 98 mg/dL Normal 74-106 [facility] Comment on above: Performed By: #### C MARIO ALBERTO, CMP #### [facility] [address] [address] [address] Caterina So Potassium [Moles/Vol] 3.2 mmol/L Critically low 3.5-5.1 [facility] Comment on above: Performed By: #### C MARIO ALBERTO, CMP #### [facility] [address] [address] [address] Caterina So Protein [Mass/Vol] 7.9 g/dL Normal 6.4-8.2 [facility] Comment on above: Performed By: #### C MARIO ALBERTO, CMP #### [facility] [address] [address] [address] Caterina So Sodium [Moles/Vol] 141 mmol/L Normal 136-145 [facility] Comment on above: Performed By: #### C MARIO ALBERTO, CMP #### [facility] [address] [address] [address] Caterina So Urea nitrogen [Mass/Vol] 5.0 mg/dL Critically low 7.0-18.0 [facility] Comment on above: Performed By: #### C MARIO ALBERTO, CMP #### [facility] [address] [address] [address] Caterina So Urea nitrogen/Creatinin e [Mass ratio] 7.6 mg/mg Normal [facility] Comment on above: Performed By: #### C MARIO ALBERTO, CMP #### [facility] [address] [address] [address] Caterina So XR LSPINE 2_3 VIEWSon [...] by: JUANIS RIZO Date: 2022-10-09 08:18 Normal [facility] Longterm Documentson 08-15-2022 Longterm Documents [id number]#1.00CD:127 Normal [facility] Longterm Documentson 08-12-2022 Longterm Documents Longterm Nurse Visit 14 day Health Appraisal Date of Appraisal: _08/08/2022 Booked Date: or Release [email or web address]: RELEASE 10/05/2022 Did inmate come from another [...] L forearm Date vial opened: Lot number: [id number] Expiration date: 09/2023 PPD Comments: _ Inmate [...] you wish to attend AA Meetings? YES Longterm Assessment 08/08/22 16:06:00 Longterm Assessment Entered On: 08/08/2022 16:09 EDT Performed [...] Yes Patient Reported Covid-19 Testing Where : [facility] Patient Reported Covid-19 Testing When : 08/06/2022 EDT *Verify Droplet, Contact Precautions for Ebola (Reference for CDC) : N/A *Verify Airborne, Droplet Precautions for MERS/COVID-19 : N/A Katelin Cline RN - 08/08/2022 16:06 EDT Summary Chief Complaint : Health Appraisal Preferred Lab : [facility] Preferred Rad : [facility] Height in Inches : 62 in Height/Length Measured : 157.4 cm(Converted to: (more content not included)... Normal [facility] Longterm Documents Longterm Nurse Visit 14 day Health Appraisal PPD [...] (COVID-19) mRNA BNT-162b2 vax 09/08/2020 Recorded Normal [facility] Outside Colonoscopyon 2022 Outside Colonoscopy [id number] #1.00CD:127 Normal [facility] Reminderson 06-13-2022 Reminders - From: Elin Hays LPN To: N - Clinical; Sent: 06/13/2022 16:06:10 EST Show up: 05/12/2032 07:00:00 EST Subject: colonoscopy recall Due Date/Time: 06/12/2032 07:00:00 EST Reminder/Recall Patient is due for screening colonoscopy 06/12/2032. Normal [facility] Lab Reportson 06-10-2022 Lab Reports [id number] #1.00CD:127 Normal [facility] Covid-19 PCR (CVDTB)on 05-20 SARS-CoV-2 (COVID-19) RNA GONZÁLEZ+probe Ql (Unsp spec) Not detected Normal NOT DETECTED [facility] Comment on above: Result Comment: This test is not yet approved or cleared by the [place] FDA. When there are no FDA-approved or cleared tests available, and other criteria are met, FDA can make tests available under an emergency access mechanism called an Emergency Use Authorization (EUA). The EUA for this test is supported by the [employer] of Health and Human Service's (HHS's) declaration [...] consistent with SARS-CoV-2. Performed By: #### C [facility] #### [facility] [address] [place] [address] Dr. Caterina So Pre-Certification Formon Pre-Certification Form [id number] #1.00CD:127 [facility] Consent for Procedure/Surger yon 05-17-2022 Consent for Procedure/Surgery [id number] #1.00CD:127 [facility] Formson 05-16-2022 Forms [id number] #1.00CD:127 [facility] Provider Letter FTon 05-15 Provider Letter [facility] May 15, 2022 CARIDAD REYES [address] [place] [address] CARIDAD REYES 1970 To Whom It May Concern, Please excuse above patient from work 06/12/2022 due to surgical procedure. Sincerely, Dr. Ede Bhakta MD General Surgery [facility] Provider Letter [facility] May 15, 2022 CARIDAD REYES [address] [place] [address] CARIDAD REYES 1970 To Whom It May Concern, Please excuse above patient from work 06/05/2022 due to scheduled surgical procedure. Sincerely, Dr. Ede Bhakta MD General Surgery Normal [facility] CULTURE URINEon 05-06-2022 CULTURE URINE Culture Observations: MODERATE GROWTH OF MIXED GENITAL COOPER. NO POTENTIAL PATHOGENS SEEN. Normal [facility] Comment on above: Performed By: #### U RCX #### [facility] [address] [place], [place] [address] Dr. Caterina So UA RANDOM W/MICROSCOPICon BACTERIA NONE SEEN Normal NONE SEEN [facility] Comment on above: Performed By: #### U AMIC ####[facility] [address] [address]Dr. Caterina So Bilirubin Ql (U) Negative Normal NEGATIVE [facility] Comment on above: Performed By: #### U AMIC ####[facility] [address] [address]Dr. Caterina So CAST NONE SEEN Normal NONE SEEN [facility] Comment on above: Performed By: #### U AMIC ####[facility] [address] [address]Dr. Caterina So Clarity (U) CLEAR Normal CLEAR [facility] Comment on above: Performed By: #### U AMIC ####[facility] [address] [address]Dr. Caterina So Color (U) YELLOW Normal YELLOW [facility] Comment on above: Performed By: #### U AMIC ####[facility] [address] [address]Dr. Caterina So Crystals LM Nom (Urine sed) NONE SEEN Normal NONE SEEN [facility] Comment on above: Performed By: #### U AMIC ####[facility] [address] [address]Dr. Caterina So Epithelial cells LM Ql (Urine sed) FEW Abnormal NONE SEEN /RARE [facility] Comment on above: Performed By: #### U AMIC ####[facility] [address] [address]Dr. Caterina So Glucose Ql (U) Negative Normal NEGATIVE [facility] Comment on above: Performed By: #### U AMIC ####[facility] [address] [address]Dr. Caterina So Hemoglobin Ql (U) SMALL Abnormal NEGATIVE [facility] Comment on above: Performed By: #### U AMIC ####[facility] [address] [address]Dr. Caterina So Ketones Ql (U) Negative Normal NEGATIVE [facility] Comment on above: Performed By: #### U AMIC ####[facility] [address] [place], [place] [address]Dr. Caterina So LEUKOCYTES MODERATE Abnormal NEGATIVE [facility] Comment on above: Performed By: #### U AMIC ####[facility] [address] [place], [place] [address]Dr. Caterina So MUCOUS NONE SEEN Normal NONE SEEN [facility] Comment on above: Performed By: #### U AMIC ####[facility] [address] [place], [place] [address]Dr. Caterina So Nitrite Ql (U) Negative Normal NEGATIVE [facility] Comment on above: Performed By: #### U AMIC ####[facility] [address] [address]Dr. Caterina So pH (U) 6.0 [pH] Normal 5-9 [facility] Comment on above: Performed By: #### U AMIC ####[facility] [address] [place], [place] [address]Dr. Caterina So RBC 0-2 Normal 0-2 [facility] Comment on above: Performed By: #### U AMIC ####[facility] [address] [place], [place] [address]Dr. Caterina So SPEC GRAVITY 1.020 Normal 1.005-<=1.025 [facility] Comment on above: Performed By: #### U AMIC ####[facility] [address] [address]Dr. Caterina So UA PROTEIN Negative Normal NEGATIVE/ TRACE [facility] Comment on above: Performed By: #### U AMIC ####[facility] [address] [address]Dr. Caterina So Urobilinogen Qn (U) 2.0 {Temitope'U}/dL Abnormal 0.2 - 1.0 [facility] Comment on above: Performed By: #### U AMIC ####[facility] [address] [place], [place] [address]Dr. Caterina So WBC 10-20 Abnormal NONE SEEN [facility] Comment on above: Performed By: #### U AMIC ####[facility] [address] [place], [place] [address]Dr. Caterina So CBC AUTO DIFFon 04-24-2022 BASO # 0.1 103/ul Normal 0.0-0.1 [facility] Comment on above: Performed By: #### C BC ####[facility] [address] [place], [place] [address]Dr. Caterina Judah Basophils/100 WBC (Bld) 0.9 % Normal 0.2-2.0 [facility] Comment on above: Performed By: #### C BC ####[facility] [address] [place], [place] [address]Dr. Caterina So EO # 0.2 103/ul Normal 0.0-0.7 [facility] Comment on above: Performed By: #### C BC ####[facility] [address] [place], [place] [address]Dr. Caterina Judah Eosinophils/100 WBC (Bld) 2.8 % Normal 0.9-7.0 [facility] Comment on above: Performed By: #### C BC ####[facility] [address] [place], [place] [address]Dr. Caterina So Erythrocyte distribution width (RBC) [Ratio] 12.9 % Normal 11.0-15.0 [facility] Comment on above: Performed By: #### C BC ####[facility] [address] [address]Dr. Caterina So Hematocrit (Bld) [Volume fraction] 44.5 % Normal 36.0-48.0 [facility] Comment on above: Performed By: #### C BC ####[facility] [address] [address]Dr. Caterina So Hemoglobin (Bld) [Mass/Vol] 14.6 g/dL Normal 12.0-16.0 [facility] Comment on above: Performed By: #### C BC ####[facility] [address] [address]Dr. Danielleella So IG # 0.01 10e3/ul Normal 0.00-0.03 [facility] Comment on above: Performed By: #### C BC ####[facility] [address] [place], [place] [address]Dr. Caterina So IG % 0.1 % Normal 0.0-0.5 [facility] Comment on above: Performed By: #### C BC ####[facility] [address] [address]Dr. Caterina Judah LYMPH # 3.4 103/ul Normal 1.2-3.8 [facility] Comment on above: Performed By: #### C BC ####[facility] [address] [address]DrLilliana Danielleella So Lymphocytes/100 WBC (Bld) 44.5 % Normal 20.5-60.0 [facility] Comment on above: Performed By: #### C BC ####[facility] [address] [address]DrLilliana Danielleella So MANUAL DIFF REQ NO Normal [facility] Comment on above: Performed By: #### C BC ####[facility] [address] [id number] Caterina Judah MCH (RBC) [Entitic mass] 31.9 pg Normal 26.7-34.0 [facility] Comment on above: Performed By: #### C BC ####[facility] [address] [place], [place] [id number] Caterina So MCHC (RBC) [Mass/Vol] 32.8 g/dL Normal 29.9-35.2 [facility] Comment on above: Performed By: #### C BC ####[facility] [address] [id number]. Caterina So MCV (RBC) [Entitic vol] 97.2 fL Normal 81.0-99.0 [facility] Comment on above: Performed By: #### C BC ####[facility] [address] [address]Dr. Daneilleella Judah MONO # 0.6 103/ul Normal 0.3-0.8 [facility] Comment on above: Performed By: #### C BC ####[facility] [address] [address]Dr. Caterina So Monocytes/100 WBC (Bld) 7.6 % Normal 1.7-12.0 [facility] Comment on above: Performed By: #### C BC ####[facility] [address] [place], [place] [address]Dr. Danielleella Judah NEUT # 3.3 103/ul Normal 1.4-6.5 [facility] Comment on above: Performed By: #### C BC ####[facility] [address] [address]Dr. Caterina So Neutrophils/100 WBC (Bld) 44.1 % Normal 43.0-75.0 [facility] Comment on above: Performed By: #### C BC ####[facility] [address] [address]Dr. Caterina So Platelet mean volume (Bld) [Entitic vol] 11.1 fL Normal 9.5-13.5 [facility] Comment on above: Performed By: #### C BC ####[facility] [address] [address]Dr. Caterina So PLT 188 103/ul Normal 150-450 [facility] Comment on above: Performed By: #### C BC ####[facility] [address] [address]DrLilliana So RBC 4.58 106/ul Normal 4.20-5.40 [facility] Comment on above: Performed By: #### C BC ####[facility] [address] [place], [place] [address]NgLilliana So WBC 7.6 103/ul Normal 4.0-11.0 [facility] Comment on above: Performed By: #### C BC ####[facility] [address] [place], [place] [address]BiDr. Caterina So LIPID PROFILEon 04-24-2022 CHOL-HDL RATIO NORM SEE BELOW Normal [facility] Comment on above: Result Comment: 3.3 - 4.4 LOW RISK 4.4 - 7.1 AVERAGE RISK 7.1 - 11.0 MODERATE RISK >11.0 HIGH RISK Performed By: #### T SH, LIPID, CMP #### [facility] [address] [address] [address] Caterina So Cholesterol [Mass/Vol] 160 mg/dL Normal <=200 [facility] Comment on above: Performed By: #### T SH, LIPID, CMP #### [facility] [address] [address] [address] Caterina So Cholesterol in HDL [Mass/Vol] 44 mg/dL Normal 40-60 [facility] Comment on above: Performed By: #### T SH, LIPID, CMP #### [facility] [address] [address] [address] Caterina So Cholesterol in LDL [Mass/Vol] 105.0 mg/dL Normal [facility] Comment on above: Performed By: #### T SH, LIPID, CMP #### [facility] [address] [address] [address] Caterina So Cholesterol.total/ Cholesterol in HDL [Mass ratio] 3.6 {ratio} Normal [facility] Comment on above: Performed By: #### T SH, LIPID, CMP #### [facility] [address] [address] [address] Caterina So HDL NORMAL > or = 60 mg/dl - LOW CARDIOVASCULAR RISK <40 mg/dl - HIGH CARDIOVASCULAR RISK Normal [facility] Comment on above: Performed By: #### T GUICHO, LIPID, CMP #### [facility] [address] [place], [place] [address] Dr. Caterina So LDL CALC NORMAL SEE BELOW Normal [facility] Comment on above: Result Comment: <100 mg/dl OPTIMAL 100 - 129 mg/dl NEAR OR ABOVE OPTIMAL 130 - 159 mg/dl BORDERLINE HIGH 160 - 189 mg/dl HIGH >190 mg/dl VERY HIGH Performed By: #### T GUICHO, LIPID, CMP #### [facility] [address] [place], [place] [address] Dr. Caterina So Triglyceride [Mass/Vol] 55 mg/dL Normal <=150 [facility] Comment on above: Performed By: #### T GUICHO, LIPID, CMP #### [facility] [address] [address] [address] Caterina So VLDL CALC 11.0 mg/dL Normal [facility] Comment on above: Performed By: #### T GUICHO, LIPID, CMP #### [facility] [address] [address] [address] Caterina So MG MAMM SCREEN 3D KOBY CADon 04-24-2022 MG MAMM SCREEN 3D KOBY CAD Patient: CARIDAD REYES Exam Date: 04/24/2022 : 1970 Gender:F Ordering : [facility] Admission #: [id number] Family : Order #: [id number] CLICK HERE TO VIEW EXAM RADIOLOGY REPORT PROCEDURE: MAMMOGRAM SCREENING 3D BILATERAL CAD COMPARISON: MAMMO SCREEN DIG KOBY, 07/25/2011. INDICATIONS: Screening mammography Calculator Name NCI Breast Cancer Risk Assessment Tool 5 Year Breast Cancer Risk 1.10% Lifetime Breast Cancer Risk 8.60% Personal Breast Cancer No Personal Ovarian Cancer No Treatments None Family Cancers Grandmother-paternal with breast cancer at age 70. LOCATION: [facility] BREAST COMPOSITION: Scattered areas fibroglandular density. [...] Rizo M.D. on 04/24/2022 at 12:37 Normal [facility] PROF 14(COMP METB)on 022 Albumin [Mass/Vol] 4.0 g/dL Normal 3.4-5.0 [facility] Comment on above: Performed By: #### T SH, LIPID, CMP #### [facility] [address] [place] [address] Dr. Caterina So Albumin/Globulin [Mass ratio] 1.2 {ratio} Normal [facility] Comment on above: Performed By: #### T SH, LIPID, CMP #### [facility] [address] [place] [address] Dr. Caterina So ALP [Catalytic activity/Vol] 85 U/L Normal 46-116 [facility] Comment on above: Performed By: #### T SH, LIPID, CMP #### [facility] [address] [place] [address] Dr. Caterina So ALT [Catalytic activity/Vol] 33 U/L Normal 14-59 [facility] Comment on above: Performed By: #### T SH, LIPID, CMP #### [facility] [address] [place] [address] Dr. Caterina So Anion gap [Moles/Vol] 12.4 mmol/L Normal [facility] Comment on above: Performed By: #### T SH, LIPID, CMP #### [facility] [address] [address] [address] Caterina So AST [Catalytic activity/Vol] 32 U/L Normal 15-37 [facility] Comment on above: Performed By: #### T SH, LIPID, CMP #### [facility] [address] [place] [address] Dr. Caterina So Bilirubin [Mass/Vol] 0.6 mg/dL Normal 0.2-1.0 [facility] Comment on above: Performed By: #### T SH, LIPID, CMP #### [facility] [address] [address] [address] Caterina So Calcium [Mass/Vol] 8.9 mg/dL Normal 8.5-10.1 [facility] Comment on above: Performed By: #### T SH, LIPID, CMP #### [facility] [address] [address] [address] Caterina So Chloride [Moles/Vol] 104 mmol/L Normal 98-107 [facility] Comment on above: Performed By: #### T SH, LIPID, CMP #### [facility] [address] [address] [address] Caterina So CO2 [Moles/Vol] 30.5 mmol/L Normal 21.0-32.0 [facility] Comment on above: Performed By: #### T SH, LIPID, CMP #### [facility] [address] [place] [address] Dr. Caterina So Creatinine [Mass/Vol] 0.58 mg/dL Normal 0.55-1.02 [facility] Comment on above: Performed By: #### T SH, LIPID, CMP #### [facility] [address] [place] [address] Dr. Caterina So EGFR-AF SLOVENIAN >60 Normal >=60 [facility] Comment on above: Performed By: #### T SH, LIPID, CMP #### [facility] [address] [place] [address] Dr. Caterina So EGFR-NON AF SLOVENIAN >60 Normal >=60 [facility] Comment on above: Performed By: #### T SH, LIPID, CMP #### [facility] [address] [place] [address] Dr. Caterina So Globulin (S) [Mass/Vol] 3.4 g/dL Normal [facility] Comment on above: Performed By: #### T SH, LIPID, CMP #### [facility] [address] [address] [address] Caterina So Glucose [Mass/Vol] 93 mg/dL Normal 74-106 [facility] Comment on above: Performed By: #### T SH, LIPID, CMP #### [facility] [address] [place] [address] Dr. Caterina So Potassium [Moles/Vol] 3.9 mmol/L Normal 3.5-5.1 [facility] Comment on above: Performed By: #### T SH, LIPID, CMP #### [facility] [address] [place] [address] Dr. Caterina So Protein [Mass/Vol] 7.4 g/dL Normal 6.4-8.2 [facility] Comment on above: Performed By: #### T SH, LIPID, CMP #### [facility] [address] [place] [address] Dr. Caterina So Sodium [Moles/Vol] 143 mmol/L Normal 136-145 [facility] Comment on above: Performed By: #### T GUICHO, LIPID, CMP #### [facility] [address] [place] [address] Dr. Caterina So Urea nitrogen [Mass/Vol] 10.0 mg/dL Normal 7.0-18.0 [facility] Comment on above: Performed By: #### T SH, LIPID, CMP #### [facility] [address] [place] [address] Dr. Caterina So Urea nitrogen/Creatinin e [Mass ratio] 17.2 mg/mg Normal [facility] Comment on above: Performed By: #### T GUICHO, LIPID, CMP #### [facility] [address] [place] [address] Dr. Caterina So TSHon 04-24-2022 TSH 2.767 uIU/mL Normal 0.358-3.740 [facility] Comment on above: Performed By: #### T GUICHO, LIPID, CMP #### [facility] [address] [place] [address] Dr. Caterina So UA RANDOM W/MICROSCOPICon BACTERIA TRACE Abnormal NONE SEEN [facility] Comment on above: Performed By: #### U AMIC #### [facility] [address] [place] [address] Dr. Caterina So Bilirubin Ql (U) Negative Normal NEGATIVE [facility] Comment on above: Performed By: #### U AMIC #### [facility] [address] [address] [address] Caterina So CAST NONE SEEN Normal NONE SEEN [facility] Comment on above: Performed By: #### U AMIC #### [facility] [address] [address] [address] Caterina So Clarity (U) CLEAR Normal CLEAR [facility] Comment on above: Performed By: #### U AMIC #### [facility] [address] [address] [address] Caterina So Color (U) LT. YELLOW Normal YELLOW [facility] Comment on above: Performed By: #### U AMIC #### [facility] [address] [place] [address] Dr. Caterina So Crystals LM Nom (Urine sed) NONE SEEN Normal NONE SEEN [facility] Comment on above: Performed By: #### U AMIC #### [facility] [address] [place] [address] Dr. Caterina So Epithelial cells LM Ql (Urine sed) FEW Abnormal NONE SEEN /RARE [facility] Comment on above: Performed By: #### U AMIC #### [facility] [address] [place] [address] Dr. Caterina So Glucose Ql (U) Negative Normal NEGATIVE [facility] Comment on above: Performed By: #### U AMIC #### [facility] [address] [address] [address] Catreina So Hemoglobin Ql (U) SMALL Abnormal NEGATIVE [facility] Comment on above: Performed By: #### U AMIC #### [facility] [address] [address] [address] Caterina So Ketones Ql (U) Negative Normal NEGATIVE [facility] Comment on above: Performed By: #### U AMIC #### [facility] [address] [place] [address] Dr. Caterina So LEUKOCYTES LARGE Abnormal NEGATIVE [facility] Comment on above: Performed By: #### U AMIC #### [facility] [address] [address] [address] Caterina So MUCOUS NONE SEEN Normal NONE SEEN [facility] Comment on above: Performed By: #### U AMIC #### [facility] [address] [place] [address] Dr. Caterina So Nitrite Ql (U) Negative Normal NEGATIVE [facility] Comment on above: Performed By: #### U AMIC #### [facility] [address] [place] [address] Dr. Caterina So pH (U) 7.0 [pH] Normal 5-9 [facility] Comment on above: Performed By: #### U AMIC #### [facility] [address] [place] [address] Dr. Caterina So RBC 2-5 Abnormal 0-2 [facility] Comment on above: Performed By: #### U AMIC #### [facility] [address] [place] [address] Dr. Caterina So SPEC GRAVITY 1.010 Normal 1.005-<=1.025 [facility] Comment on above: Performed By: #### U AMIC #### [facility] [address] [place] [address] Dr. Caterina So UA PROTEIN Negative Normal NEGATIVE/ TRACE [facility] Comment on above: Performed By: #### U AMIC #### [facility] [address] [place] [address] Dr. Caterina So Urobilinogen Qn (U) 1.0 {Temitope'U}/dL Normal 0.2 - 1.0 [facility] Comment on above: Performed By: #### U AMIC #### [facility] [address] [place] [address] Dr. Caterina So WBC 10-20 Abnormal NONE SEEN [facility] Comment on above: Performed By: #### U AMIC #### [facility] [address] [place] [address] Dr. Caterina So Physician Referral 04-04-2 022 Physician Referral [id number] Normal [facility] A1C with Estimated Average G luon 10-09-2021 Glucose [Mass/Vol] 108 mg/dL Normal [facility] Comment on above: Result Comment: PERF ORMED BY: [place] [address] PATHOLOGIST CABLE HOOKER YUNG KONG M.D. Performed By: #### C BC, CMP, A1C WTH eA #### [address] HbA1c (Bld) [Mass fraction] 5.4 % Normal 4.3-5.6 [facility] [place] Comment on above: Result Comment: Incr eased risk for diabetes: 5.7 - 6.4 diabetes: >6.4 glycemic control for adults with diabetes: <7.0 Performed By: #### C BC, CMP, A1C WTH eA #### [address] Complete Blood Count Auto Di ffon 10-09-2021 Basophils (Bld) [#/Vol] 0.1 10*3/uL Normal 0.0-0.2 [facility] [place] Comment on above: Result Comment: PERF ORMED BY: [place] [address] PATHOLOGIST CABLE HOOKER YUNG KONG M.D. Performed By: #### C BC, CMP, A1C WTH eA #### [place] [address] [place] Basophils/100 WBC (Bld) 0.9 % Normal . [facility] [place] Comment on above: Performed By: #### C BC, CMP, A1C WTH eA #### [place] [address] [place] Eosinophils (Bld) [#/Vol] 0.1 10*3/uL Normal 0.0-0.45 [facility] [place] Comment on above: Performed By: #### C BC, CMP, A1C WTH eA #### [place] [address] [place] Eosinophils/100 WBC (Bld) 1.5 % Normal . [facility] [place] Comment on above: Performed By: #### C BC, CMP, A1C WTH eA #### [facility] [address] [place] [address] [place] Erythrocyte distribution width (RBC) [Ratio] 14.7 % Normal 11.9-15.3 [facility] [place] Comment on above: Performed By: #### C BC, CMP, A1C WTH eA #### [address] Hematocrit (Bld) [Volume fraction] 45.5 % Normal 34.0-46.4 [facility] [place] Comment on above: Performed By: #### C BC, CMP, A1C WTH eA #### [address] Hemoglobin (Bld) [Mass/Vol] 14.9 g/dL Normal 11.8-15.4 [facility] [place] Comment on above: Performed By: #### C BC, CMP, A1C WTH eA #### [place] [address] [place] Lymphocytes (Bld) [#/Vol] 1.9 10*3/uL Normal 1.00-4.8 [facility] [place] Comment on above: Performed By: #### C BC, CMP, A1C WTH eA #### [address] Lymphocytes/100 WBC (Bld) 29.9 % Normal . [facility] [place] Comment on above: Performed By: #### C BC, CMP, A1C WTH eA #### [place] [address] [place] MCH (RBC) [Entitic mass] 35.2 pg High 24.7-34.3 [facility] [place] Comment on above: Performed By: #### C BC, CMP, A1C WTH eA #### [place] [address] [place] MCV (RBC) [Entitic vol] 107.6 fL High 80-100 [facility] [place] Comment on above: Performed By: #### C BC, CMP, A1C WTH eA #### [facility] [address] [place] [address] [place] Mean Corpuscular HGB Conc 32.7 g/dL Normal 32.0-35.0 [facility] [place] Comment on above: Performed By: #### C BC, CMP, A1C WTH eA #### [facility] [address] [place] [address] [place] Monocytes (Bld) [#/Vol] 0.4 10*3/uL Normal 0.0-0.8 [facility] [place] Comment on above: Performed By: #### C BC, CMP, A1C WTH eA #### [facility] [address] [place] [address] [place] Monocytes/100 WBC (Bld) 6.0 % Normal . [facility] [place] Comment on above: Performed By: #### C BC, CMP, A1C WTH eA #### [facility] [address] [place] [address] [place] Neutrophils (Bld) [#/Vol] 3.8 10*3/uL Normal 1.8-7.7 [facility] [place] Comment on above: Performed By: #### C BC, CMP, A1C WTH eA #### [facility] [address] [place] [address] [place] Neutrophils/100 WBC (Bld) 61.7 % Normal . [facility] [place] Comment on above: Performed By: #### C BC, CMP, A1C WTH eA #### [facility] [address] [place] [address] [place] Nucleated RBC/100 WBC (Bld) [Ratio] 0.2 % Normal 0-0.5 [facility] [place] Comment on above: Performed By: #### C BC, CMP, A1C WTH eA #### [facility] [address] [place] [address] [place] Platelet mean volume (Bld) [Entitic vol] 10.2 fL Normal 6.3-10.7 [facility] [place] Comment on above: Performed By: #### C BC, CMP, A1C WTH eA #### [facility] [address] [place] [address] [place] Platelets (Bld) [#/Vol] 193 10*3/uL Normal 150-450 [facility] [place] Comment on above: Performed By: #### C BC, CMP, A1C WTH eA #### [facility] [address] RBC (Bld) [#/Vol] 4.23 10*6/uL Normal 3.60-5.00 [facility] Comment on above: Performed By: #### C BC, CMP, A1C WTH eA #### [facility] [address] WBC (Bld) [#/Vol] 6.2 10*3/uL Normal 4.5-11.0 [facility] Comment on above: Performed By: #### C BC, CMP, A1C WTH eA #### [address] Comprehensive Metabolic Pane tad 10-09-2021 Albumin [Mass/Vol] 3.9 g/dL Normal 3.2-5.5 [facility] Comment on above: Performed By: #### C BC, CMP, A1C WTH eA #### [facility] [address] [place] [address] Albumin/Globulin [Mass ratio] 1.3 {ratio} Normal [facility] [place] Comment on above: Performed By: #### C BC, CMP, A1C WTH eA #### [facility] [address] [place] [address] ALP [Catalytic activity/Vol] 66 U/L Normal 32-92 [facility] [place] Comment on above: Result Comment: PERF ORMED BY: [place] [address] PATHOLOGIST CABLE HOOKER YUNG KONG M.D. Performed By: #### C BC, CMP, A1C WTH eA #### [address] ALT [Catalytic activity/Vol] 26 U/L Normal 10-60 [facility] [place] Comment on above: Performed By: #### C BC, CMP, A1C WTH eA #### [facility] [address] [place] [address] [place] AST [Catalytic activity/Vol] 29 U/L Normal 10-42 [facility] [place] Comment on above: Performed By: #### C BC, CMP, A1C WTH eA #### [facility] [address] [place] [address] [place] Bilirubin [Mass/Vol] 0.4 mg/dL Normal 0.3-1.2 [facility] [place] Comment on above: Performed By: #### C BC, CMP, A1C WTH eA #### [facility] [address] [place] [address] [place] Calcium [Mass/Vol] 8.9 mg/dL Normal 8.2-10.2 [facility] Comment on above: Performed By: #### C BC, CMP, A1C WTH eA #### [address] Chloride [Moles/Vol] 104 mmol/L Normal 95-114 [facility] [place] Comment on above: Performed By: #### C BC, CMP, A1C WTH eA #### [place] [address] [place] CO2 [Moles/Vol] 23.5 mmol/L Normal 22.0-30.0 [facility] Comment on above: Performed By: #### C BC, CMP, A1C WTH eA #### [place] [address] [place] Creatinine [Mass/Vol] 0.63 mg/dL Normal 0.44-1.03 [facility] [place] Comment on above: Performed By: #### C BC, CMP, A1C WTH eA #### [facility] [address] [place] [address] [place] Estimated GFR ( Melissa > 60 Normal [facility] [place] Comment on above: Result Comment: GFR estimated reference range: According to KDOQI guidelines, <60 ml/min/1.73m2 is sufficient to diagnose a patient with chronic kidney disease. Performed By: #### C BC, CMP, A1C WTH eA #### [facility] [address] [place] [address] [place] Estimated GFR (Non- Am > 60 Normal [facility] [place] Comment on above: Performed By: #### C BC, CMP, A1C WTH eA #### [facility] [address] [id number] [place] Globulin (S) [Mass/Vol] 2.9 g/dL Normal [facility] [place] Comment on above: Performed By: #### C BC, CMP, A1C WTH eA #### [facility] [address] [id number] [place] Glucose [Mass/Vol] 74 mg/dL Normal 70-100 [facility] Comment on above: Result Comment: [facility] Glucose Reference Range is dependent on time and content of last meal. Glucose of more than 200 mg/dL in a nonstressed, ambulatory subject supports the diagnosis of Diabetes Mellitus. ADA recommended reference range Performed By: #### C BC, CMP, A1C WTH eA #### [facility] [address] [id number] [place] Potassium [Moles/Vol] 3.6 mmol/L Normal 3.5-5.1 [facility] [place] Comment on above: Performed By: #### C BC, CMP, A1C WTH eA #### [facility] [address] [place] [address] [place] Protein [Mass/Vol] 6.8 g/dL Normal 6.1-7.9 [facility] Comment on above: Performed By: #### C BC, CMP, A1C WTH eA #### [facility] [address] [id number] [place] Sodium [Moles/Vol] 140 mmol/L Normal 136-146 [facility] Comment on above: Performed By: #### C BC, CMP, A1C WTH eA #### [facility] [address] [id number] [place] Urea nitrogen [Mass/Vol] 10 mg/dL Normal 9-23 [facility] [place] Comment on above: Performed By: #### C BC, CMP, A1C WTH eA #### [facility] [address] [place] [address] [place] COVID Quick Testingon 2020 Result Negative [employer] Other Quick Fluon 04-30-2021 FLUAV Ab CF (S) [Titer] Negative [facility] [employer] Other FLUBV Ab CF (S) [Titer] Negative [facility] [employer] Other ALC ETHANOLon 01-07-2020 ALC ETHANOL 277.0 mg/dL High <10.0 [facility] Comment on above: Result Comment: [employer] NFIRMED Toxicology results. For MEDICAL purposes only. Performed By: #### L 500.19122, L500.10642, L500.99393 #### Test performed at: [address] [id number] CBCon 01-07-2020 Erythrocyte distribution width (RBC) [Ratio] 13.0 % Normal 11.5-14.5 [facility] Comment on above: Performed By: #### L 200.54650 #### Test performed at: [address] [address] Hematocrit (Bld) [Volume fraction] 48.6 % High 36.0-48.0 [facility] Comment on above: Performed By: #### L 200.26497 #### Test performed at: [address] [address] Hemoglobin (Bld) [Mass/Vol] 16.8 g/dL High 12.0-15.0 [facility] Comment on above: Performed By: #### L 200.66073 #### Test performed at: [address] [address] MCH (RBC) [Entitic mass] 35.8 pg High 25.4-34.6 [facility] Comment on above: Performed By: #### L 200.94824 #### Test performed at: [address] [address] MCHC (RBC) [Mass/Vol] 34.6 g/dL Normal 31.5-36.5 [facility] Comment on above: Performed By: #### L 200.62742 #### Test performed at: [address] [address] MCV (RBC) [Entitic vol] 103.6 fL High 79.0-98.0 [facility] Comment on above: Performed By: #### L 200.22993 #### Test performed at: [address] [address] NRBC # 0.000 K/uL Normal 0-0.012 [facility] Comment on above: Performed By: #### L 200.75288 #### Test performed at: [address] [address] NRBC % 0.0 /100 WBC Normal 0-0.2 [facility] Comment on above: Performed By: #### L 200.26123 #### Test performed at: [address] [address] Platelet mean volume (Bld) [Entitic vol] 9.9 fL Normal 8.7-12.4 [facility] Comment on above: Performed By: #### L 200.89554 #### Test performed at: [address] [address] Platelets (Bld) [#/Vol] 179 10*3/uL Normal 140-440 [facility] Comment on above: Performed By: #### L 200.47898 #### Test performed at: [address] [address] RBC (Bld) [#/Vol] 4.69 10*6/uL Normal 3.5-5.5 [facility] Comment on above: Performed By: #### L 200.65486 #### Test performed at: [address] [address] WBC (Bld) [#/Vol] 4.9 10*3/uL Normal 3.9-11.0 [facility] Comment on above: Performed By: #### L 200.71337 #### Test performed at: [address] [address] COMP META PANELon 01-07-2020 Albumin [Mass/Vol] 3.8 g/dL Normal 3.4-5.0 [facility] Comment on above: Performed By: #### L 500.39928, L500.37610, L500.18696 #### Test performed at: [address] [address] ALK PHOS TOTAL 101 U/L Normal 45-117 [facility] Comment on above: Performed By: #### L 500.04370, L500.99549, L500.09717 #### Test performed at: [address] [address] ALT [Catalytic activity/Vol] 105 U/L High 13-61 [facility] Comment on above: Performed By: #### L 500.18559, L500.13733, L500.56974 #### Test performed at: [address] [address] AST [Catalytic activity/Vol] 166 U/L High 15-37 [facility] Comment on above: Result Comment: Resu lts may be inaccurate due to moderate hemolysis. Performed By: #### L 500.83513, L500.08798, L500.28603 #### Test performed at: [address] [address] BILI TOTAL 1.1 mg/dL High 0.2-1.0 [facility] Comment on above: Performed By: #### L 500.26634, L500.17599, L500.50111 #### Test performed at: [address] [address] Calcium [Mass/Vol] 8.4 mg/dL Low 8.5-10.1 [facility] Comment on above: Performed By: #### L 500.27954, L500.65770, L500.19706 #### Test performed at: [address] [address] Chloride [Moles/Vol] 107 mmol/L Normal 98-107 [facility] Comment on above: Performed By: #### L 500.27093, L500.81304, L500.44037 #### Test performed at: [address] [address] CO2 [Moles/Vol] 24 mmol/L Normal 21-32 [facility] Comment on above: Performed By: #### L 500.28384, L500.09768, L500.48818 #### Test performed at: [address] [address] Creatinine [Mass/Vol] 0.510 mg/dL Low 0.550-1.020 [facility] Comment on above: Performed By: #### L 500.31933, L500.76560, L500.55938 #### Test performed at: [address] [address] Glucose [Mass/Vol] 88 mg/dL Normal 70-99 [facility] Comment on above: Result Comment: Fast ing GLUCOSE reference range has been updated per (ADA) [place] [employer]'s recommendation. 08/11/2018 Performed By: #### L 500.76864, L500.14444, L500.59647 #### Test performed at: [address] [address] Potassium [Moles/Vol] 4.8 mmol/L Normal 3.5-5.1 [facility] Comment on above: Result Comment: Resu lts may be inaccurate due to moderate hemolysis. Performed By: #### L 500.01334, L500.99927, L500.75589 #### Test performed at: [address] [address] Protein [Mass/Vol] 7.5 g/dL Normal 6.4-8.2 [facility] Comment on above: Performed By: #### L 500.49437, L500.71746, L500.92834 #### Test performed at: [address] [address] Sodium [Moles/Vol] 140 mmol/L Normal 136-145 [facility] Comment on above: Performed By: #### L 500.08931, L500.57672, L500.38300 #### Test performed at: [address] [address] Urea nitrogen [Mass/Vol] 3 mg/dL Low 7-18 [facility] Comment on above: Performed By: #### L 500.65153, L500.98997, L500.35425 #### Test performed at: [address] [address] CORONAVIRUSon 01-07-2020 CORONAVIRUS Negative results do not [...] the FDA website: https://www.fda.gov/ MedicalDevices/Safet y/ EmergencySituations/ zxs319722.htm COVID-19 Negative for COVID-19 (SARS-CoV-2 RNA) Normal [facility] Comment on above: Order Comment: Dominik s: MAIN COVID Testing: DIAGNOSTIC Performed By: #### M 400.75525 #### Test performed at: [place] [address] ED Provider Reporton 020 ED Provider Report [facility] Pt Name: CARIDAD REYES MR#: [id number] [address] [place] [address] ACCT: [id number] : 66 EMERGENCY PROVIDER REPORT ADM Date: [...] Decision Making Diagnostics Labs Laboratory Tests Gil 01/06 01/06 1435 1302 Chemistry Sodium (136 [...] pH (5.0 - 8.0) 6.0 Ur Specific [place] (1.005 - 1.030) 1.001 L Urine Protein [...] quite high she will be admitted to [facility] for detoxification for the first time [...] and Time Adalberto York Mariam MD Normal [facility] GFR ESTIMATEon 01-07-2020 IF AMER > 60 Normal > 60 [facility] Comment on above: Result Comment: eGFR (Estimated GFR) Units of measure:mL/min/1.73 meters sq. *CALCULATION REVISED 03/07/2015;IDMS-traceable MDRD equation eGFR is derived from the reexpressed MDRD Study equation using the following parameters: serum creatinine, age, gender and race. An eGFR<60 mL/min/1.73m2 for >3 months is consistent with chronic kidney disease. Refer to KDOQI guidelines for clinical interpretation. Performed By: #### L 500.07395, L500.19358, L500.58400 #### Test performed at: [place] [address] IF non-AFR AMER > 60 Normal > 60 [facility] Comment on above: Performed By: #### L 500.29223, L500.02042, L500.48068 #### Test performed at: [place] [address] LIMIT UR TOXon 01-07-2020 PH TOX 6.0 Normal 5.0-8.0 [facility] Comment on above: Performed By: #### L 600.67709, L600.03660 #### Test performed at: [place] [address] UR AMPH Negative Normal Negative [facility] Comment on above: Result Comment: CUTO QU=[id number] Performed By: #### L 600.75169, L600.73175 #### Test performed at: [place] [address] UR JOY Negative Normal Negative [facility] Comment on above: Result Comment: CUTO SN=729 Performed By: #### L 600.18759, L600.75199 #### Test performed at: [address] [address] UR JENIFFER Negative Normal Negative [facility] Comment on above: Result Comment: CUTO IE=384 Performed By: #### L 600.53509, L600.71488 #### Test performed at: [place] [address] UR BUPREN/NORBU Negative Normal Negative [facility] Comment on above: Result Comment: CUTO FF=10 Performed By: #### L 600.53328, L600.78255 #### Test performed at: [place] [address] UR SHARITA/THC Negative Normal Negative [facility] Comment on above: Result Comment: CUTO FF=50 Performed By: #### L 600.87794, L600.99886 #### Test performed at: [place] [id number] UR NADIRA Negative Normal Negative [facility] Comment on above: Result Comment: CUTO BS=528 Performed By: #### L 600.85017, L600.28836 #### Test performed at: [place] [address] UR ECSTASY Negative Normal Negative [facility] Comment on above: Result Comment: CUTO TJ=683 Performed By: #### L 600.53157, L600.19528 #### Test performed at: [place] [id number] UR FENTANYL Negative Normal Negative [facility] Comment on above: Result Comment: CUTO OW=1897 Performed By: #### L 600.36258, L600.26608 #### Test performed at: [place] [id number] UR METH Negative Normal Negative [facility] Comment on above: Result Comment: CUTO MF=758 Performed By: #### L 600.33154, L600.72800 #### Test performed at: [place] [address] UR OPIAT Negative Normal Negative [facility] Comment on above: Result Comment: CUTO BX=266 Performed By: #### L 600.08696, L600.66969 #### Test performed at: [place] [address] UR OXYCOCONE Negative Normal Negative [facility] Comment on above: Result Comment: CUTO BA=576 Performed By: #### L 600.82422, L600.16630 #### Test performed at: [place] [address] UR PCP Negative Normal Negative [facility] Comment on above: Result Comment: CUTO FF=25 Performed By: #### L 600.30280, L600.87394 #### Test performed at: [place] [address] TOX COMMENT *PLEASE NOTE: Normal [facility] Comment on above: Result Comment: UNCO NFIRMED Toxicology results. For MEDICAL purposes only. Performed By: #### L 600.19062, L600.93924 #### Test performed at: [place] [address] UA COMPLETEon 01-07-2020 Appearance (U) CLEAR Normal CLEAR [facility] Comment on above: Performed By: #### L 600.19492, L600.52580 #### Test performed at: [place] [address] Bilirubin [Mass/Vol] Negative Normal NEGATIVE [facility] Comment on above: Performed By: #### L 600.07585, L600.87625 #### Test performed at: [place] [address] BLOOD 0.03 mg/dL Critically abnormal NEGATIVE [facility] Comment on above: Performed By: #### L 600.69580, L600.19674 #### Test performed at: [address] [address] Color (U) STRAW Normal YELLOW [facility] Comment on above: Performed By: #### L 600.19325, L600.43539 #### Test performed at: [place] [address]6415 Glucose [Mass/Vol] Negative Normal NEGATIVE [facility] Comment on above: Performed By: #### L 600.60510, L600.24897 #### Test performed at: [place] [address] KETONE Negative Normal NEGATIVE [facility] Comment on above: Performed By: #### L 600.46360, L600.01064 #### Test performed at: [place] [address]6415 LEUK ESTERASE Negative Normal NEGATIVE [facility] Comment on above: Performed By: #### L 600.40778, L600.44601 #### Test performed at: [place] [address] Nitrite Ql (U) Negative Normal NEGATIVE [facility] Comment on above: Performed By: #### L 600.14702, L600.60033 #### Test performed at: [place] [address]64[address] Protein [Mass/Vol] Negative Normal NEGATIVE [facility] Comment on above: Performed By: #### L 600.37254, L600.44381 #### Test performed at: [place] [address] RBC (Bld) [#/Vol] 0-2 Normal 0-3 [facility] Comment on above: Performed By: #### L 600.94236, L600.01029 #### Test performed at: [address] [place], [place] [address] SPEC GRAV 1.001 Low 1.005-1.030 [facility] Comment on above: Performed By: #### L 600.23774, L600.66040 #### Test performed at: [address] [address] UA ASC ACID Negative Normal [facility] Comment on above: Performed By: #### L 600.62022, L600.58757 #### Test performed at: [address] [address] UA PH 6.0 Normal 5.0-8.0 [facility] Comment on above: Performed By: #### L 600.83433, L600.31663 #### Test performed at: [address] [address] UROBIL NORMAL Normal NORMAL [facility] Comment on above: Performed By: #### L 600.78415, L600.88526 #### Test performed at: [address] [address] WBC (Bld) [#/Vol] 0-2 Normal 0-5 [facility] Comment on above: Performed By: #### L 600.56507, L600.81183 #### Test performed at: [place] [id number] Chlamydia/GC DNA, Uron 09-23 Protein mass conc Negative Normal NEG [facility] Comment on above: Result Comment: [...] nucleic acid target. Performed By: #### U [facility] #### [address] [address] Api Developer: Brenton Minor MD Result Comment: NEIS SERIA [...] HIV Ag/Abon 09-22-2018 HIV Ag/Ab NONREACTIVE Normal [facility] Comment on above: Result Comment: No l aboratory evidence of HIV infection. If acute HIV infection is suspected, consider testing for HIV-1 RNA. Performed By: #### H IVCMB, PHEP, TREP #### [address] [address] Api Developer: Brenton Minor MD Hepatitis Acute [facility] 09-22 Hep A Ab,IgM NONREACTIVE Normal [facility] Comment on above: Performed By: #### H IVCMB, PHEP, TREP #### [facility] [address] [place] [address] Api Developer: Brenton Minor MD Hep B Core Ab,IgM NONREACTIVE Normal [facility] Comment on above: Performed By: #### H IVCMB, PHEP, TREP #### [facility] [address] [place] [address] Api Developer: Brenton Minor MD Hep B Surf Ag NONREACTIVE Normal [facility] Comment on above: Performed By: #### H IVCMB, PHEP, TREP #### [facility] [address] [place] [address] Api Developer: Brenton Minor MD Hep C Ab NONREACTIVE Normal [facility] Comment on above: Result Comment: The hepatitis [...] By: #### H IVCMB, PHEP, TREP #### [facility] [place], [place] [id number] Api Developer: Brenton Minor MD T.pallidum Ab Screenon 09-22 T.pallidum Ab Screen NONREACTIVE Normal NR [facility] Comment on above: Result Comment: T. pallidum antibodies are not detected. There is no serological evidence of infection with T. pallidum (early primary syphilis cannot be excluded). Retest in 2-4 weeks if syphilis is clinically suspect. Performed By: #### H IVCMB, PHEP, TREP #### [facility] [employer] [facility] [place] [address] Api Developer: Brenton Minor MD .eGFRon 07-25-2018 eGFR Non-AA >60 Normal >=60 [facility] Comment on above: Result Comment: Resu [...] for medication dosing. Performed By: #### C D:[id number] #### [address] [address] eGFR AA >60 Normal >=60 [facility] Comment on above: Result Comment: Resu lt = 0-14.9 mL/min/1.73 m2 Kidney failure or Dialysis Result = 15-29 mL/min/1.73 m2 Severe decrease in GFR Result = 30-59 mL/min/1.73 m2 Moderate decrease in GFR Result >= 60 mL/min/1.73 m2 Normal or increased GFR Performed By: #### C D:[id number] #### [address] [address] CBC w/ Diffon 07-25-2018 Erythrocyte distribution width Ratio (RBC) 13.4 % Normal 11.6-14.8 [facility] Comment on above: Performed By: #### C BC ####[place] [id number] Hematocrit Volume Fraction (Bld) 40.6 % Normal 36.0-46.0 [facility] Comment on above: Performed By: #### C BC ####[place] [address] Hemoglobin mass conc (Bld) 13.9 g/dL Normal 12.0-16.0 [facility] Comment on above: Performed By: #### C BC ####[place] [address] MCH Entitic mass (RBC) 33.5 pg Normal 27.0-35.0 [facility] Comment on above: Performed By: #### C BC ####[place] [address] MCHC mass conc (RBC) 34.1 % Normal 31.0-37.0 [facility] Comment on above: Performed By: #### C BC ####[address] [address] MCV Entitic volume (RBC) 98.1 fL Normal 80.0-100.0 [facility] Comment on above: Performed By: #### C BC ####[address] [address] Platelet mean volume Entitic volume (Bld) 8.4 fL Normal 6.7-10.6 [facility] Comment on above: Performed By: #### C BC ####[address] [address] Platelets #/vol (Bld) 114 x10*3/mcL Low 150-350 [facility] Comment on above: Performed By: #### C BC ####[place] [address] [place] [address] RBC #/vol (Bld) 4.14 x10*6/mcL Normal 3.80-5.20 [facility] Comment on above: Performed By: #### C BC ####[address] [address] WBC #/vol (Bld) 4.8 x10*3/mcL Normal 4.5-11.0 [facility] Comment on above: Performed By: #### C BC ####[address] [address] CMPon 07-25-2018 Albumin mass conc 3.7 g/dL Normal 3.2-4.9 [facility] Comment on above: Result Comment: [facility] Laboratory updated the methodology used for albumin testing on 12/24/17. Albumin measurement was performed using a bromcresol purple dye-binding assay. Performed By: #### C D:[id number] #### [address] [address] Albumin/Globulin mass ratio 1.4 {ratio} Normal 1.1-2.2 [facility] Comment on above: Performed By: #### C D:[id number] #### [address] [address] Alk Phos 68 IU/L Normal 32-91 [facility] Comment on above: Performed By: #### C D:[id number] #### [address] [address] ALT enzyme act/vol 69 U/L High 14-54 [facility] Comment on above: Performed By: #### C D:[id number] #### [address] [address] Anion gap molar conc 15 mmol/L Normal 7-17 [facility] Comment on above: Performed By: #### C D:[id number] #### [address] [address] AST enzyme act/vol 119 U/L High 15-41 [facility] Comment on above: Performed By: #### C D:[id number] #### [address] [address] Bili Total 1.5 mg/dL High 0.3-1.2 [facility] Comment on above: Performed By: #### C D:[id number] #### [address] [address] Calcium mass conc 7.8 mg/dL Low 8.5-10.3 [facility] Comment on above: Performed By: #### C D:[id number] #### [address] [address] Chloride molar conc 104 mmol/L Normal 98-110 [facility] Comment on above: Performed By: #### C D:[id number] #### [address] [address] CO2 molar conc 21 mmol/L Low 22-32 [facility] Comment on above: Performed By: #### C D:[id number] #### [address] [address] Creatinine mass conc 0.51 mg/dL Normal 0.44-1.03 [facility] Comment on above: Performed By: #### C D:[id number] #### [address] [address] Glucose mass conc 88 mg/dL Normal 74-118 [facility] Comment on above: Performed By: #### C D:[id number] #### [address] [address] Potassium molar conc 3.8 mmol/L Normal 3.4-4.8 [facility] Comment on above: Performed By: #### C D:[id number] #### [address] [address] Protein mass conc 6.4 g/dL Low 6.5-8.1 [facility] Comment on above: Performed By: #### C D:[id number] #### [address] [address] Sodium molar conc 136 mmol/L Normal 133-142 [facility] Comment on above: Performed By: #### C D:[id number] #### [address] [address] Urea nitrogen mass conc 7 mg/dL Low 8-26 [facility] Comment on above: Performed By: #### C D:[id number] #### [address] [address] Urea nitrogen/Creatinin e mass ratio 13.7 mg/mg Normal 10.0-20.0 [facility] Comment on above: Performed By: #### C D:[id number] #### [address] [address] Diff Autoon 07-25-2018 Baso Absolute 0.0 x10*3/mcL Normal 0.0-0.2 [facility] Comment on above: Performed By: #### . Automated Diff ####[address] [address] Basophils/100 WBC (Bld) 0.7 % Normal 0.0-1.5 [facility] Comment on above: Performed By: #### . Automated Diff ####[address] [address] Eos Absolute 0.0 x10*3/mcL Normal 0.0-0.4 [facility] Comment on above: Performed By: #### . Automated Diff ####[address] [address] Eosinophils/100 WBC (Bld) 0.3 % Normal 0.0-5.4 [facility] Comment on above: Performed By: #### . Automated Diff ####[address] [address] Lymphocytes #/vol (Bld) 1.6 x10*3/mcL Normal 1.0-4.8 [facility] Comment on above: Performed By: #### . Automated Diff ####[address] [address] Lymphocytes/100 WBC (Bld) 33.7 % Normal 27.2-40.8 [facility] Comment on above: Performed By: #### . Automated Diff ####[address] [address] [place] Absolute 0.4 x10*3/mcL Normal 0.1-1.1 [facility] Comment on above: Performed By: #### . Automated Diff ####[address] [address] Monocytes/100 WBC (Bld) 7.5 % Normal 3.7-11.9 [facility] Comment on above: Performed By: #### . Automated Diff ####[address] [address] Neutro Absolute 2.8 x10*3/mcL Normal 1.8-7.7 [facility] Comment on above: Performed By: #### . Automated Diff ####[address] [address] Neutro Auto 57.8 % Normal 47.2-70.8 [facility] Comment on above: Performed By: #### . Automated Diff ####[address] [address] ED Note-Physicianon 07-26-19 ED Note-Physician Chief Complaint [...] Low Lymph Auto 07/24/18 19:10 50.8 High [place] Auto 07/24/18 19:10 5.9 Eos Auto 07/24/18 19:10 0.1 Basophil Auto 07/24/18 19:10 0.8 Neutro Absolute 07/24/18 19:10 2.3 Lymph Absolute 07/24/18 19:10 2.7 [place] Absolute 07/24/18 19:10 0.3 Eos Absolute 07/24/18 [...] Jonah Hewitt MD 07/25/18 03:59 EST Normal [facility] Ethanolon 07-25-2018 Ethanol mass conc 0.017 g/dL High <=0.005 [facility] Comment on above: Performed By: #### C D:[id number] #### [address] [address] Inpatient Clinical Summaryon 07-25-2018 Inpatient Clinical Summary [address] [address] [address] Clinical Summary Person Information Name: Caridad Reyes Age: 47 Years : 1970 Sex: Female PCP: Marital Status: Single Phone: PCP: Race: White Ethnicity: Not or Language: [place]ill[place] Visit Id: Visit Reason: Alcohol withdrawal Speciality: Acuity: Enc Type: Observation Med Service: Emergency Medicine Arrival: 07/24/2018 16:18:00 Discharge: Dispo Type: Place in Observation Address: [address] [place] [address] Diagnosis: 1:Alcohol intoxication; 2:Suicidal ideation; 3:Alcoholism /alcohol [...] Discharge Special Instructions Follow up at [facility] after discharge in the next 2 weeks. Follow up 07/25/18 12:53:00 EST, 1 to 2 weeks, primary care provider; if you do not have a pcp call [phone] to establish care. Follow up 07/25/18 12:12:00 [...] range between ( 27.2 and 40.8 ) [place] Auto: 7.5 % -- Normal range between [...] range between ( 36.0 and 46.0 ) [place] Absolute: 0.4 x10 MCH: 33.5 pg -- [...] OCCURRED DURING YOUR HOSPITAL STAY New Medications [facility] [address] [place], [place] [id number], [phone] folic acid (folic acid 1 mg oral [...] A LIST OF YOUR PATIENT?S CURRENT MEDICATIONS [facility] [address] [place], [place] [id number], [phone] folic acid (folic acid 1 mg oral [...] or find a primary care provider, call [phone] Within 1 to 2 weeks Comments: Call on Friday to make appointments! With: Address: When: [address] [place] [phone] Business (1) Within 1 to 2 weeks Normal [facility] Lipaseon 07-25-2018 Lipase Lvl 60 IU/L High 22-51 [facility] Comment on above: Performed By: #### L IP ####[place] [id number] MRSA, PCRon 07-25-2018 INR Coag RelTime (Bld) Negative Normal [facility] Comment on above: Result Comment: The CepBookBagid Xpert MRSA Assay is a qualitative in [...] the clinician. Performed By: #### M RSAPC ####[address] [address] PTon 07-25-2018 INR Coag RelTime (PPP) 1.0 {INR} Normal <=3.5 [facility] Comment on above: Result Comment: INR has no normal range. INR Therapeutic range is: 2.0-3.0 (AF, CVA, TIAs, DVT prophylaxis, acute DVT) 2.5-3.5 ([facility] heart valves, recurrent thrombosis/emboli) Performed By: #### P TINR ####[address] [address] Prothrombin time (PT) Coag time (PPP) 10.6 s Normal 9.2-11.7 [facility] Comment on above: Performed By: #### P TINR ####[address] [address] .eGFRon 07-24-2018 eGFR AA >60 Normal >=60 [facility] Comment on above: Order Comment: Order added by Discern rule Result Comment: Resu lt = 0-14.9 mL/min/1.73 m2 Kidney failure or Dialysis Result = 15-29 mL/min/1.73 m2 Severe decrease in GFR Result = 30-59 mL/min/1.73 m2 Moderate decrease in GFR Result >= 60 mL/min/1.73 m2 Normal or increased GFR Performed By: #### E GFR #### [address] [address] eGFR Non-AA >60 Normal >=60 [facility] Comment on above: Order Comment: Order [...] dosing. Performed By: #### E GFR #### [address] [address] Acetaminophen Lvlon 07-25-19 19 Acetaminoph Lvl <10.0 Low 10.0-30.0 [facility] Comment on above: Order Comment: add o n to initial labs if possible Result Comment: Valu es >150 mcg/mL 4 hours post-ingestion, or >75 mcg/mL 8 hours post-ingestion, or >40 mcg/mL 12 hours post ingestion are considered toxic. Performed By: #### A CET ####[place] [address] CBC w/ Diffon 07-24-2018 Erythrocyte distribution width Ratio (RBC) 13.2 % Normal 11.6-14.8 [facility] Comment on above: Performed By: #### C BC #### [place] [id number] Hematocrit Volume Fraction (Bld) 46.1 % High 36.0-46.0 [facility] Comment on above: Performed By: #### C BC #### [place] [id number] Hemoglobin mass conc (Bld) 15.8 g/dL Normal 12.0-16.0 [facility] Comment on above: Performed By: #### C BC #### [place] [id number] MCH Entitic mass (RBC) 33.5 pg Normal 27.0-35.0 [facility] Comment on above: Performed By: #### C BC #### [place] [id number] MCHC mass conc (RBC) 34.2 % Normal 31.0-37.0 [facility] Comment on above: Performed By: #### C BC #### [address] [address] MCV Entitic volume (RBC) 98.0 fL Normal 80.0-100.0 [facility] Comment on above: Performed By: #### C BC #### [place] [id number] Platelet mean volume Entitic volume (Bld) 8.2 fL Normal 6.7-10.6 [facility] Comment on above: Performed By: #### C BC #### [address] [address] Platelets #/vol (Bld) 133 x10*3/mcL Low 150-350 [facility] Comment on above: Performed By: #### C BC #### [address] [address] RBC #/vol (Bld) 4.71 x10*6/mcL Normal 3.80-5.20 [facility] Comment on above: Performed By: #### C BC #### [address] [address] WBC #/vol (Bld) 5.3 x10*3/mcL Normal 4.5-11.0 [facility] Comment on above: Performed By: #### C BC #### [address] [address] CMPon 07-24-2018 Albumin mass conc 4.1 g/dL Normal 3.2-4.9 [facility] Comment on above: Result Comment: [facility] Laboratory updated the methodology used for albumin testing on 12/24/17. Albumin measurement was performed using a bromcresol purple dye-binding assay. Performed By: #### C OMP #### [address] [address] Albumin/Globulin mass ratio 1.2 {ratio} Normal 1.1-2.2 [facility] Comment on above: Performed By: #### C OMP #### [address] [address] Creatinine mass conc 0.61 mg/dL Normal 0.44-1.03 [facility] Comment on above: Performed By: #### C OMP #### [address] [address] Urea nitrogen mass conc 7 mg/dL Low 8-26 [facility] Comment on above: Performed By: #### C OMP #### [address] [address] Urea nitrogen/Creatinin e mass ratio 11.5 mg/mg Normal 10.0-20.0 [facility] Comment on above: Performed By: #### C OMP #### [address] [address] Alk Phos 64 IU/L Normal 32-91 [facility] Comment on above: Performed By: #### C OMP #### [address] [address] ALT enzyme act/vol 75 U/L High 14-54 [facility] Comment on above: Performed By: #### C OMP #### [address] [address] Anion gap molar conc 17 mmol/L Normal 7-17 [facility] Comment on above: Performed By: #### C OMP #### [address] [address] AST enzyme act/vol 119 U/L High 15-41 [facility] Comment on above: Performed By: #### C OMP #### [address] [address] Bili Total 1.0 mg/dL Normal 0.3-1.2 [facility] Comment on above: Performed By: #### C OMP #### [address] [address] Calcium mass conc 7.9 mg/dL Low 8.5-10.3 [facility] Comment on above: Performed By: #### C OMP #### [address] [address] Chloride molar conc 103 mmol/L Normal 98-110 [facility] Comment on above: Performed By: #### C OMP #### [address] [address] CO2 molar conc 20 mmol/L Low 22-32 [facility] Comment on above: Performed By: #### C OMP #### [address] [address] Glucose mass conc 110 mg/dL Normal 74-118 [facility] Comment on above: Performed By: #### C OMP #### [address] [address] Potassium molar conc 3.8 mmol/L Normal 3.4-4.8 [facility] Comment on above: Performed By: #### C OMP #### [address] [address] Protein mass conc 7.4 g/dL Normal 6.5-8.1 [facility] Comment on above: Performed By: #### C OMP #### [address] [address] Sodium molar conc 136 mmol/L Normal 133-142 [facility] Comment on above: Performed By: #### C OMP #### [address] [address] Diff Autoon 07-24-2018 Baso Absolute 0.0 x10*3/mcL Normal 0.0-0.2 [facility] Comment on above: Performed By: #### . Automated Diff #### [address] [address] Basophils/100 WBC (Bld) 0.8 % Normal 0.0-1.5 [facility] Comment on above: Performed By: #### . Automated Diff #### [address] [address] Eos Absolute 0.0 x10*3/mcL Normal 0.0-0.4 [facility] Comment on above: Performed By: #### . Automated Diff #### [address] [address] Eosinophils/100 WBC (Bld) 0.1 % Normal 0.0-5.4 [facility] Comment on above: Performed By: #### . Automated Diff #### [address] [address] Lymphocytes #/vol (Bld) 2.7 x10*3/mcL Normal 1.0-4.8 [facility] Comment on above: Performed By: #### . Automated Diff #### [address] [address] Lymphocytes/100 WBC (Bld) 50.8 % High 27.2-40.8 [facility] Comment on above: Performed By: #### . Automated Diff #### [address] [address] [place] Absolute 0.3 x10*3/mcL Normal 0.1-1.1 [facility] Comment on above: Performed By: #### . Automated Diff #### [address] [address] Monocytes/100 WBC (Bld) 5.9 % Normal 3.7-11.9 [facility] Comment on above: Performed By: #### . Automated Diff #### [address] [address] Neutro Absolute 2.3 x10*3/mcL Normal 1.8-7.7 [facility] Comment on above: Performed By: #### . Automated Diff #### [address] [address] Neutro Auto 42.4 % Low 47.2-70.8 [facility] Comment on above: Performed By: #### . Automated Diff #### [address] [address] ED Clinical Summaryon 2018 ED Clinical Summary [place] [id number] ED Clinical Summary Person Information Name: Caridad Reyes/[facility] Age: 47 Years : 1970 Sex: Female PCP: Marital Status: Single Phone: Race: White Ethnicity: Not or Language: [place]an Visit Reason: Suicidal thoughts; Alcohol withdrawal syndrome; Alcohol withdrawal Acuity: 2 Enc Type: Observation Med Service: Emergency Medicine Arrival: 07/24/2018 16:18:00 Discharge: LOS: 000 03:56 Checkin: 07/24/2018 16:18:00 Checkout: 07/24/2018 20:14:01 Dispo Type: Place in Observation Address: [place] [address] Provider Notes: History of Present Illness Patient [...] range between ( 27.2 and 40.8 ) [place] Auto: 5.9 % -- Normal range between [...] range between ( 36.0 and 46.0 ) [place] Absolute: 0.3 x10 MCH: 33.5 pg -- [...] EST, Intensive Care Unit Patient Education Information: [facility] Poison Help line: . [facility] Hotline: [place] Tobacco Quit Line: [place], [place]) [address]: [phone] [place], [place]) [address]: [phone] [facility] [address] [place], [place]: [phone] [facility] ED Note-Nursingon 07-24-2018 Thyrotropin Qn Patient reports [...] by Andrés Dunn 07/24/18 16:39 EST Normal [facility] ED Note-Physicianon 07-25-19 19 ED Note-Physician Chief [...] in this document, created by the medical health researcher for me, accurately reflects the services I [...] Gerald Alexander MD 07/24/2018 18:45 EST Normal [facility] Ethanolon 07-24-2018 Ethanol mass conc 0.315 g/dL Critically abnormal <=0.005 [facility] Comment on above: Result Comment: Test completion time: 1934 Called date and time: 07/24/2018 19:35:04 EST Result called to and read back by: Randal Gomez RN, ED (First, Last, Title, Location) Performed By: #### A #### [facility] [address] [place] [address] History and Physicalon 07-24 History and Physical [...] to me. - would benefit from outpatient [facility] for depression. Previously on Paxil [...] is low risk for acute alcohol withdrawal. healthcare risk control consultant and case management consult to help establish [...] Oral, q1hr, PRN Motrin, 800 mg, Oral, [id number] Times, PRN Multiple Vitamins oral tablet, 1 [...] Low Lymph Auto 07/24/18 19:10 50.8 High [place] Auto 07/24/18 19:10 5.9 Eos Auto 07/24/18 19:10 0.1 Basophil Auto 07/24/18 19:10 0.8 Neutro Absolute 07/24/18 19:10 2.3 Lymph Absolute 07/24/18 19:10 2.7 [place] Absolute 07/24/18 19:10 0.3 Eos Absolute 07/24/18 [...] No qualifying data available. Electronically signed by DoCaridad vera DO 07/25/18 06:47 EST Normal [facility] Magnesiumon 07-24-2018 Magnesium mass conc 1.9 mg/dL Normal 1.7-2.4 [facility] Comment on above: Performed By: #### M G #### [address] [address] Phosphoruson 07-24-2018 Phosphate mass conc 3.3 mg/dL Normal 2.5-4.6 [facility] Comment on above: Performed By: #### P HOS ####[address] [address] Salicylateon 07-24-2018 Salicylate Levl <4.0 Low 0.0-30.0 [facility] Comment on above: Order Comment: add o n to initial labs if possible Performed By: #### S AL ####[address] [address] UDS Compon 07-24-2018 Creatinine mass conc 19.7 mg/dL Normal [facility] Comment on above: Performed By: #### C [id number] #### [address] [address] Ur Amph Scrn Negative Normal NEG = <1000 [facility] Comment on above: Performed By: #### C [id number] #### [address] [address] Ur Joy Scrn Negative Normal NEG = <[address] [facility] Comment on above: Performed By: #### C [id number] #### [address] [address] Ur Benzodia Scrn Negative Normal NEG = <200 [facility] Comment on above: Performed By: #### C [id number] #### [address] [address] Ur Cannab Scrn Negative Normal NEG = <50 [facility] Comment on above: Performed By: #### C [id number] #### [facility] [address] [place] [address] Ur Cocaine Scrn Negative Normal NEG = <300 [facility] Comment on above: Performed By: #### C [id number] #### [facility] [address] [place] [address] Ur Methadone Scn Negative Normal NEG = <300 [facility] Comment on above: Performed By: #### C [id number] #### [address] [address] Ur Opiate Scrn Negative Normal NEG = <300 [facility] Comment on above: Performed By: #### C [id number] #### [address] [address] Ur Oxy Screen Negative Normal NEG = <100 [facility] Comment on above: Performed By: #### C [id number] #### [address] [address] Ur Oxy Scrn Qnt 5 ng/mL Normal <=99 [facility] Comment on above: Performed By: #### C D:[id number] #### [address] [address] Ur PCP Scrn Negative Normal NEG = <25 [facility] Comment on above: Performed By: #### C [id number] #### [address] [address] UA pH 6.0 Normal 4.5 - 7.8 [facility] Comment on above: Performed By: #### C D:[id number] #### [address] [address] UA Spec Grav 1.003 Normal 1.003-1.035 [facility] Comment on above: Performed By: #### C D:[id number] #### [address] [address] Vital Signs Date Time Vital Sign Value Performing Clinician Facility 06-02-2024 09:45-0500 Body height 158.8 cm Carrie Todd STOCK CONTROL CLERK Work Phone: [facility] 06-02-2024 09:45-0500 Body mass index (BMI) [Ratio] 32.04 kg/m2 Carrie Billyholz STOCK CONTROL CLERK Work Phone: [facility] 06-02-2024 09:45-0500 Body temperature 98.1 [degF] Carrie Todd STOCK CONTROL CLERK Work Phone: [facility] 06-02-2024 09:45-0500 Body weight 80.74 kg Carrie Nunezz STOCK CONTROL CLERK Work Phone: [facility] 06-02-2024 09:45-0500 Diastolic blood pressure 84 mm[Hg] Carrie Billyholz STOCK CONTROL CLERK Work Phone: [facility] 06-02-2024 09:45-0500 Heart rate 100 /min Carriemilton Nunezz STOCK CONTROL CLERK Work Phone: [facility] 06-02-2024 09:45-0500 Respiratory rate 18 /min Carrie Mariajoseholz STOCK CONTROL CLERK Work Phone: [facility] 06-02-2024 09:45-0500 SaO2% (BldA) [Mass fraction] 98 % Carrie Nunezz STOCK CONTROL CLERK Work Phone: [facility] 06-02-2024 09:45-0500 Systolic blood pressure 134 mm[Hg] Carrie Nunezz STOCK CONTROL CLERK Work Phone: [facility] 01-29-2023 14:05-0400 Body height 157.48 cm Renee Ballesteros Other [facility] Other 01-29-2023 14:05-0400 Body mass index (BMI) [Ratio] 31.64 kg/m2 Renee Ballesteros Other [facility] Other 01-29-2023 14:05-0400 Body temperature 98.5 [degF] Renee Ballesteros Other [facility] Other 01-29-2023 14:05-0400 Body weight 78.47 kg Renee Ballesteros Other [facility] Other 01-29-2023 14:05-0400 Respiratory rate 18 /min Renee Ballesteros Other [facility] Other 01-29-2023 14:05-0400 SaO2% (BldA) [Mass fraction] 97 % Renee Ballesteros Other [facility] Other 08-08-2022 16:06-0400 Blood Pressure Location [facility] 08-08-2022 16:06-0400 Body temperature 97.88 [degF] [facility] 08-08-2022 16:06-0400 Diastolic blood pressure 84 mm[Hg] A[facility]glo [facility] 08-08-2022 16:06-0400 Heart rate 80 /min [facility] 08-08-2022 16:06-0400 Respiratory rate 14 /min [facility] 08-08-2022 16:06-0400 SaO2% (BldA) [Mass fraction] 97 % [facility] 08-08-2022 16:06-0400 Systolic blood pressure 131 mm[Hg] [facility] 05-15-2022 14:26-0500 Blood Pressure Location Ede BHAKTA [facility] [place] 05-15-2022 14:26-0500 Diastolic blood pressure 92 mm[Hg] Ede VEGAL [facility] [place] 05-15-2022 14:26-0500 Heart rate 70 /min Ede NILL [facility] [place] 05-15-2022 14:26-0500 Respiratory rate 16 /min Ede NILL [facility] [place] 05-15-2022 14:26-0500 Systolic blood pressure 120 mm[Hg] Ede NILL [facility] [place] 04-30-2021 11:15-0500 Body height 157.48 cm Lashonda Ginty Other [facility] Other 04-30-2021 11:15-0500 Body mass index (BMI) [Ratio] 25.6 kg/m2 Lashonda Ginty Other [facility] Other 04-30-2021 11:15-0500 Body temperature 98.3 [degF] Lashonda Ginty Other [facility] Other 04-30-2021 11:15-0500 Body weight 63.5 kg Lashonda Ginty Other [facility] Other 04-30-2021 11:15-0500 SaO2% (BldA) [Mass fraction] 98 % Lashonda Ginty Other [facility] Other Encounters Encounter Date Encounter Type Care Provider Facility Start: 07-28-2024 End: 07-28-2024 Orders Only Carrie Todd NP Work Phone: [facility] Comment on above: Asymptomatic microsc opic hematuria (Primary Dx) Start: 07-27-2024 End: 07-27-2024 Clinisync Result Encounter Carrie Todd NP Work Phone: [facility] External Department Unsolicited Start: 07-27-2024 End: 07-27-2024 Clinisync Result Encounter Carrie Perez STOCK CONTROL CLERK Work Phone: [facility] External Department Unsolicited Start: 07-18-2024 End: 07-19-2024 Refill Carrie Mariajoseholz STOCK CONTROL CLERK Work Phone: [facility] Comment on above: Essential (primary) hypertension (CMS/HCC); Anxiety Start: 06-02-2024 End: 06-02-2024 Bamboo flowsheet Carrie Enriquez STOCK CONTROL CLERK Work Phone: [facility] Start: 06-02-2024 End: 06-02-2024 Bamboo flowsheet Carrie Pamelareshmajiz STOCK CONTROL CLERK Work Phone: [facility] Start: 06-02-2024 End: 06-02-2024 ambulatory CARRIE PAMELAReshmaHOLZ Not Available Start: 06-02-2024 End: 06-02-2024 Office outpatient visit 25 minutes Carrie Perez STOCK CONTROL CLERK Work Phone: [facility] Comment on above: Anxiety (Primary Dx) ; [...] Start: 04-23-2024 End: 04-25-2024 Refill Carrie Aichholz STOCK CONTROL CLERK Work Phone: [facility] Comment on above: Insomnia, unspecifie d type; Neuropathy Start: 01-31-2024 End: 02-01-2024 Refill Carrie Aichholz STOCK CONTROL CLERK Work Phone: [facility] Comment on above: Anxiety Start: 01-22-2024 End: 01-23-2024 Refill Carrie Mariajoseholz STOCK CONTROL CLERK Work Phone: [facility] Comment on above: Essential (primary) hypertension (CMS/HCC); Neuropathy Start: 12-02-2023 End: 12-02-2023 ambulatory CARRIE AICHHOLZ Not Available Start: 08-27-2023 Patient encounter procedure Carrie Mariajoseholz STOCK CONTROL CLERK Work Phone: [facility] Start: 08-27-2023 End: 08-27-2023 ambulatory CARRIE AICHHOLZ Not Available Start: 07-09-2023 End: 07-09-2023 ambulatory CARRIE AICHHOLZ Not Available Start: 01-29-2023 End: 01-29-2023 ambulatory Renee Ballesteros Other [facility] Other Start: 01-29-2023 Office outpatient vi sit 15 minutes Renee Ballesteros [facility] Start: 10-09-2022 End: 10-10-[address] JUANIS RIZO Facility: Start: 08-08-2022 End: 08-09-2022 ambulatory Angelo BERNARD Facility: Longterm Start: 08-08-2022 End: 08-08-2022 Off-Site [facility] Start: 08-06-2022 ambulatory Ede BHAKTA Facility: [facility] Start: 06-12-2022 Encounter for preprocedural laboratory examination DR EDE Tijerina [facility] Start: 06-12-2022 End: 06-13-2022 ambulatory Ede BHAKTA Facility:[id number] Start: 06-08-2022 End: 06-09-[address] EDE Tijerina Facility:[facility] Start: 06-08-2022 End: 06-09-2022 Encounter for preprocedural laboratory examination DR EDE Tijerina Facility: Start: 05-15-2022 End: 05-16-2022 ambulatory Ede BHAKTA Facility:[facility] Start: 05-15-2022 End: 05-15-2022 Patient encounter procedure Ede R NILL [facility] [place] Start: 05-06-2022 End: 05-07-2022 ambulatory LEVEL VIAL MARKER CARRIE BILLYJISav Facility:[facility] Start: 04-27-2022 Encounter for genera l adult medical examination without abnormal findings [facility] Start: 04-24-2022 End: 04-25-2022 ambulatory LEVEL VIAL MARKER CARRIE TODD Facility:[facility] Start: 04-24-2022 End: 04-25-2022 Encounter for general adult medical examination without abnormal findings LEVEL VIAL MARKER [facility] Start: 04-03-2022 ambulatory Ede BHAKTA Facility :[facility] Start: 02-10-2022 End: 02-10-2022 ambulatory JODIE FIELDS Facility:[facility] Start: 04-30-2021 End: 04-30-2021 ambulatory Lashonda Horton Other [facility] Other Start: 04-30-2021 Office outpatient vi sit 15 minutes Lashonda Horton [facility] Start: 09-21-2018 Encounter for genera l adult medical examination without abnormal findings [facility] Start: 09-21-2018 End: 09-22-2018 Patient encounter procedure [facility] Start: 09-21-2018 Encounter for genera l adult medical examination without abnormal findings [facility] Start: 09-21-2018 End: 09-21-2018 Patient encounter procedure [facility] Start: 07-24-2018 End: 07-25-2018 Patient encounter procedure Angelo Tee Facility:[facility] Encounter for genera l adult medical examination without abnormal findings [facility] Procedures Date Procedure Procedure Detail Performing Clinician Start: 07-27-2024 MM TOMOSYNTHESIS SCREENING BI Carrie Torres mclean STOCK CONTROL CLERK Work Phone: Start: 07-27-2024 Mammography Crarie Perez STOCK CONTROL CLERK Work Phone: Start: 06-02-2024 Hemoglobin glycosylated a1c Carrie Enrique magana STOCK CONTROL CLERK Work Phone: Start: 08-27-2023 Microscopic observation [Identifier] in Cervix by Cyto stain Carrie Perez STOCK CONTROL CLERK Work Phone: Start: 07-23-2023 Mammography Carrie Todd STOCK CONTROL CLERK Work Phone: Start: 06-12-2022 Colonoscopy Carrie Perez STOCK CONTROL CLERK Work Phone: Start: 09-21-2018 Acute hepatitis panel [facility] Start: 09-21-2018 Antibody hiv-1&hiv-2 single result [facility] Start: 09-21-2018 Antibody treponema pallidum [facility] Start: 09-21-2018 C.TRACHOMATIS N.GONORRHOEAE DNA, URINE [facility] Colonoscopy Ede JEANETTE Dilation and curettage Gerson VEGAL Esophageal erosions (disorder) Ede NILL Esophagogastroduodenoscopy M david VEGAL Plan of Treatment Date Care Activity Detail Author Start: 06-12-2032 Screening for malign ant neoplasm of colon [facility] Start: 08-26-2026 Screening for malign ant neoplasm of cervix [facility] Start: 07-27-2025 Screening for malign ant neoplasm of breast Mammogram [facility] Start: 09-02-2024 End: 09-02-2024 Patient encounter procedure 09/02/2024 10:30 AM EDT Office Visit [facility] [address] [place] [id number] Carrie Todd NP [address] [place] [id number] [facility] Start: 08-28-2024 End: 07-28-2025 Bacteria identified in Urine by Culture Urine culture (clean catch) Microbiology Routine Asymptomatic microscopic hematuria Expected: 08/28/2024 (Approximate), Expires: 07/28/2025 [facility] Comment on above: Expected: 08/28/2024 (Approximate), Expires: 07/28/2025 Start: 08-28-2024 End: 07-28-2025 Urinalysis complete panel - Urine Urinalysis with reflex microscopic (clean catch) Lab Routine Asymptomatic microscopic hematuria Expected: 08/28/2024 (Approximate), Expires: 07/28/2025 [facility] Work Phone: Comment on above: Expected: 08/28/2024 (Approximate), Expires: 07/28/2025 Start: 07-22-2024 End: 07-31-2025 MG Breast - bilateral Screening Bilateral screening mammogram Imaging Routine Encounter for screening mammogram for malignant neoplasm of breast Expected: 07/22/2024 (Approximate), Expires: 07/31/2025 [facility] Work Phone: Comment on above: Expected: 07/22/2024 (Approximate), Expires: 07/31/2025 Start: 07-22-2024 Screening for malign ant neoplasm of breast Mammogram [facility] Start: 06-02-2024 End: 06-02-2025 25-hydroxyvitamin D3 [Mass/volume] in Serum or Plasma Vitamin D 25 hydroxy Lab Routine Neuropathy Expected: 06/02/2024 (Approximate), Expires: 06/02/2025 [facility] Comment on above: Expected: 06/02/2024 (Approximate), Expires: 06/02/2025 Start: 06-02-2024 End: 06-02-2025 CBC W Auto Differential panel - Blood CBC and differential Lab Routine Cigarette nicotine dependence without complication Expected: 06/02/2024 (Approximate), Expires: 06/02/2025 [facility] Comment on above: Expected: 06/02/2024 (Approximate), Expires: 06/02/2025 Start: 06-02-2024 End: 06-02-2025 Cobalamin (Vitamin B12) [Mass/volume] in Serum or Plasma Vitamin B12 Lab Routine Neuropathy Expected: 06/02/2024 (Approximate), Expires: 06/02/2025 [facility] Comment on above: Expected: 06/02/2024 (Approximate), Expires: 06/02/2025 Start: 06-02-2024 End: 06-02-2025 Comprehensive metabolic 2000 panel - Serum or Plasma Comprehensive metabolic panel Lab Routine Primary hypertension (CMS/HCC) Expected: 06/02/2024 (Approximate), Expires: 06/02/2025 [facility] Comment on above: Expected: 06/02/2024 (Approximate), Expires: 06/02/2025 Start: 06-02-2024 End: 06-02-2025 Lipid 1996 panel - Serum or Plasma Lipid panel Lab Routine Alcohol dependence, in remission (CMS/HCC) Elevated glucose Expected: 06/02/2024 (Approximate), Expires: 06/02/2025 [facility] Comment on above: Expected: 06/02/2024 (Approximate), Expires: 06/02/2025 Start: 06-02-2024 End: 06-02-2025 Microalbumin/Creatinine panel in random Urine Microalbumin / creatinine, urine ratio Lab Routine Primary hypertension (CMS/HCC) Expected: 06/02/2024 (Approximate), Expires: 06/02/2025 [facility] Comment on above: Expected: 06/02/2024 (Approximate), Expires: 06/02/2025 Start: 06-02-2024 End: 06-02-2025 Thyrotropin [Units/volume] in Serum or Plasma TSH Lab Routine Anxiety Expected: 06/02/2024 (Approximate), Expires: 06/02/2025 [facility] Comment on above: Expected: 06/02/2024 (Approximate), Expires: 06/02/2025 Start: 06-02-2024 End: 06-02-2025 Thyroxine (T4) free [Mass/volume] in Serum or Plasma T4, free Lab Routine Anxiety Expected: 06/02/2024 (Approximate), Expires: 06/02/2025 [facility] Comment on above: Expected: 06/02/2024 (Approximate), Expires: 06/02/2025 Start: 06-02-2024 End: 06-02-2025 Urinalysis complete panel - Urine Urinalysis with reflex microscopic (clean catch) Lab Routine Primary hypertension (CMS/HCC) Expected: 06/02/2024 (Approximate), Expires: 06/02/2025 [facility] Comment on above: Expected: 06/02/2024 (Approximate), Expires: 06/02/2025 Start: 06-02-2024 End: 06-02-2024 Patient encounter procedure 06/02/2024 9:40 AM EST Office Visit [facility] [address] [phone] Carrie Todd NP [address] [place] [address] [place] [id number] [facility] Start: 1998 Screening for malign ant neoplasm of cervix HPV/Cotest [facility] Start: 1968 Screening for malign ant neoplasm of colon [facility] Immunizations Immunization Date Immunization Notes Care Provider Fa cili 12-13-2021 influenza virus vaccine, unspecified formulation [facility] 12-13-2021 influenza, high dose seasonal, preservative-free Carrie Todd STOCK CONTROL CLERK Work Phone: [facility] 09-27-2020 SARS-CoV-2 (COVID-19 ) mRNA BNT-162b2 vax Ede SILVIAL [facility] 09-08-2020 SARS-CoV-2 (COVID-19 ) mRNA BNT-162b2 vax Ede NILL [facility] 09-21-2018 tuberculin skin test ; purified protein derivative solution, intradermal Carrie Todd STOCK CONTROL CLERK Work Phone: [facility] 09-21-2018 unknown vaccine or immune globulin Carrie Todd STOCK CONTROL CLERK Work Phone: [facility] NEGATED: Highlighted row has not occurred!05-15-2022 influenza virus vaccine, unspecified formulation Ede BHAKTA [facility] Payers Date Payer Category Payer Private Health Insurance [facility] N [id number] 2022 Unknown RISHABH Nugent [place] [id number] 2022-Present [phone] [address] [place] B[place] [id number] 2018 Self-pay 1968 Unknown [id number] [id number] .196 1968 Unknown [id number] 2.16.840.1.892174.3.579.2 .727 1968 Unknown [id number] 2.16.840.1.603191.3.579.2 .727 1968 Unknown [id number] 2.16.840.1.584778.3.579.2 .727 1968 Unknown [id number] 2.16.840.1.607425.3.579.2 .593 1968 Unknown [id number] 2.16.840.1.469815.3.579.2 .593 1968 Unknown [id number] 2.16.840.1.379204.3.579.2 .59 1968 Unknown [id number] 2.16.840.1.636091.3.579.2 .593 1968 Unknown [id number] 2.16.840.1.812915.3.579.2 .593 1968 Unknown [id number] 2.16.840.1.979103.3.579.2 .593 1968 Unknown [id number] 2.16.840.1.773686.3.579.2 .1259 1968 Unknown [id number] 2.16.840.1.669841.3.579.2 .1259 1968 Unknown [id number] 2.16.840.1.700277.3.579.2 .1259 1968 Unknown [id number] 2.16.840.1.036312.3.579.2 .1259 1959 Unknown [id number] Private Health Insurance [id number] Social History Date Type Detail Facility Start: 04-14-2023 End: 07-02-2023 Sex Assigned At [facility] Start: 05-15-2022 Tobacco smoking status Heavy t obacco smoker (finding) [facility] [place] Tobacco smoking status Smokeless tobacco user within last 30 days [facility] [place] Start: 12-02-2023 Tobacco smoking stat [facility] Smokes tobacco daily [facility] History of [...] to any clubs or organizations such as muslim groups, unions, fraternal or athletic groups, or [...] Result Facility 08-08-2022 Functional Status N/A [facility] 05-15-2022 Functional Status N/A General [facility] rocío [facility] Clinical Notes 04-30-2021 to 06-02-2024 Carrie Todd NP - 06/02/2024 10:27 AM ESTCarrie Todd, CARRIE - 06/02/2024 10:17 AM ESTCathiesa Perez, STOCK CONTROL CLERK - 06/02/2024 10:09 AM ESTLisa Todd, CARRIE - 06/02/2024 10:01 AM ESTPatient Instructions Note Date & Type Note Facility 06-02-2024 History of Presen t illness Narrative Associated Problem(s): Seasonal allergies Restart her flonase and allergy pill Associated Problem(s): Alcohol dependence, in remission ([facility]) It will be 3 years 09/24/24 Doing [...] HISTORY Past Medical History: Diagnosis Date Alcoholism ([facility]) 07/09/2023 Allergic ? Anxiety Asymptomatic microscopic hematuria 07/09/2023 Depression ([facility]) ? Hypertension ([facility]) ? Insomnia Muscle spasm 07/09/2023 Neuropathy Rhabdomyolysis 07/09/2023 Seasonal allergies Substance abuse ([facility]) ? Tobacco user Vision impairment History reviewed. [...] Relevant Orders TSH T4, free HTN (hypertension) ([facility]) Please check blood pressure daily and record [...] of the risks of continued smoking: stroke, RI, all forms of cancer, lung disease, and [...] of the risks of continued smoking: stroke, RI, all forms of cancer, lung disease, and [...] past, will recheck Associated Problem(s): HTN (hypertension) (CMS/[facility]) Please check blood pressure daily and record DASH diet Limit caffeine Take medication as directed Contact office if chest pain, pressure, dizziness, shortness of breath, swelling legs Recommend slow position changes Current med: lisinopril Associated Problem(s): Neuropathy Currently takes gabapentin for this OARRS reviewed as well Associated Problem(s): Insomnia No longer requires trazodone for sleep purposes documented in this encounter [facility] 06-02-2024 Instructions Carrie Todd NP - 06/02/2024 9:40 AM EST Your labs are still due, order given Mammogram needed in July 2024, we will send order to [facility], phone number to schedule: [phone], ext [phone] Pre diabetes: no meds at this time, I would like you to work on diet changes: decrease carbohydrates (bread, pasta, potatoes), cut back on sugary drinks and foods, more exercise 30 minutes daily (most days of the week) stationary bike, walking, swimming Recommend weight loss as well documented in this encounter [facility] 01-29-2023 Evaluation note Encounter Date Diagnosis [...] days Jan, Sore throat (ICD-10 - J02.9) [facility] Other 01-25-2023 NoteOPERATIVE NOTE OPERATION DATE: 06/12/2022 [...] be in 10 years. CC: Carrie Todd, [facility]12-28-2022 NoteChief Complaint consultation for screening colonoscopy HPI [...] Recorded SARS-CoV-2 (COVID-19) mRNA BNT-162b2 vax 09/08/2020 RecordedLakehealth Tripoint Medical CenterComment on above:Result Comment: Electronically Signed By: JEANETTE ECHAVARRIA, Ede Leblanc\Date and Time Signed: 05/15/22 15:00 [id number] Evaluation note * Encounter Date Diagnosis Assessment [...] [facility] Care At Home document [facility] Other Evaluation + Plan note No data available for this section General Surgery [place] Evaluation note* Diagnosis Primary hypertension (CMS/HCC)- Primary [...] dependence, unspecified drinking behavior History of alcoholism (CMS/[facility]) Personal history of alcoholism Anxiety- Primary Anxiety state, unspecified Alcohol dependence, in remission (CMS/[facility]) Insomnia, unspecified type Neuropathy Mononeuritis of unspecified [...] abnormal glucose Obesity (BMI 30.0-34.9) Primary hypertension ([facility]/HCC)- Primary Unspecified essential hypertension Other muscle spasm Insomnia, unspecified type Neuropathy Mononeuritis of unspecified site BMI 29.0-29.9,adult Tobacco user Tobacco use disorder Anxiety Anxiety state, unspecified Alcoholism ([facility]) Other and unspecified alcohol dependence, unspecified drinking behavior History of alcoholism ([facility]) Personal history of alcoholism Anxiety- Primary Anxiety state, unspecified Alcohol dependence, in remission ([facility]) Insomnia, unspecified type Neuropathy Mononeuritis of unspecified site Primary hypertension ([facility]/HCC) Unspecified essential hypertension Asymptomatic microscopic hematuria Elevated [...] Other muscle spasm Pre-diabetes Other abnormal glucose Asymptomatic microscopic hematuria- Primary documented in this encounter [facility] N[facility] - Reported* Type Description Date Medical History Unspecified essential hypertensi on [facility] Other History general Narrative - Reported* Type Description Date Medical History HTN (hypertension) Medical History Anxiety Medical History Insomnia Medical History Drug addiction Medical History Seasonal allergic rhinitis [facility] Other Hospital Discharge instructions No data available for this section General Surgery [place] Progress note No data available for this section General Surgery [place] Summary Purpose Family History No Family History [...] abuse, hypertension, depression Consulting Providers: Khadijah Rodriguez [employer] History of Present Illness PCP: none code [...] section and content) DATE CREATED AUTHOR 07/27/2018 [facility] DATE CREATED AUTHOR AUTHOR'S ORGANIZ ATION 10/06/2018 [facility] DATE CREATED AUTHOR AUTHOR'S ORGANIZ ATION 01/08/2020 [facility] DATE CREATED AUTHOR AUTHOR'S ORGANIZ ATION 10/24/2021 [facility] DATE CREATED AUTHOR AUTHOR'S ORGANIZ ATION 08/20/2022 [facility] DATE CREATED AUTHOR AUTHOR'S ORGANIZ ATION 10/25/2022 [facility] DATE CREATED AUTHOR AUTHOR'S ORGANIZ ATION 06/05/2024 [facility] dical Specialists EPIC REASON FOR VISIT (unrecogniz ed section and content) Reason Comments Med Refill Reason Comments Hypertension Patient Care team informatio n (unrecognized section and content) Patching Machine Operator Relationship Specialty Start Date End Date Son Vasquez MD [address] [place] [phone] PCP - General Family Medicine 07/09/23 Carrie Todd NP [address] [place] [phone] Nurse Practitioner Family Medicine 05/19/22 Carrie Todd NP [address] [place] [phone] Nurse Practitioner Family Medicine 07/09/23 Patching Machine Operator Relationship Specialty Start Date End Date Son Vasquez MD [address] [place] [phone] PCP - General Family Medicine 07/09/23 Carrie Todd NP [address] [place] [phone] Nurse Practitioner Family Medicine 05/19/22 Carrie Todd NP [address] [place] [phone] Nurse Practitioner Family Medicine 07/09/23 Patching Machine Operator Relationship Specialty Start Date End Date Son Vasquez MD [address] [place] [phone] PCP - General Family Medicine 07/09/23 Carrie Todd NP [address] [place] [phone] Nurse Practitioner Family Medicine 05/19/22 Carrie Todd NP [address] [place] [phone] Nurse Practitioner Family Medicine 07/09/23 Patching Machine Operator Relationship Specialty Start Date End Date Son Vasquez MD [address] [place] [phone] PCP - General Family Medicine 07/09/23 Carrie Todd NP [address] [place] [phone] Nurse Practitioner Family Medicine 05/19/22 Carrie Todd NP [address] [place] [phone] Nurse Practitioner Family Medicine 07/09/23 Patching Machine Operator Relationship Specialty Start Date End Date Son Vasquez MD [address] [place] [phone] PCP - General Family Medicine 07/09/23 Carrie Todd NP [address] [place] [phone] Nurse Practitioner Family Medicine 05/19/22 Carrie Todd NP [address] [place] [phone] Nurse Practitioner Family Medicine 07/09/23 Patching Machine Operator Relationship Specialty Start Date End Date Son Vasquez MD [address] [place] [phone] PCP - General Family Medicine 07/09/23 Carrie Todd NP [address] [place] [address] Nurse Practitioner Family Medicine 05/19/22 Carrie Todd NP [address] [place] [phone] Nurse Practitioner Family Medicine 07/09/23 Patching Machine Operator Relationship Specialty Start Date End Date Son Vasquez MD [address] [place] [phone] PCP - General Family Medicine 07/09/23 Carrie Todd NP [address] [place] [phone] Nurse Practitioner Family Medicine 05/19/22 Carrie Todd NP [address] [place] [address] Nurse Practitioner Family Medicine 07/09/23 Patching Machine Operator Relationship Specialty Start Date End Date Son Vasquez MD [address] [place] [phone] PCP - General Family Medicine 07/09/23 Carrie Todd NP [address] [place] [phone] Nurse Practitioner Family Medicine 05/19/22 Carrie Todd NP [address] [place] [address] Nurse Practitioner Family Medicine 07/09/23 FOR RECORDS PERTAINING TO PATIENTS WHO [...] BE BASED ON THE PRIMARY CLINICAL RECORDS. [facility] [employer] provides no warranty or guarantee of the accuracy or completeness of information in this document.
--- NOTE | 2024-08-10 00:47 | ED_ITS ---
HPI HPI - General Adult General Chief complaint: Extremity Problem, Nontraumatic Stated complaint: L WRIST PAIN/SWELLING Time Seen by Provider: 08/10/24 00:41 Source: patient Mode of arrival: walk-in Limitations: no limitations History of Present Illness HPI narrative: 53-year-old female who is right-handed presents for left wrist pain. She states it has been hurting for months and there was no specific injury. She took 800 mg of ibuprofen tonight. No pain in the right wrist and she is not aware of any issues with arthritis in the past. Related Data Home Medications ?Medication ?Instructions ?Recorded ?Confirmed cyclobenzaprine 10 mg tablet 10 mg PO Q12H PRN muscle spasm 01/20/23 01/20/23 gabapentin 300 mg capsule 300 mg PO Q8H 01/20/23 01/20/23 lisinopril 5 mg tablet 5 mg PO DAILY 01/20/23 01/20/23 paroxetine HCl 30 mg tablet 30 mg PO DAILY 01/20/23 01/20/23 trazodone 50 mg tablet 50 mg PO BEDTIME 01/20/23 01/20/23 Previous Rx's ?Medication ?Instructions ?Recorded prednisone 50 mg tablet 50 mg PO DAILY 5 days #5 tabs 01/21/23 etodolac 300 mg capsule 300 mg PO Q8H PRN pain #20 caps 08/10/24 Allergies Allergy/AdvReac Type Severity Reaction Status Date / Time hornet venom Allergy Severe Anaphylaxis Verified 08/10/24 00:45 cephalexin Allergy Intermediate Rash Verified 08/10/24 00:45 Opioid HPI Opioid Management Most Recent Opioid Data: Last Pain Scale 1 01/21/23 01:13 01/21/23 Review of Systems ROS Narrative A ten point review of systems is negative except as noted above. [facility] Medical History (Updated 08/10/24 @ 01:00 by Nam Sin MD) Alcohol abuse, in remission ?F10.11 - Alcohol abuse, in remission (ICD-10) Bee sting-induced anaphylaxis ?T63.441A - Toxic effect of venom of bees, accidental (unintentional), initial encounter (ICD-10) Anxiety ?F41.9 - Anxiety disorder, unspecified (ICD-10) Neuropathy ?G62.9 - Polyneuropathy, unspecified (ICD-10) HTN (hypertension) ?I10 - Essential (primary) hypertension (ICD-10) Anaphylaxis ?T78.2XXA - Anaphylactic shock, unspecified, initial encounter (ICD-10) Family History (Updated 01/20/23 @ 14:31 by Amanda Kenyon) Mother Family history of diabetes mellitus Family history of hypertension Social History Little interest or pleasure in doing things: not at all Feeling down, depressed, or hopeless: not at all Exam Narrative Exam Narrative: Nurses note and vital signs reviewed and patient is not hypoxic. General: The patient appears well and in no apparent distress. Patient is resting comfortably on cart. Skin: Warm, dry, no pallor noted. There is no rash noted. Head: Normocephalic, atraumatic Eye: Normal conjunctiva, no drainage Ears, Nose, Mouth, and Throat: oral mucosa is moist. Nares patent. Cardiovascular: Regular Rate and Rhythm Respiratory: Patient is in no distress, no accessory muscle use, lungs are clear to auscultation, no wheezing, rales or rhonchi Back: non-tender GI: Nontender Musculoskeletal: The left wrist is examined. There is no bruising rash or swelling. Radial pulse 2+ and fingers have full range of motion. Neurological: A&O, normal speech Psychiatric: Cooperative Constitutional Vital Signs, click to edit/add: Last Vital Signs Temp 97.7 F 08/10/24 00:40 Pulse 86 08/10/24 00:40 Resp 18 08/10/24 00:40 BP 184/104 H 08/10/24 00:40 Pulse Ox 99 08/10/24 00:40 O2 Del Method Room Air 08/10/24 00:40 Course Vital Signs Vital signs: Vital Signs Temperature 97.7 F 08/10/24 00:40 Pulse Rate 86 08/10/24 00:40 Respiratory Rate 18 08/10/24 00:40 Blood Pressure 184/104 H 08/10/24 00:40 Pulse Oximetry 99 08/10/24 00:40 Oxygen Delivery Method Room Air 08/10/24 00:40 Temperature 97.7 F 08/10/24 00:40 Pulse Rate 86 08/10/24 00:40 Respiratory Rate 18 08/10/24 00:40 Blood Pressure 184/104 H 08/10/24 00:40 Pulse Oximetry 99 08/10/24 00:40 Oxygen Delivery Method Room Air 08/10/24 00:40 Medical Decision Making MDM Narrative Medical decision making narrative: X-ray of the wrist on my interpretation shows mild arthritis. Splint applied, application checked by me and found to be appropriate and she is neurovascularly intact. She was prescribed Lodine and she will follow-up with her PCP. Treatment diagnosis and follow-up were discussed with the patient. Differential Diagnosis Differential Diagnosis: Arthritis, sprain, fracture Imaging Data Left wrist x-ray: My impression: Mild arthritis Discharge Plan Discharge Chief Complaint: Extremity Problem, Nontraumatic Clinical Impression: Arthritis of left wrist Patient Disposition: Home, Self-Care Time of Disposition Decision: 01:00 Condition: Good Mode of Transportation: Private Vehicle Prescriptions / Home Meds: New etodolac 300 mg capsule 300 mg PO Q8H PRN (Reason: pain) Qty: 20 0RF No Action cyclobenzaprine 10 mg tablet 10 mg PO Q12H PRN (Reason: muscle spasm) gabapentin 300 mg capsule 300 mg PO Q8H lisinopril 5 mg tablet 5 mg PO DAILY paroxetine HCl 30 mg tablet 30 mg PO DAILY trazodone 50 mg tablet 50 mg PO BEDTIME prednisone 50 mg tablet 50 mg PO DAILY 5 Days Qty: 5 0RF Print Language: Indonesian Instructions: Osteoarthritis (ED) Referrals: Carrie Todd NP [Primary Care Provider] - 1 week
== END 2024-08-10 01:12 | disposition home or self-care (01) ==
PROVIDERS: Emergency Provider Emergency Medicine; PCP Nurse Practitioner
DX: M19.032 Primary osteoarthritis, left wrist (principal)
CPT/HCPCS: 73110; 99283

== ENCOUNTER 2024-12-13 10:13 | Outpatient (OUT) | payer OTHER, SELFPAY ==
--- OUTSIDE RECORDS SUMMARY | 2024-12-13 09:20 | XMS_ITS | Encounter Summary ---
Author Organization [facility] Address [address] [place] [address] Care Team Providers Care Instrumentation Tech Name Role Phone Carrie Todd DRUG REGULATORY AFFAIRS SPECIALIST Unavailable [phone] Son Vasquez MD Primary Care Provider [phone] Carrie Todd DRUG REGULATORY AFFAIRS SPECIALIST Unavailable [phone] Reason for Visit * Reason Comments Anxiety Encounter Details Date Type Department Care Team (Late st Contact Info) Description 12/13/2024 9:20 AM EDT Office Visit [facility] [address] [place] [place] [address] Carrie Todd, DRUG REGULATORY AFFAIRS SPECIALIST [address] [place] [address] Anxiety (Primary Dx); Class 1 obesity due to excess calories without serious comorbidity with body mass index (BMI) of 32.0 to 32.9 in adult; Asymptomatic microscopic hematuria; Cigarette nicotine dependence without complication; Allergy to bee sting; Other muscle spasm; Neuropathy; Seasonal allergies; Essential (primary) hypertension ; Localized primary osteoarthritis of left wrist; Primary hypertension Social History Tobacco Use Types Packs/Day Years Used Date Smoking Tobacco: Every Day Cigarettes 0.5 15 Smokeless Tobacco: Never Alcohol Use Standard Drinks/Week Comments Never 0 (1 standard drink = 0.6 oz pur e alcohol) B1300 Health Literacy Answer Date Recor ded How often do you need to hav e someone help you when you read instructions, pamphlets, or other written material from your doctor or pharmacy? Never 08/23/2024 Humiliation, Afraid, Rape, and Kick questionnair e Answer Date Recorded Within the last year, have y ou been afraid of your partner or ex-partner? No 07/02/2023 Within the last year, have y ou been humiliated or emotionally abused in other ways by your partner or ex-partner? No Within the last year, have y ou been kicked, hit, slapped, or otherwise physically hurt by your partner or ex-partner? No 07/02/2023 Within the last year, have y ou been raped or forced to have any kind of sexual activity by your partner or ex-partner? No 07/02/2023 Social Connection and Isolat ion Panel [NHANES] Answer Date Recorded In a typical week, how many times do you talk on the phone with family, friends, or neighbors? Never 08/23/2024 How often do you get togethe r with friends or relatives? More than three times a week 08/23/2024 How often do you attend chur or pentecostal services? More than 4 times per year 08/23/2024 Do you belong to any clubs o r organizations such as jewish groups, unions, fraternal or athletic groups, or school groups? Yes 08/23/2024 How often do you attend meet ings of the clubs or organizations you belong to? More than 4 times per year 08/23/2024 Are you , , di vorced, , never , or living with a partner? 08/23/2024 AUDIT-C Answer Date Recorded Q1: How often do you have a drink containing alcohol? Never 08/23/2024 Q2: How many drinks containi ng alcohol do you have on a typical day when you are drinking? Patient does not drink Q3: How often do you have si x or more drinks on one occasion? Never 08/23/2024 Overall Financial Resource Strain (CARDIA) Answe r Date Recorded How hard is it for you to pa y for the very basics like food, housing, medical care, and heating? Not very hard 08/23/2024 PHQ-2 Answer Date Recorded Patient Health Questionnaire-2 Score 0 04/14/2023 [facility] - Occupational Stress Questionnaire Answer Date Recorded Do you feel stress - tense, restless, nervous, or anxious, or unable to sleep at night because your mind is troubled all the time - these days? Very much 08/23/2024 Exercise Vital Sign Answer Date Recorde d On average, how many days pe r week do you engage in moderate to strenuous exercise (like a brisk walk)? 0 days 08/23/2024 On average, how many minutes do you engage in exercise at this level? 0 min 08/23/2024 Hunger Vital Sign Answer Date Recorded Within the past 12 months, y ou worried that your food would run out before you got the money to buy more. Never true 08/24/19 25 Within the past 12 months, t he food you bought just didn't last and you didn't have money to get more. Never true 08/23/2024 PRAPARE - Transportation Answer Date Re corded In the past 12 months, has l ack of transportation kept you from medical appointments or from getting medications? No 11/2024 In the past 12 months, has l ack of transportation kept you from meetings, work, or from getting things needed for daily living? No 08/23/2024 Housing Stability Vital Sign Answer Rojas e Recorded In the last 12 months, was t here a time when you were not able to pay the mortgage or rent on time? No 07/02/2023 Number of Places Lived in the Last Year Not on f ile 07/02/2023 In the last 12 months, was t here a time when you did not have a steady place to sleep or slept in a alf (including now)? No 07/02/2023 Housing Stability Vital Sign Answer Rojas e Recorded In the last 12 months, was t here a time when you were not able to pay the mortgage or rent on time? No 08/23/2024 In the past 12 months, how m any times have you moved where you were living? 0 08/23/2024 At any time in the past 12 m [facility], were you homeless or living in a alf (including now)? No 08/23/2024 Comments Unknown Sex and Gender Information Value Date Recorded Sex Assigned at Not on file Legal Sex Female 7:25 PM EDT Gender Identity Not on file Sexual Orientation Not on file documented as of this encounter Last Filed Vital Signs Vital Sign Reading Time Taken Comments Blood Pressure 138/82 12/13/2024 9:22 AM EDT Pulse 77 12/13/2024 9:22 AM EDT Temperature 36.6 C (97.8 F) 12/13/2024 9:22 AM EDT Respiratory Rate 18 12/13/2024 9:22 AM EDT Oxygen Saturation 99% 12/13/2024 9:22 AM EDT Inhaled Oxygen Concentration - - Weight 84 kg (185 lb 3.2 oz) 12/13/2024 9:22 AM EDT Height - - Body Mass Index 33.33 06/02/2024 9:45 AM EST documented in this encounter Patient Instructions * Patient Instructions* Carrie Todd NP - 12/13/2024 9:20 AM EDT No med dose changes Please get urine rechecked documented in this encounter Progress Notes * Carrie Todd NP - 12/13/2024 9:56 AM EDTAssociated Problem(s): HTN (hypertension) Please check blood pressure daily and record DASH diet Limit caffeine Take medication as directed Contact office if chest pain, pressure, dizziness, shortness of breath, swelling legs Recommend slow position changes Current med: lisinopril * Carrie Todd NP - 12/13/2024 9:56 AM EDTAssociated Problem(s): Neuropathy Doing fairly well on BID kasi, occ takes 3rd dose * GAVIN YOUNGER - 12/13/2024 9:20 AM EDT Possible heat rash on stomach and hands- she had cream or ointment she had in 2022 that helped. Pt believes this rash is from work * Carrie Todd NP - 12/13/2024 9:20 AM EDT Images from the original note were not included. Roxie Fletcher is a 54 y.o. female presents with chief complaint of Anxiety HPI: Here for recheck: anxiety is doing well, buspar paxil is working well together, no SI/HI/hallucinations, sleep and appitite is good Rash: bilat hands and abd: thinks was heat related, no pain, it was itchy, used clobetesole once and it is resolving, is also taking her loratadine wears gloves at work SUBJECTIVE: MEDICATIONS: Current Outpatient Medications Medication Instructions busPIRone (BUSPAR) 7.5 mg, Oral, 2 times daily cyclobenzaprine (FLEXERIL) 10 mg, Oral, 2 times daily PRN EPINEPHrine (Auvi-Q) 0.3 MG/0.3ML injection syringe One time dose to be used for anaphylactic reaction, use as directed, may repeat dose if needed. fluticasone (Flonase) 50 MCG/ACT nasal spray 2 sprays, Each Nostril, Daily, Shake gently. Before first use, prime pump. After use, clean tip and replace cap. gabapentin (NEURONTIN) 300 mg, Oral, 3 times daily lisinopril 5 mg, Oral, Daily loratadine (CLARITIN) 10 mg, Oral, Daily meloxicam (MOBIC) 15 mg, Oral, Daily PARoxetine (PAXIL) 40 mg, Oral, Every morning ALLERGIES: Allergies Allergen Reactions Cephalexin Cephalosporins REVIEW OF SYMPTOMS: Review of Systems Constitutional: Negative for appetite change, chills and fever. HENT: Negative for congestion, ear pain and sore throat. Eyes: Negative for pain, discharge, redness and visual disturbance. Respiratory: Negative for cough, shortness of breath and wheezing. Cardiovascular: Negative for chest pain, palpitations and leg swelling. Gastrointestinal: Negative for abdominal pain, blood in stool, constipation, diarrhea, nausea and vomiting. Genitourinary: Negative for difficulty urinating, dysuria and frequency. Musculoskeletal: Negative for arthralgias, back pain, joint swelling and myalgias. Skin: Positive for rash. Negative for wound. Neurological: Negative for dizziness, tremors, seizures, syncope and headaches. Psychiatric/Behavioral: Negative for behavioral problems, self-injury and suicidal ideas. The patient is not nervous/anxious. Hematological: Does not bruise/bleed easily. Endocrine: Negative for polydipsia, polyphagia and polyuria. Allergic/Immunologic: Negative for environmental allergies and food allergies. PAST MEDICAL HISTORY Past Medical History: Diagnosis Date Alcoholism ([facility]) 07/09/2023 Allergic ? Anxiety Asymptomatic microscopic hematuria 07/09/2023 Depression ? Hypertension ? Insomnia Muscle spasm 07/09/2023 Neuropathy Rhabdomyolysis 07/09/2023 Seasonal allergies Substance abuse ([facility]) ? Tobacco user Vision impairment No past surgical history on file. family history includes Alcohol abuse in her brother and brother; Cancer in her maternal grandmother; Hypertension in her maternal grandmother and mother. OBJECTIVE: Visit Vitals BP 138/82 (BP Location: Left arm, Patient Position: Sitting, BP Cuff Size: Adult long) Pulse 77 Temp 97.8 ??F (Temporal) Resp 18 Wt 185 lb 3.2 oz SpO2 99% BMI 33.33 kg/m?? Smoking Status Every Day BSA 1.92 m?? Physical Exam Vitals and nursing note reviewed. Constitutional: General: She is not in acute distress. Appearance: Normal appearance. HENT: Head: Normocephalic and atraumatic. Right Ear: External ear normal. Left Ear: External ear normal. Nose: Nose normal. Mouth/Throat: Mouth: Mucous membranes are moist. Eyes: Extraocular Movements: Extraocular movements intact. Conjunctiva/sclera: Conjunctivae normal. Neck: Vascular: No carotid bruit. Cardiovascular: Rate and Rhythm: Normal rate and regular rhythm. Pulses: Normal pulses. Heart sounds: Normal heart sounds. Pulmonary: Effort: Pulmonary effort is normal. Breath sounds: Normal breath sounds. Abdominal: General: Bowel sounds are normal. There is no distension. Palpations: Abdomen is soft. There is no mass. Tenderness: There is no abdominal tenderness. Musculoskeletal: General: Normal range of motion. Cervical back: Normal range of motion and neck supple. Right lower leg: No edema. Left lower leg: No edema. Skin: General: Skin is warm and dry. Capillary Refill: Capillary refill takes 2 to 3 seconds. Findings: No rash (faint red rash to hands and abd, non specific, dry feeling, no ulceration or vesicles). Neurological: General: No focal deficit present. Mental Status: She is alert and oriented to person, place, and time. Psychiatric: Mood and Affect: Mood normal. Behavior: Behavior normal. Thought Content: Thought content normal. Judgment: Judgment normal. ASSESSMENT AND PLAN: No follow-ups on file. Problem List Items Addressed This Visit Anxiety Buspar and paxil Relevant Medications busPIRone (Buspar) 7.5 MG tablet PARoxetine (Paxil) 40 MG tablet HTN (hypertension) Please check blood pressure daily and record DASH diet Limit caffeine Take medication as directed Contact office if chest pain, pressure, dizziness, shortness of breath, swelling legs Recommend slow position changes Current med: lisinopril Neuropathy Doing fairly well on BID kasi, occ takes 3rd dose Relevant Medications gabapentin (Neurontin) 300 MG capsule Seasonal allergies Relevant Medications fluticasone (Flonase) 50 MCG/ACT nasal spray loratadine (Claritin) 10 MG tablet Asymptomatic microscopic hematuria Was to have a repeat urine and urine culture Not completed, will reprint labs Encourage pt to complete this Class 1 obesity due to excess calories without serious comorbidity in adult - Primary Discussed with patient their BMI (actual, verses recommended). We have also discussed lifestyle modifications: attempts to perform physical activity as chronic conditions allow, also to monitor dietary intake: increasing protein/fruits/veggies and lowering carb intake (unless contraindicated). Limit sodas, juices, and sugary drinks. Cigarette nicotine dependence without complication The patient has been advised of the risks of continued smoking: stroke, MA, all forms of cancer, lung disease, and . Options for quitting smoking include: cold turkey, hypnosis, acupuncture, nicotine replacement meds(gum, lozenges, and patches), Buproprion, and Varenicline. At this time pt is encouraged to evaluate their goals for wanting to quit smoking, and reach out toprovider when ready to start this process Localized primary osteoarthritis of left wrist Relevant Medications meloxicam (Mobic) 15 MG tablet Allergy to bee sting Other Visit Diagnoses Other muscle spasm Relevant Medications cyclobenzaprine (Flexeril) 10 MG tablet Essential (primary) hypertension Relevant Medications lisinopril 5 MG tablet * Carrie Todd NP - 12/13/2024 6:28 AM EDTAssociated Problem(s): Cigarette nicotine dependence without complication The patient has been advised of the risks of continued smoking: stroke, MA, all forms of cancer, lung disease, and . Options for quitting smoking include: cold turkey, hypnosis, acupuncture, nicotine replacement meds(gum, lozenges, and patches), Buproprion, and Varenicline. At this time pt is encouraged to evaluate their goals for wanting to quit smoking, and reach out toprovider when ready to start this process * Carrie Todd NP - 12/13/2024 6:28 AM EDTAssociated Problem(s): Asymptomatic microscopic hematuria Was to have a repeat urine and urine culture Not completed, will reprint labs Encourage pt to complete this * Carrie Todd NP - 12/13/2024 6:26 AM EDTAssociated Problem(s): Anxiety Buspar and paxil * Carrie Todd NP - 12/13/2024 6:26 AM EDTAssociated Problem(s): Class 1 obesity due to excess calories without serious comorbidity in adult Discussed with patient their BMI (actual, verses recommended). We have also discussed lifestyle modifications: attempts to perform physical activity as chronic conditions allow, also to monitor dietary intake: increasing protein/fruits/veggies and lowering carb intake (unless contraindicated). Limit sodas, juices, and sugary drinks. documented in this encounter Plan of Treatment Upcoming Encounters Date Type Department Care Team (Late st Contact Info) Description 03/14/2025 9:00 AM EDT Office Visit [facility] [address] [place] [address] Carrie Todd NP [address] [place] [phone] documented as of this encounter Visit Diagnoses Diagnosis Anxiety- Primary Anxiety state, unspecified Class 1 obesity due to excess calories without serious comorbidity with body mass index (BMI) of 32.0 to 32.9 in adult Asymptomatic microscopic hematuria Cigarette nicotine dependence without complication Allergy to bee sting Other muscle spasm Neuropathy Mononeuritis of unspecified site Seasonal allergies Allergic rhinitis, cause unspecified Essential (primary) hypertension Unspecified essential hypertension Localized primary osteoarthritis of left wrist Primary hypertension Unspecified essential hypertension documented in this encounter Care Teams Instrumentation Tech Relationship Specialty Start Date End Date Son Vasquez MD [address] [place] [address] PCP - General Family Medicine 07/09/23 Carrie Todd NP [address] [place] [id number] Nurse Practitioner Family Medicine 05/19/22 Carrie Todd NP [address] [place] [address] Nurse Practitioner Family Medicine 07/09/23 documented as of this encounter
--- OUTSIDE RECORDS SUMMARY | 2024-12-13 10:17 | XMS_ITS | Encounter Summary ---
Author Organization [facility] Address [address] [place] [address] Care Team Providers Care Advanced Practice Rn Name Role Phone Carrie Todd TEACHING PASTOR Unavailable [phone] Son Vasquez MD Primary Care Provider [phone] Carrie Todd TEACHING PASTOR Unavailable [phone] Encounter Details Date Type Department Care Team (Late st Contact Info) Description 07/23/2023 Clinisync Result Encounter [facility] External Department Unsolicited Carrie Todd NP [address] [place] [address] Social History Tobacco Use Types Packs/Day Years Used Date Smoking Tobacco: Every Day Cigarettes Smokeless Tobacco: Never Alcohol Use Standard Drinks/Week Comments Never 0 (1 standard drink = 0.6 oz pur e alcohol) Humiliation, Afraid, Rape, and Kick questionnair e [...] phone with family, friends, or neighbors? Never 07/02/2023 How often do you get togethe r with friends or relatives? More than three times a week 07/02/2023 How often do you attend chur ch or buddhist services? More than 4 times per year 07/02/2023 Do you belong to any clubs o r organizations such as adventism groups, unions, fraternal or athletic groups, or school groups? Yes 07/02/2023 How often do you attend meet ings of the clubs or organizations you belong to? Never 07/02/2023 Are you , , di vorced, , never , or living with a partner? 07/02/2023 AUDIT-C Answer Date Recorded Q1: How often do you have a drink containing alcohol? Never 07/02/2023 Q2: How many drinks containi ng alcohol do you have on a typical day when you are drinking? Patient does not drink Q3: How often do you have si x or more drinks on one occasion? Never 07/02/2023 Overall Financial Resource Strain (CARDIA) Answe r Date Recorded How hard is it for you to pa y for the very basics like food, housing, medical care, and heating? Not very hard 07/02/2023 PHQ-2 Answer Date Recorded Patient Health Questionnaire-2 Score 0 04/14/2023 [facility] Answer Date Recorded Do you feel stress - tense, restless, nervous, or anxious, or unable to sleep at night because your mind is troubled all the time - these days? To some extent 07/02/2023 Exercise Vital Sign Answer Date Recorde d On average, how many days pe r week do you engage in moderate to strenuous exercise (like a brisk walk)? 5 days 07/02/2023 On average, how many minutes do you engage in exercise at this level? 0 min 07/02/2023 Hunger Vital Sign Answer Date Recorded Within the past 12 months, y ou worried that your food would run out before you got the money to buy more. Never true 07/02/19 24 Within the past 12 months, t he food you bought just didn't last and you didn't have money to get more. Never true 07/02/2023 PRAPARE - Transportation Answer Date Re corded In the past 12 months, has l ack of transportation kept you from medical appointments or from getting medications? No 06/19 In the past 12 months, has l ack of transportation kept you from meetings, work, or from getting things needed for daily living? No 07/02/2023 Housing Stability Vital Sign Answer [...] place to sleep or slept in a fdc (including now)? No 07/02/2023 Comments Unknown Sex and Gender Information Value Date Recorded Sex Assigned at Not on file Legal Sex Female 7:25 PM EDT Gender Identity Not on file Sexual Orientation Not on file documented as of this encounter Plan of Treatment Upcoming Encounters Date Type Department Care Team (Late st Contact Info) Description 03/14/2025 9:00 AM EDT Office Visit [facility] [address] [place] [address] Carrie Todd NP [address] [place] [address] documented as of this encounter Procedures Procedure Name Priority Date/Time Associated Diagnosis Comments MM TOMOSYNTHESIS SCREENING BI 07/23/2023 1:12 PM EST documented in this encounter Results * MM TOMOSYNTHESIS SCREENING BI (07/23/2023 1:12 PM EST) Anatomical Region Laterality Modality Other 07/23/2023 1:12 PM EST Narrative 07/23/2023 1:13 PM EST The [address] [address] Mammography Report Signed Patient: CARIDAD FLETCHER MR#: [id number] : 1970 Acct:[id number] Age/Sex: 52 / F ADM Date: 07/23/23 Loc: MAMMO Attending Dr: Carrie Todd NP Ordering Physician: Carrie Todd NP Results: Date of Service: 07/23/23 Follow Up: Procedure(s): MM tomosynthesis screening BI Accession Number(s): [id number] cc: Carrie Todd NP Patient Name: CARIDAD FLETCHER MR#: [id number] : 1970 Exam Date: 07/23/2023 Ordering Doctor: ROSARIO Todd CNP RADIOLOGY REPORT PROCEDURE: MM TOMOSYNTHESIS SCREENING BI COMPARISON: MG MAMM SCREEN 3D KOBY CAD, 04/24/2022. INDICATIONS: Screening Calculator Name NCI Breast Cancer Risk Assessment Tool 5 Year Breast Cancer Risk 1.20% Lifetime Breast Cancer Risk 8.50% Personal Breast Cancer No Personal Ovarian Cancer No Treatments None Family Cancers Grandmother-paternal with breast cancer at age 70. LOCATION: [facility] BREAST COMPOSITION: Scattered areas fibroglandular density. FINDINGS: DIAGNOSTIC CATEGORY 2--BENIGN FINDING. NO CHANGE FROM COMPARISON. Scattered benign-appearing calcifications are present. Scattered benign-appearing lymph nodes are present. RIGHT BREAST: No significant suspicious finding. LEFT BREAST: No significant suspicious finding. RECOMMENDATIONS: ROUTINE MAMMOGRAM AND CLINICAL EVALUATION IN 12 MONTHS. PLEASE NOTE: A NORMAL MAMMOGRAM DOES NOT EXCLUDE THE POSSIBILITY OF BREAST CANCER. A CLINICALLY SUSPICIOUS PALPABLE LUMP SHOULD BE BIOPSIED. Dictated by: Adalberto Pennington MD on 07/23/2023 at 13:08 Approved by: Adalberto Pennington MD on 07/23/2023 at 13:12 Dictated By: Adalberto Pennington M.D. Signed By: 07/23/23 1313 DD/ 1312 TD/TT: Sorter Lumber Straightener: Procedure Note Radiology, RadiologistMD - 07/23/[address] [address] Mammography Report Signed Patient: CARIDAD FLETCHER [facility]#: [id number] : 1970Acct:[id number] Age/Sex: 52 / FADM Date: 07/23/23 Loc: MAMMO Attending Dr: Carrie Todd NP Ordering Physician: Carrie Todd NPResults: Date of Service: 07/23/23Follow Up: Procedure(s): MM tomosynthesis screening BI Accession Number(s): [id number] cc: Carrie Todd NP Patient Name: CARIDAD FLETCHER MR#: [id number] : 1970 Exam Date: 07/23/2023 Ordering Doctor: ROSARIO Todd CNP RADIOLOGY REPORT PROCEDURE: MM TOMOSYNTHESIS SCREENING BI COMPARISON: MG MAMM SCREEN 3D KOBY CAD, 04/24/2022. INDICATIONS: Screening Calculator Name NCI Breast Cancer Risk Assessment Tool 5 Year Breast Cancer Risk 1.20% Lifetime Breast Cancer Risk 8.50% Personal Breast Cancer No Personal Ovarian Cancer No Treatments None Family Cancers Grandmother-paternal with breast cancer at age 70. LOCATION: [facility] BREAST COMPOSITION: Scattered areas fibroglandular density. FINDINGS: DIAGNOSTIC CATEGORY 2--BENIGN FINDING. NO CHANGE FROM COMPARISON. Scattered benign-appearing calcifications are present. Scattered benign-appearing lymph nodes are present. RIGHT BREAST: No significant suspicious finding. LEFT BREAST: No significant suspicious finding. RECOMMENDATIONS: ROUTINE MAMMOGRAM AND CLINICAL EVALUATION IN 12 MONTHS. PLEASE NOTE: A NORMAL MAMMOGRAM DOES NOT EXCLUDE THE POSSIBILITY OFBREAST CANCER. A CLINICALLY SUSPICIOUS PALPABLE LUMP SHOULD BE BIOPSIED. Dictated by: Adalberto Pennington MD on 07/23/2023 at 13:08 Approved by: Adalberto Pennington MD on 07/23/2023 at 13:12 Dictated By: Adalberto Pennington M.D. Signed By:07/23/23 1313 DD/ 1312 TD/TT: Sorter Lumber Straightener: Carrie Todd NP [facility] Final Result documented in this encounter Visit Diagnoses Not on filedocumented in this encounter Care Teams Advanced Practice Rn Relationship Specialty Start Date End Date Son Vasquez MD [address] [place] [address] PCP - General Family Medicine 07/09/23 Carrie Todd NP [address] [place] [address] Nurse Practitioner Family Medicine 05/19/22 Carrie Todd NP [address] [place] [phone] Nurse Practitioner Family Medicine 07/09/23 documented as of this encounter
--- OUTSIDE RECORDS SUMMARY | 2024-12-13 10:17 | XMS_ITS | Clinical Summary ---
Author Organization [facility] Address [address], [address] [place] [address] Care Team Providers Care Ui Ux Developer Name Role Phone Unavailable Primary Care Provider Unavailabl e Allergies Active Allergy Reactions Criticality Noted Date Comments Cephalexin 09/21/2018 Medications No known medications Active Problems No known active problems Immunizations Immunization Administration Dates Next Due PPD Test 09/21/2018 Family History Medical History Relation Name Comments Kidney Disease Father Relation Name Status Comments Father Social History Tobacco Use Types Packs/Day Years Used Date Smoking Tobacco: Every Day Smokeless Tobacco: Never Alcohol Use Standard Drinks/Week Comments Yes 0 (1 standard drink = 0.6 oz pur e alcohol) Comments Unknown Sex and Gender Information Value Date Recorded Sex Assigned at Not on file Legal Sex Female 11:09 AM EDT Gender Identity Not on file Sexual Orientation Not on file Last Filed Vital Signs Vital Sign Reading Time Taken Comments Blood Pressure 149/92 09/21/2018 11:58 AM EDT Pulse 95 09/21/2018 11:58 AM EDT Temperature 36.8 C (98.2 F) 09/21/2018 11:58 AM EDT Respiratory Rate - - Oxygen Saturation 100% 09/21/2018 11:58 AM EDT Inhaled Oxygen Concentration - - Weight 63 kg (139 lb) 09/21/2018 11:58 AM EDT Height - - Body Mass Index - - Plan of Treatment Not on file Insurance MEDICAID [place] [employer]
--- OUTSIDE RECORDS SUMMARY | 2024-12-13 10:17 | XMS_ITS | Encounter Summary ---
Author Organization [facility] Address [address] [place] [address] Care Team Providers Care Sustainable Design Coordinator Name Role Phone Carrie Todd ACTIVE DIRECTORY SYSTEMS ADMINISTRATOR Unavailable [phone] Son Vasquez MD Primary Care Provider [phone] Carrie Todd ACTIVE DIRECTORY SYSTEMS ADMINISTRATOR Unavailable [phone] Encounter Details Date Type Department Care Team (Late st Contact Info) Description 12/13/2024 Bamboo flowsheet [facility] [address] [place] [id number] Carrie Todd, ACTIVE DIRECTORY SYSTEMS ADMINISTRATOR [address] [place] [address] Social History Tobacco Use Types Packs/Day Years [...] How often do you attend chur or moravian services? More than 4 times per year 08/23/2024 Do you belong to any clubs o r organizations such as restoration groups, unions, fraternal or athletic groups, or [...] Recorded Patient Health Questionnaire-2 Score 0 04/14/2023 [facility] Occup[facility] ional [facility] - Occupational Stress [...] place to sleep or slept in a half-way (including now)? No 07/02/2023 Housing Stability Vital Sign Answer Rojas e Recorded In the last 12 months, was t here a time when you were not able to pay the mortgage or rent on time? No 08/23/2024 In the past 12 months, how m any times have you moved where you were living? 0 08/23/2024 At any time in the past 12 m [facility], were you homeless or living in a half-way (including now)? No 08/23/2024 Comments Unknown Sex [...] Visit [facility] [address] [place] [address] Carrie Todd NP [address] [place] [phone] documented as of this encounter Visit Diagnoses Not on filedocumented in this encounter Care Teams Sustainable Design Coordinator Relationship Specialty Start Date End Date Son Vasquez MD [address] [place] [address] PCP - General Family Medicine 07/09/23 Carrie Todd NP [address] [place] [address] [place] [address] Nurse Practitioner Family Medicine 05/19/22 Carrie Todd NP [address] [place] [phone] Nurse Practitioner Family Medicine 07/09/23 documented as of this encounter
--- OUTSIDE RECORDS SUMMARY | 2024-12-13 10:17 | XMS_ITS | Encounter Summary ---
Author Organization [facility] Address [address] [place] [address] Care Team Providers Care Cancer Program Director Name Role Phone Carrie Todd MORNING NANNY Unavailable [phone] Son Vasquez MD Primary Care Provider [phone] Carrie Todd MORNING NANNY Unavailable [phone] Reason for Visit * Reason Onset Date Comments Med Refill 08/24/2024 Encounter Details Date Type Department Care Team (Late st Contact Info) Description 08/24/2024 [facility] [address] [place] [address] Son Vasquez MD [address] [place] [phone] Social History Tobacco Use Types Packs/Day Years [...] How often do you attend chur or latter day services? More than 4 times per year 08/23/2024 Do you belong to any clubs o r organizations such as religion groups, unions, fraternal or athletic groups, or [...] Recorded Patient Health Questionnaire-2 Score 0 04/14/2023 [facility] - Occupational Stress [...] any time in the past 12 m [facility], were you homeless or living in a half-way (including now)? No 08/23/2024 Comments Unknown Sex and Gender Information Value Date Recorded Sex Assigned at Not on file Legal Sex Female 7:25 PM EDT Gender Identity Not on file Sexual Orientation Not on file documented as of this encounter Miscellaneous Notes * Telephone Encounter - Carrie Todd NP - 08/25/2024 5:33 PM EDT Changed to meloxicam documented in this encounter Plan of Treatment Upcoming Encounters Date Type Department Care Team (Late st Contact Info) Description 03/14/2025 9:00 AM EDT Office Visit [facility] [address] [address] Carrie Todd NP [address] [place] [phone] documented as of this encounter Visit Diagnoses Not on filedocumented in this encounter Care Teams Cancer Program Director Relationship Specialty Start Date End Date Sno Vasquez MD [address] [place] [phone] PCP - General Family Medicine 07/09/23 Carrie Todd NP [address] [place] [address] [place] [phone] Nurse Practitioner Family Medicine 05/19/22 Carrie Todd NP [address] [place] [address] [place] [phone] Nurse Practitioner Family Medicine 07/09/23 documented as of this encounter
--- OUTSIDE RECORDS SUMMARY | 2024-12-13 10:17 | XMS_ITS | Clinical Summary ---
Author Organization [facility] Address [address] [place] [address] Care Team Providers Care Medical Underwriter Name Role Phone Carrie Todd NP Unavailable [phone] Son Vasquez MD Primary Care Provider [phone] Carrie Todd VIDEO OPERATOR Unavailable [phone] Allergies Active Allergy Reactions Criticality Noted Date Comments Cephalexin 03/14/2023 Cephalosporins 03/14/2023 Medications EPINEPHrine (Auvi-Q) 0.3 MG/0.3ML injection syringeIndications :Allergy to bee sting One time dose to be used for anaphylactic reaction, use as directed, may repeat dose if needed. 1 each 1 10/27/19 25 Active busPIRone (Buspar) 7.5 MG tabletIndications: Anxiety Take 1 tablet (7.5 mg) by mouth in the morning and 1 tablet (7.5 mg) in the evening. 60 tablet 2 12/14/19 25 025 Active cyclobenzaprine (Flexeril) 10 MG tabletIndications: Other muscle spasm Take 1 tablet (10 mg) by mouth 2 (two) times a day as needed for muscle spasms 60 tablet 2 12/14/19 25 025 Active PARoxetine (Paxil) 40 MG tabletIndications: Anxiety Take 1 tablet (40 mg) by mouth in the morning. 90 tablet 1 12/14/19 25 025 Active gabapentin (Neurontin) 300 MG capsuleIndications :Neuropathy Take 1 capsule (300 mg) by mouth in the morning and 1 capsule (300 mg) in the evening and 1 capsule (300 mg) before bedtime. 270 capsule 1 12/14/19 025 Active fluticasone (Flonase) 50 MCG/ACT nasal sprayIndications:S easonal allergies Administer 2 sprays into each nostril Daily Shake gently. Before first use, prime pump. After use, clean tip and replace cap. 48 g 12/14/19 025 Active lisinopril 5 MG tabletIndications: Essential (primary) hypertension Take 1 tablet (5 mg) by mouth Daily 90 tablet 12/14/19 025 Active loratadine (Claritin) 10 MG tabletIndications: Seasonal allergies Take 1 tablet (10 mg) by mouth Daily 90 tablet 12/14/19 025 Active meloxicam (Mobic) 15 MG tabletIndications: Localized primary osteoarthritis of left wrist Take 1 tablet (15 mg) by mouth Daily 90 tablet 12/14/19 025 Active gabapentin (Neurontin) 300 MG capsuleIndications :Neuropathy Take 1 capsule (300 mg) by mouth in the morning and 1 capsule (300 mg) in the evening and 1 capsule (300 mg) before bedtime. 270 capsule 1 06/02/19 025 Discontin ued(Reord er) loratadine (Claritin) 10 MG tabletIndications: Seasonal allergies Take 1 tablet (10 mg) by mouth Daily 90 tablet 06/02/19 025 Discontin ued(Reord er) fluticasone (Flonase) 50 MCG/ACT nasal sprayIndications:S easonal allergies Administer 2 sprays into each nostril Daily Shake gently. Before first use, prime pump. After use, clean tip and replace cap. 48 g 06/02/19 025 Discontin ued(Reord er) lisinopril 5 MG tabletIndications: Essential (primary) hypertension Take 1 tablet (5 mg) by mouth Daily 90 tablet 1 07/20/19 025 Discontin ued(Reord er) PARoxetine (Paxil) 40 MG tabletIndications: Anxiety Take 1 tablet (40 mg) by mouth in the morning. 90 tablet 1 07/20/19 25 025 Discontin ued(Reord er) cyclobenzaprine (Flexeril) 10 MG tabletIndications: Other muscle spasm Take 1 tablet (10 mg) by mouth 2 (two) times a day as needed for muscle spasms 60 tablet 2 07/29/19 25 025 Discontin ued(Reord er) meloxicam (Mobic) 15 MG tabletIndications: Localized primary osteoarthritis of left wrist Take 1 tablet (15 mg) by mouth Daily 30 tablet 11 08/25/19 25 025 Discontin ued(Reord er) busPIRone (Buspar) 7.5 MG tabletIndications: Anxiety Take 1 tablet (7.5 mg) by mouth in the morning and 1 tablet (7.5 mg) in the evening. 60 tablet 1 10/14/19 025 Discontin ued(Reord er) Active Problems Problem Noted Date Diagnosed Date Allergy to bee sting 09/14/2024 Cigarette nicotine dependence without complicati on 08/24/2024 Assessment & Plan (12/13/2024 6:28 AM EDT): The patient has been advised of the risks of continued smoking: stroke, KS, all forms of cancer, lung disease, and . Options for quitting smoking include: cold turkey, hypnosis, acupuncture, nicotine replacement meds (gum, lozenges, and patches), Buproprion, and Varenicline. At this time pt is encouraged to evaluate their goals for wanting to quit smoking, and reach out to provider when ready to start this process Assessment & Plan (10/13/2024 6:17 AM EDT): The patient has been advised of the risks of continued smoking: stroke, KS, all forms of cancer, lung disease, and . Options for quitting smoking include: cold turkey, hypnosis, acupuncture, nicotine replacement meds (gum, lozenges, and patches), Buproprion, and Varenicline. At this time pt is encouraged to evaluate their goals for wanting to quit smoking, and reach out to provider when ready to start this process Assessment & Plan (08/24/2024 7:03 AM EDT): The patient has been advised of the risks of continued smoking: stroke, KS, all forms of cancer, lung disease, and . Options for quitting smoking include: cold turkey, hypnosis, acupuncture, nicotine replacement meds (gum, lozenges, and patches), Buproprion, and Varenicline. At this time pt is encouraged to evaluate their goals for wanting to quit smoking, and reach out to provider when ready to start this process Localized primary osteoarthritis of left wrist 0 08/24/2024 Assessment & Plan (10/13/2024 9:36 AM EDT): At last appt added meloxicam, continue this Assessment & Plan (08/24/2024 2:25 PM EDT): Stop lodine, trial melxicam Cont splint Fu in 6 weeks for recheck Encounter for screening mamm ogram for malignant neoplasm of breast 06/02/2024 Class 1 obesity due to exces s calories without serious comorbidity in adult 06/02/2024 Assessment & Plan (12/13/2024 6:26 AM EDT): Discussed with patient their BMI (actual, verses recommended). We have also discussed lifestyle modifications: attempts to perform physical activity as chronic conditions allow, also to monitor dietary intake: increasing protein/fruits/veggies and lowering carb intake (unless contraindicated). Limit sodas, juices, and sugary drinks. Assessment & Plan (10/13/2024 6:15 AM EDT): Discussed with patient their BMI (actual, verses recommended). We have also discussed lifestyle modifications: attempts to perform physical activity as chronic conditions allow, also to monitor dietary intake: increasing protein/fruits/veggies and lowering carb intake (unless contraindicated). Limit sodas, juices, and sugary drinks. Assessment & Plan (08/24/2024 7:03 AM EDT): Discussed with patient their BMI (actual, verses recommended). We have also discussed lifestyle modifications: attempts to perform physical activity as chronic conditions allow, also to monitor dietary intake: increasing protein/fruits/veggies and lowering carb intake (unless contraindicated). Limit sodas, juices, and sugary drinks. Assessment & Plan (06/02/2024 10:02 AM EST): Discussed with patient their BMI (actual, verses [...] loss. Has gained 12 pounds since 12/10 Alcohol dependence, in remission 12/02/2023 Assessment & Plan (06/02/2024 10:17 AM EST): It will be 3 years 09/24/24 Doing well Assessment & Plan (12/02/2023 10:22 AM EDT): Has been sober for over 2 years, doing well Well woman exam with routine gynecological exam 08/27/2023 Assessment & Plan (08/27/2023 11:41 AM EDT): Reviewed Ht/Wt/BMI Recommend eye exam yearly Recommend dental exams twice a year Balance work/leisure activities Exercises is recommended most days of the week (appropriate as chronic conditions allow) Follow up yearly and prn Fu as per PAP indications, also add calcium/vit d supplement Pre-diabetes 08/27/2023 Assessment & Plan (06/02/2024 10:09 AM EST): A1c in office 5.8% 06/02/24 Recommend pt start watching her carb intake, recommend exercise: 30 minutes most days of the week, cut back on portion sizes, and steady weight loss Asymptomatic microscopic hematuria 07/09/2023 Assessment & Plan (12/13/2024 6:28 AM EDT): Was to have a repeat urine and urine culture Not completed, will reprint labs Encourage pt to complete this Assessment & Plan (06/02/2024 5:57 AM EST): Present in the past, will recheck Muscle spasm 07/09/2023 Assessment & Plan (06/02/2024 5:59 AM EST): Does use cyclobenzaprine prn muscle spasms Anxiety 04/14/2023 Overview (06/02/2024): MARCELLA 7 score: 2 (06/02/24) PHQ 9 score: 0 (06/02/24) Assessment & Plan (12/13/2024 6:26 AM EDT): Buspar and paxil Assessment & Plan (10/13/2024 9:37 AM EDT): Increase dose on buspar to 7.5mg twice a day, and discontinue the 5mg buspirone script Cont paxil at 40mg Fu in 8 weeks Assessment & Plan (08/24/2024 2:26 PM EDT): Feels like still with anxiety Cont paxil Add buspar 5mg TID prn Fu in 6weeks Assessment & Plan (06/02/2024 10:13 AM EST): Currently taking paxil MARCELLA 7 score= 2 PHQ 9 score=0 Assessment & Plan (12/02/2023 10:21 AM EDT): Doing well with increase on the paxil, will keep at 40mg Fu in 6 months Assessment & Plan (07/09/2023 10:36 AM EST): Does not feel as though her anxiety is well controlled We will increase dose to 40mg on paxil Fu in 6 weeks Assessment & Plan (04/14/2023 11:11 AM EST): Doing well, remains ETOH free Cont SSRI Fu in 3 months HTN (hypertension) 04/14/2023 Assessment & Plan (12/13/2024 9:56 AM EDT): Please check blood pressure daily and record DASH diet Limit caffeine Take medication as directed Contact office if chest pain, pressure, dizziness, shortness of breath, swelling legs Recommend slow position changes Current med: lisinopril Assessment & Plan (06/02/2024 5:56 AM EST): Please check blood pressure daily and record DASH diet Limit caffeine Take medication as directed Contact office if chest pain, pressure, dizziness, shortness of breath, swelling legs Recommend slow position changes Current med: lisinopril Assessment & Plan (12/02/2023 10:27 AM EDT): Controlled with current meds No changes in meds Assessment & Plan (07/09/2023 10:35 AM EST): Stable on current meds Assessment & Plan (04/14/2023 11:11 AM EST): Cont current meds Recommend weight loss No changes at this time Fu in 3 months Neuropathy 04/14/2023 Assessment & Plan (12/13/2024 9:56 AM EDT): Doing fairly well on BID kasi, occ takes 3rd dose Assessment & Plan (10/13/2024 9:36 AM EDT): Going to try to decrease kasi to Twice a day Feels that weight gain is coming from gabapentin Assessment & Plan (06/02/2024 5:54 AM EST): Currently takes gabapentin for this OARRS reviewed as well Assessment & Plan (12/02/2023 10:20 AM EDT): 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 and has missed several days since the beginning of the year d/t leg pain aggravation Note written Assessment & Plan (07/09/2023 10:33 AM EST): No changes in her gabapentin script Seasonal allergies 04/14/2023 Assessment & Plan (06/02/2024 10:27 AM EST): Restart her flonase and allergy pill Resolved Problems Problem Noted Date Diagnosed Date Resolved Date Rhabdomyolysis 07/09/2023 07/09/2023 Alcoholism 07/09/2023 12/02/2023 Obesity (BMI 30.0-34.9) 07/09/202305/19 Assessment & Plan (07/09/2023 10:38 AM EST): Discussion about avoiding OTC supplements Recommend cutting back carbs, change snacks to higher protein options Fu in 3 months BMI 29.0-29.9,adult 04/14/2023 06/02/19 Insomnia 04/14/2023 08/24/2024 Assessment & Plan (06/02/2024 5:54 AM EST): No longer requires trazodone for sleep purposes Assessment & Plan (12/02/2023 10:19 AM EDT): Is only taking trazodone on a prn basis Assessment & Plan (04/14/2023 11:10 AM EST): Stable on current medications No changes to current therapy Fu in 6 months Tobacco user 04/14/2023 08/24/2024 Assessment & Plan (06/02/2024 5:58 AM EST): The patient has been advised of the risks of continued smoking: stroke, KS, all forms of cancer, lung disease, and . Options for quitting smoking include: cold turkey, hypnosis, acupuncture, nicotine replacement meds (gum, lozenges, and patches), Buproprion, and Varenicline. At this time pt is encouraged to evaluate their goals for wanting to quit smoking, and reach out to provider when ready to start this process Nicotine dependence 04/14/2023 06/02/19 Overview (04/14/2023): Recommend quitting smoking Encounters Date Type Department Care Team Description 12/13/2024 9:20 AM EDT Office Visit [facility] [address] [place] [address] Carrie Todd NP Anxiety (Primary Dx); Class 1 obesity due to excess calories without serious comorbidity with body mass index (BMI) of 32.0 to 32.9 in adult; Asymptomatic microscopic hematuria; Cigarette nicotine dependence without complication; Allergy to bee sting; Other muscle spasm; Neuropathy; Seasonal allergies; Essential (primary) hypertension ; Localized primary osteoarthritis of left wrist; Primary hypertension 12/13/2024 Bamboo flowsheet [facility] [address] [place] [address] Carrie Todd NP 10/26/2024 Refill [facility] [address] [place] [address] Carrie Todd NP Allergy to bee sting 10/26/2024 Refill [facility] [address] [place] [address] Carrie Todd NP Allergy to bee sting (Primary Dx) 10/25/2024 Telephone [facility] [address] [place] [address] Carrie Todd NP 10/13/2024 9:00 AM EDT Office Visit [facility] [address] [place] [address] Carrie Todd NP Anxiety (Primary Dx); Localized primary osteoarthritis of left wrist; Class 1 obesity due to excess calories without serious comorbidity with body mass index (BMI) of 32.0 to 32.9 in adult; Cigarette nicotine dependence without complication; Neuropathy 10/13/2024 [facility] [address] [place] [address] Carrie Todd NP 10/12/2024 Travel 09/13/2024 Refill [facility] [address] [place] [address] Son Vasquez MD Allergy to bee sting (Primary Dx) from Last 3 Months Immunizations Immunization Administration Dates Next Due Influenza, High Dose Seasonal, Preservative Free 12/13/2021 PPD Test 09/21/2018 Unknown outside immunization 09/21/2018 Family History Medical History Relation Name Comments Alcohol abuse Brother 1 Yahir Alcohol abuse Brother 2 Jenna Cancer Maternal Grandmother Maricarmen Jenkins Hypertension Maternal Grandmother Maricarmen Jenkins Hypertension Mother Britney Jenkins Relation Name Status Comments Brother 1 Yahir Brother 2 Jenna Maternal Grandmother Maricarmen Jenkins Mother Britney Jenkins Social History Tobacco Use Types Packs/Day Years Used Date Smoking Tobacco: Every Day Cigarettes 0.5 15 Smokeless Tobacco: Never Tobacco Cessation:Ready to Q uit: Not Asked; Counseling Given: Not Answered Alcohol Use Standard Drinks/Week Comments Never 0 [...] week 08/23/2024 How often do you attend [facility] or faith services? More than 4 times per year 08/23/2024 Do you belong to any clubs o r organizations such as amish groups, unions, fraternal or athletic groups, or [...] Recorded Patient Health Questionnaire-2 Score 0 04/14/2023 [facility] - Occupational Stress Questionnaire Answer Date Recorded [...] place to sleep or slept in a group home (including now)? No 07/02/2023 Housing Stability Vital Sign Answer Rojas e Recorded In the last 12 months, was t here a time when you were not able to pay the mortgage or rent on time? No 08/23/2024 In the past 12 months, how m any times have you moved where you were living? 0 08/23/2024 At any time in the past 12 m [facility], were you homeless or living in a group home (including now)? No 08/23/2024 Comments Unknown Sex [...] 3.2 oz) 12/13/2024 9:22 AM EDT Height 158.8 cm (5' 2.5 ) 06/02/2024 9:45 AM EST Body Mass Index 33.33 06/02/2024 9:45 AM EST Plan of Treatment Upcoming Encounters Date Type Department Care Team (Late st Contact Info) Description 03/14/2025 9:00 AM EDT Office Visit [facility] [address] [place] [address] Carrie Todd NP [address] [place] [address] Health Maintenance Due Date Last Done Comments CT Colonography 1968 FIT-DNA 1968 FIT 1968 FOBT 1968 Sigmoidoscopy 1968 HPV/Cotest 1998 Mammogram 07/27/2025 07/27/2024, 07/23/2023, 12/0 11/2021 Cervical Cancer Screening 08/26/2026 Pap Smear 08/26/2026 08/27/2023 Colonoscopy 06/12/2032 06/12/2022 Colorectal Cancer Screening 06/12/2032 Influenza Vaccine Discontinued 12/13/2021 Procedures Procedure Name Priority Date/Time Associated Diagnosis Comments MM TOMOSYNTHESIS SCREENING BI 07/27/2024 4:26 PM EDT from Last 3 Months or Most Recently Relevant to Health Maintenance Results * MM TOMOSYNTHESIS SCREENING BI (07/27/2024 4:26 PM EDT) Anatomical Region Laterality Modality Other 07/27/2024 4:26 PM EDT Narrative 07/27/2024 4:27 [place] [address] Mammography Report Signed Patient: CARIDAD FLETCHER MR#: [id number] : 1970 Acct:[id number] Age/Sex: 53 / F ADM Date: 07/27/24 Loc: MAMMO Attending Dr: Carrie Todd NP Ordering Physician: Carrie Todd NP Results: Date of Service: 07/27/24 Follow Up: Procedure(s): MM tomosynthesis screening BI Accession Number(s): [id number] cc: Carrie Todd NP Patient Name: CARIDAD FLETCHER MR#: [id number] : 1970 Exam Date: 07/27/2024 Ordering Doctor: [...] at age 68. LOCATION: [facility] BREAST COMPOSITION: There are scattered areas [...] M.D. Signed By: 07/27/247 DD/ 25 TD/TT: Chemist Assistant: Procedure Note Radiology, Radiologist, MD - 07/27/2024 [place] [address] Mammography Report Signed Patient: CARIDAD FLETCHER AMR#: [id number] : 1970Acct:[id number] Age/Sex: 53 / FADM Date: 07/27/24 Loc: MAMMO Attending Dr: Carrie Todd NP Ordering Physician: Carrie Toddesults: Date of Service: 07/27/24Follow Up: Procedure(s): MM tomosynthesis screening BI Accession Number(s): [id number] cc: Carrie Todd NP Patient Name: CARIDAD FLETCHER MR#: [id number] : 1970 Exam Date: 07/27/2024 Ordering Doctor: ROSARIO Todd CNP RADIOLOGY REPORT PROCEDURE: MM TOMOSYNTHESIS SCREENING BI COMPARISON: MM TOMOSYNTHESIS SCREENING BI, 07/23/2023. MG MAMM [id number] KOBY CAD, 04/24/2022. INDICATIONS: Screening Calculator Name NCI Breast Cancer Risk Assessment Tool 5 Year Breast Cancer Risk 1.20% Lifetime Breast Cancer Risk 8.30% Personal Breast Cancer No Personal Ovarian Cancer No Treatments None Family Cancers Grandmother-paternal with breast cancer at age 70. LOCATION: [facility] BREAST COMPOSITION: There are scattered areas of fibroglandulardensity. FINDINGS: DIAGNOSTIC CATEGORY 1--NEGATIVE. LEFT BREAST: No [...] 16:26 Dictated By: Ernesto Webster M.D. Signed By:07/27/247 DD/ 25 TD/TT: Chemist Assistant: Carrie Todd NP [facility] Final Result from Last 3 Months or Most Recently Relevant to Health Maintenance Insurance [facility] Care Teams Medical Underwriter Relationship Specialty Start Date End Date Son Vasquez MD [address] [place] [phone] PCP - General Family Medicine 07/09/23 Carrie Todd NP [address] [place] [address] Nurse Practitioner Family Medicine 05/19/22 Carrie Todd NP [address] [place] [address] Nurse Practitioner Family Medicine 07/09/23
--- OUTSIDE RECORDS SUMMARY | 2024-12-13 10:17 | XMS_ITS | Encounter Summary ---
Author Organization [facility] Address [address] [place] [address] Care Team Providers Care Dish Stacker Name Role Phone Carrie Todd NP Unavailable [phone] Son Vasquez MD Primary Care Provider [phone] Son Vasquez MD Primary Care Provider [phone] Carrie Todd NP Unavailable [phone] Encounter Details Date Type Department Care Team (Late st Contact Info) Description 05/18/2023 Abstract [facility] [address] [place] [address] Carrie Todd NP [address] [place] [address] Social History Tobacco Use Types Packs/Day Years Used Date Smoking Tobacco: Every Day Cigarettes Smokeless Tobacco: Never PHQ-2 Answer Date Recorded Patient Health Questionnaire-2 Score 0 04/14/2023 Comments Unknown Sex and Gender Information Value Date Recorded Sex Assigned at Not on file Legal Sex Female 7:25 PM EDT Gender Identity Not on file Sexual Orientation Not on file documented as of this encounter Plan of Treatment Upcoming Encounters Date Type Department Care Team (Late st Contact Info) Description 03/14/2025 9:00 AM EDT Office Visit [facility] [address] [place] [address] Carrie Todd NP [address] [place] [address] documented as of this encounter Visit Diagnoses Not on filedocumented in this encounter Care Teams Dish Stacker Relationship Specialty Start Date End Date Son Vasquez MD [address] [place] [address] [place] [address] PCP - General Family Medicine 03/14/23 07/08/23 Son Vasquez MD [address] [place] [address] PCP - General Family Medicine 07/09/23 Carrie Todd NP [address] [place] [address] Nurse Practitioner Family Medicine 05/19/22 Carrie Todd NP [address] [place] [address] Nurse Practitioner Family Medicine 07/09/23 documented as of this encounter
--- OUTSIDE RECORDS SUMMARY | 2024-12-13 10:17 | XMS_ITS | Encounter Summary ---
Author Organization [facility] Address [address] [place] [address] Care Team Providers Care Sales And Service Representative Name Role Phone Carrie Todd PRODUCTION AIDE Unavailable [phone] Son aVsquez MD Primary Care Provider [phone] Carrie Todd PRODUCTION AIDE Unavailable [phone] Reason for Visit * Reason Comments Med Refill Encounter Details Date Type Department Care Team (Late st Contact Info) Description 07/23/2023 Refill [facility] [address] [place] [address] Carrie Todd PRODUCTION AIDE [address] [place] [address] [place] [address] Anxiety (Primary Dx); Anxiety disorder, unspecified; Other muscle spasm; Muscle spasm Social History Tobacco Use Types Packs/Day Years [...] often do you attend chur ch or hoahaoism services? More than 4 times per year 07/02/2023 Do you belong to any clubs o r organizations such as roman catholic groups, unions, fraternal or athletic groups, or [...] Recorded Patient Health Questionnaire-2 Score 0 04/14/2023 [facility] - [...] place to sleep or slept in a mcc (including now)? No 07/02/2023 Comments Unknown Sex and Gender Information Value Date Recorded Sex Assigned at Not on file Legal Sex Female 7:25 PM EDT Gender Identity Not on file Sexual Orientation Not on file documented as of this encounter Plan of Treatment Upcoming Encounters Date Type Department Care Team (Late st Contact Info) Description 03/14/2025 9:00 AM EDT Office Visit [facility] [address] [place] [address] Carrie Todd NP [address] [place] [address] [place] [address] documented as of this encounter Visit Diagnoses Diagnosis Anxiety- Primary Anxiety state, unspecified Anxiety disorder, unspecified Other muscle spasm Muscle spasm Spasm of muscle documented in this encounter Care Teams Sales And Service Representative Relationship Specialty Start Date End Date Son Vasquez MD [address] [place] [address] PCP - General Family Medicine 07/09/23 Carrie Todd NP [address] [place] [address] [place] [address] Nurse Practitioner Family Medicine 05/19/22 Carrie Todd NP [address] [place] [address] [place] [address] Nurse Practitioner Family Medicine 07/09/23 documented as of this encounter
--- OUTSIDE RECORDS SUMMARY | 2024-12-13 10:31 | XMS_ITS | CCD ---
Author Organization [facility] Inform ion [facility] Care Team Providers Care Support Coordinator Name Role Phone Angelo Tee Primary Care Unavailable CARIDAD JERONIMO Admitting Unavailable CARIDAD JERONIMO Attending Unavailable KHADIJAH RODRIGUEZ Consulting Unavailable SpychalsAlba jane Consulting Unavailable BV, Physician - Emergency Consulting Francis Lucero Consulting Unavailable SAURABH, MENDOZA Velasquez Referring Unavailable SAURABH, MENDOZA Velasquez Referring Unavailable Lashonda Horton Unavailable AICTANVIR, CARRIE J Primary Care Physician Ede BHAKTA Attending Unavailable AICHHOLZ, CARRIE J Referring Unavailable Angelo BERNARD Attending Unavailable Ede BHAKTA Attending Unavailable Ede BHAKTA Attending Unavailable AICHHOLZ, CARRIE J Referring Unavailable NILL ., DR MERA Consulting Unavailable AICHHOLZ, PEDIATRIC GENETICIST CARRIE Primary Care Unavailable NILL ., DR MERA Admitting Unavailable NILL ., DR MERA Attending Unavailable ROCHELLE WOODRUFF Consulting Unavailable EDUARDO IIXAVI Consulting Unavailable AICHHOLZ, PEDIATRIC GENETICIST CARRIE Attending Unavailable AICHHOLZ, PEDIATRIC GENETICIST CARRIE Admitting Unavailable AICHHOLZ, PEDIATRIC GENETICIST CARRIE Consulting Unavailable AICHHOLZ, PEDIATRIC GENETICIST CARRIE Primary Care Unavailable AICHHOLZ, PEDIATRIC GENETICIST CARRIE Attending Unavailable AICHHOLZ, PEDIATRIC GENETICIST CARRIE Consulting Unavailable AICHHOLZ, PEDIATRIC GENETICIST CARRIE Primary Care Unavailable AICHHOLZ, PEDIATRIC GENETICIST CARRIE Admitting Unavailable RHONDA, DR JUANIS Pineda Consulting Unavailable DONNIE, JODIE Admitting Unavailable AICHHOLZ, PEDIATRIC GENETICIST CARRIE Primary Care Unavailable JODIE FIELDS Attending Unavailable JODIE FIELDS Consulting Unavailable NILL ., DR MERA Consulting Unavailable NILL ., DR MERA Admitting Unavailable AICHHOLZ, PEDIATRIC GENETICIST CARRIE Primary Care Unavailable NILL ., DR MERA Attending Unavailable RHONDA, DR JUANIS Pineda Consulting Unavailable PEREZ, ROSARIO CARRIE Primary Care Unavailable SHAIKH Reshma MONSALVE Admitting Unavailable SHAIKH Reshma MONSALVE Attending Unavailable MANUELA ., DR GUSTAFSON Consulting Unavailable SHAIKH Reshma MONSALVE Consulting Unavailable SISTER, PEDRO Consulting Unavailable Renee Ballesteros Unavailable Pamelaradha CLOUD DEVELOPER, Carrie Unavailable Son Vasquez MD Primary Care Provider Pamelaradha CLOUD DEVELOPER, Carrie Unavailable PEREZ, CARRIE Attending Unavailable PEREZ, CARRIE Attending Unavailable PEREZ, CARRIE Attending Unavailable PEREZ, CARRIE Attending Unavailable Allergies Allergy Classification Reported Allergen(s) Allergy Type Date of Onset Reaction(s) Facility (2 sources) Cephalexin; Translations: [Keflex] Drug Allergy 01-21-20 13 [facility] Repository (20 sources) Cephalexin; Translations: [cephalexin] Drug Allergy 01-20-20 13 rash, Eruption of skin (disorder) [facility] [place] (20 sources) Cephalosporins (Antibiotic) Propensity to adverse reactions 03-14-20 23 [facility] Medications Current Medications Medication Drug Class(es) Dates Sig (Normalized) Sig (Original) amoxicillin 875 mg / clavulanate 125 mg oral tablet (1 source) Penicillin-class Antibacterial Start: 01-29-2023 take 1 tablet by mouth every twelve hours Amoxicillin-Pot Clavulanate 875-125 MG 1 tablet Orally every 12 hrs for 10 days Jan, Active busPIRone hydrochloride 7.5 mg oral tablet (15 sources) Start: 10-13-2024 End: 01-12-2025 take 1 tablet by mouth in the morning busPIRone (Buspar) 7.5 MG tablet Indications: Anxiety Take 1 tablet (7.5 mg) by mouth in the morning and 1 tablet (7.5 mg) in the evening. 60 tablet 2 12/13/2024 01/12/2025 Active Start: 08-24-2024 End: 10-13-2024 take 1 tablet by mouth every eight hours as needed for anxiety and anxiety busPIRone (Buspar) 5 MG tablet Indications: Anxiety Take 1 tablet (5 mg) by mouth every 8 (eight) hours if needed (anxiety) 90 tablet 1 08/24/2024 10/13/2024 Discontinued (Therapy completed) cyclobenzaprine hydrochloride 10 mg oral tablet (20 sources) Muscle Relaxant Start: 07-28-2024 End: 01-12-2025 take 1 tablet by mouth twice daily as needed for muscle spasms cyclobenzaprine (Flexeril) 10 MG tablet Indications: Other muscle spasm Take 1 tablet (10 mg) by mouth 2 (two) times a day as needed for muscle spasms 60 tablet 2 12/13/2024 01/12/2025 Active Start: 12-24-2023 End: 07-02-2024 take 1 [...] Refills(s) 0 Start Date: 05/03/22 Status: Ordered [id number] 0.3 ml EPINEPHrine 1 mg/ml auto-injector (20 sources) alpha-Adrenergic Agonist, beta-Adrenergic Agonist, Catecholamine Start: 10-26-2024 EPINEPHrine (Auvi -Q) 0.3 MG/0.3ML injection syringe Indications: Allergy to bee sting One time dose to be used for anaphylactic reaction, use as directed, may repeat dose if needed. 1 each 1 10/26/2024 Active Start: 10-26-2024 End: 11-25-2024 Auvi-Q 0.3 MG/0.3ML injectio n syringe Indications: Allergy to bee sting Inject 0.3 mL (0.3 mg) as directed if needed for anaphylaxis Inject into upper leg. Call 911 after use. 1 each 2 10/26/2024 10/26/2024 Discontinued Start: 09-14-2024 End: 10-26-2024 EPINEPHrine (Epipen) 0.3 MG/ 0.3ML injection syringe Indications: Allergy to bee sting Inject 0.6 mL (0.6 mg) as directed 1 (one) time for 1 dose Inject into upper leg. Call 911 after use. 2 each 1 09/14/2024 10/26/2024 Discontinued (Cost of medication) End: 09-13-2024 EPINEPHrine (Epipen) 0.3 MG/ 0.3ML injection syringe Inject as directed. Inject into upper leg. Call 911 after use. 09/13/2024 Discontinued (Reorder) etodolac 300 mg oral capsule (5 sources) Nonsteroidal Anti-inflammatory Drug Start: 08-10-2024 End: 10-13-2024 take 1 capsule by mouth every eight hours as needed etodolac (Lodine) 300 MG capsule Take 300 mg by mouth every 8 (eight) hours if needed (pain) 08/10/2024 10/13/2024 Discontinued (Therapy completed) fluticasone propionate 0.05 mg/actuat metered dose nasal spray (20 sources) Corticosteroid Start: 06-02-2024 End: 03-13-2025 take 2 spray(s) nasal route once daily fluticasone (Flonase) 50 MCG/ACT nasal spray Indications: Seasonal allergies Administer 2 sprays into each nostril Daily Shake gently. Before first use, prime pump. After use, clean tip and replace cap. 48 g 1 12/13/2024 03/13/2025 Active Start: 07-09-2023 End: 06-02-2024 take 2 [...] Jan, Active gabapentin 300 mg oral capsule (20 sources) Anti-epileptic Agent Start: 04-25-2024 End: 03-13-2025 take 1 capsule by mouth in the morning, then take 1 capsule by mouth in the evening, then take 1 capsule by mouth at bedtime gabapentin (Neurontin) 300 MG capsule Indications: Neuropathy Take 1 capsule (300 mg) by mouth in the morning and 1 capsule (300 mg) in the evening and 1 capsule (300 mg) before bedtime. 270 capsule 1 12/13/2024 03/13/2025 Active Start: 01-23-2024 End: 02-22-2024 take 1 [...] Start: 05-03-2022 take 1 capsule by mo [facility] three times daily gabapentin 300 mg Cap 300 mg = 1 cap(s), Oral, TID, Refills(s) 0 Start Date: 05/03/22 Status: Ordered lisinopril 5 mg oral tablet (20 sources) Angiotensin Converting Enzyme Inhibitor Start: 01-23-2024 End: 03-13-2025 take 1 tablet by mouth once daily lisinopril 5 MG tablet Indications: Essential (primary) hypertension Take 1 tablet (5 mg) by mouth Daily 90 tablet 1 12/13/2024 03/13/2025 Active Start: 05-03-2022 take 1 tablet by marleny once daily lisinopril 5 mg Tab 5 mg = 1 tab(s), Oral, Daily, Refills(s) 0 Start Date: 05/03/22 Status: Ordered loratadine 10 mg oral tablet (20 sources) Start: 05-03-2022 End: 03-13-2025 take 1 tablet by mouth once daily loratadine (Claritin) 10 MG tablet Indications: Seasonal allergies Take 1 tablet (10 mg) by mouth Daily 90 tablet 1 12/13/2024 03/13/2025 Active meloxicam 15 mg oral tablet (13 sources) Nonsteroidal Anti-inflammatory Drug Start: 08-24-2024 End: 08-24-2025 take 1 tablet by mouth once daily meloxicam (Mobic) 15 MG tablet Indications: Localized primary osteoarthritis of left wrist Take 1 tablet (15 mg) by mouth Daily 90 tablet 1 12/13/2024 03/13/2025 Active naltrexone hydrochloride 50 mg oral tablet (3 sources) Opioid Antagonist Start: 05-03-2022 take 1 tablet by mouth once daily naltrexone 50 mg oral tablet 50 mg = 1 tab(s), Oral, Daily, Refills(s) 0 Start Date: 05/03/22 Status: Ordered PARoxetine hydrochloride 40 mg oral tablet (20 sources) Serotonin Reuptake Inhibitor Start: 12-02-2023 End: 03-13-2025 take 1 tablet by mouth in the morning PARoxetine (Paxil) 40 MG tablet Indications: Anxiety Take 1 tablet (40 mg) by mouth in the morning. 90 tablet 1 12/13/2024 03/13/2025 Active Start: 05-03-2022 take 1 tablet by mraleny th once daily Paxil 30 mg Tab [...] a day for 14 day(s) Apr, Not-Taking ibuprofen 400 mg oral tablet (11 sources) Nonsteroidal Anti-inflammatory Drug End: 08-24-2024 ibuprofen 400 MG tablet Take 400 mg by mouth if needed for moderate pain or headaches 08/24/2024 Discontinued (Therapy completed) ondansetron 4 mg oral tablet (2 sources) [...] alcoholism] Onset: 4 Resolved: 4 05-03-2022 Chronic Allergic reactions (15 sources) Unspecified contact dermatitis, unspecified cause; Translations: [Allergy to bee venom] Onset: 2 09-14-2024 Episodic Anxiety disorders (20 sources) Anxiety; Translations: [Anxiety disorder, unspecified] Onset: 3 05-03-2022 Chronic Asthma (1 source) Unspecified asthma, uncomplicated; Translations: [UNSPECIFIED ASTHMA UNCOMPLICATED] Onset: 3 Chronic Blindness and vision defects (2 sources) Visual impairment 05-03-2022 Chronic Disorders of lipid metabolism (1 source) Pure hypercholesterolemia, unspecified; Translations: [PURE HYPERCHOLESTEROLEMIA UNSPEC] Onset: 3 Chronic Essential hypertension (20 sources) Hypertensive disorder; Translations: [Essential (primary) hypertension] Onset: 3 05-03-2022 Chronic Genitourinary symptoms and ill-defined conditions (20 sources) Asymptomatic microscopic hematuria; Translations: [Asymptomatic microscopic hematuria] Onset: 2 Episodic Mood disorders (1 source) Major depressive disorder, single episode, unspecified; Translations: [EVELINE DEPRESS D/O SINGLE EPIS UNS] Onset: 2 Chronic Mood disorders (1 source) Mood disorders; Translations: [DEPRESSION UNSPECIFIED] Onset: 3 Osteoarthritis (17 sources) Localized, primary osteoarthritis of the wrist; Translations: [Primary osteoarthritis, left wrist] Onset: 5 08-24-2024 Chronic Other aftercare (1 source) Other snf (current) drug therapy; Translations: [OTH PATIENT'S LIBRARIAN CURRENT DRUG THERAPY] Onset: 3 Episodic Other connective tissue disease (4 sources) Rhabdomyolysis; Translations: [RHABDOMYOLYSIS] Onset: 3 Episodic Other connective tissue disease (1 source) Other muscle spasm; Translations: [OTHER MUSCLE SPASM] Onset: 3 Episodic Other connective tissue disease (20 sources) Spasm; Translations: [Other muscle spasm] Onset: 4 07-09-2023 Episodic Other nervous system disorders (20 sources) Neuropathy; Translations: [Polyneuropathy, unspecified] Onset: 3 05-03-2022 Chronic Other nervous system disorders (1 source) Polyneuropathy, unspecified; Translations: [POLYNEUROPATHY UNSPECIFIED] Onset: 3 Chronic Other nervous system disorders (1 source) Other chronic pain; Translations: [OTHER CHRONIC PAIN] Onset: 3 Chronic Other nutritional; endocrine; and metabolic disorders (20 sources) Obesity caused by energy imbalance; Translations: [Class 1 obesity due to excess calories without serious comorbidity with body mass index (BMI) of 32.0 to 32.9 in adult] Onset: 5 06-02-2024 Chronic Other upper respiratory disease (20 sources) Seasonal allergy; Translations: [Other seasonal allergic rhinitis] Onset: 3 05-03-2022 Chronic Other upper respiratory infections (2 sources) Acute sinusitis, unspecified; Translations: [Acute pharyngitis, unspecified] Episodic Substance-related disorders (20 sources) Nicotine dependence, cigarettes, uncomplicated; Translations: [Nicotine dependence] Onset: 3 Resolved: 5 04-14-2023 Chronic Unclassified (2 sources) Patient encounter status 05-15-2022 Unclassified (1 source) LOW BACK PAIN, UNSPECIFIED; Translations: [LOW BACK PAIN, UNSPECIFIED] Onset: 3 Unclassified (1 source) CONTACT W/AND (SUSP) EXPOS COVID-19; Translations: [CONTACT W/AND (SUSP) EXPOS COVID-19] Onset: Past or Other Problems Problem Classification Problem Date Documented Da te Episodic/Chronic Diabetes mellitus without complication (20 sources) Increased glucose level; Translations: [Other abnormal glucose] Onset: 08-27-2023 08-27-2023 Episodic Immunizations and screening for infectious disease (1 source) Contact with and (suspected) exposure to other viral communicable diseases Onset: 04-30-2021 Resolved: 04-30-2021 Episodic Mycoses (1 source) Candidal stomatitis Onset: 04-30-2021 Resolved: 04-30-2021 Episodic Other connective tissue disease (20 sources) Rhabdomyolysis; Translations: [Rhabdomyolysis] Onset: 07-09-2023 Resolved: 07-09-2023 07-09-2023 Episodic Other nutritional; endocrine; and metabolic disorders (20 sources) Obese class I; Translations: [Obesity (BMI 30.0-34.9)] Onset: 07-09-2023 Resolved: 06-02-2024 07-09-2023 Chronic Other nutritional; endocrine; and metabolic disorders (20 sources) Overweight in adulthood with body mass index of 25 or more but less than 30; Translations: [Body mass index (BMI) 29.0-29.9, adult] Onset: 04-14-2023 Resolved: 06-02-2024 05-15-2022 Episodic Other screening for suspected conditions (not mental disorders or infectious disease) (20 sources) Screening for malignant neoplasm of colon done; Translations: [Encounter for screening for malignant neoplasm of colon] Onset: 04-27-2022 Episodic Other skin disorders (3 sources) Rash and other nonspecific skin eruption; Translations: [RASH OTH NONSPECIFIC SKIN ERUPTION] Onset: 02-10-2022 Episodic Residual codes; unclassified (20 sources) Insomnia; Translations: [Insomnia, unspecified] Onset: 04-14-2023 Resolved: 08-24-2024 05-03-2022 Episodic Residual codes; unclassified (20 sources) Tobacco user; Translations: [Tobacco use] Onset: 04-14-2023 Resolved: 08-24-2024 05-03-2022 Episodic Residual codes; unclassified (1 source) Family history of malignant neoplasm of breast; Translations: [FAMILY HX MALIG NEOPLASM OF BREAST] Onset: 04-27-2022 Episodic Unclassified (1 source) Contact with and (suspected) exposure to covid-19 Z20.822 Results Test Name Value Interpretation Reference Range Facility MM TOMOSYNTHESIS SCREENING B Ion 07-27-2024 [facility] [place] [id number] Mammography Report Signed Patient: CARIDAD REYES MR#: [id number] : 1970 Acct:[id number] Age/Sex: 53 / F ADM Date: 07/27/24 Loc: MAMMO Attending Dr: Carrie Todd NP Ordering Physician: Carrie Todd NP Results: Date of Service: 07/27/24 Follow Up: Procedure(s): MM tomosynthesis screening BI Accession Number(s): [id number] cc: Carrie Todd NP Patient Name: CARIDAD REYES MR#: [id number] : 1970 Exam Date: 07/27/2024 Ordering Doctor: ROSARIO Todd PEDIATRIC GENETICIST RADIOLOGY REPORT PROCEDURE: MM TOMOSYNTHESIS SCREENING BI COMPARISON: MM TOMOSYNTHESIS SCREENING BI, 07/23/2023. MG MAMM SCREEN 3D KOBY CAD, 04/24/2022. INDICATIONS: Screening Calculator Name NCI Breast Cancer Risk Assessment Tool 5 Year Breast Cancer Risk 1.20% Lifetime Breast Cancer Risk 8.30% Personal Breast Cancer No Personal Ovarian Cancer No Treatments None Family Cancers Grandmother-paternal with breast cancer at age 70. LOCATION: [facility] BREAST COMPOSITION: There are scattered areas [...] Dictated By: Ernesto Webster M.D. Signed By: 07/27/24 1627 DD/ 25 TD/TT: Dock Boss: [facility] Radiology, Radiologist, MD - 07/27/2024 [place] [address] Mammography Report Signed Patient: CARIDAD REYES MR#: [id number] : 1970 Acct:[id number] Age/Sex: 53 / F ADM Date: 07/27/24 Loc: MAMMO Attending Dr: Carrie Todd NP Ordering Physician: Carrie Todd NP Results: Date of Service: 07/27/24 Follow Up: Procedure(s): MM tomosynthesis screening BI Accession Number(s): [id number] cc: Carrie Todd NP Patient Name: CARIDAD REYES MR#: [id number] : 1970 Exam Date: 07/27/2024 Ordering Doctor: [...] breast cancer at age 68. LOCATION: [facility] BREAST COMPOSITION: There are scattered areas [...] M.D. Signed By: 07/27/247 DD/ 25 TD/TT: Dock Boss: [facility] Radiology Study observation (narrative) [facility] MM TOMOSYNTHESIS SCREENING B IOrdered By: Radiologist Radiology on 07-27-2024 [facility] Work Phone: HbA1c (Bld) [Mass fraction]o n 06-02-2024 Interpretation and review of laboratory results Abnormal [facility] [employer] re [facility] - Hematology and Cell countson 06-02-2024 HbA1c (Bld) [Mass fraction] 5.80 % [facility] [employer] COVID Quick Testingon 2022 Result Negative [employer] Other Quick Strepon 01-29-2023 S. pyogenes Org specific cx Ql (Throat) Negative [employer] Other Quick Strep [employer] Other CPKon 10-10-2022 CK [Catalytic activity/Vol] 860 U/L Critically high 26-192 [facility] Comment on above: Performed By: #### C Lionel, CMP ####[facility] [address] [place], [place] [address]Dr. Caterina So PROF 14(COMP METB)on 023 Albumin [Mass/Vol] 2.9 g/dL Critically low 3.4-5.0 [facility] Comment on above: Performed By: #### C Lionel, CMP ####[facility] [address] [place], [place] [address]Dr. Caterina So Albumin/Globulin [Mass ratio] 0.9 {ratio} Normal [facility] Comment on above: Performed By: #### C K, CMP ####[facility] [address] [place], [place] [address]Dr. Caterina So ALP [Catalytic activity/Vol] 82 U/L Normal 46-116 [facility] Comment on above: Performed By: #### C K, CMP ####[facility] [address] [place] [address]Dr. Caterina So ALT [Catalytic activity/Vol] 42 U/L Normal 14-59 [facility] Comment on above: Performed By: #### C K, CMP ####[facility] [address] [place], [place] [address]Dr. Caterina So Anion gap [Moles/Vol] 10.7 mmol/L Normal [facility] Comment on above: Performed By: #### C K, CMP ####[facility] [address] [place], [place] [address]Dr. Caterina So AST [Catalytic activity/Vol] 47 U/L Critically high 15-37 [facility] Comment on above: Performed By: #### C K, CMP ####[facility] [address] [place], [place] [address]Dr. Caterina So Bilirubin [Mass/Vol] 0.4 mg/dL Normal 0.2-1.0 [facility] Comment on above: Performed By: #### C K, CMP ####[facility] [address] [place], [place] [address]Dr. Danielleella So Calcium [Mass/Vol] 8.5 mg/dL Normal 8.5-10.1 [facility] Comment on above: Performed By: #### C K, CMP ####[facility] [address] [place], [place] [address]Dr. Caterina So Chloride [Moles/Vol] 109 mmol/L Critically high 98-107 [facility] Comment on above: Performed By: #### C K, CMP ####[facility] [address] [place], [place] [address]Dr. Caterina So CO2 [Moles/Vol] 28.6 mmol/L Normal 21.0-32.0 [facility] Comment on above: Performed By: #### C K, CMP ####[facility] [address] [place], [place] [address]Dr. Caterina So Creatinine [Mass/Vol] 0.51 mg/dL Critically low 0.55-1.02 [facility] Comment on above: Performed By: #### C K, CMP ####[facility] [address] [place], [place] [address]Dr. Caterina So EGFR-AF SAO TOMEAN >60 Normal >=60 [facility] Comment on above: Performed By: #### C K, CMP ####[facility] [address] [place], [place] [address]Dr. Caterina So EGFR-NON AF SAO TOMEAN >60 Normal >=60 [facility] Comment on above: Performed By: #### C K, CMP ####[facility] [address] [place], [place] [address]Dr. Caterina So Globulin (S) [Mass/Vol] 3.1 g/dL Normal [facility] Comment on above: Performed By: #### C K, CMP ####[facility] [address] [place], [place] [address]Dr. Caterina So Glucose [Mass/Vol] 90 mg/dL Normal 74-106 [facility] Comment on above: Performed By: #### Navid K, CMP ####[facility] [address] [place], [place] [address]Dr. Caterina So Potassium [Moles/Vol] 4.3 mmol/L Normal 3.5-5.1 [facility] Comment on above: Performed By: #### Navid K, CMP ####[facility] [address] [place], [place] [address]Dr. Caterina So Protein [Mass/Vol] 6.0 g/dL Critically low 6.4-8.2 [facility] Comment on above: Performed By: #### Navid K, CMP ####[facility] [address] [place], [place] [address]Dr. Caterina So Sodium [Moles/Vol] 144 mmol/L Normal 136-145 [facility] Comment on above: Performed By: #### C K, CMP ####[facility] [address] [place], [place] [address]Dr. Caterina So Urea nitrogen [Mass/Vol] 8.0 mg/dL Normal 7.0-18.0 [facility] Comment on above: Performed By: #### Navid K, CMP ####[facility] [address] [place], [place] [address]Dr. Caterina So Urea nitrogen/Creatinin e [Mass ratio] 15.7 mg/mg Normal [facility] Comment on above: Performed By: #### Navid K, CMP ####[facility] [address] [place], [place] [id number]. Caterina So CARDIAC ANDRÉS ADMITon 023 CK [Catalytic activity/Vol] 3715 U/L Critically high 26-192 [facility] Comment on above: Performed By: #### C MARIO ALBERTO, CMP #### [facility] [address] [address] [address] Caterina So CK.MB [Mass/Vol] 9.82 ng/mL Critically high <=3.60 [facility] Comment on above: Performed By: #### C MARIO ALBERTO, CMP #### [facility] [address] [address] [address] Caterina So HSTROP 12.3 pg/mL Normal 4.0-51.3 [facility] Comment on above: Result Comment: CUT- OFF POINTS HAVE BEEN ESTABLISHED BASED ON THE FOURTH UNIVERSAL DEFINITIONS OF MYOCARDIAL INFARCTION. THE UPPER REFERENCE LIMIT (URL) OF TROPONIN, DEFINED THE 99TH PERCENTILE OF cTnI DISTRIBUTION IN A REFERENCE POPULATION, HAS BEEN CONFIRMED THE DECISION THRESHOLD FOR MD DIAGNOSIS. Performed By: #### C MARIO ALBERTO, CMP #### [facility] [address] [address] [address] Caterina So KRISTINA 158 ng/mL Critically high 9-82 [facility] Comment on above: Performed By: #### C MARIO ALBERTO, CMP #### [facility] [address] [address] [address] Caterina So CBC AUTO DIFFon 10-09-2022 BASO # 0.1 103/ul Normal 0.0-0.1 [facility] Comment on above: Performed By: #### C BC #### [facility] [address] [address] [address] Caterina So Basophils/100 WBC (Bld) 0.8 % Normal 0.2-2.0 [facility] Comment on above: Performed By: #### C BC #### [facility] [address] [address] [address] Caterina So EO # 0.2 103/ul Normal 0.0-0.7 [facility] Comment on above: Performed By: #### C BC #### [facility] [address] [place] [address] Dr. Caterina So Eosinophils/100 WBC (Bld) 1.8 % Normal 0.9-7.0 [facility] Comment on above: Performed By: #### C BC #### [facility] [address] [place] [address] Dr. Caterina So Erythrocyte distribution width (RBC) [Ratio] 13.0 % Normal 11.0-15.0 [facility] Comment on above: Performed By: #### C BC #### [facility] [address] [place] [address] Dr. Caterina So Hematocrit (Bld) [Volume fraction] 41.7 % Normal 36.0-48.0 [facility] Comment on above: Performed By: #### C BC #### [facility] [address] [place] [address] Dr. Caterina So Hemoglobin (Bld) [Mass/Vol] 13.5 g/dL Normal 12.0-16.0 [facility] Comment on above: Performed By: #### C BC #### [facility] [address] [place] [address] Dr. Caterina So IG # 0.04 10e3/ul Critically high 0.00-0.03 [facility] Comment on above: Performed By: #### C BC #### [facility] [address] [place] [address] Dr. Caterina So IG % 0.4 % Normal 0.0-0.5 [facility] Comment on above: Performed By: #### C BC #### [facility] [address] [place] [address] Dr. Caterina So LYMPH # 3.3 103/ul Normal 1.2-3.8 [facility] Comment on above: Performed By: #### C BC #### [facility] [address] [place] [address] Dr. Caterina So Lymphocytes/100 WBC (Bld) 36.8 % Normal 20.5-60.0 [facility] Comment on above: Performed By: #### C BC #### [facility] [address] [place] [address] Dr. Caterina So MANUAL DIFF REQ NO Normal [facility] Comment on above: Performed By: #### C BC #### [facility] [address] [place] [address] Dr. Caterina So MCH (RBC) [Entitic mass] 31.3 pg Normal 26.7-34.0 [facility] Comment on above: Performed By: #### C BC #### [facility] [address] [place] [address] Dr. Caterina So MCHC (RBC) [Mass/Vol] 32.4 g/dL Normal 29.9-35.2 [facility] Comment on above: Performed By: #### C BC #### [facility] [address] [place] [address] Dr. Caterina So MCV (RBC) [Entitic vol] 96.5 fL Normal 81.0-99.0 [facility] Comment on above: Performed By: #### C BC #### [facility] [address] [place] [address] Dr. Caterina So MONO # 0.6 103/ul Normal 0.3-0.8 [facility] Comment on above: Performed By: #### C BC #### [facility] [address] [place] [address] Dr. Caterina So Monocytes/100 WBC (Bld) 6.9 % Normal 1.7-12.0 [facility] Comment on above: Performed By: #### C BC #### [facility] [address] [place] [address] Dr. Caterina So NEUT # 4.8 103/ul Normal 1.4-6.5 [facility] Comment on above: Performed By: #### C BC #### [facility] [address] [place] [address] Dr. Caterina So Neutrophils/100 WBC (Bld) 53.3 % Normal 43.0-75.0 [facility] Comment on above: Performed By: #### C BC #### [facility] [address] [place] [address] Dr. Caterina So Platelet mean volume (Bld) [Entitic vol] 11.0 fL Normal 9.5-13.5 [facility] Comment on above: Performed By: #### C BC #### [facility] [address] [place] [address] Dr. Caterina So PLT 204 103/ul Normal 150-450 [facility] Comment on above: Performed By: #### C BC #### [facility] [address] [address] [address] Caterina So RBC 4.32 106/ul Normal 4.20-5.40 [facility] Comment on above: Performed By: #### C BC #### [facility] [address] [place] [address] Dr. Caterina So WBC 8.9 103/ul Normal 4.0-11.0 [facility] Comment on above: Performed By: #### C BC #### [facility] [address] [place] [address] Dr. Caterina So CPKon 10-09-2022 CK [Catalytic activity/Vol] 3818 U/L Critically high 26-192 [facility] Comment on above: Performed By: #### C K ####[facility] [address] [place], [place] [address]Dr. Caterina So PROF 14(COMP METB)on 023 Albumin [Mass/Vol] 4.2 g/dL Normal 3.4-5.0 [facility] Comment on above: Performed By: #### C MARIO ALBERTO, CMP #### [facility] [address] [place] [address] Dr. Caterina So Albumin/Globulin [Mass ratio] 1.1 {ratio} Normal [facility] Comment on above: Performed By: #### C MARIO ALBERTO, CMP #### [facility] [address] [place] [address] Dr. Caterina So ALP [Catalytic activity/Vol] 104 U/L Normal 46-116 [facility] Comment on above: Performed By: #### C MARIO ALBERTO, CMP #### [facility] [address] [address] [address] Caterina So ALT [Catalytic activity/Vol] 64 U/L Critically high 14-59 [facility] Comment on above: Performed By: #### C MARIO ALBERTO, CMP #### [facility] [address] [place] [address] Dr. Caterina So Anion gap [Moles/Vol] 10.9 mmol/L Normal [facility] Comment on above: Performed By: #### C MARIO ALBERTO, CMP #### [facility] [address] [place] [address] Dr. Caterina So AST [Catalytic activity/Vol] 103 U/L Critically high 15-37 [facility] Comment on above: Performed By: #### C MARIO ALBERTO, CMP #### [facility] [address] [place] [address] Dr. Caterina So Bilirubin [Mass/Vol] 0.6 mg/dL Normal 0.2-1.0 [facility] Comment on above: Performed By: #### C MARIO ALBERTO, CMP #### [facility] [address] [place] [address] Dr. Caterina So Calcium [Mass/Vol] 9.0 mg/dL Normal 8.5-10.1 [facility] Comment on above: Performed By: #### C MARIO ALBERTO, CMP #### [facility] [address] [place] [address] Dr. Caterina So Chloride [Moles/Vol] 103 mmol/L Normal 98-107 [facility] Comment on above: Performed By: #### C MARIO ALBERTO, CMP #### [facility] [address] [place] [address] Dr. Caterina So CO2 [Moles/Vol] 30.3 mmol/L Normal 21.0-32.0 [facility] Comment on above: Performed By: #### C MARIO ALBERTO, CMP #### [facility] [address] [place] [address] Dr. Caterina So Creatinine [Mass/Vol] 0.66 mg/dL Normal 0.55-1.02 [facility] Comment on above: Performed By: #### C MARIO ALBERTO, CMP #### [facility] [address] [address] [address] Caterina So EGFR-AF SAO TOMEAN >60 Normal >=60 [facility] Comment on above: Performed By: #### C TIFFANIEM, CMP #### [facility] [address] [address] [address] Caterina So EGFR-NON AF SAO TOMEAN >60 Normal >=60 [facility] Comment on above: Performed By: #### C TIFFANIEM, CMP #### [facility] [address] [address] [address] Caterina So Globulin (S) [Mass/Vol] 3.7 g/dL Normal [facility] Comment on above: Performed By: #### C MARIO ALBERTO, CMP #### [facility] [address] [address] [address] Caterina So Glucose [Mass/Vol] 98 mg/dL Normal 74-106 [facility] Comment on above: Performed By: #### C MARIO ALBERTO, CMP #### [facility] [address] [address] [address] Caterina So Potassium [Moles/Vol] 3.2 mmol/L Critically low 3.5-5.1 [facility] Comment on above: Performed By: #### C MARIO ALBERTO, CMP #### [facility] [address] [address] [address] Caterina So Protein [Mass/Vol] 7.9 g/dL Normal 6.4-8.2 [facility] Comment on above: Performed By: #### C MARIO ALBERTO, CMP #### [facility] [address] [address] [address] Caterina So Sodium [Moles/Vol] 141 mmol/L Normal 136-145 [facility] Comment on above: Performed By: #### C MARIO ALBERTO, CMP #### [facility] [address] [address] [address] Caterina So Urea nitrogen [Mass/Vol] 5.0 mg/dL Critically low 7.0-18.0 [facility] Comment on above: Performed By: #### C MARIO ALBERTO, CMP #### [facility] [address] [address] [address] Caterina So Urea nitrogen/Creatinin e [Mass ratio] 7.6 mg/mg Normal [facility] Comment on above: Performed By: #### C MARIO ALBERTO, CMP #### [facility] [address] [place], [place] [address] Dr. Caterina So XR LSPINE 2_3 VIEWSon [...] by: JUANIS RIZO Date: 2022-10-09 08:18 Normal [facility] Long-Term Documentson 08-15-2022 Long-Term Documents [id number] 8#1.00CD:127 Normal [facility] Long-Term Documentson 08-12-2022 Long-Term Documents Long-Term Nurse Visit 14 day Health Appraisal Date of Appraisal: _08/08/2022 Booked Date: or Release [id number]: RELEASE 10/05/2022 Did inmate come from another [...] L forearm Date vial opened: Lot number: [id number] Expiration date: 09/2023 PPD Comments: _ Inmate [...] you wish to attend AA Meetings? YES Long-Term Assessment 08/08/22 16:06:00 Long-Term Assessment Entered On: 08/08/2022 16:09 EDT Performed [...] Yes Patient Reported Covid-19 Testing Where : [facility] Patient Reported Covid-19 Testing When : 08/06/2022 EDT *Verify Droplet, Contact Precautions for Ebola (Reference for CDC) : N/A *Verify Airborne, Droplet Precautions for MERS/COVID-19 : N/A Katelin Cline RN - 08/08/2022 16:06 EDT Summary Chief Complaint : Health Appraisal Preferred Lab : [facility] Preferred Rad : [facility] Height in Inches : 62 in Height/Length Measured : 157.4 cm(Converted to: (more content not included)... Normal [facility] Long-Term Documents Long-Term Nurse Visit 14 day Health Appraisal PPD [...] (COVID-19) mRNA BNT-162b2 vax 09/08/2020 Recorded Normal [facility] Outside Colonoscopyon 2022 Outside Colonoscopy [id number] #1.00CD:127 Normal [facility] Reminderson 06-13-2022 Reminders - From: Elin Hays LPN To: GSN - Clinical; Sent: 06/13/2022 16:06:10 EST Show up: 05/12/2032 07:00:00 EST Subject: colonoscopy recall Due Date/Time: 06/12/2032 07:00:00 EST Reminder/Recall Patient is due for screening colonoscopy 06/12/2032. Normal [facility] Lab Reportson 06-10-2022 Lab Reports [id number] #1.00CD:127 Normal [facility] Covid-19 PCR (CVDTB)on 05-20 SARS-CoV-2 (COVID-19) RNA GONZÁLEZ+probe Ql (Unsp spec) Not detected Normal NOT DETECTED [facility] Comment on above: Result Comment: This test is not yet approved or cleared by the [place] FDA. When there are no FDA-approved or cleared tests available, and other criteria are met, FDA can make tests available under an emergency access mechanism called an Emergency Use Authorization (EUA). The EUA for this test is supported by the Cyber Security Manager of Health and Human Service's (HHS's) declaration [...] consistent with SARS-CoV-2. Performed By: #### [facility] #### [facility] [address] [place] [address] Dr. Caterina So Pre-Certification Formon Pre-Certification Form [id number] #1.00CD:127 Normal [facility] Consent for Procedure/Surger yon 05-17-2022 Consent for Procedure/Surgery [id number] #1.00CD:127 Normal [facility] Formson 05-16-2022 Forms [id number] #1.00CD:127 Normal [facility] Provider Letter FTMCon 05-15 Provider Letter [facility] May 15, 2022 CARIDAD REYES [address] [place] [address] [place] 1970 To Whom It May Concern, Please excuse above patient from work 06/12/2022 due to surgical procedure. Sincerely, Dr. Ede Bhakta MD General Surgery [facility] Provider Letter [facility] May 15, 2022 CARIDAD REYES [address] [place] [address] [place] 1970 To Whom It May Concern, Please excuse above patient from work 06/05/2022 due to scheduled surgical procedure. Sincerely, Dr. Ede Bhakta MD General Surgery [facility] CULTURE URINEon 05-06-2022 CULTURE URINE Culture Observations: MODERATE GROWTH OF MIXED GENITAL COOPER. NO POTENTIAL PATHOGENS SEEN. Normal [facility] Comment on above: Performed By: #### U RCX #### [facility] [address] [address] [address] Caterina So UA RANDOM W/MICROSCOPICon BACTERIA NONE SEEN Normal NONE SEEN [facility] Comment on above: Performed By: #### U AMIC ####[facility] [address] [address]DrLilliana So Bilirubin Ql (U) Negative Normal NEGATIVE [facility] Comment on above: Performed By: #### U AMIC ####[facility] [address] [address]DrLilliana So CAST NONE SEEN Normal NONE SEEN [facility] Comment on above: Performed By: #### U AMIC ####[facility] [address] [address]DrLilliana oS Clarity (U) CLEAR Normal CLEAR [facility] Comment on above: Performed By: #### U AMIC ####[facility] [address] [address]Dr. Danielleella So Color (U) YELLOW Normal YELLOW [facility] Comment on above: Performed By: #### U AMIC ####[facility] [address] [id number]. Danielleella So Crystals LM Nom (Urine sed) NONE SEEN Normal NONE SEEN [facility] Comment on above: Performed By: #### U AMIC ####[facility] [address] [address]Dr. Danielleella So Epithelial cells LM Ql (Urine sed) FEW Abnormal NONE SEEN /RARE [facility] Comment on above: Performed By: #### U AMIC ####[facility] [address] [address]Dr. Caterina So Glucose Ql (U) Negative Normal NEGATIVE [facility] Comment on above: Performed By: #### U AMIC ####[facility] [address] [address]Dr. Caterina So Hemoglobin Ql (U) SMALL Abnormal NEGATIVE [facility] Comment on above: Performed By: #### U AMIC ####[facility] [address] [place], [place] [address]Dr. Caterina So Ketones Ql (U) Negative Normal NEGATIVE [facility] Comment on above: Performed By: #### U AMIC ####[facility] [address] [address]Dr. Daniellelan So LEUKOCYTES MODERATE Abnormal NEGATIVE [facility] Comment on above: Performed By: #### U AMIC ####[facility] [address] [address]Dr. Daniellelan So MUCOUS NONE SEEN Normal NONE SEEN [facility] Comment on above: Performed By: #### U AMIC ####[facility] [address] [address]Dr. Caterina So Nitrite Ql (U) Negative Normal NEGATIVE [facility] Comment on above: Performed By: #### U AMIC ####[facility] [address] [address]Dr. Caterina So pH (U) 6.0 [pH] Normal 5-9 [facility] Comment on above: Performed By: #### U AMIC ####[facility] [address] [address]Dr. Caterina So RBC 0-2 Normal 0-2 [facility] Comment on above: Performed By: #### U AMIC ####[facility] [address] [place], [place] [address]Dr. Caterina So SPEC GRAVITY 1.020 Normal 1.005-<=1.025 [facility] Comment on above: Performed By: #### U AMIC ####[facility] [address] [place], [place] [address]Dr. Caterina So UA PROTEIN Negative Normal NEGATIVE/ TRACE [facility] Comment on above: Performed By: #### U AMIC ####[facility] [address] [place], [place] [address]Dr. Caterina So Urobilinogen Qn (U) 2.0 {Temitope'U}/dL Abnormal 0.2 - 1.0 [facility] Comment on above: Performed By: #### U AMIC ####[facility] [address] [place], [place] [address]Dr. Caterina So WBC 10-20 Abnormal NONE SEEN [facility] Comment on above: Performed By: #### U AMIC ####[facility] [address] [place], [place] [address]Dr. Caterina So CBC AUTO DIFFon 04-24-2022 BASO # 0.1 103/ul Normal 0.0-0.1 [facility] Comment on above: Performed By: #### C BC ####[facility] [address] [place], [place] [address]DrLilliana So Basophils/100 WBC (Bld) 0.9 % Normal 0.2-2.0 [facility] Comment on above: Performed By: #### C BC ####[facility] [address] [place], [place] [address]Dr. Caterina So EO # 0.2 103/ul Normal 0.0-0.7 [facility] Comment on above: Performed By: #### C BC ####[facility] [address] [address]Dr. Caterina So Eosinophils/100 WBC (Bld) 2.8 % Normal 0.9-7.0 [facility] Comment on above: Performed By: #### C BC ####[facility] [address] [place], [place] [address]Dr. Caterina So Erythrocyte distribution width (RBC) [Ratio] 12.9 % Normal 11.0-15.0 [facility] Comment on above: Performed By: #### C BC ####[facility] [address] [place], [place] [address]Dr. Caterina So Hematocrit (Bld) [Volume fraction] 44.5 % Normal 36.0-48.0 [facility] Comment on above: Performed By: #### C BC ####[facility] [address] [place], [place] [address]Dr. Caterina So Hemoglobin (Bld) [Mass/Vol] 14.6 g/dL Normal 12.0-16.0 [facility] Comment on above: Performed By: #### C BC ####[facility] [address] [place], [place] [address]Dr. Caterina So IG # 0.01 10e3/ul Normal 0.00-0.03 [facility] Comment on above: Performed By: #### C BC ####[facility] [address] [place], [place] [address]Dr. Caterina So IG % 0.1 % Normal 0.0-0.5 [facility] Comment on above: Performed By: #### C BC ####[facility] [address] [place], [place] [address]Dr. Caterina So LYMPH # 3.4 103/ul Normal 1.2-3.8 [facility] Comment on above: Performed By: #### C BC ####[facility] [address] [place], [place] [address]Dr. Caterina So Lymphocytes/100 WBC (Bld) 44.5 % Normal 20.5-60.0 [facility] Comment on above: Performed By: #### C BC ####[facility] [address] [address]DrLilliana So MANUAL DIFF REQ NO Normal [facility] Comment on above: Performed By: #### C BC ####[facility] [address] [address]Dr. Caterina So MCH (RBC) [Entitic mass] 31.9 pg Normal 26.7-34.0 [facility] Comment on above: Performed By: #### C BC ####[facility] [address] [place], [place] [address]Dr. Caterina So MCHC (RBC) [Mass/Vol] 32.8 g/dL Normal 29.9-35.2 [facility] Comment on above: Performed By: #### C BC ####[facility] [address] [place], [place] [address]Dr. Caterina So MCV (RBC) [Entitic vol] 97.2 fL Normal 81.0-99.0 [facility] Comment on above: Performed By: #### C BC ####[facility] [address] [place], [place] [address]Dr. Caterina So MONO # 0.6 103/ul Normal 0.3-0.8 [facility] Comment on above: Performed By: #### C BC ####[facility] [address] [place], [place] [address]Dr. Caterina So Monocytes/100 WBC (Bld) 7.6 % Normal 1.7-12.0 [facility] Comment on above: Performed By: #### C BC ####[facility] [address] [place], [place] [address]DrLilliana So NEUT # 3.3 103/ul Normal 1.4-6.5 [facility] Comment on above: Performed By: #### C BC ####[facility] [address] [place], [place] [address]DrLilliana So Neutrophils/100 WBC (Bld) 44.1 % Normal 43.0-75.0 [facility] Comment on above: Performed By: #### C BC ####[facility] [address] [address]Dr. Caterina So Platelet mean volume (Bld) [Entitic vol] 11.1 fL Normal 9.5-13.5 [facility] Comment on above: Performed By: #### C BC ####[facility] [address] [id number]. Caterina So PLT 188 103/ul Normal 150-450 [facility] Comment on above: Performed By: #### C BC ####[facility] [address] [address]Dr. Caterina So RBC 4.58 106/ul Normal 4.20-5.40 [facility] Comment on above: Performed By: #### C BC ####[facility] [address] [address]Dr. Caterina So WBC 7.6 103/ul Normal 4.0-11.0 [facility] Comment on above: Performed By: #### C BC ####[facility] [address] [address]DrLilliana Santosella Judah LIPID PROFILEon 04-24-2022 CHOL-HDL RATIO NORM SEE BELOW Normal [facility] Comment on above: Result Comment: 3.3 - 4.4 LOW RISK 4.4 - 7.1 AVERAGE RISK 7.1 - 11.0 MODERATE RISK >11.0 HIGH RISK Performed By: #### T SH, LIPID, CMP #### [facility] [address] [address] [address] Caterina So Cholesterol [Mass/Vol] 160 mg/dL Normal <=200 [facility] Comment on above: Performed By: #### T SH, LIPID, CMP #### [facility] [address] [address] [address] Caterina So Cholesterol in HDL [Mass/Vol] 44 mg/dL Normal 40-60 [facility] Comment on above: Performed By: #### T SH, LIPID, CMP #### [facility] [address] [address] [address] Caterina So Cholesterol in LDL [Mass/Vol] 105.0 mg/dL Normal [facility] Comment on above: Performed By: #### T SH, LIPID, CMP #### [facility] [address] [address] [address] Caterina So Cholesterol.total/ Cholesterol in HDL [Mass ratio] 3.6 {ratio} Normal [facility] Comment on above: Performed By: #### T SH, LIPID, CMP #### [facility] [address] [address] [address] Caterina So HDL NORMAL > or = 60 mg/dl - LOW CARDIOVASCULAR RISK <40 mg/dl - HIGH CARDIOVASCULAR RISK Normal [facility] Comment on above: Performed By: #### T SH, LIPID, CMP #### [facility] [address] [place] [address] Dr. Caterina So LDL CALC NORMAL SEE BELOW Normal [facility] Comment on above: Result Comment: <100 mg/dl OPTIMAL 100 - 129 mg/dl NEAR OR ABOVE OPTIMAL 130 - 159 mg/dl BORDERLINE HIGH 160 - 189 mg/dl HIGH >190 mg/dl VERY HIGH Performed By: #### T SH, LIPID, CMP #### [facility] [address] [place] [address] Dr. Caterina So Triglyceride [Mass/Vol] 55 mg/dL Normal <=150 [facility] Comment on above: Performed By: #### T SH, LIPID, CMP #### [facility] [address] [place] [address] Dr. Caterina So VLDL CALC 11.0 mg/dL Normal [facility] Comment on above: Performed By: #### T SH, LIPID, CMP #### [facility] [address] [place] [address] Dr. 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 INDICATIONS: Screening mammography Calculator Name NCI Breast Cancer Risk Assessment Tool 5 Year Breast Cancer Risk 1.10% Lifetime Breast Cancer Risk 8.60% Personal Breast Cancer No Personal Ovarian Cancer No Treatments None Family Cancers Grandmother-paternal with breast cancer at age 70. LOCATION: [facility] BREAST COMPOSITION: Scattered areas fibroglandular density. [...] Rizo M.D. on 04/24/2022 at 12:37 Normal [facility] PROF 14(COMP METB)on 022 Albumin [Mass/Vol] 4.0 g/dL Normal 3.4-5.0 [facility] Comment on above: Performed By: #### T SH, LIPID, CMP #### [facility] [address] [place] [address] Dr. Caterina So Albumin/Globulin [Mass ratio] 1.2 {ratio} Normal [facility] Comment on above: Performed By: #### T SH, LIPID, CMP #### [facility] [address] [place] [address] Dr. Caterina So ALP [Catalytic activity/Vol] 85 U/L Normal 46-116 [facility] Comment on above: Performed By: #### T SH, LIPID, CMP #### [facility] [address] [place] [address] Dr. Caterina So ALT [Catalytic activity/Vol] 33 U/L Normal 14-59 [facility] Comment on above: Performed By: #### T SH, LIPID, CMP #### [facility] [address] [address] [address] Caterina So Anion gap [Moles/Vol] 12.4 mmol/L Normal [facility] Comment on above: Performed By: #### T SH, LIPID, CMP #### [facility] [address] [address] [address] Caterina So AST [Catalytic activity/Vol] 32 U/L Normal 15-37 [facility] Comment on above: Performed By: #### T SH, LIPID, CMP #### [facility] [address] [place] [address] Dr. Caterina So Bilirubin [Mass/Vol] 0.6 mg/dL Normal 0.2-1.0 [facility] Comment on above: Performed By: #### T SH, LIPID, CMP #### [facility] [address] [place] [address] Dr. Caterina So Calcium [Mass/Vol] 8.9 mg/dL Normal 8.5-10.1 [facility] Comment on above: Performed By: #### T SH, LIPID, CMP #### [facility] [address] [address] [address] Caterina So Chloride [Moles/Vol] 104 mmol/L Normal 98-107 [facility] Comment on above: Performed By: #### T SH, LIPID, CMP #### [facility] [address] [address] [address] Caterina So CO2 [Moles/Vol] 30.5 mmol/L Normal 21.0-32.0 [facility] Comment on above: Performed By: #### T SH, LIPID, CMP #### [facility] [address] [place] [address] Dr. Caterina So Creatinine [Mass/Vol] 0.58 mg/dL Normal 0.55-1.02 [facility] Comment on above: Performed By: #### T SH, LIPID, CMP #### [facility] [address] [address] [address] Caterina So EGFR-AF SAO TOMEAN >60 Normal >=60 [facility] Comment on above: Performed By: #### T SH, LIPID, CMP #### [facility] [address] [address] [address] Caterina So EGFR-NON AF SAO TOMEAN >60 Normal >=60 [facility] Comment on above: Performed By: #### T SH, LIPID, CMP #### [facility] [address] [address] [address] Caterina So Globulin (S) [Mass/Vol] 3.4 g/dL Normal [facility] Comment on above: Performed By: #### T SH, LIPID, CMP #### [facility] [address] [address] [address] Caterina So Glucose [Mass/Vol] 93 mg/dL Normal 74-106 [facility] Comment on above: Performed By: #### T SH, LIPID, CMP #### [facility] [address] [place] [address] Dr. Caterina So Potassium [Moles/Vol] 3.9 mmol/L Normal 3.5-5.1 [facility] Comment on above: Performed By: #### T SH, LIPID, CMP #### [facility] [address] [place] [address] Dr. Caterina So Protein [Mass/Vol] 7.4 g/dL Normal 6.4-8.2 [facility] Comment on above: Performed By: #### T SH, LIPID, CMP #### [facility] [address] [place] [address] Dr. Caterina So Sodium [Moles/Vol] 143 mmol/L Normal 136-145 [facility] Comment on above: Performed By: #### T SH, LIPID, CMP #### [facility] [address] [place] [address] Dr. Caterina So Urea nitrogen [Mass/Vol] 10.0 mg/dL Normal 7.0-18.0 [facility] Comment on above: Performed By: #### T SH, LIPID, CMP #### [facility] [address] [place] [address] Dr. Caterina So Urea nitrogen/Creatinin e [Mass ratio] 17.2 mg/mg Normal [facility] Comment on above: Performed By: #### T SH, LIPID, CMP #### [facility] [address] [place] [address] Dr. Caterina So TSHon 04-24-2022 TSH 2.767 uIU/mL Normal 0.358-3.740 [facility] Comment on above: Performed By: #### T SH, LIPID, CMP #### [facility] [address] [place] [address] Dr. Caterina So UA RANDOM W/MICROSCOPICon BACTERIA TRACE Abnormal NONE SEEN [facility] Comment on above: Performed By: #### U AMIC #### [facility] [address] [place] [address] Dr. Caterina So Bilirubin Ql (U) Negative Normal NEGATIVE [facility] Comment on above: Performed By: #### U AMIC #### [facility] [address] [place] [address] Dr. Caterina So CAST NONE SEEN Normal NONE SEEN [facility] Comment on above: Performed By: #### U AMIC #### [facility] [address] [place] [address] Dr. Caterina So Clarity (U) CLEAR Normal CLEAR [facility] Comment on above: Performed By: #### U AMIC #### [facility] [address] [place] [address] Dr. Caterina So Color (U) LT. YELLOW Normal YELLOW [facility] Comment on above: Performed By: #### U AMIC #### [facility] [address] [place] [address] Dr. Caterina So Crystals LM Nom (Urine sed) NONE SEEN Normal NONE SEEN [facility] Comment on above: Performed By: #### U AMIC #### [facility] [address] [place] [address] Dr. Caterina So Epithelial cells LM Ql (Urine sed) FEW Abnormal NONE SEEN /RARE [facility] Comment on above: Performed By: #### U AMIC #### [facility] [address] [place] [address] Dr. Caterina So Glucose Ql (U) Negative Normal NEGATIVE [facility] Comment on above: Performed By: #### U AMIC #### [facility] [address] [address] [address] Caterina So Hemoglobin Ql (U) SMALL Abnormal NEGATIVE [facility] Comment on above: Performed By: #### U AMIC #### [facility] [address] [address] [address] Caterina So Ketones Ql (U) Negative Normal NEGATIVE [facility] Comment on above: Performed By: #### U AMIC #### [facility] [address] [address] [address] Caterina So LEUKOCYTES LARGE Abnormal NEGATIVE [facility] Comment on above: Performed By: #### U AMIC #### [facility] [address] [address] [address] Caterina So MUCOUS NONE SEEN Normal NONE SEEN [facility] Comment on above: Performed By: #### U AMIC #### [facility] [address] [address] [address] Caterina So Nitrite Ql (U) Negative Normal NEGATIVE [facility] Comment on above: Performed By: #### U AMIC #### [facility] [address] [address] [address] Caterina So pH (U) 7.0 [pH] Normal 5-9 [facility] Comment on above: Performed By: #### U AMIC #### [facility] [address] [address] [address] Caterina So RBC 2-5 Abnormal 0-2 [facility] Comment on above: Performed By: #### U AMIC #### [facility] [address] [address] [address] Caterina So SPEC GRAVITY 1.010 Normal 1.005-<=1.025 [facility] Comment on above: Performed By: #### U AMIC #### [facility] [address] [address] [address] Caterina So UA PROTEIN Negative Normal NEGATIVE/ TRACE [facility] Comment on above: Performed By: #### U AMIC #### [facility] [address] [address] [address] Caterina So Urobilinogen Qn (U) 1.0 {Temitope'U}/dL Normal 0.2 - 1.0 [facility] Comment on above: Performed By: #### U AMIC #### [facility] [address] [address] [address] Caterina So WBC 10-20 Abnormal NONE SEEN [facility] Comment on above: Performed By: #### U AMIC #### [facility] [address] [address] [address] Caterina So Physician Referralon 022 Physician Referral [id number] #[id number] Normal [facility] A1C with Estimated Average G luo 10-09-2021 Glucose [Mass/Vol] 108 mg/dL Normal [facility] Comment on above: Result Comment: PERF ORMED BY: [place] [address] PATHOLOGIST REFRIGERATION SERVICE INSPECTOR YUNG KONG M.D. Performed By: #### C BC, CMP, A1C [facility] eA #### [facility] [address] [place] [address] HbA1c (Bld) [Mass fraction] 5.4 % Normal 4.3-5.6 [facility] Comment on above: Result Comment: Incr eased risk for diabetes: 5.7 - 6.4 diabetes: >6.4 glycemic control for adults with diabetes: <7.0 Performed By: #### C BC, CMP, A1C WT eA #### [facility] [address] [place] [address] Complete Blood Count Auto Di ffon 10-09-2021 Basophils (Bld) [#/Vol] 0.1 10*3/uL Normal 0.0-0.2 [facility] Comment on above: Result Comment: PERF ORMED BY: [place] [address] PATHOLOGIST REFRIGERATION SERVICE INSPECTOR YUNG KONG M.D. Performed By: #### C BC, CMP, A1C WTH eA #### [facility] [address] [place] [address] [place] Basophils/100 WBC (Bld) 0.9 % Normal . [facility] Comment on above: Performed By: #### C BC, CMP, A1C WTH eA #### [facility] [address] [place] [address] Eosinophils (Bld) [#/Vol] 0.1 10*3/uL Normal 0.0-0.45 [facility] Comment on above: Performed By: #### C BC, CMP, A1C WTH eA #### [address] Eosinophils/100 WBC (Bld) 1.5 % Normal . [facility] Comment on above: Performed By: #### C BC, CMP, A1C WTH eA #### [address] Erythrocyte distribution width (RBC) [Ratio] 14.7 % Normal 11.9-15.3 [facility] Comment on above: Performed By: #### C BC, CMP, A1C WTH eA #### [address] Hematocrit (Bld) [Volume fraction] 45.5 % Normal 34.0-46.4 [facility] Comment on above: Performed By: #### C BC, CMP, A1C WTH eA #### [place] [address] [place] Hemoglobin (Bld) [Mass/Vol] 14.9 g/dL Normal 11.8-15.4 [facility] Comment on above: Performed By: #### C BC, CMP, A1C WTH eA #### [facility] [address] [place] [address] [place] Lymphocytes (Bld) [#/Vol] 1.9 10*3/uL Normal 1.00-4.8 [facility] Comment on above: Performed By: #### C BC, CMP, A1C WTH eA #### [address] [place] [address] [place] Lymphocytes/100 WBC (Bld) 29.9 % Normal . [facility] Comment on above: Performed By: #### C BC, CMP, A1C WTH eA #### [facility] [address] [place] [address] [place] MCH (RBC) [Entitic mass] 35.2 pg High 24.7-34.3 [facility] Comment on above: Performed By: #### C BC, CMP, A1C WTH eA #### [place] [address] [place] MCV (RBC) [Entitic vol] 107.6 fL High 80-100 [facility] Comment on above: Performed By: #### C BC, CMP, A1C WTH eA #### [address] Mean Corpuscular HGB Conc 32.7 g/dL Normal 32.0-35.0 [facility] Comment on above: Performed By: #### C BC, CMP, A1C WTH eA #### [place] [address] [place] Monocytes (Bld) [#/Vol] 0.4 10*3/uL Normal 0.0-0.8 [facility] Comment on above: Performed By: #### C BC, CMP, A1C WTH eA #### [place] [address] [place] Monocytes/100 WBC (Bld) 6.0 % Normal . [facility] Comment on above: Performed By: #### C BC, CMP, A1C WTH eA #### [place] [address] [place] Neutrophils (Bld) [#/Vol] 3.8 10*3/uL Normal 1.8-7.7 [facility] Comment on above: Performed By: #### C BC, CMP, A1C WTH eA #### [place] [address] [place] Neutrophils/100 WBC (Bld) 61.7 % Normal . [facility] Comment on above: Performed By: #### C BC, CMP, A1C WTH eA #### [facility] [address] Nucleated RBC/100 WBC (Bld) [Ratio] 0.2 % Normal 0-0.5 [facility] Comment on above: Performed By: #### C BC, CMP, A1C WTH eA #### [facility] [address] Platelet mean volume (Bld) [Entitic vol] 10.2 fL Normal 6.3-10.7 [facility] Comment on above: Performed By: #### C BC, CMP, A1C WTH eA #### [facility] [address] [place] [address] [place] Platelets (Bld) [#/Vol] 193 10*3/uL Normal 150-450 [facility] Comment on above: Performed By: #### C BC, CMP, A1C WTH eA #### [place] [address] [place] RBC (Bld) [#/Vol] 4.23 10*6/uL Normal 3.60-5.00 [facility] Comment on above: Performed By: #### C BC, CMP, A1C WTH eA #### [address] WBC (Bld) [#/Vol] 6.2 10*3/uL Normal 4.5-11.0 [facility] Comment on above: Performed By: #### C BC, CMP, A1C WTH eA #### [facility] [address] [place] [address] Comprehensive Metabolic Pane tad 10-09-2021 Albumin [Mass/Vol] 3.9 g/dL Normal 3.2-5.5 [facility] Comment on above: Performed By: #### C BC, CMP, A1C WTH eA #### [address] Albumin/Globulin [Mass ratio] 1.3 {ratio} Normal [facility] Comment on above: Performed By: #### C BC, CMP, A1C WTH eA #### [facility] [address] [place] [address] [place] ALP [Catalytic activity/Vol] 66 U/L Normal 32-92 [facility] Comment on above: Result Comment: PERF ORMED BY: [place] [address] PATHOLOGIST REFRIGERATION SERVICE INSPECTOR YUNG KONG M.D. Performed By: #### C BC, CMP, A1C WTH eA #### [facility] [address] [place] [address] ALT [Catalytic activity/Vol] 26 U/L Normal 10-60 [facility] Comment on above: Performed By: #### C BC, CMP, A1C WTH eA #### [address] AST [Catalytic activity/Vol] 29 U/L Normal 10-42 [facility] Comment on above: Performed By: #### C BC, CMP, A1C WTH eA #### [facility] [address] [place] [address] Bilirubin [Mass/Vol] 0.4 mg/dL Normal 0.3-1.2 [facility] Comment on above: Performed By: #### C BC, CMP, A1C WTH eA #### [place] [address] [place] Calcium [Mass/Vol] 8.9 mg/dL Normal 8.2-10.2 [facility] Comment on above: Performed By: #### C BC, CMP, A1C WTH eA #### [facility] [address] [place] [address] [place] Chloride [Moles/Vol] 104 mmol/L Normal 95-114 [facility] Comment on above: Performed By: #### C BC, CMP, A1C WTH eA #### [facility] [address] [place] [address] [place] CO2 [Moles/Vol] 23.5 mmol/L Normal 22.0-30.0 [facility] Comment on above: Performed By: #### C BC, CMP, A1C WTH eA #### [facility] [address] Creatinine [Mass/Vol] 0.63 mg/dL Normal 0.44-1.03 [facility] Comment on above: Performed By: #### C BC, CMP, A1C WTH eA #### [facility] [address] [place] [address] [place] Estimated GFR ( Melissa > 60 Normal [facility] Comment on above: Result Comment: GFR estimated reference range: According to KDOQI guidelines, <60 ml/min/1.73m2 is sufficient to diagnose a patient with chronic kidney disease. Performed By: #### C BC, CMP, A1C WTH eA #### [facility] [address] Estimated GFR (Non- Am > 60 Normal [facility] Comment on above: Performed By: #### C BC, CMP, A1C WTH eA #### [facility] [address] Globulin (S) [Mass/Vol] 2.9 g/dL Normal [facility] Comment on above: Performed By: #### C BC, CMP, A1C WTH eA #### [address] Glucose [Mass/Vol] 74 mg/dL Normal 70-100 [facility] Comment on above: Result Comment: [place] Glucose Reference Range is dependent on time and content of last meal. Glucose of more than 200 mg/dL in a nonstressed, ambulatory subject supports the diagnosis of Diabetes Mellitus. ADA recommended reference range Performed By: #### C BC, CMP, A1C WTH eA #### [facility] [address] Potassium [Moles/Vol] 3.6 mmol/L Normal 3.5-5.1 [facility] Comment on above: Performed By: #### C BC, CMP, A1C WTH eA #### [facility] [address] Protein [Mass/Vol] 6.8 g/dL Normal 6.1-7.9 [facility] Comment on above: Performed By: #### C BC, CMP, A1C WTH eA #### [facility] [address] [place] [address] [place] Sodium [Moles/Vol] 140 mmol/L Normal 136-146 [facility] Comment on above: Performed By: #### C BC, CMP, A1C WTH eA #### [facility] [address] [place] [address] [place] Urea nitrogen [Mass/Vol] 10 mg/dL Normal 9-23 [facility] Comment on above: Performed By: #### C BC, CMP, A1C WTH eA #### [facility] [address] [place] [address] [place] COVID Quick Testingon 2020 Result Negative [employer] Other Quick Fluon 04-30-2021 FLUAV Ab CF (S) [Titer] Negative [employer] Other FLUBV Ab CF (S) [Titer] Negative [facility] Other ALC ETHANOLon 01-07-2020 ALC ETHANOL 277.0 mg/dL High <10.0 [facility] Comment on above: Result Comment: UNCO NFIRMED Toxicology results. For MEDICAL purposes only. Performed By: #### L 500.26874, L500.15211, L500.28898 #### Test performed at: [address] [address] CBCon 01-07-2020 Erythrocyte distribution width (RBC) [Ratio] 13.0 % Normal 11.5-14.5 [facility] Comment on above: Performed By: #### L 200.70477 #### Test performed at: [address] [address] Hematocrit (Bld) [Volume fraction] 48.6 % High 36.0-48.0 [facility] Comment on above: Performed By: #### L 200.03037 #### Test performed at: [address] [address] Hemoglobin (Bld) [Mass/Vol] 16.8 g/dL High 12.0-15.0 [facility] Comment on above: Performed By: #### L 200.10276 #### Test performed at: [address] [address] MCH (RBC) [Entitic mass] 35.8 pg High 25.4-34.6 [facility] Comment on above: Performed By: #### L 200.79784 #### Test performed at: [address] [address] MCHC (RBC) [Mass/Vol] 34.6 g/dL Normal 31.5-36.5 [facility] Comment on above: Performed By: #### L 200.64243 #### Test performed at: [address] [id number] MCV (RBC) [Entitic vol] 103.6 fL High 79.0-98.0 [facility] Comment on above: Performed By: #### L 200.67128 #### Test performed at: [address] [address] NRBC # 0.000 K/uL Normal 0-0.012 [facility] Comment on above: Performed By: #### L 200.40158 #### Test performed at: [address] [place] [address] NRBC % 0.0 /100 WBC Normal 0-0.2 [facility] Comment on above: Performed By: #### L 200.21732 #### Test performed at: [address] [id number] Platelet mean volume (Bld) [Entitic vol] 9.9 fL Normal 8.7-12.4 [facility] Comment on above: Performed By: #### L 200.55117 #### Test performed at: [facility] [address] Platelets (Bld) [#/Vol] 179 10*3/uL Normal 140-440 [facility] Comment on above: Performed By: #### L 200.45554 #### Test performed at: [address] [address] RBC (Bld) [#/Vol] 4.69 10*6/uL Normal 3.5-5.5 [facility] Comment on above: Performed By: #### L 200.06129 #### Test performed at: [place] [place] [id number] WBC (Bld) [#/Vol] 4.9 10*3/uL Normal 3.9-11.0 [facility] Comment on above: Performed By: #### L 200.27722 #### Test performed at: [place] [id number] COMP META PANELon 01-07-2020 Albumin [Mass/Vol] 3.8 g/dL Normal 3.4-5.0 [facility] Comment on above: Performed By: #### L 500.74649, L500.96770, L500.54794 #### Test performed at: [address] [address] ALK PHOS TOTAL 101 U/L Normal 45-117 [facility] Comment on above: Performed By: #### L 500.15479, L500.79976, L500.30166 #### Test performed at: [place] [place] [id number] ALT [Catalytic activity/Vol] 105 U/L High 13-61 [facility] Comment on above: Performed By: #### L 500.74939, L500.66035, L500.32943 #### Test performed at: [place] [place] [address] AST [Catalytic activity/Vol] 166 U/L High 15-37 [facility] Comment on above: Result Comment: Resu lts may be inaccurate due to moderate hemolysis. Performed By: #### L 500.79737, L500.77050, L500.54722 #### Test performed at: [address] [address] BILI TOTAL 1.1 mg/dL High 0.2-1.0 [facility] Comment on above: Performed By: #### L 500.52725, L500.91755, L500.67450 #### Test performed at: [address] [address] Calcium [Mass/Vol] 8.4 mg/dL Low 8.5-10.1 [facility] Comment on above: Performed By: #### L 500.52069, L500.09853, L500.04164 #### Test performed at: [address] [address] Chloride [Moles/Vol] 107 mmol/L Normal 98-107 [facility] Comment on above: Performed By: #### L 500.62462, L500.64943, L500.61446 #### Test performed at: [address] [address] CO2 [Moles/Vol] 24 mmol/L Normal 21-32 [facility] Comment on above: Performed By: #### L 500.90930, L500.45049, L500.87752 #### Test performed at: [address] [address] Creatinine [Mass/Vol] 0.510 mg/dL Low 0.550-1.020 [facility] Comment on above: Performed By: #### L 500.55865, L500.57385, L500.64498 #### Test performed at: [address] [address] Glucose [Mass/Vol] 88 mg/dL Normal 70-99 [facility] Comment on above: Result Comment: Fast ing GLUCOSE reference range has been updated per (ADA) [place] Diabetes Association's recommendation. 08/11/2018 Performed By: #### L 500.57753, L500.24054, L500.09063 #### Test performed at: [address] [address] Potassium [Moles/Vol] 4.8 mmol/L Normal 3.5-5.1 [facility] Comment on above: Result Comment: Resu lts may be inaccurate due to moderate hemolysis. Performed By: #### L 500.90572, L500.72468, L500.55229 #### Test performed at: [address] [address] Protein [Mass/Vol] 7.5 g/dL Normal 6.4-8.2 [facility] Comment on above: Performed By: #### L 500.57896, L500.36094, L500.09466 #### Test performed at: [address] [address] Sodium [Moles/Vol] 140 mmol/L Normal 136-145 [facility] Comment on above: Performed By: #### L 500.35948, L500.82426, L500.36460 #### Test performed at: [address] [address] Urea nitrogen [Mass/Vol] 3 mg/dL Low 7-18 [facility] Comment on above: Performed By: #### L 500.54835, L500.49933, L500.18615 #### Test performed at: [address] [address] CORONAVIRUSon 01-07-2020 CORONAVIRUS Negative results do not [...] the FDA website: https://www.fda.gov/ MedicalDevices/Safet y/ EmergencySituations/ qke225168.htm COVID-19 Negative for COVID-19 (SARS-CoV-2 RNA) Normal [facility] Comment on above: Order Comment: Dominik s: JUDIT COVID Testing: DIAGNOSTIC Performed By: #### M 400.31601 #### Test performed at: [place] [address] ED Provider Reporton 020 ED Provider Report [facility] Pt Name: CARIDAD REYES MR#: [id number] [address] [place] [address] ACCT: [id number] : 66 EMERGENCY PROVIDER REPORT ADM Date: [...] Medical Decision Making Diagnostics Labs Laboratory Tests [facility] 4d 01/06 01/06 1435 1302 Chemistry Sodium [...] pH (5.0 - 8.0) 6.0 Ur Specific [place] (1.005 - 1.030) 1.001 L Urine Protein [...] quite high she will be admitted to [facility] for detoxification for the first time in [...] and Time Adalberto York Mariam MD Normal [facility] GFR ESTIMATEon 01-07-2020 IF AMER > 60 Normal > 60 [facility] Comment on above: Result Comment: eGFR (Estimated GFR) Units of measure:mL/min/1.73 meters sq. *CALCULATION REVISED 03/07/2015;IDMS-traceable MDRD equation eGFR is derived from the reexpressed MDRD Study equation using the following parameters: serum creatinine, age, gender and race. An eGFR<60 mL/min/1.73m2 for >3 months is consistent with chronic kidney disease. Refer to KDOQI guidelines for clinical interpretation. Performed By: #### L 500.94181, L500.38002, L500.74432 #### Test performed at: [place] [address] IF non-AFR AMER > 60 Normal > 60 [facility] Comment on above: Performed By: #### L 500.08370, L500.07282, L500.66819 #### Test performed at: [place] [address] LIMIT UR TOXon 01-07-2020 PH TOX 6.0 Normal 5.0-8.0 [facility] Comment on above: Performed By: #### L 600.82406, L600.05318 #### Test performed at: [address] [address] UR AMPH Negative Normal Negative [facility] Comment on above: Result Comment: CUTO DX=6800 Performed By: #### L 600.32211, L600.52538 #### Test performed at: [place] [id number] UR JOY Negative Normal Negative [facility] Comment on above: Result Comment: CUTO WX=151 Performed By: #### L 600.18481, L600.61324 #### Test performed at: [place] [address] UR JENIFFER Negative Normal Negative [facility] Comment on above: Result Comment: CUTO ZM=507 Performed By: #### L 600.44057, L600.79024 #### Test performed at: [place] [address] UR BUPREN/NORBU Negative Normal Negative [facility] Comment on above: Result Comment: CUTO FF=10 Performed By: #### L 600.83005, L600.83133 #### Test performed at: [place] [address] UR SHARITA/THC Negative Normal Negative [facility] Comment on above: Result Comment: CUTO FF=50 Performed By: #### L 600.10639, L600.77149 #### Test performed at: [place] [address] UR NADIRA Negative Normal Negative [facility] Comment on above: Result Comment: CUTO EI=200 Performed By: #### L 600.50654, L600.37492 #### Test performed at: [place] [id number] UR ECSTASY Negative Normal Negative [facility] Comment on above: Result Comment: CUTO EX=721 Performed By: #### L 600.09208, L600.48352 #### Test performed at: [place] [address] UR FENTANYL Negative Normal Negative [facility] Comment on above: Result Comment: CUTO RM=9036 Performed By: #### L 600.38117, L600.26071 #### Test performed at: [place] [address] UR METH Negative Normal Negative [facility] Comment on above: Result Comment: CUTO OL=350 Performed By: #### L 600.79709, L600.51169 #### Test performed at: [place] [address] UR OPIAT Negative Normal Negative [facility] Comment on above: Result Comment: CUTO KC=887 Performed By: #### L 600.55725, L600.76483 #### Test performed at: [place] [address] UR OXYCOCONE Negative Normal Negative [facility] Comment on above: Result Comment: CUTO HC=915 Performed By: #### L 600.11585, L600.61631 #### Test performed at: [place] [address] UR PCP Negative Normal Negative [facility] Comment on above: Result Comment: CUTO FF=25 Performed By: #### L 600.80033, L600.65486 #### Test performed at: [place] [address] TOX COMMENT *PLEASE NOTE: Normal [facility] Comment on above: Result Comment: UNCO NFIRMED Toxicology results. For MEDICAL purposes only. Performed By: #### L 600.51015, L600.74560 #### Test performed at: [place] [address] UA COMPLETEon 01-07-2020 Appearance (U) CLEAR Normal CLEAR [facility] Comment on above: Performed By: #### L 600.45503, L600.93047 #### Test performed at: [address] [address] Bilirubin [Mass/Vol] Negative Normal NEGATIVE [facility] Comment on above: Performed By: #### L 600.02337, L600.92107 #### Test performed at: [place] [address] BLOOD 0.03 mg/dL Critically abnormal NEGATIVE [facility] Comment on above: Performed By: #### L 600.01016, L600.38400 #### Test performed at: [place] [address] Color (U) STRAW Normal YELLOW [facility] Comment on above: Performed By: #### L 600.55900, L600.53778 #### Test performed at: [place] [id number] Glucose [Mass/Vol] Negative Normal NEGATIVE [facility] Comment on above: Performed By: #### L 600.64340, L600.94747 #### Test performed at: [place] [id number] KETONE Negative Normal NEGATIVE [facility] Comment on above: Performed By: #### L 600.90929, L600.80697 #### Test performed at: [place] [id number] LEUK ESTERASE Negative Normal NEGATIVE [facility] Comment on above: Performed By: #### L 600.90439, L600.88056 #### Test performed at: [address] [address] Nitrite Ql (U) Negative Normal NEGATIVE [facility] Comment on above: Performed By: #### L 600.65801, L600.10574 #### Test performed at: [address] [address] Protein [Mass/Vol] Negative Normal NEGATIVE [facility] Comment on above: Performed By: #### L 600.71156, L600.60421 #### Test performed at: [place] [id number] RBC (Bld) [#/Vol] 0-2 Normal 0-3 [facility] Comment on above: Performed By: #### L 600.40311, L600.90474 #### Test performed at: [place] [address] SPEC GRAV 1.001 Low 1.005-1.030 [facility] Comment on above: Performed By: #### L 600.78421, L600.29873 #### Test performed at: [place] [address]15 UA ASC ACID Negative Normal [facility] Comment on above: Performed By: #### L 600.01047, L600.01393 #### Test performed at: [address] [address] UA PH 6.0 Normal 5.0-8.0 [facility] Comment on above: Performed By: #### L 600.34172, L600.75116 #### Test performed at: [address] [address] UROBIL NORMAL Normal NORMAL [facility] Comment on above: Performed By: #### L 600.23132, L600.23775 #### Test performed at: [address] [address] WBC (Bld) [#/Vol] 0-2 Normal 0-5 [facility] Comment on above: Performed By: #### L 600.76634, L600.85018 #### Test performed at: [facility] [address] [place] [address] Chlamydia/GC DNA, Uron 09-23 Protein mass conc Negative Normal NEG [facility] Comment on above: Result Comment: CHLA MYDIA [...] target. Performed By: #### U CGP #### [address] [id number] Regional Operations Director: Brenton Minor MD Result Comment: NEIS SERIA [...] HIV Ag/Abon 09-22-2018 HIV Ag/Ab NONREACTIVE Normal [facility] [place] Comment on above: Result Comment: No l aboratory evidence of HIV infection. If acute HIV infection is suspected, consider testing for HIV-1 RNA. Performed By: #### H IVCMB, PHEP, TREP #### [facility] [address] [place] [id number] Regional Operations Director: Brenton Minor MD Hepatitis Acute [facility] 09-22 Hep A Ab,IgM NONREACTIVE Normal NR [facility] Comment on above: Performed By: #### H IVCMB, PHEP, TREP #### [facility] [address] [place] [address] [phone] Regional Operations Director: Brenton Minor MD Hep B Core Ab,IgM NONREACTIVE Normal [facility] Comment on above: Performed By: #### H IVCMB, PHEP, TREP #### [facility] [address] [place] [address] [phone] Regional Operations Director: Brenton Minor MD Hep B Surf Ag NONREACTIVE Normal NR [facility] Comment on above: Performed By: #### H IVCMB, PHEP, TREP #### [facility] [employer] [address] [place] [address] [phone] Regional Operations Director: Brenton Minor MD Hep C Ab NONREACTIVE Normal [facility] Comment on above: Result Comment: The hepatitis [...] By: #### H IVCMB, PHEP, TREP #### [facility] [employer] [address] [place] [address] [phone] Regional Operations Director: Brenton Minor MD T.pallidum Ab Screenon 09-22 T.pallidum Ab Screen NONREACTIVE Normal [facility] Comment on above: Result Comment: T. pallidum antibodies are not detected. There is no serological evidence of infection with T. pallidum (early primary syphilis cannot be excluded). Retest in 2-4 weeks if syphilis is clinically suspect. Performed By: #### H IVCMB, PHEP, TREP #### [facility] [employer] [address] [place] [address] [phone] Regional Operations Director: Brenton Minor MD .eGFRon 07-25-2018 eGFR Non-AA >60 Normal >=60 [facility] Comment on above: Result Comment: Resu lt [...] for medication dosing. Performed By: #### C D:[id number] #### [address] [address] eGFR AA >60 Normal >=60 [facility] Comment on above: Result Comment: Resu lt = 0-14.9 mL/min/1.73 m2 Kidney failure or Dialysis Result = 15-29 mL/min/1.73 m2 Severe decrease in GFR Result = 30-59 mL/min/1.73 m2 Moderate decrease in GFR Result >= 60 mL/min/1.73 m2 Normal or increased GFR Performed By: #### C D:[id number] #### [address] [address] CBC w/ Diffon 07-25-2018 Erythrocyte distribution width Ratio (RBC) 13.4 % Normal 11.6-14.8 [facility] Comment on above: Performed By: #### C BC ####[address] [address] Hematocrit Volume Fraction (Bld) 40.6 % Normal 36.0-46.0 [facility] Comment on above: Performed By: #### C BC ####[address] [address] Hemoglobin mass conc (Bld) 13.9 g/dL Normal 12.0-16.0 [facility] Comment on above: Performed By: #### C BC ####[address] [address] MCH Entitic mass (RBC) 33.5 pg Normal 27.0-35.0 [facility] Comment on above: Performed By: #### C BC ####[address] [address] MCHC mass conc (RBC) 34.1 % Normal 31.0-37.0 [facility] Comment on above: Performed By: #### C BC ####[address] [address] MCV Entitic volume (RBC) 98.1 fL Normal 80.0-100.0 [facility] Comment on above: Performed By: #### C BC ####[address] [address] Platelet mean volume Entitic volume (Bld) 8.4 fL Normal 6.7-10.6 [facility] Comment on above: Performed By: #### C BC ####[address] [address] Platelets #/vol (Bld) 114 x10*3/mcL Low 150-350 [facility] Comment on above: Performed By: #### C BC ####[address] [address] RBC #/vol (Bld) 4.14 x10*6/mcL Normal 3.80-5.20 [facility] Comment on above: Performed By: #### C BC ####[address] [address] WBC #/vol (Bld) 4.8 x10*3/mcL Normal 4.5-11.0 [facility] Comment on above: Performed By: #### C BC ####[address] [address] CMPon 07-25-2018 Albumin mass conc 3.7 g/dL Normal 3.2-4.9 [facility] Comment on above: Result Comment: [facility] Laboratory updated the methodology used for albumin testing on 12/24/17. Albumin measurement was performed using a bromcresol purple dye-binding assay. Performed By: #### C D:[id number] #### [address] [address] Albumin/Globulin mass ratio 1.4 {ratio} Normal 1.1-2.2 [facility] Comment on above: Performed By: #### C D:[id number] #### [address] [place] [address] Alk Phos 68 IU/L Normal 32-91 [facility] Comment on above: Performed By: #### C D:[id number] #### [address] [address] ALT enzyme act/vol 69 U/L High 14-54 [facility] Comment on above: Performed By: #### C [id number] #### [address] [address] Anion gap molar conc 15 mmol/L Normal 7-17 [facility] Comment on above: Performed By: #### C D:[id number] #### [address] [address] AST enzyme act/vol 119 U/L High 15-41 [facility] Comment on above: Performed By: #### C D:[id number] #### [address] [address] Bili Total 1.5 mg/dL High 0.3-1.2 [facility] Comment on above: Performed By: #### C D:[id number] #### [address] [address] Calcium mass conc 7.8 mg/dL Low 8.5-10.3 [facility] Comment on above: Performed By: #### C D:[id number] #### [address] [address] Chloride molar conc 104 mmol/L Normal 98-110 [facility] Comment on above: Performed By: #### C D:[id number] #### [address] [address] CO2 molar conc 21 mmol/L Low 22-32 [facility] Comment on above: Performed By: #### C D:[id number] #### [address] [address] Creatinine mass conc 0.51 mg/dL Normal 0.44-1.03 [facility] Comment on above: Performed By: #### C D:[id number] #### [address] [address] Glucose mass conc 88 mg/dL Normal 74-118 [facility] Comment on above: Performed By: #### C D:[id number] #### [address] [address] Potassium molar conc 3.8 mmol/L Normal 3.4-4.8 [facility] Comment on above: Performed By: #### C D:[id number] #### [address] [address] Protein mass conc 6.4 g/dL Low 6.5-8.1 [facility] Comment on above: Performed By: #### C D:[id number] #### [address] [address] Sodium molar conc 136 mmol/L Normal 133-142 [facility] Comment on above: Performed By: #### C D:[id number] #### [address] [address] Urea nitrogen mass conc 7 mg/dL Low 8-26 [facility] Comment on above: Performed By: #### C D:[id number] #### [address] [address] Urea nitrogen/Creatinin e mass ratio 13.7 mg/mg Normal 10.0-20.0 [facility] Comment on above: Performed By: #### C D:[id number] #### [address] [address] Diff Autoon 07-25-2018 Baso Absolute 0.0 x10*3/mcL Normal 0.0-0.2 [facility] Comment on above: Performed By: #### . Automated Diff ####[address] [address] Basophils/100 WBC (Bld) 0.7 % Normal 0.0-1.5 [facility] Comment on above: Performed By: #### . Automated Diff ####[address] [address] Eos Absolute 0.0 x10*3/mcL Normal 0.0-0.4 [facility] Comment on above: Performed By: #### . Automated Diff ####[address] [address] Eosinophils/100 WBC (Bld) 0.3 % Normal 0.0-5.4 [facility] Comment on above: Performed By: #### . Automated Diff ####[address] [address] Lymphocytes #/vol (Bld) 1.6 x10*3/mcL Normal 1.0-4.8 [facility] Comment on above: Performed By: #### . Automated Diff ####[address] [address] Lymphocytes/100 WBC (Bld) 33.7 % Normal 27.2-40.8 [facility] Comment on above: Performed By: #### . Automated Diff ####[address] [address] Bibb Absolute 0.4 x10*3/mcL Normal 0.1-1.1 [facility] Comment on above: Performed By: #### . Automated Diff ####[address] [address] Monocytes/100 WBC (Bld) 7.5 % Normal 3.7-11.9 [facility] Comment on above: Performed By: #### . Automated Diff ####[address] [address] Neutro Absolute 2.8 x10*3/mcL Normal 1.8-7.7 [facility] Comment on above: Performed By: #### . Automated Diff ####[address] [address] Neutro Auto 57.8 % Normal 47.2-70.8 [facility] Comment on above: Performed By: #### . Automated Diff ####[place] [address] ED Note-Physicianon 07-26-19 ED Note-Physician Chief Complaint [...] Low Lymph Auto 07/24/18 19:10 50.8 High Bibb Auto 07/24/18 19:10 5.9 Eos Auto 07/24/18 19:10 0.1 Basophil Auto 07/24/18 19:10 0.8 Neutro Absolute 07/24/18 19:10 2.3 Lymph Absolute 07/24/18 19:10 2.7 Bibb Absolute 07/24/18 19:10 0.3 Eos Absolute 07/24/18 [...] Jonah Hewitt MD 07/25/18 03:59 EST Normal [facility] Ethanolon 07-25-2018 Ethanol mass conc 0.017 g/dL High <=0.005 [facility] Comment on above: Performed By: #### C D:[id number] #### [place] [address] Inpatient Clinical Summaryon 07-25-2018 [place] [address] [place] [address] Clinical Summary Person Information Name: Caridad Reyes Age: 47 Years : 1970 Sex: Female PCP: Marital Status: Single Phone: PCP: Race: White Ethnicity: Not or Language: [place] Visit Id: Visit Reason: Alcohol withdrawal Speciality: Acuity: Enc Type: Observation Med Service: Emergency Medicine Arrival: 07/24/2018 16:18:00 Discharge: Dispo Type: Place in Observation Address: [address] [place] [address] Diagnosis: 1:Alcohol intoxication; 2:Suicidal ideation; 3:Alcoholism /alcohol [...] pcp in the next 1-2 weeks or [facility]. Discharge Special Instructions Follow up at [facility] after discharge in the next 2 weeks. Follow up 07/25/18 12:53:00 EST, 1 to 2 weeks, primary care provider; if you do not have a pcp call [phone] to establish care. Follow up 07/25/18 12:12:00 [...] range between ( 27.2 and 40.8 ) Bibb Auto: 7.5 % -- Normal range between [...] range between ( 36.0 and 46.0 ) Bibb Absolute: 0.4 x10 MCH: 33.5 pg -- [...] OCCURRED DURING YOUR HOSPITAL STAY New Medications [facility] [address] [place], [place] [id number], [phone] folic acid (folic acid 1 mg oral [...] A LIST OF YOUR PATIENT?S CURRENT MEDICATIONS [facility] [address] [facility] [place], [place] [id number], [phone] folic acid (folic acid 1 mg oral [...] or find a primary care provider, call [phone] Within 1 to 2 weeks Comments: Call on Friday to make appointments! With: Address: When: [address] [place] [phone] Business (1) Within 1 to 2 weeks Normal [facility] Lipaseon 07-25-2018 Lipase Lvl 60 IU/L High 22-51 [facility] Comment on above: Performed By: #### L IP ####[facility] [place] [address] MRSA, PCRon 07-25-2018 INR Coag RelTime (Bld) Negative Normal [facility] Comment on above: Result Comment: The CepMediVisionid Xpert MRSA Assay is a qualitative in [...] the clinician. Performed By: #### M RSAPC ####[place] [id number] PTon 07-25-2018 INR Coag RelTime (PPP) 1.0 {INR} Normal <=3.5 [facility] Comment on above: Result Comment: INR has no normal range. INR Therapeutic range is: 2.0-3.0 (AF, CVA, TIAs, DVT prophylaxis, acute DVT) 2.5-3.5 (Mech heart valves, recurrent thrombosis/emboli) Performed By: #### P TINR ####[place] [address] Prothrombin time (PT) Coag time (PPP) 10.6 s Normal 9.2-11.7 [facility] Comment on above: Performed By: #### P TINR ####[place] [id number] .eGFRon 07-24-2018 eGFR AA >60 Normal >=60 [facility] Comment on above: Order Comment: Order added by Discern rule Result Comment: Resu lt = 0-14.9 mL/min/1.73 m2 Kidney failure or Dialysis Result = 15-29 mL/min/1.73 m2 Severe decrease in GFR Result = 30-59 mL/min/1.73 m2 Moderate decrease in GFR Result >= 60 mL/min/1.73 m2 Normal or increased GFR Performed By: #### E GFR #### [address] [address] eGFR Non-AA >60 Normal >=60 [facility] Comment on above: Order Comment: Order added [...] dosing. Performed By: #### E GFR #### [place] [address] Acetaminophen Lvlon 07-25-19 19 Acetaminoph Lvl <10.0 Low 10.0-30.0 [facility] Comment on above: Order Comment: add o n to initial labs if possible Result Comment: Valu es >150 mcg/mL 4 hours post-ingestion, or >75 mcg/mL 8 hours post-ingestion, or >40 mcg/mL 12 hours post ingestion are considered toxic. Performed By: #### A CET ####[place] [address] CBC w/ Diffon 07-24-2018 Erythrocyte distribution width Ratio (RBC) 13.2 % Normal 11.6-14.8 [facility] Comment on above: Performed By: #### C BC #### [place] [id number] Hematocrit Volume Fraction (Bld) 46.1 % High 36.0-46.0 [facility] Comment on above: Performed By: #### C BC #### [address] [address] Hemoglobin mass conc (Bld) 15.8 g/dL Normal 12.0-16.0 [facility] Comment on above: Performed By: #### C BC #### [address] [address] MCH Entitic mass (RBC) 33.5 pg Normal 27.0-35.0 [facility] Comment on above: Performed By: #### C BC #### [address] [address] MCHC mass conc (RBC) 34.2 % Normal 31.0-37.0 [facility] Comment on above: Performed By: #### C BC #### [address] [address] MCV Entitic volume (RBC) 98.0 fL Normal 80.0-100.0 [facility] Comment on above: Performed By: #### C BC #### [address] [address] Platelet mean volume Entitic volume (Bld) 8.2 fL Normal 6.7-10.6 [facility] Comment on above: Performed By: #### C BC #### [address] [address] Platelets #/vol (Bld) 133 x10*3/mcL Low 150-350 [facility] Comment on above: Performed By: #### C BC #### [place] [id number] RBC #/vol (Bld) 4.71 x10*6/mcL Normal 3.80-5.20 [facility] Comment on above: Performed By: #### C BC #### [address] [address] WBC #/vol (Bld) 5.3 x10*3/mcL Normal 4.5-11.0 [facility] Comment on above: Performed By: #### C BC #### [address] [address] CMPon 07-24-2018 Albumin mass conc 4.1 g/dL Normal 3.2-4.9 [facility] Comment on above: Result Comment: [facility] Laboratory updated the methodology used for albumin testing on 12/24/17. Albumin measurement was performed using a bromcresol purple dye-binding assay. Performed By: #### C OMP #### [place] [id number] Albumin/Globulin mass ratio 1.2 {ratio} Normal 1.1-2.2 [facility] Comment on above: Performed By: #### C OMP #### [address] [address] Creatinine mass conc 0.61 mg/dL Normal 0.44-1.03 [facility] Comment on above: Performed By: #### C OMP #### [address] [address] Urea nitrogen mass conc 7 mg/dL Low 8-26 [facility] Comment on above: Performed By: #### C OMP #### [address] [address] Urea nitrogen/Creatinin e mass ratio 11.5 mg/mg Normal 10.0-20.0 [facility] Comment on above: Performed By: #### C OMP #### [address] [address] Alk Phos 64 IU/L Normal 32-91 [facility] Comment on above: Performed By: #### C OMP #### [address] [address] ALT enzyme act/vol 75 U/L High 14-54 [facility] Comment on above: Performed By: #### C OMP #### [address] [address] Anion gap molar conc 17 mmol/L Normal 7-17 [facility] Comment on above: Performed By: #### C OMP #### [address] [address] AST enzyme act/vol 119 U/L High 15-41 [facility] Comment on above: Performed By: #### C OMP #### [address] [address] Bili Total 1.0 mg/dL Normal 0.3-1.2 [facility] Comment on above: Performed By: #### C OMP #### [address] [place] [address] Calcium mass conc 7.9 mg/dL Low 8.5-10.3 [facility] Comment on above: Performed By: #### C OMP #### [address] [address] Chloride molar conc 103 mmol/L Normal 98-110 [facility] Comment on above: Performed By: #### C OMP #### [address] [address] CO2 molar conc 20 mmol/L Low 22-32 [facility] Comment on above: Performed By: #### C OMP #### [address] [address] Glucose mass conc 110 mg/dL Normal 74-118 [facility] Comment on above: Performed By: #### C OMP #### [address] [address] Potassium molar conc 3.8 mmol/L Normal 3.4-4.8 [facility] Comment on above: Performed By: #### C OMP #### [address] [address] Protein mass conc 7.4 g/dL Normal 6.5-8.1 [facility] Comment on above: Performed By: #### C OMP #### [address] [address] Sodium molar conc 136 mmol/L Normal 133-142 [facility] Comment on above: Performed By: #### C OMP #### [address] [address] Diff Autoon 07-24-2018 Baso Absolute 0.0 x10*3/mcL Normal 0.0-0.2 [facility] Comment on above: Performed By: #### . Automated Diff #### [address] [address] Basophils/100 WBC (Bld) 0.8 % Normal 0.0-1.5 [facility] Comment on above: Performed By: #### . Automated Diff #### [address] [address] Eos Absolute 0.0 x10*3/mcL Normal 0.0-0.4 [facility] Comment on above: Performed By: #### . Automated Diff #### [address] [address] Eosinophils/100 WBC (Bld) 0.1 % Normal 0.0-5.4 [facility] Comment on above: Performed By: #### . Automated Diff #### [address] [address] Lymphocytes #/vol (Bld) 2.7 x10*3/mcL Normal 1.0-4.8 [facility] Comment on above: Performed By: #### . Automated Diff #### [address] [address] Lymphocytes/100 WBC (Bld) 50.8 % High 27.2-40.8 [facility] Comment on above: Performed By: #### . Automated Diff #### [address] [address] Bibb Absolute 0.3 x10*3/mcL Normal 0.1-1.1 [facility] Comment on above: Performed By: #### . Automated Diff #### [address] [address] Monocytes/100 WBC (Bld) 5.9 % Normal 3.7-11.9 [facility] Comment on above: Performed By: #### . Automated Diff #### [address] [address] Neutro Absolute 2.3 x10*3/mcL Normal 1.8-7.7 [facility] Comment on above: Performed By: #### . Automated Diff #### [address] [address] Neutro Auto 42.4 % Low 47.2-70.8 [facility] Comment on above: Performed By: #### . Automated Diff #### [address] [place] [address] ED Clinical Summaryon 2018 ED Clinical Summary [address] [address] ED Clinical Summary Person Information Name: Caridad Reyes/Ab Age: 47 Years : 1970 Sex: Female PCP: Marital Status: Single Phone: Race: White Ethnicity: Not or Language: South Korean Visit Reason: Suicidal thoughts; Alcohol withdrawal syndrome; Alcohol withdrawal Acuity: 2 Enc Type: Observation Med Service: Emergency Medicine Arrival: 07/24/2018 16:18:00 Discharge: LOS: 000 03:56 Checkin: 07/24/2018 16:18:00 Checkout: 07/24/2018 20:14:01 Dispo Type: Place in Observation Address: [address] [place] [address] Provider Notes: History of Present Illness Patient [...] range between ( 27.2 and 40.8 ) Bibb Auto: 5.9 % -- Normal range between [...] range between ( 36.0 and 46.0 ) Bibb Absolute: 0.3 x10 MCH: 33.5 pg -- [...] 16:21:18 Jonah Barba ED Nurse 07/24/2018 16:57:54 Jonah Hewitt MD ED Provider 07/24/2018 19:05:27 Follow up: Discharge Orders: Place in Observation 07/24/18 19:43:00 EST, Intensive Care Unit, 07/24/18 19:43:00 EST, Caridad Jeronimo DO, Milagros Jeronimo DOecca Evelyne Request for Admit 07/24/18 19:44:00 EST, 07/24/18 19:44:00 EST, Intensive Care Unit Patient Education Information: [facility] Poison Help line: . [facility] Hotline: [place] Tobacco Quit Line: [place], [place]) [address]: [phone] [facility] ([place], [place]) [address]: [phone] [facility] [address] [place], [place]: [phone] [facility] ED Note-Nursingon 07-24-2018 Thyrotropin Qn Patient [...] eaten in 3 days. Electronically signed by ShaunAndrés 07/24/18 16:39 EST [facility] ED Note-Physicianon 07-25-19 ED Note-Physician Chief [...] in this document, created by the medical staff credentialing coordinator for me, accurately reflects the services I [...] Gerald Alexander MD 07/24/2018 18:45 EST Normal [facility] Ethanolon 07-24-2018 Ethanol mass conc 0.315 g/dL Critically abnormal <=0.005 [facility] Comment on above: Result Comment: Test completion time: 1934 Called date and time: 07/24/2018 19:35:04 EST Result called to and read back by: Randal Gomez RN, ED (First, Last, Title, Location) Performed By: #### A #### [place] [id number] History and Physicalon 07-24 History and Physical [...] to me. - would benefit from outpatient [facility] for depression. Previously on Paxil [...] is low risk for acute alcohol withdrawal. intensive care nurse and case management consult to help establish [...] Oral, q1hr, PRN Motrin, 800 mg, Oral, p1lm-Kekrjypm Times, PRN Multiple Vitamins oral tablet, 1 [...] Low Lymph Auto 07/24/18 19:10 50.8 High Bibb Auto 07/24/18 19:10 5.9 Eos Auto 07/24/18 19:10 0.1 Basophil Auto 07/24/18 19:10 0.8 Neutro Absolute 07/24/18 19:10 2.3 Lymph Absolute 07/24/18 19:10 2.7 Bibb Absolute 07/24/18 19:10 0.3 Eos Absolute 07/24/18 [...] No qualifying data available. Electronically signed by DonehaCaridad lamas DO 07/25/18 06:47 EST Normal [facility] Magnesiumon 07-24-2018 Magnesium mass conc 1.9 mg/dL Normal 1.7-2.4 [facility] Comment on above: Performed By: #### M G #### [place] [address] Phosphoruson 07-24-2018 Phosphate mass conc 3.3 mg/dL Normal 2.5-4.6 [facility] Comment on above: Performed By: #### P HOS ####[place] [address] Salicylateon 07-24-2018 Salicylate Levl <4.0 Low 0.0-30.0 [facility] Comment on above: Order Comment: add o n to initial labs if possible Performed By: #### S AL ####[place] [id number] UDS Compon 07-24-2018 Creatinine mass conc 19.7 mg/dL Normal [facility] Comment on above: Performed By: #### C [id number] #### [place] [address] Ur Amph Scrn Negative Normal NEG = <1000 [facility] Comment on above: Performed By: #### C [id number] #### [facility] [address] [place] [address] Ur Joy Scrn Negative Normal NEG = <200 [facility] Comment on above: Performed By: #### C [id number] #### [facility] [address] [place] [address] Ur Benzodia Scrn Negative Normal NEG = <200 [facility] Comment on above: Performed By: #### C [id number] #### [facility] [address] [place] [address] Ur Cannab Scrn Negative Normal NEG = <50 [facility] Comment on above: Performed By: #### C [id number] #### [address] [place] [address] Ur Cocaine Scrn Negative Normal NEG = <300 [facility] Comment on above: Performed By: #### C [id number] #### [address] [place] [address] Ur Methadone Scn Negative Normal NEG = <300 [facility] Comment on above: Performed By: #### C [id number] #### [facility] [address] [place] [address] [place] [address] Ur Opiate Scrn Negative Normal NEG = <300 [facility] Comment on above: Performed By: #### C [id number] #### [facility] [address] [place] [address] Ur Oxy Screen Negative Normal NEG = <100 [facility] Comment on above: Performed By: #### C [id number] #### [facility] [address] [place] [address] [place] [address] Ur Oxy Scrn Qnt 5 ng/mL Normal <=99 [facility] Comment on above: Performed By: #### C [id number] #### [address] [place] [address] Ur PCP Scrn Negative Normal NEG = <25 [facility] Comment on above: Performed By: #### C [id number] #### [facility] [address] [place] [address] UA pH 6.0 Normal 4.5 - 7.8 [facility] Comment on above: Performed By: #### C [id number] #### [facility] [address] [place] [address] UA Spec Grav 1.003 Normal 1.003-1.035 [facility] Comment on above: Performed By: #### C [id number] #### [address] [address] Vital Signs Date Time Vital Sign Value Performing Clinician Facility 12-13-2024 09:22-0400 Body mass index (BMI) [Ratio] 33.33 kg/m2 Carrie Todd CLOUD DEVELOPER Work Phone: [facility] 12-13-2024 09:22-0400 Body temperature 97.81 [degF] Carrie Todd CLOUD DEVELOPER Work Phone: [facility] 12-13-2024 09:22-0400 Body weight 84.01 kg Carrie Todd CLOUD DEVELOPER Work Phone: [facility] 12-13-2024 09:22-0400 Diastolic blood pressure 82 mm[Hg] Carrie Todd CLOUD DEVELOPER Work Phone: [facility] 12-13-2024 09:22-0400 Heart rate 77 /min Carrie Perez CLOUD DEVELOPER Work Phone: [facility] 12-13-2024 09:22-0400 Respiratory rate 18 /min Carrie Todd CLOUD DEVELOPER Work Phone: [facility] 12-13-2024 09:22-0400 SaO2% (BldA) [Mass fraction] 99 % Carrie Todd CLOUD DEVELOPER Work Phone: [facility] 12-13-2024 09:22-0400 Systolic blood pressure 138 mm[Hg] Carrie Nunezz CLOUD DEVELOPER Work Phone: [facility] 10-13-2024 09:01-0400 Body mass index (BMI) [Ratio] 33.08 kg/m2 Carrie Mariajoseholz CLOUD DEVELOPER Work Phone: [facility] 10-13-2024 09:01-0400 Body temperature 97.81 [degF] Carrie Mariajoseholz CLOUD DEVELOPER Work Phone: [facility] 10-13-2024 09:01-0400 Body weight 83.37 kg Carrie Mariajoseholz CLOUD DEVELOPER Work Phone: [facility] 10-13-2024 09:01-0400 Diastolic blood pressure 80 mm[Hg] Carrie Mariajoseholz CLOUD DEVELOPER Work Phone: [facility] 10-13-2024 09:01-0400 Heart rate 80 /min Carrie Enriquez CLOUD DEVELOPER Work Phone: [facility] 10-13-2024 09:01-0400 Respiratory rate 18 /min Carrie Mariajoseholz CLOUD DEVELOPER Work Phone: [facility] 10-13-2024 09:01-0400 SaO2% (BldA) [Mass fraction] 96 % Carriemilton Nunezz CLOUD DEVELOPER Work Phone: [facility] 10-13-2024 09:01-0400 Systolic blood pressure 122 mm[Hg] Carrie Nunezz CLOUD DEVELOPER Work Phone: [facility] 08-24-2024 13:55-0400 Body mass index (BMI) [Ratio] 31.82 kg/m2 Carrie Mariajoseholz CLOUD DEVELOPER Work Phone: [facility] 08-24-2024 13:55-0400 Body temperature 99 [degF] Carrie Mariajoseholz CLOUD DEVELOPER Work Phone: [facility] 08-24-2024 13:55-0400 Body weight 80.2 kg Carrie Mariajoseholz CLOUD DEVELOPER Work Phone: [facility] 08-24-2024 13:55-0400 Diastolic blood pressure 86 mm[Hg] Carrie Pamelahholz CLOUD DEVELOPER Work Phone: [facility] 08-24-2024 13:55-0400 Heart rate 89 /min Carrie Aichholz CLOUD DEVELOPER Work Phone: [facility] 08-24-2024 13:55-0400 Respiratory rate 18 /min Carrie Aichholz CLOUD DEVELOPER Work Phone: [facility] 08-24-2024 13:55-0400 SaO2% (BldA) [Mass fraction] 99 % Carrie Aichholz CLOUD DEVELOPER Work Phone: [facility] 08-24-2024 13:55-0400 Systolic blood pressure 122 mm[Hg] Carrie Aichholz CLOUD DEVELOPER Work Phone: [facility] 06-02-2024 09:45-0500 Body height 158.8 cm Carrie Aichholz CLOUD DEVELOPER Work Phone: [facility] 06-02-2024 09:45-0500 Body mass index (BMI) [Ratio] 32.04 kg/m2 Carrie Aichholz CLOUD DEVELOPER Work Phone: [facility] 06-02-2024 09:45-0500 Body temperature 98.1 [degF] Carrie Pamelahholz CLOUD DEVELOPER Work Phone: [facility] 06-02-2024 09:45-0500 Body weight 80.74 kg Carrie Aichholz CLOUD DEVELOPER Work Phone: [facility] 06-02-2024 09:45-0500 Diastolic blood pressure 84 mm[Hg] Carrie Aichholz CLOUD DEVELOPER Work Phone: [facility] 06-02-2024 09:45-0500 Heart rate 100 /min Carrie Aichholz CLOUD DEVELOPER Work Phone: [facility] 06-02-2024 09:45-0500 Respiratory rate 18 /min Carrie Aichholz CLOUD DEVELOPER Work Phone: [facility] 06-02-2024 09:45-0500 SaO2% (BldA) [Mass fraction] 98 % Carrie Todd CLOUD DEVELOPER Work Phone: [facility] [employer] 06-02-2024 09:45-0500 Systolic blood pressure 134 mm[Hg] Carrie Todd CLOUD DEVELOPER Work Phone: [facility] 01-29-2023 14:05-0400 Body height 157.48 cm Renee Ballesteros Other [employer] Other 01-29-2023 14:05-0400 Body mass index (BMI) [Ratio] 31.64 kg/m2 Renee Ballesteros Other [employer] Other 01-29-2023 14:05-0400 Body temperature 98.5 [degF] Renee Ballesteros Other [employer] Other 01-29-2023 14:05-0400 Body weight 78.47 kg Renee Ballesteros Other [employer] Other 01-29-2023 14:05-0400 Respiratory rate 18 /min Renee Ballesteros Other [employer] Other 01-29-2023 14:05-0400 SaO2% (BldA) [Mass fraction] 97 % Renee Ballesteros Other [employer] Other 08-08-2022 16:06-0400 Blood Pressure Location Angelo BERNARD [facility] 08-08-2022 16:06-0400 Body temperature 97.88 [degF] Angelo BERNARD [facility] 08-08-2022 16:06-0400 Diastolic blood pressure 84 mm[Hg] Angelo BERNARD [facility] 08-08-2022 16:06-0400 Heart rate 80 /min Angelo BERNARD [facility] 08-08-2022 16:06-0400 Respiratory rate 14 /min Angelo BERNARD [facility] 08-08-2022 16:06-0400 SaO2% (BldA) [Mass fraction] 97 % nAgelo BERNARD [facility] 08-08-2022 16:06-0400 Systolic blood pressure 131 mm[Hg] Angelo BERNARD [facility] 05-15-2022 14:26-0500 Blood Pressure Location Ede VEGAL [facility] 05-15-2022 14:26-0500 Diastolic blood pressure 92 mm[Hg] Ede NILL [facility] 05-15-2022 14:26-0500 Heart rate 70 /min Ede NILL [facility] 05-15-2022 14:26-0500 Respiratory rate 16 /min Ede NILL [facility] [place] 05-15-2022 14:26-0500 Systolic blood pressure 120 mm[Hg] Ede NILL [facility] 04-30-2021 11:15-0500 Body height 157.48 cm Lashonda [employer] Other [employer] Other 04-30-2021 11:15-0500 Body mass index (BMI) [Ratio] 25.6 kg/m2 Lashonda [employer] Other [employer] Other 04-30-2021 11:15-0500 Body temperature 98.3 [degF] Lashonda Ginty Other [employer] Other 04-30-2021 11:15-0500 Body weight 63.5 kg Lashonda Horton Other [employer] Other 04-30-2021 11:15-0500 SaO2% (BldA) [Mass fraction] 98 % Lashonda Horton Other [employer] Other Encounters Encounter Date Encounter Type Care Provider Facility Start: 12-13-2024 End: 12-13-2024 Bamboo flowsheet Carrie Todd CLOUD DEVELOPER Work Phone: [facility] Start: 12-13-2024 End: 12-13-2024 Bamboo flowsheet Carrie Todd CLOUD DEVELOPER Work Phone: [facility] Start: 12-13-2024 End: 12-13-2024 Office outpatient visit 25 minutes Carrie Todd CLOUD DEVELOPER Work Phone: [facility] Comment on above: Anxiety (Primary Dx) ; Class 1 obesity due to excess calories without serious comorbidity with body mass index (BMI) of 32.0 to 32.9 in adult; Asymptomatic microscopic hematuria; Cigarette nicotine dependence without complication; Allergy to bee sting; Other muscle spasm; Neuropathy; Seasonal allergies; Essential (primary) hypertension ; Localized primary osteoarthritis of left wrist; Primary hypertension Start: 10-26-2024 End: 10-26-2024 Refill Carrie Todd CLOUD DEVELOPER Work Phone: [facility] Comment on above: Allergy to bee sting (Primary Dx) Allergy to bee sting Start: 10-13-2024 End: 10-13-2024 Bamboo flowsheet Carrie Todd CLOUD DEVELOPER Work Phone: [facility] Start: 10-13-2024 End: 10-13-2024 Bamboo flowsheet Carrie Todd CLOUD DEVELOPER Work Phone: [facility] Start: 10-13-2024 End: 10-13-2024 Office outpatient visit 25 minutes Carrie Todd CLOUD DEVELOPER Work Phone: [facility] Comment on above: Anxiety (Primary Dx) ; Localized primary osteoarthritis of left wrist; Class 1 obesity due to excess calories without serious comorbidity with body mass index (BMI) of 32.0 to 32.9 in adult; Cigarette nicotine dependence without complication; Neuropathy Start: 10-13-2024 End: 10-13-2024 ambulatory CARRIE MARIAJOSEHOLSav Not Available Start: 09-13-2024 End: 09-14-2024 Refill Son Vasquez MD Work Phone: [facility] Comment on above: Allergy to bee sting (Primary Dx) Start: 08-24-2024 End: 08-24-2024 ambulatory CARRIE MARIAJOSEHOLSav Not Available Start: 08-24-2024 End: 08-24-2024 Office outpatient visit 15 minutes Carrie Todd CLOUD DEVELOPER Work Phone: [facility] Comment on above: Localized primary os teoarthritis of left wrist (Primary Dx); Cigarette nicotine dependence without complication; Class 1 obesity due to excess calories without serious comorbidity with body mass index (BMI) of 32.0 to 32.9 in adult; Anxiety Start: 07-28-2024 End: 07-28-2024 Orders Only Carrie Todd CLOUD DEVELOPER Work Phone: [facility] Comment on above: Asymptomatic microsc opic hematuria (Primary Dx) Start: 07-27-2024 End: 07-27-2024 Clinisync Result Encounter Carrie Todd CLOUD DEVELOPER Work Phone: [facility] External Department Unsolicited Start: 07-27-2024 End: 07-27-2024 Clinisync Result Encounter Carrie oTdd CLOUD DEVELOPER Work Phone: [facility] External Department Unsolicited Start: 07-18-2024 End: 07-19-2024 Refill Carrie Todd CLOUD DEVELOPER Work Phone: [facility] Comment on above: Essential (primary) hypertension (CMS/HCC); Anxiety Start: 06-02-2024 End: 06-02-2024 Bamboo flowsheet Carrie Todd CLOUD DEVELOPER Work Phone: [facility] Start: 06-02-2024 End: 06-02-2024 Bamboo flowsheet Carrie Pamelareshmaradha CLOUD DEVELOPER Work Phone: [facility] Start: 06-02-2024 End: 06-02-2024 ambulatory CARRIE AICHHOLZ Not Available Start: 06-02-2024 End: 06-02-2024 Office outpatient visit 25 minutes Carrie Perez CLOUD DEVELOPER Work Phone: [facility] Comment on above: Anxiety (Primary Dx) [...] Pre-diabetes Start: 04-23-2024 End: 04-25-2024 Refill Carrie Mariajoseholz CLOUD DEVELOPER Work Phone: [facility] Comment on above: Insomnia, unspecifie d type; Neuropathy Start: 01-31-2024 End: 02-01-2024 Refill Carrie Aichholz CLOUD DEVELOPER Work Phone: [facility] Comment on above: Anxiety Start: 01-22-2024 End: 01-23-2024 Refill Carrie Aichholz CLOUD DEVELOPER Work Phone: [facility] Comment on above: Essential (primary) hypertension (CMS/HCC); Neuropathy Start: 12-02-2023 End: 12-02-2023 ambulatory CARRIE AICHHOLZ Not Available Start: 08-27-2023 Patient encounter procedure Carrie Todd CLOUD DEVELOPER Work Phone: [facility] Start: 01-29-2023 End: 01-29-2023 ambulatory Renee Ballesteros Other [facility] [employer] Other Start: 01-29-2023 Office outpatient vi sit 15 minutes Renee Ballesteros [facility] Start: 10-09-2022 End: 10-10-[address] JUANIS RIZO Facility:[facility] Start: 08-08-2022 End: 08-09-2022 ambulatory Angelo BERNARD Facility: [facility] Start: 08-08-2022 End: 08-08-2022 Off-Site Angelo BERNARD [facility] Start: 08-06-2022 ambulatory [facility] Start: 06-12-2022 Encounter for preprocedural laboratory examination DR EDE BHAKTA . [facility] Start: 06-12-2022 End: 06-13-2022 ambulatory Ede BHAKTA Facility:[id number] Start: 06-08-2022 End: 06-09-[address] EDE BHAKTA . Facility:[facility] Start: 06-08-2022 End: 06-09-2022 Encounter for preprocedural laboratory examination DR EDE BHAKTA . Facility:[facility] Start: 05-15-2022 End: 05-16-2022 ambulatory Ede BHAKTA Facility:[facility] Start: 05-15-2022 End: 05-15-2022 Patient encounter procedure Ede BHAKTA [facility] Start: 05-06-2022 End: 05-07-2022 ambulatory ROSARIO TODD Facility:[facility] Start: 04-27-2022 Encounter for genera l adult medical examination without abnormal findings ROSARIO TODD [facility] Start: 04-24-2022 End: 04-25-2022 ambulatory ROSARIO TODD Facility:[facility] Start: 04-24-2022 End: 04-25-2022 Encounter for general adult medical examination without abnormal findings ROSARIO TODD Facility:[facility] Start: 04-03-2022 ambulatory Ede BHAKTA Facility :[facility] Start: 02-10-2022 End: 02-10-2022 ambulatory JODIE FIELDS Facility: Start: 04-30-2021 End: 04-30-2021 ambulatory Lashonda Brendavinicio Other [facility] [employer] Other Start: 04-30-2021 Office outpatient vi sit 15 minutes Lashonda Sol [facility] Start: 09-21-2018 Encounter for genera l adult medical examination without abnormal findings [facility] Start: 09-21-2018 End: 09-22-2018 Patient encounter procedure [facility] Start: 09-21-2018 Encounter for genera l adult medical examination without abnormal findings [facility] Start: 09-21-2018 End: 09-21-2018 Patient encounter procedure [facility] Start: 07-24-2018 End: 07-25-2018 Patient encounter procedure Angelo Tee Facility:[facility] Encounter for genera l adult medical examination without abnormal findings [facility] Procedures Date Procedure Procedure Detail Performing Clinician Start: 07-27-2024 MM TOMOSYNTHESIS SCREENING BI Carrie mclean CLOUD DEVELOPER Work Phone: Start: 07-27-2024 Mammography Carrie Perez CLOUD DEVELOPER Work Phone: Start: 06-02-2024 Hemoglobin glycosylated a1c Carrie magana CLOUD DEVELOPER Work Phone: Start: 08-27-2023 Microscopic observation [Identifier] in Cervix by Cyto stain Carrie Todd CLOUD DEVELOPER Work Phone: Start: 07-23-2023 Mammography Carrie Perez CLOUD DEVELOPER Work Phone: Start: 06-12-2022 Colonoscopy Carrie Perez CLOUD DEVELOPER Work Phone: Start: 09-21-2018 Acute hepatitis panel [facility] Start: 09-21-2018 Antibody hiv-1&hiv-2 single result [facility] Start: 09-21-2018 Antibody treponema pallidum [facility] Start: 09-21-2018 C.TRACHOMATIS N.GONORRHOEAE DNA, URINE M[facility]OZA WILEY Colonoscopy Ede BHAKTA Dilation and curettage Gersonmilton BHAKTA Esophageal erosions (disorder) Ede BHAKTA Esophagogastroduodenoscopy Jennifer BHAKTA Plan of Treatment Date Care Activity Detail Author Start: 06-12-2032 Screening for malign ant neoplasm of colon [facility] Start: 08-26-2026 Screening for malign ant neoplasm of cervix [facility] Start: 07-27-2025 Screening for malign ant neoplasm of breast Mammogram [facility] Start: 12-13-2024 End: 12-13-2024 Patient encounter procedure 12/13/2024 9:20 AM EDT Office Visit [facility] [address] [place] [phone] Carrie Todd, CARRIE [address] [place] [address] [place] [phone] [facility] Start: 10-13-2024 End: 10-13-2024 Patient encounter procedure [facility] Comment on above: Localized primary os teoarthritis of left wrist (Primary Dx); Class 1 obesity due to excess calories without serious comorbidity with body mass index (BMI) of 32.0 to 32.9 in adult; Anxiety; Cigarette nicotine dependence without complication Start: 09-02-2024 End: 09-02-2024 Patient encounter procedure 09/02/2024 10:30 AM EDT Office Visit [facility] [address] [email or web address] [phone] Carrie Todd CLOUD DEVELOPER [address] [place] [phone] [facility] Start: 08-28-2024 End: 07-28-2025 Bacteria identified in Urine by Culture Urine culture (clean catch) Microbiology Routine Asymptomatic microscopic hematuria Expected: 08/28/2024 (Approximate), Expires: 07/28/2025 [facility] Comment on above: Expected: 08/28/2024 (Approximate), Expires: 07/28/2025 Start: 08-28-2024 End: 07-28-2025 Urinalysis complete panel - Urine Urinalysis with reflex microscopic (clean catch) Lab Routine Asymptomatic microscopic hematuria Expected: 08/28/2024 (Approximate), Expires: 07/28/2025 [facility] Work Phone: Comment on above: Expected: 08/28/2024 (Approximate), Expires: 07/28/2025 Start: 07-22-2024 End: 07-31-2025 MG Breast - bilateral Screening Bilateral screening mammogram Imaging Routine Encounter for screening mammogram for malignant neoplasm of breast Expected: 07/22/2024 (Approximate), Expires: 07/31/2025 [facility] Work Phone: Comment on above: Expected: 07/22/2024 (Approximate), Expires: 07/31/2025 Start: 07-22-2024 Screening for malign ant neoplasm of breast Mammogram [facility] Start: 06-02-2024 End: 06-02-2025 25-hydroxyvitamin D3 [Mass/volume] in Serum or Plasma Vitamin D 25 hydroxy Lab Routine Neuropathy Expected: 06/02/2024 (Approximate), Expires: 06/02/2025 [facility] Comment on above: Expected: 06/02/2024 (Approximate), Expires: 06/02/2025 Start: 06-02-2024 End: 06-02-2025 CBC W Auto Differential panel - Blood CBC and differential Lab Routine Cigarette nicotine dependence without complication Expected: 06/02/2024 (Approximate), Expires: 06/02/2025 [facility] Comment on above: Expected: 06/02/2024 (Approximate), Expires: 06/02/2025 Start: 06-02-2024 End: 06-02-2025 Cobalamin (Vitamin B12) [Mass/volume] in Serum or Plasma Vitamin B12 Lab Routine Neuropathy Expected: 06/02/2024 (Approximate), Expires: 06/02/2025 [facility] Comment on above: Expected: 06/02/2024 (Approximate), Expires: 06/02/2025 Start: 06-02-2024 End: 06-02-2025 Comprehensive metabolic 2000 panel - Serum or Plasma Comprehensive metabolic panel Lab Routine Primary hypertension (CMS/HCC) Expected: 06/02/2024 (Approximate), Expires: 06/02/2025 [facility] Comment on above: Expected: 06/02/2024 (Approximate), Expires: 06/02/2025 Start: 06-02-2024 End: 06-02-2025 Lipid 1996 panel - Serum or Plasma Lipid panel Lab Routine Alcohol dependence, in remission (CMS/[facility]) Elevated glucose Expected: 06/02/2024 (Approximate), Expires: 06/02/2025 [facility] Comment on above: Expected: 06/02/2024 (Approximate), Expires: 06/02/2025 Start: 06-02-2024 End: 06-02-2025 Microalbumin/Creatinine panel in random Urine Microalbumin / creatinine, urine ratio Lab Routine Primary hypertension (CMS/HCC) Expected: 06/02/2024 (Approximate), Expires: 06/02/2025 [facility] Comment on above: Expected: 06/02/2024 (Approximate), Expires: 06/02/2025 Start: 06-02-2024 End: 06-02-2025 Thyrotropin [Units/volume] in Serum or Plasma TSH Lab Routine Anxiety Expected: 06/02/2024 (Approximate), Expires: 06/02/2025 [facility] Comment on above: Expected: 06/02/2024 (Approximate), Expires: 06/02/2025 Start: 06-02-2024 End: 06-02-2025 Thyroxine (T4) free [Mass/volume] in Serum or Plasma T4, free Lab Routine Anxiety Expected: 06/02/2024 (Approximate), Expires: 06/02/2025 [facility] Comment on above: Expected: 06/02/2024 (Approximate), Expires: 06/02/2025 Start: 06-02-2024 End: 06-02-2025 Urinalysis complete panel - Urine Urinalysis with reflex microscopic (clean catch) Lab Routine Primary hypertension (CMS/HCC) Expected: 06/02/2024 (Approximate), Expires: 06/02/2025 [facility] Comment on above: Expected: 06/02/2024 (Approximate), Expires: 06/02/2025 Start: 06-02-2024 End: 06-02-2024 Patient encounter procedure 06/02/2024 9:40 AM EST Office Visit [facility] [address] [place] [phone] Carrie Todd NP [address] [place] [phone] [facility] Start: 1998 Screening for malign ant neoplasm of cervix HPV/Cotest [facility] Start: 1968 Screening for malign ant neoplasm of colon [facility] Immunizations Immunization Date Immunization Notes Care Provider Fa cili 12-13-2021 influenza virus vaccine, unspecified formulation Angelo BERNARD [facility] 12-13-2021 influenza, high dose seasonal, preservative-free Carrie Todd CLOUD DEVELOPER Work Phone: [facility] 09-27-2020 SARS-CoV-2 (COVID-19 ) mRNA BNT-162b2 vax Ede SILVIAL [facility] 09-08-2020 SARS-CoV-2 (COVID-19 ) mRNA BNT-162b2 vax Ede VEGAL [facility] 09-21-2018 tuberculin skin test ; purified protein derivative solution, intradermal Carrie Todd CLOUD DEVELOPER Work Phone: [facility] 09-21-2018 unknown vaccine or immune globulin Carrie Todd CLOUD DEVELOPER Work Phone: [facility] NEGATED: Highlighted row has not occurred!05-15-2022 influenza virus vaccine, unspecified formulation Ede BHAKTA [facility] Payers Date Payer Category Payer Private Health Insurance [facility] N [id number] 2022 Unknown RISHABH Nugent [place] [id number] 2022-Present [phone] [address] YESENIA BURDICK [id number] 2018 Self-pay 1968 Unknown [id number] .196 1968 Unknown [id number] 2.16.840.1.423082.3.579.2 .727 1968 Unknown [id number] 2.16.840.1.145029.3.579.2 .727 1968 Unknown [id number] 2.16.840.1.736276.3.579.2 .727 1968 Unknown [id number] 2.16.840.1.516406.3.579.2 .593 1968 Unknown [id number] 2.16.840.1.987557.3.579.2 .593 1968 Unknown [id number] 2.16.840.1.074157.3.579.2 .59 1968 Unknown [id number] 2.16.840.1.374411.3.579.2 .593 1968 Unknown [id number] 2.16.840.1.235370.3.579.2 .593 1968 Unknown [id number] 2.16.840.1.710275.3.579.2 .593 1968 Unknown [id number] 2.16.840.1.351562.3.579.2 .1259 1968 Unknown [id number] 2.16.840.1.550813.3.579.2 .1259 1968 Unknown [id number] 2..840.1.360099.3.579.2 .1259 1968 Unknown [id number] 2.16.840.1.221198.3.579.2 .1259 1959 Unknown [id number] Private Health Insurance [id number] Social History Date Type Detail Facility Start: 07-02-2023 End: 08-23-2024 Sex Assigned At [facility] Start: 05-15-2022 Tobacco smoking status Heavy t obacco smoker (finding) [facility] [place] Tobacco smoking status Smokeless tobacco user within last 30 days [facility] [place] Start: 12-02-2023 Tobacco smoking stat [facility] Smokes tobacco daily [facility] History of tobacco use Cigarette Smoker [facility] Start: 12-02-2023 End: 08-23-2024 Cigarettes smoked current (pack per day) - Reported 0.5 [facility] Start: 12-02-2023 Tobacco use and exposure Smoke less tobacco non-user [facility] Start: 12-02-2023 End: 12-13-2024 Alcoholic beverage intake Lifetime non-drinker (finding) [facility] Within the last year , have you been afraid of your partner or ex-partner? No [facility] Do you belong to any clubs or organizations such as zoroastrianism groups, unions, fraternal or athletic groups, or [...] at Not on file [facility] Do you feel stress - tense, restless, nervous, or anxious, or unable to sleep at night because your mind is troubled all the time - these days [OSQ] Very much [facility] Functional Status Date Assessment Result Facility 08-08-2022 Functional Status N/A [facility] 05-15-2022 Functional Status N/A [facility] Clinical Notes 04-30-2021 to 12-13-2024 Carrie Todd NP - 12/13/2024 9:56 AM Rianna Todd NP - 12/13/2024 9:56 AM GAVIN CAVANAUGH - 12/13/2024 9:20 AM Rianna Todd NP - 12/13/2024 9:20 AM EDTPatient Instructions Note Date & Type Note Facility 12-13-2024 History of Presen t illness Narrative Associated Problem(s): HTN (hypertension) Please check blood pressure daily and record DASH diet Limit caffeine Take medication as directed Contact office if chest pain, pressure, dizziness, shortness of breath, swelling legs Recommend slow position changes Current med: lisinopril Associated Problem(s): Neuropathy Doing fairly well on BID kasi, occ takes 3rd dose Possible heat rash on stomach and hands- she had cream or ointment she had in 2022 that helped. Pt believes this rash is from work Images from the original note were not included. Caridad Reyes is a 54 y.o. female presents with [...] HISTORY Past Medical History: Diagnosis Date Alcoholism ([facility]) 07/09/2023 Allergic ? Anxiety Asymptomatic microscopic hematuria 07/09/2023 Depression ? Hypertension ? Insomnia Muscle spasm 07/09/2023 Neuropathy Rhabdomyolysis 07/09/2023 Seasonal allergies Substance abuse ([facility]) ? Tobacco user Vision impairment No past surgical history on file. family history includes Alcohol abuse in her brother and brother; Cancer in her maternal grandmother; Hypertension in her maternal grandmother and mother. OBJECTIVE: Visit Vitals BP 138/82 (BP Location: Left arm, Patient Position: Sitting, BP Cuff Size: Adult long) Pulse 77 Temp 97.8 F (Temporal) Resp 18 Wt 185 lb 3.2 oz SpO2 99% BMI 33.33 kg/m Smoking Status Every Day BSA 1.92 m Physical Exam Vitals and nursing note [...] of the risks of continued smoking: stroke, MD, all forms of cancer, lung disease, and [...] hypertension Relevant Medications lisinopril 5 MG tablet Associated Problem(s): Cigarette nicotine dependence without complication The patient has been advised of the risks of continued smoking: stroke, MD, all forms of cancer, lung disease, and . Options for quitting smoking include: cold turkey, hypnosis, acupuncture, nicotine replacement meds (gum, lozenges, and patches), Buproprion, and Varenicline. At this time pt is encouraged to evaluate their goals for wanting to quit smoking, and reach out to provider when ready to start this process Associated Problem(s): Asymptomatic microscopic hematuria Was to have a repeat urine and urine culture Not completed, will reprint labs Encourage pt to complete this Associated Problem(s): Anxiety Buspar and paxil Associated Problem(s): Class 1 obesity due to excess calories without serious comorbidity in adult Discussed with patient their BMI (actual, verses recommended). We have also discussed lifestyle modifications: attempts to perform physical activity as chronic conditions allow, also to monitor dietary intake: increasing protein/fruits/veggies and lowering carb intake (unless contraindicated). Limit sodas, juices, and sugary drinks. documented in this encounter [facility] 12-13-2024 Instructions Carrie Todd NP - 12/13/2024 9:20 AM EDT No med dose changes Please get urine rechecked documented in this encounter [facility] 10-13-2024 History of Presen t illness Narrative Associated Problem(s): Neuropathy Going to try to decrease kasi to Twice a day Feels that weight gain is coming from gabapentin Pt would like to discuss her buspar there has been a couple times that she have felt on edge- she will take her buspar in the morning and then an hr later she has taken another. Pt would like to know if that is okay or is there something she can take like that Pt would like to talk about her gabapentin- she would like to decrease either the amount per day or dose. Images from the original note were not included. Caridad Reyes is a 53 y.o. female presents with chief complaint of Osteoarthritis (Left wrist) HPI: Pt would like to discuss her buspar there has been a couple times that she have felt on edge- she will take her buspar in the morning and then an hr later she has taken another. Pt would like to know if that is okay or is there something she can take like that Pt would like to talk about her gabapentin- she would like to decrease either the amount per day or dose. Wrist pain: is better with addition of meloxicam and does use wrist brace: feels this is working Anxiety Presents for follow-up visit. Symptoms include irritability and nervous/anxious behavior. Patient reports no chest pain, depressed mood, dizziness, excessive worry, insomnia, muscle tension, nausea, palpitations, restlessness, shortness of breath or suicidal ideas. Symptoms occur occasionally. The severity of symptoms is moderate. The patient sleeps 8 hours per night. The quality of sleep is good. Nighttime awakenings: none. Compliance with medications is 76-100%. SUBJECTIVE: MEDICATIONS: Current Outpatient Medications Medication Instructions busPIRone (BUSPAR) 5 mg, Oral, Every 8 hours PRN cyclobenzaprine (FLEXERIL) 10 mg, Oral, 2 times daily PRN EPINEPHrine (EPIPEN) 0.6 mg, Injection, Once, Inject into upper leg. Call 911 after [...] SYMPTOMS: Review of Systems Constitutional: Positive for irritability. Negative for appetite change, fatigue, fever and unexpected weight change. HENT: Negative for congestion, ear pain, sinus pressure, sinus pain and sore throat. Eyes: Negative for pain, discharge and visual disturbance. Breasts: Negative for breast mass and breast discharge. Respiratory: Negative for apnea, cough, chest tightness, shortness of breath and wheezing. Cardiovascular: Negative for chest pain, palpitations and leg swelling. Gastrointestinal: Negative for abdominal pain, constipation, diarrhea, nausea and vomiting. Genitourinary: Negative for decreased urine volume, difficulty urinating and dysuria. Musculoskeletal: Positive for arthralgias. Negative for back pain, gait problem and joint swelling. Skin: Negative for color change and rash. Neurological: Negative for dizziness, tremors, weakness and headaches. Psychiatric/Behavioral: Negative for agitation, hallucinations and suicidal ideas. The patient is nervous/anxious. The patient does not have insomnia. Hematological: Negative for adenopathy. Does not bruise/bleed easily. Endocrine: Negative for cold intolerance, heat intolerance, polydipsia and polyuria. Allergic/Immunologic: Negative for environmental allergies and food allergies. PAST MEDICAL HISTORY Past Medical History: Diagnosis Date Alcoholism ([facility]) 07/09/2023 Allergic ? Anxiety Asymptomatic microscopic hematuria 07/09/2023 Depression ([facility]) ? Hypertension ([facility]) ? Insomnia Muscle spasm 07/09/2023 Neuropathy Rhabdomyolysis 07/09/2023 Seasonal allergies Substance abuse ? Tobacco user Vision impairment No past surgical history on file. family history includes Alcohol abuse in her brother and brother; Cancer in her maternal grandmother; Hypertension in her maternal grandmother and mother. OBJECTIVE: Visit Vitals BP 122/80 (BP Location: Left arm, Patient Position: Sitting, BP Cuff Size: Adult long) Pulse 80 Temp 97.8 F (Temporal) Resp 18 Wt 183 lb 12.8 oz SpO2 96% BMI 33.08 kg/m Smoking Status Every Day BSA 1.92 m Physical Exam Vitals and nursing note reviewed. Constitutional: General: She is not in acute distress. Appearance: Normal appearance. HENT: Head: Normocephalic and atraumatic. Right Ear: External ear normal. Left Ear: External ear normal. Nose: Nose normal. Mouth/Throat: Mouth: Mucous membranes are moist. Eyes: Extraocular Movements: Extraocular movements intact. Conjunctiva/sclera: Conjunctivae normal. Cardiovascular: Rate and Rhythm: Normal rate and regular rhythm. Pulses: Normal pulses. Heart sounds: Normal heart sounds. Pulmonary: Effort: Pulmonary effort is normal. Breath sounds: Normal breath sounds. Musculoskeletal: Cervical back: Normal range of motion and neck supple. Right lower leg: Edema present. Left lower leg: No edema. Comments: Near full ROM left wrist, still w some tenderness No shooting pain as prior Skin: General: Skin is warm and dry. [...] Problem List Items Addressed This Visit Anxiety Increase dose on buspar to 7.5mg twice a day, and discontinue the 5mg buspirone script Cont paxil at 40mg Fu in 8 weeks Relevant Medications busPIRone (Buspar) 7.5 MG tablet Neuropathy Going to try to decrease kasi to Twice a day Feels that weight gain is coming from gabapentin Class 1 obesity due to excess calories [...] of the risks of continued smoking: stroke, MD, all forms of cancer, lung disease, and . Options for quitting smoking include: cold turkey, hypnosis, acupuncture, nicotine replacement meds (gum, lozenges, and patches), Buproprion, and Varenicline. At this time pt is encouraged to evaluate their goals for wanting to quit smoking, and reach out to provider when ready to start this process Localized primary osteoarthritis of left wrist - Primary At last appt added meloxicam, continue this Associated Problem(s): Cigarette nicotine dependence without complication The patient has been advised of the risks of continued smoking: stroke, MD, all forms of cancer, lung disease, and . Options for quitting smoking include: cold turkey, hypnosis, acupuncture, nicotine replacement meds (gum, lozenges, and patches), Buproprion, and Varenicline. At this time pt is encouraged to evaluate their goals for wanting to quit smoking, and reach out to provider when ready to start this process Associated Problem(s): Anxiety Increase dose on buspar to 7.5mg twice a day, and discontinue the 5mg buspirone script Cont paxil at 40mg Fu in 8 weeks Associated Problem(s): Class 1 obesity due to excess calories without serious comorbidity in adult Discussed with patient their BMI (actual, verses recommended). We have also discussed lifestyle modifications: attempts to perform physical activity as chronic conditions allow, also to monitor dietary intake: increasing protein/fruits/veggies and lowering carb intake (unless contraindicated). Limit sodas, juices, and sugary drinks. Associated Problem(s): Localized primary osteoarthritis of left wrist At last appt added meloxicam, continue this documented in this encounter [facility] 10-13-2024 Instructions Carrie Todd NP - 10/13/2024 9:00 AM EDT Gabapentin: you can try a twice a day dose, take out the mid day dose, and see if symptoms are still controlled. Change buspirone 7.5mg twice a day, no longer use the buspirone 5mg script Ask insurance company if there is a cheaper option for epi pen documented in this encounter [facility] 08-24-2024 History of Presen t illness Narrative Associated Problem(s): Anxiety Feels like still with anxiety Cont paxil Add buspar 5mg TID prn Fu in 6weeks Associated Problem(s): Localized primary osteoarthritis of left wrist Stop andriy, trial melxicam Cont splint Fu in 6 weeks for recheck Anxiety Left wrist-arthritis pain pt wears brace during the day and off at night Images from the original note were not included. Caridad Reyes is a 53 y.o. female presents with chief complaint of Arthritis HPI: Would like to consider addition to paxil for anxiety, still with increases in anxiety, no SI/HI/hallucinations Wrist Pain The pain is present in the left wrist. This is a chronic problem. The current episode started 1 to 4 weeks ago. There has been no history of extremity trauma. The problem occurs constantly. The problem has been gradually improving. The quality of the pain is described as aching and sharp. The pain is moderate. Associated symptoms include joint swelling, a limited range of motion and numbness (occ). Pertinent negatives include no fever. The symptoms are aggravated by activity. She has tried NSAIDS for the symptoms. The treatment provided mild relief. Her past medical history is significant for osteoarthritis. SUBJECTIVE: MEDICATIONS: Current Outpatient Medications Medication Instructions cyclobenzaprine (FLEXERIL) 10 mg, Oral, 2 times daily PRN EPINEPHrine (Epipen) 0.3 MG/0.3ML injection syringe Inject as directed. Inject into upper leg. Call 911 after use. etodolac (LODINE) 300 mg, Every 8 hours PRN fluticasone (Flonase) 50 MCG/ACT nasal spray 2 [...] Skin: Negative for rash and wound. Neurological: Positive for numbness (occ). Negative for dizziness, tremors, seizures, syncope and headaches. Psychiatric/Behavioral: Negative for behavioral problems, self-injury and suicidal ideas. The patient is nervous/anxious. Hematological: Does not bruise/bleed easily. Endocrine: Negative for polydipsia, polyphagia and polyuria. Allergic/Immunologic: Negative for environmental allergies and food allergies. PAST MEDICAL HISTORY Past Medical History: Diagnosis Date Alcoholism ([facility]) 07/09/2023 Allergic ? Anxiety Asymptomatic microscopic hematuria 07/09/2023 Depression (CMS/HCC) ? Hypertension (CMS/HCC) ? Insomnia Muscle spasm 07/09/2023 Neuropathy Rhabdomyolysis 07/09/2023 Seasonal allergies Substance abuse (CMS/[facility]) ? Tobacco user Vision impairment No past surgical history on file. family history includes Alcohol abuse in her brother and brother; Cancer in her maternal grandmother; Hypertension in her maternal grandmother and mother. OBJECTIVE: Visit Vitals BP 122/86 (BP Location: Left arm, Patient Position: Sitting, BP Cuff Size: Adult long) Pulse 89 Temp 99 F (Temporal) Resp 18 Wt 176 lb 12.8 oz SpO2 99% BMI 31.82 kg/m Smoking Status Every Day BSA 1.88 m Physical Exam Vitals and nursing note reviewed. Constitutional: General: She is not in acute distress. Appearance: Normal appearance. HENT: Head: Normocephalic and atraumatic. Right Ear: External ear normal. Left Ear: External ear normal. Nose: Nose normal. Mouth/Throat: Mouth: Mucous membranes are moist. Eyes: Extraocular Movements: Extraocular movements intact. Conjunctiva/sclera: Conjunctivae normal. Cardiovascular: Rate and Rhythm: Normal rate and regular rhythm. Pulses: Normal pulses. Heart sounds: Normal heart sounds. Pulmonary: Effort: Pulmonary effort is normal. Breath sounds: Normal breath sounds. Abdominal: General: Bowel sounds are normal. There is no distension. Palpations: Abdomen is soft. There is no mass. Tenderness: There is no abdominal tenderness. Musculoskeletal: Cervical back: Normal range of motion and neck supple. Comments: Tenderness to radial aspect of left wrist +radial/ulnar -tinel, neg liya, neg phalens No acute pain with resisted supination/pronation Skin: General: Skin is warm and dry. [...] Problem List Items Addressed This Visit Anxiety Feels like still with anxiety Cont paxil Add buspar 5mg TID prn Fu in 6weeks Relevant Medications busPIRone (Buspar) 5 MG tablet Class 1 obesity due to excess calories without serious comorbidity in adult Discussed with patient their BMI (actual, verses recommended). We have also discussed lifestyle modifications: attempts to perform physical activity as chronic conditions allow, also to monitor dietary intake: increasing protein/fruits/veggies and lowering carb intake (unless contraindicated). Limit sodas, juices, and sugary drinks. Cigarette nicotine dependence without complication - Primary The patient has been advised of the risks of continued smoking: stroke, MD, all forms of cancer, lung disease, and . Options for quitting smoking include: cold turkey, hypnosis, acupuncture, nicotine replacement meds (gum, lozenges, and patches), Buproprion, and Varenicline. At this time pt is encouraged to evaluate their goals for wanting to quit smoking, and reach out to provider when ready to start this process Localized primary osteoarthritis of left wrist Stop lodine, trial melxicam Cont splint Fu in 6 weeks for recheck Relevant Medications meloxicam (Mobic) 15 MG tablet Associated Problem(s): Class 1 obesity due to excess calories without serious comorbidity in adult Discussed with patient their BMI (actual, verses recommended). We have also discussed lifestyle modifications: attempts to perform physical activity as chronic conditions allow, also to monitor dietary intake: increasing protein/fruits/veggies and lowering carb intake (unless contraindicated). Limit sodas, juices, and sugary drinks. Associated Problem(s): Cigarette nicotine dependence without complication The patient has been advised of the risks of continued smoking: stroke, MD, all forms of cancer, lung disease, and . Options for quitting smoking include: cold turkey, hypnosis, acupuncture, nicotine replacement meds (gum, lozenges, and patches), Buproprion, and Varenicline. At this time pt is encouraged to evaluate their goals for wanting to quit smoking, and reach out to provider when ready to start this process documented in this encounter [facility] 08-24-2024 Instructions Carrie Todd NP - 08/24/2024 1:40 PM EDT Wrist: stop lodine, will trial meloxicam 15mg daily, if additional pain meds needed take tylenol Anxiety: paxil at 40mg daily, buspar 5mg every 8 hours as needed documented in this encounter [facility] 06-02-2024 History of Presen t illness Narrative Associated Problem(s): Seasonal allergies Restart her flonase and allergy pill Associated Problem(s): Alcohol dependence, in remission ([facility]) It will be 3 years 09/24/24 Doing [...] HISTORY Past Medical History: Diagnosis Date Alcoholism ([facility]) 07/09/2023 Allergic ? Anxiety Asymptomatic microscopic hematuria 07/09/2023 Depression ([facility]) ? Hypertension ([facility]) ? Insomnia Muscle spasm 07/09/2023 Neuropathy Rhabdomyolysis 07/09/2023 Seasonal allergies Substance abuse ([facility]) ? Tobacco user Vision impairment History reviewed. [...] Relevant Orders TSH T4, free HTN (hypertension) ([facility]) Please check blood pressure daily and record [...] of the risks of continued smoking: stroke, MD, all forms of cancer, lung disease, and [...] of the risks of continued smoking: stroke, MD, all forms of cancer, lung disease, and [...] past, will recheck Associated Problem(s): HTN (hypertension) (CMS/HCC) Please check blood pressure daily and record DASH diet Limit caffeine Take medication as directed Contact office if chest pain, pressure, dizziness, shortness of breath, swelling legs Recommend slow position changes Current med: lisinopril Associated Problem(s): Neuropathy Currently takes gabapentin for this OARRS reviewed as well Associated Problem(s): Insomnia No longer requires trazodone for sleep purposes documented in this encounter [facility] 06-02-2024 Instructions Carrie Todd NP - 06/02/2024 9:40 AM EST Your labs are still due, order given Mammogram needed in July 2024, we will send order to [facility], phone number to schedule: [phone], ext [phone] Pre diabetes: no meds at this time, I would like you to work on diet changes: decrease carbohydrates (bread, pasta, potatoes), cut back on sugary drinks and foods, more exercise 30 minutes daily (most days of the week) stationary bike, walking, swimming Recommend weight loss as well documented in this encounter [facility] 01-29-2023 Evaluation note Encounter Date [...] days Jan, Sore throat (ICD-10 - J02.9) [facility] Other 01-25-2023 NoteOPERATIVE NOTE OPERATION DATE: 06/12/2022 [...] be in 10 years. CC: Carrie Todd, [facility]12-28-2022 NoteChief Complaint consultation for screening colonoscopy HPI [...] Recorded SARS-CoV-2 (COVID-19) mRNA BNT-162b2 vax 09/08/2020 [facility]edW[facility] HospitalComment on above:Result Comment: Electronically Signed By: JEANETTE ECHAVARRIA, Ede Leblanc\Date and Time Signed: 05/15/22 15:00 [id number] Evaluation note * Encounter Date Diagnosis Assessment [...] Patient care instructions given in writting by [facility] Home document [facility] Other Evaluation + Plan note No data available for this section [facility] [place] Evaluation note* Diagnosis Primary hypertension (CMS/HCC)- Primary [...] microscopic hematuria- Primary documented in this encounter [facility]* Diagnosis Primary hypertension (CMS/HCC)- Primary [...] unspecified drinking behavior History of alcoholism ([facility]) Personal history of alcoholism Anxiety- Primary Anxiety state, unspecified Alcohol dependence, in remission Insomnia, unspecified type Neuropathy Mononeuritis of unspecified [...] Other muscle spasm Pre-diabetes Other abnormal glucose Localized primary osteoarthritis of left wrist- Primary Cigarette nicotine dependence without complication Class 1 obesity due to excess calories without serious comorbidity with body mass index (BMI) of 32.0 to 32.9 in adult Anxiety Anxiety state, unspecified documented in this [...] Anxiety state, unspecified Alcohol dependence, in remission Insomnia, unspecified type Neuropathy Mononeuritis of unspecified [...] Other muscle spasm Pre-diabetes Other abnormal glucose Localized primary osteoarthritis of left wrist- Primary Cigarette nicotine dependence without complication Class 1 obesity due to excess calories without serious comorbidity with body mass index (BMI) of 32.0 to 32.9 in adult Anxiety Anxiety state, unspecified Allergy to bee sting- Primary documented in this encounter [facility]Evaluation note* Diagnosis Primary hypertension (CMS/HCC)- Primary [...] Anxiety state, unspecified Alcohol dependence, in remission Insomnia, unspecified type Neuropathy Mononeuritis of unspecified [...] Other muscle spasm Pre-diabetes Other abnormal glucose Localized primary osteoarthritis of left wrist- Primary Cigarette nicotine dependence without complication Class 1 obesity due to excess calories without serious comorbidity with body mass index (BMI) of 32.0 to 32.9 in adult Anxiety Anxiety state, unspecified Anxiety- Primary Anxiety state, unspecified Localized primary osteoarthritis of left wrist Class 1 obesity due to excess calories without serious comorbidity with body mass index (BMI) of 32.0 to 32.9 in adult Cigarette nicotine dependence without complication Neuropathy Mononeuritis of unspecified site documented in this encounter [facility] HealthcareEvaluation note* Diagnosis Primary hypertension (CMS/HCC)- Primary [...] Anxiety state, unspecified Alcohol dependence, in remission Insomnia, unspecified type Neuropathy Mononeuritis of unspecified [...] Other muscle spasm Pre-diabetes Other abnormal glucose Localized primary osteoarthritis of left wrist- Primary Cigarette nicotine dependence without complication Class 1 obesity due to excess calories without serious comorbidity with body mass index (BMI) of 32.0 to 32.9 in adult Anxiety Anxiety state, unspecified Anxiety- Primary Anxiety state, unspecified Localized primary osteoarthritis of left wrist Class 1 obesity due to excess calories without serious comorbidity with body mass index (BMI) of 32.0 to 32.9 in adult Cigarette nicotine dependence without complication Neuropathy Mononeuritis of unspecified site Allergy to bee sting- Primary documented in this encounter [facility] HealthcareEvaluation note* Diagnosis Primary hypertension (CMS/HCC)- Primary [...] Anxiety state, unspecified Alcohol dependence, in remission Insomnia, unspecified type Neuropathy Mononeuritis of unspecified [...] Other muscle spasm Pre-diabetes Other abnormal glucose Localized primary osteoarthritis of left wrist- Primary Cigarette nicotine dependence without complication Class 1 obesity due to excess calories without serious comorbidity with body mass index (BMI) of 32.0 to 32.9 in adult Anxiety Anxiety state, unspecified Anxiety- Primary Anxiety state, unspecified Localized primary osteoarthritis of left wrist Class 1 obesity due to excess calories without serious comorbidity with body mass index (BMI) of 32.0 to 32.9 in adult Cigarette nicotine dependence without complication Neuropathy Mononeuritis of unspecified site Allergy to bee sting documented in this encounter [facility] HealthcareEvaluation note* Diagnosis Primary hypertension- Primary Unspecified essential hypertension Neuropathy Mononeuritis of unspecified site Anxiety Anxiety state, unspecified Encounter for screening mammogram for malignant neoplasm of breast Anxiety- Primary Anxiety state, unspecified Neuropathy Mononeuritis of unspecified site Primary hypertension Unspecified essential hypertension Tobacco user Tobacco use disorder Obesity (BMI 30.0-34.9) Seasonal allergies Allergic rhinitis, cause unspecified Essential (primary) hypertension Unspecified essential hypertension Insomnia, unspecified type Well woman exam with routine gynecological exam- Primary Routine gynecological examination Primary hypertension Unspecified essential hypertension Asymptomatic microscopic hematuria Tobacco user Tobacco use disorder Anxiety Anxiety state, unspecified Elevated glucose Other abnormal glucose Obesity (BMI 30.0-34.9) Primary hypertension- Primary Unspecified essential hypertension Other muscle spasm Insomnia, unspecified type Neuropathy Mononeuritis of unspecified site BMI 29.0-29.9,adult Tobacco user Tobacco use disorder Anxiety Anxiety state, unspecified Alcoholism (HCC) Other and unspecified alcohol dependence, unspecified drinking behavior History of alcoholism ([facility]) Personal history of alcoholism Anxiety- Primary Anxiety state, unspecified Alcohol dependence, in remission ([facility]) Insomnia, unspecified type Neuropathy Mononeuritis of unspecified site Primary hypertension Unspecified essential hypertension Asymptomatic microscopic hematuria Elevated glucose Other abnormal glucose Cigarette nicotine dependence without complication Tobacco user Tobacco use disorder Muscle spasm Spasm of muscle Encounter for screening mammogram for malignant neoplasm of breast Obesity (BMI 30.0-34.9) Class 1 obesity due to excess calories without serious comorbidity with body mass index (BMI) of 32.0 to 32.9 in adult Essential (primary) hypertension Unspecified essential hypertension Seasonal allergies Allergic rhinitis, cause unspecified Other muscle spasm Pre-diabetes Other abnormal glucose Localized primary osteoarthritis of left wrist- Primary Cigarette nicotine dependence without complication Class 1 obesity due to excess calories without serious comorbidity with body mass index (BMI) of 32.0 to 32.9 in adult Anxiety Anxiety state, unspecified Anxiety- Primary Anxiety state, unspecified Localized primary osteoarthritis of left wrist Class 1 obesity due to excess calories without serious comorbidity with body mass index (BMI) of 32.0 to 32.9 in adult Cigarette nicotine dependence without complication Neuropathy Mononeuritis of unspecified site Anxiety- Primary Anxiety state, unspecified Class 1 [...] Unspecified essential hypertension documented in this encounter [facility] - Reported* Type Description Date Medical History Unspecified essential hypertensi on [facility] Other History general Narrative - Reported* Type Description Date Medical History HTN (hypertension) Medical History Anxiety Medical History Insomnia Medical History Drug addiction Medical History Seasonal allergic rhinitis [facility] Other Hospital Discharge instructions No data available for this section General Surgery [place] [facility] note No data available for this [...] section and content) DATE CREATED AUTHOR 07/27/2018 [facility] DATE CREATED AUTHOR AUTHOR'S ORGANIZ ATION 10/06/2018 [facility] DATE CREATED AUTHOR AUTHOR'S ORGANIZ ATION 01/08/2020 [facility] DATE CREATED AUTHOR AUTHOR'S ORGANIZ ATION 10/24/2021 [facility] DATE CREATED AUTHOR AUTHOR'S ORGANIZ ATION 08/20/2022 [facility] DATE CREATED AUTHOR AUTHOR'S ORGANIZ ATION 10/25/2022 [facility] DATE CREATED AUTHOR AUTHOR'S ORGANIZ ATION 10/16/2024 [facility] EPIC REASON FOR VISIT (unrecogniz ed section and content) Reason Comments Med Refill Reason Comments Hypertension Reason Comments Arthritis Reason Onset Date Comments Med Refill 09/13/2024 Reason Comments Osteoarthritis Left wrist Reason Comments Med Change Request Reason Comments Anxiety Patient Care team informatio n (unrecognized section and content) Support Coordinator Relationship Specialty Start Date End Date Son Vasquez MD [address] [place] [phone] PCP - General Family Medicine 07/09/23 Carrie Todd NP [address] [place] [address] [place] [phone] Nurse Practitioner Family Medicine 05/19/22 Carrie Todd NP [address] [place] [address] [place] [phone] Nurse Practitioner Family Medicine 07/09/23 Support Coordinator Relationship Specialty Start Date End Date Son Vasquez MD [address] [place] [phone] PCP - General Family Medicine 07/09/23 Carrie Todd NP [address] [place] [address] [place] [phone] Nurse Practitioner Family Medicine 05/19/22 Carrie Todd NP [address] [place] [phone] Nurse Practitioner Family Medicine 07/09/23 Support Coordinator Relationship Specialty Start Date End Date Son Vasquez MD [address] [place] [phone] PCP - General Family Medicine 07/09/23 Carrie Todd NP [address] [place] [phone] Nurse Practitioner Family Medicine 05/19/22 Carrie Todd NP [address] [place] [address] [place] [address] Nurse Practitioner Family Medicine 07/09/23 Support Coordinator Relationship Specialty Start Date End Date Son Vasquez MD [address] [place] [phone] PCP - General Family Medicine 07/09/23 Carrie Todd NP [address] [place] [address] Nurse Practitioner Family Medicine 05/19/22 Carrie Todd NP [address] [place] [address] [place] [phone] Nurse Practitioner Family Medicine 07/09/23 Support Coordinator Relationship Specialty Start Date End Date Son Vasquez MD [address] [place] [phone] PCP - General Family Medicine 07/09/23 Carrie Todd NP [address] [place] [phone] Nurse Practitioner Family Medicine 05/19/22 Carrie Todd NP [address] [place] [phone] Nurse Practitioner Family Medicine 07/09/23 Support Coordinator Relationship Specialty Start Date End Date Son Vasquez MD [address] [place] [phone] PCP - General Family Medicine 07/09/23 Carrie Todd NP [address] [place] [phone] Nurse Practitioner Family Medicine 05/19/22 Carrie Todd NP [address] [place] [address] [place] [phone] Nurse Practitioner Family Medicine 07/09/23 Support Coordinator Relationship Specialty Start Date End Date Son Vasquez MD [address] [place] [address] PCP - General Family Medicine 07/09/23 Carrie Todd NP [address] [place] [address] [place] [address] Nurse Practitioner Family Medicine 05/19/22 Carrie Todd NP [address] [place] [address] [place] [phone] Nurse Practitioner Family Medicine 07/09/23 Support Coordinator Relationship Specialty Start Date End Date Son Vasquez MD [address] [place] [phone] PCP - General Family Medicine 07/09/23 Carrie Todd NP [address] [place] [address] Nurse Practitioner Family Medicine 05/19/22 Carrie Todd NP [address] [place] [address] [place] [address] Nurse Practitioner Family Medicine 07/09/23 Support Coordinator Relationship Specialty Start Date End Date Son Vasquez MD [address] [place] [phone] PCP - General Family Medicine 07/09/23 Carrie Todd NP [address] [place] [address] Nurse Practitioner Family Medicine 05/19/22 Carrie Todd NP [address] [place] [address] [place] [address] Nurse Practitioner Family Medicine 07/09/23 Support Coordinator Relationship Specialty Start Date End Date Son Vasquez MD [address] [place] [phone] PCP - General Family Medicine 07/09/23 Carrie Todd NP [address] [place] [address] [place] [address] Nurse Practitioner Family Medicine 05/19/22 Carrie Todd NP [address] [place] [address] [place] [address] Nurse Practitioner Family Medicine 07/09/23 Support Coordinator Relationship Specialty Start Date End Date Son Vasquez MD [address] [place] [address] PCP - General Family Medicine 07/09/23 Carrie Todd NP [address] [place] [address] Nurse Practitioner Family Medicine 05/19/22 Carrie Todd NP [address] [place] [address] Nurse Practitioner Family Medicine 07/09/23 Support Coordinator Relationship Specialty Start Date End Date Son Vasquez MD [address] [place] [phone] PCP - General Family Medicine 07/09/23 Carrie Todd NP [address] [place] [address] Nurse Practitioner Family Medicine 05/19/22 Carrie Todd NP [address] [place] [address] [place] [address] Nurse Practitioner Family Medicine 07/09/23 Support Coordinator Relationship Specialty Start Date End Date Son Vasquez MD [address] [place] [phone] PCP - General Family Medicine 07/09/23 Carrie Todd NP [address] [place] [phone] Nurse Practitioner Family Medicine 05/19/22 Carrie Todd NP [address] [place] [address] [place] [address] Nurse Practitioner Family Medicine 07/09/23 Support Coordinator Relationship Specialty Start Date End Date Son Vasquez MD [address] [place] [address] PCP - General Family Medicine 07/09/23 Carrie Todd NP [address] [place] [address] [place] [address] Nurse Practitioner Family Medicine 05/19/22 Carrie Todd NP [address] [place] [address] Nurse Practitioner Family Medicine 07/09/23 Support Coordinator Relationship Specialty Start Date End Date Son Vasquez MD [address] [place] [phone] PCP - General Family Medicine 07/09/23 Carrie Todd NP [address] [place] [phone] Nurse Practitioner Family Medicine 05/19/22 Carrie Todd NP [address] [place] [phone] Nurse Practitioner Family Medicine 07/09/23 FOR RECORDS [...] BE BASED ON THE PRIMARY CLINICAL RECORDS. [facility]. provides no warranty or guarantee of the accuracy or completeness of information in this document.
[2024-12-13 10:38] LABS: Glucose Urine UA NEGATIVE (NEGATIVE)
[2024-12-13 11:14] LABS: Cast Seen? NONE SEEN #/LPF (NONE SEEN); Crystals Seen? None Seen #/HPF (None Seen); Urine Culture Indicated ALREADY ORDERED
== END 2024-12-13 10:14 | disposition home or self-care (01) ==
PROVIDERS: PCP Nurse Practitioner; Visit Provider Nurse Practitioner
DX: R31.21 Asymptomatic microscopic hematuria (principal)
CPT/HCPCS: 81001; 87086